=== PATIENT | female | born 1955 | race Caucasian/White ===

== ENCOUNTER → 2018-03-17 12:54 | Outpatient (CLI) | payer MEDICARE, SELFPAY | PROVIDERS: Family Provider Student in an Organized Health Care Education/Training Program; PCP Student in an Organized Health Care Education/Training Program; Referring Provider Internal Medicine Cardiovascular Disease; Visit Provider Internal Medicine Cardiovascular Disease | DX: I25.10 Atherosclerotic heart disease of native coronary artery without angina pectoris (principal); I10 Essential (primary) hypertension | CPT/HCPCS: 36415 ==

== ENCOUNTER → 2018-04-06 12:23 | Outpatient (CLI) | payer MEDICARE, SELFPAY ==
--- OUTSIDE RECORDS SUMMARY | 2018-06-08 16:05 | XMS RPT_ITS ---
:1955 Author Organization OHIP Care Team Providers Name Role Phone ZANDER OSBORN Attending Unavailable OSBORN, ZANDER Julianne Referring Unavailable OSBORN, ZANDER L Referring Unavailable OSBORN, ZANDER L Attending Unavailable OSBORN, ZANDER L Referring Unavailable OSBORN, ZANDER L Referring Unavailable OSBORN, ZANDER L Referring Unavailable OSBORN, ZANDER L Referring Unavailable OSBORN, ZANDER L Referring Unavailable OSBORN, ZADNER L Referring Unavailable OSBORN, ZANDER L Attending Unavailable OSBORN, ZANDER L Referring Unavailable OSBORN, ZANDER L Attending Unavailable OSBORN, ZANDER L Referring Unavailable OSBORN, ZANDER L Referring Unavailable OSBORN, ZANDER L Referring Unavailable YRN SEGOVIA Attending Unavailable YRN SEGOVIA Referring Unavailable YINA CALVILLO ([facility]) Attending Unavailable ZANDER OSBORN Referring Unavailable FRANCOISE PAULSON MD Admitting Unavailable FRANCOISE PAULSON MD Attending Unavailable OSBORN, ZANDER DO Referring Unavailable FRANCOISE PAULSON MD Primary Care Unavailable OSBORN, ZANDER DO Consulting Unavailable PROVIDER, UNKNOWN Consulting Unavailable DR GABRIEL LACY Admitting Unavailable BAMBI, DR GABRIEL Marin Attending Unavailable DR GABRIEL LACY Primary Care Unavailable OSBORN, ZANDER DO Consulting Unavailable PROVIDER, UNKNOWN Consulting Unavailable Yrn Segovia Attending Unavailable Yrn Segovia Referring Unavailable Osborn, Zander Primary Care Unavailable Yrn Segovia Attending Unavailable EstebanYrn Referring Unavailable Osborn, Zander Primary Care Unavailable Osborn, Zander Primary Care Unavailable Ashelfah, Ghasem Admitting Unavailable Ashelfah, Ghasem Referring Unavailable Sahil Ford Attending Unavailable Ashelfah, Ghasem Admitting Unavailable MARIA ESTHER Stringer Attending Unavailable Ashelfah, Ghasem Referring Unavailable Osborn, Zander Primary Care Unavailable Ashelfah, Ghasem Consulting Unavailable Ashelfah, Ghasem Admitting Unavailable Sahil Ford Attending Unavailable Ashelfah, Ghasem Referring Unavailable Osborn, Zander Primary Care Unavailable Sahil Ford Consulting Unavailable PROBLEMS PROBLEMS DATE TYPE CONDITION / CODE ATTENDING STATUS SOURCE 04/08/2018 Unknown I25.10 - Yrn Segovia Active [place] Atherosclerotic heart [facility] disease [facility] coronary artery Repository without angina pectoris / I25.10(ICD-10) 04/08/2018 Unknown I10 - Essential Yrn Segovia Active [place] (primary) Community hypertension / Hospital I10(ICD-10) Repository 03/17/2018 Active Atherosclerotic heart NA Active [place] disease of [facility] Main coronary artery [place] without angina Repository pectoris / I25.10(ICD-10) 01/19/2018 Active Palpitations / NA Active [place] R00.2(ICD-10) Clinic Main [place] Repository 01/19/2018 Active Nonrheumatic aortic NA Active [place] (valve) stenosis / Clinic Main I35.0(ICD-10) [place] Repository 01/13/2018 Active Type 2 diabetes NA Active [place] mellitus with Clinic Main hyperglycemia / [place] E11.65(ICD-10) Repository 06/08/2013 Active Tobacco use / NA Active [place] Z72.0(ICD-10) Clinic Main [place] Repository 09/15/2017 Active Other specified soft NA Active [place] tissue disorders / Clinic Main M79.89(ICD-10) [place] Repository 09/15/2017 Active Other skin changes / NA Active [place] R23.8(ICD-10) Clinic Main [place] Repository 06/08/2013 Active Pure NA Active [place] hypercholesterolemia, Clinic Main unspecified / [place] E78.00(ICD-10) Repository 07/13/2017 Active Cough / R05(ICD-10) NA Active [facility] Main [place] Repository 07/29/2016 Active Vitamin D deficiency, NA Active [place] unspecified / Clinic Main E55.9(ICD-10) [place] Repository 09/05/2015 Active Essential (primary) NA Active [place] hypertension / Clinic Main I10(ICD-10) [place] Repository 04/14/2017 Active 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 Clinic Main therapy / [place] Z79.899(ICD-10) Repository 04/14/2017 Active Type 2 diabetes NA Active [place] mellitus with Clinic Main hyperosmolarity [place] without nonketotic Repository hyperglycemic-hyperos molar coma ([facility]) / E11.00(ICD-10) PROCEDURES PROCEDURES No Procedure Records FoundRESULTS RESULTS CNOV Observed: 04/09/2018 Status: COMPLETED Source: [place] 11:00 AM [facility] REPOSITORY Office Visit (FAMPWS) JOSETTE NELSON ([id number]) 1955 F TXT Date Time Provider Department 04/09/18 11:00 AM YINA CALVILLO ([facility]) FAMPWS During your visit today, we recorded the following information about you: Pulse Respiration Blood pressure Weight 72/minute 16/minute 138/82 81.6 kg Yina Calvillo APRN.CNP 04/09/2018 10:33 AM Signed HPI/CC: Josette Julianne Rayr is a 62 year old female who presents to the office today for [facility] hospital follow-up for atypical CP 04/06-1/23. Presented to ER for CP x 4 days. Pain radiated to left shoulder. + Hx of CAD with stent 2017, HLP, HTN, GERD and COPD. CXr was negative, enzymes negative, ECG SR, CBC and CMP normal. Stress test normal. Follows with Dr. House. BP was elevated on DC. Provider thought d/t coreg being on hold for stress test. Currently continues to have pain to left trap, + non-productive cough, increased GERD symptoms Denies SOB, fevers, chills, new edema, palpitations. Blood glucose levels higher in hospital, today 131. Not checking BP at home. REVIEW OF SYSTEMS as above HISTORIES: PAST MEDICAL HISTORY Diagnosis Date - ASCUS of cervix with negative high risk HPV 12/2015 REPEAT PAP DEC 2016 - Cholelithiasis 05/2013 - COPD (chronic obstructive pulmonary disease) (HCC) 05/2013 - Diabetes mellitus type 2, uncontrolled (HCC) 05/2013 - Elevated LFTs 04/2013 - Fatty liver 05/2013 - Hypercholesteremia 04/2013 - Migraine headache - Mild aortic regurgitation 08/2015 - Tobacco abuse PAST SURGICAL HISTORY Procedure Laterality Date - APPENDECTOMY remote - COLONOSCOP W/ OR W/O BRSH SPEC 09/13/15 Colonoscopy mac - EGD W/O OR W/BRUSH/WASH 09/13/15 EGD mac - EGD W/O OR W/BRUSH/WASH 01/30/16 EGD mac - LAP VAG HYST <=250 G RMV T/O 09/09/13 LAVH/BSO for AIS and ZEN III of cervix - TUBAL LIGATION, age 22 FAMILY HISTORY Problem Relation Age of Onset - other (pancreatic cancer [Other]) Mother - Heart Father 62 smoker - Stroke Father 45 smoker - other (chf [Other]) Mother - Diabetes Mother Social History Marital status: Spouse name: Years of education: Number of children: 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 buPROPion (WELLBUTRIN) 100 mg tablet TAKE 1 TABLET BY MOUTH IN THE MORNING AND 2 TABLETS IN THE EVENING OR BEDTIME carvedilol (COREG) 3.125 mg tablet Take 1 tablet by mouth twice daily with meals. metFORMIN (GLUCOPHAGE) 500 mg tablet TAKE TWO TABLETS BY MOUTH TWICE DAILY WITH MEALS atorvastatin (LIPITOR) 40 mg tablet Take 1 tablet by mouth once daily. lisinopril (ZESTRIL, PRINIVIL) 10 mg tablet Take 1 tablet by mouth once daily. clopidogrel (PLAVIX) 75 mg tablet Take 1 tablet by mouth once daily. TRULICITY 0.75 mg/0.5 mL pnij INJECT 0.75 MG SUBCUTANEOUSLY ONCE EACH WEEK. DISCARD PEN AFTER budesonide-formoterol (SYMBICORT) 80-4.5 mcg/actuation inhaler Inhale 2 Puffs as instructed twice daily. blood sugar diagnostic (PRODIGY NO CODING) test strip Test blood sugars 3 x daily. DX: E11.9 Insulin: No, Unstable blood glucose docusate sodium (DOC-Q-LACE) 100 mg capsule TAKE ONE CAPSULE BY MOUTH TWICE DAILY NEEDED FOR CONSTIPATION. ergocalciferol, vitamin D2, (VITAMIN D) 50,000 unit capsule Take 1 capsule by mouth once each week. methylPREDNISolone (MEDROL DOSE-PACK) 4 mg Dose-Pack As Instructed per package (Patient not taking: Reported on 03/02/2018 ) albuterol HFA (VENTOLIN HFA) 90 mcg/actuation inhaler Inhale 2 Puffs as instructed every 4 hours as needed for Wheezing/Shortness of Breath. nitroglycerin sublingual (NITROQUICK) 0.4 mg SL tablet Dissolve 1 tablet under the tongue every 5 minutes as needed for Chest Pain. nicotine (NICODERM CQ) 7 mg/24 hr Apply 1 Patch as directed every 24 hours. ibuprofen (MOTRIN) 800 mg tablet Take 1 tablet by mouth every 8 hours as needed for Pain. Take with food. Lancets lancets Test blood sugar(s) 3 times daily. Dx: DM2 uncontrolled. Insulin: No aspirin, enteric coated (ADULT LOW DOSE ASPIRIN) 81 mg EC tablet Take 1 tablet by mouth once daily. Heating Pads pads 1 Device as needed. No current facility-administered medications on file prior to visit. ALLERGIES Allergen Reactions - Chocolate Vomiting Dark chocolate - Lodine [Etodolac] Swelling PHYSICAL EXAMINATION: BP 138/82 Pulse 72 Resp 16 Wt 81.6 kg (180 lb) BMI 32.92 kg/m? General appearance: Well appearing, alert, in no acute distress, well-hydrated, well nourished. Skin: Skin color, texture, turgor normal, no suspicious rashes or lesions Head: Normocephalic, no masses, lesions, tenderness or abnormalities Back: positive findings: paraspinal muscle spasm Lungs: Lungs clear to auscultation. No wheezing, rhonchi, rales Heart: RRR without murmur, gallop, or rubs. No ectopy ASSESSMENT/PLAN: 1. Upper back pain - ICD9: 724.5, ICD10: M54.9 (primary diagnosis) 2. Muscle spasm - ICD9: 728.85, ICD10: M62.838 - CYCLOBENZAPRINE 10 MG TABLET - f/u PRN Yina Calvillo APRN.TRADING FLOOR OPERATOR Referring Provider: ZANDER OSBORN [[id number]] Allergies As of Date: 04/09/2018 Noted Allergy Reaction CHOCOLATE 05/23/2013 11 - Vomiting Comments: Dark chocolate LODINE (ETODOLAC) 05/23/2013 7 - Swelling Date Reviewed: 04/09/2018 Reviewed by: Keith Jacques LPN - Fully Assessed Reason for Visit: Hospital F/U [57] Cmt: LAST petty'vanesa 04/06-04/07 dx: chest pain Primary Visit Diagnosis:Upper back pain [M54.9] Other Visit Diagnosis:Muscle spasm [M62.838] Order(s):cyclobenzaprine (FLEXERIL) 10 mg tabletTake 1 tablet by mouth twice daily as needed for Muscle Spasm.Disp: 60 tabletRfl: 0 Prescriptions as of 04/09/2018 Sig: NEXIUM 40 MG CAPSULE,DELAYED * Take 1 capsule by mouth twice* BUPROPION HCL 100 MG TABLET TAKE 1 TABLET BY MOUTH IN THE* CARVEDILOL 3.125 MG TABLET Take 1 tablet by mouth twice * METFORMIN 500 MG TABLET TAKE TWO TABLETS BY MOUTH TWI* ATORVASTATIN 40 MG TABLET Take 1 tablet by mouth once d* LISINOPRIL 10 MG TABLET Take 1 tablet by mouth once d* CLOPIDOGREL 75 MG TABLET Take 1 tablet by mouth once d* TRULICITY 0.75 MG/0.5 ML SUBC* INJECT 0.75 MG SUBCUTANEOUSLY* BUDESONIDE-FORMOTEROL HFA 80 * Inhale 2 Puffs as instructed * BLOOD SUGAR DIAGNOSTIC STRIPS Test blood sugars 3 x daily. * DOCUSATE SODIUM 100 MG CAPSULE TAKE ONE CAPSULE BY MOUTH TWI* ERGOCALCIFEROL (VITAMIN D2) 5* Take 1 capsule by mouth once * ALBUTEROL SULFATE HFA 90 MCG/* Inhale 2 Puffs as instructed * NITROGLYCERIN 0.4 MG SUBLINGU* Dissolve 1 tablet under the t* NICOTINE 7 MG/24 HR DAILY TRA* Apply 1 Patch as directed viry* IBUPROFEN 800 MG TABLET Take 1 tablet by mouth every * LANCETS Test blood sugar(s) 3 times d* ASPIRIN 81 MG TABLET,DELAYED * Take 1 tablet by mouth once d* HEATING PADS 1 Device as needed. CYCLOBENZAPRINE 10 MG TABLET Take 1 tablet by mouth twice * Problem List As Of Date 04/09/2018 Noted Resolved Elevated liver enzymes [R74.8] INVALID FOR* Hypercholesteremia [E78.00] INVALID FOR* Elevated fasting glucose [R73.01] INVALID FOR* Neck pain, chronic [M54.2, G89.29] INVALID FOR* Tobacco abuse [Z72.0] INVALID FOR* Obesity [E66.9] INVALID FOR* Claudication of lower extremity [I73.9] INVALID FOR* Diabetes mellitus type 2, uncontrolled [E11.65] INVALID FOR* Cholelithiases [K80.20] INVALID FOR* Adenocarcinoma in situ (AIS) of uterine cervix *INVALID FOR* Major depressive disorder, recurrent episode (H*INVALID FOR* Essential hypertension [I10] INVALID FOR* Pulmonary emphysema (HCC) [J43.9] INVALID FOR* Gastroesophageal reflux disease [K21.9] INVALID FOR*09/13/2015 Positive occult stool blood test [R19.5] INVALID FOR*09/13/2015 Family history of ischemic heart disease [Z82.4*INVALID FOR* Aortic valve sclerosis [I35.8] INVALID FOR* Irritable esophagus [K22.9] INVALID FOR*01/30/2016 COPD with chronic bronchitis (HCC) [J44.9] INVALID FOR* Episode of recurrent major depressive disorder *INVALID FOR* Tobacco use disorder [F17.200] INVALID FOR* Memory deficit [R41.3] INVALID FOR* Mixed stress and urge urinary incontinence [N39*INVALID FOR* Vitamin D deficiency [E55.9] INVALID FOR* Short-term memory loss [R41.3] INVALID FOR* Fatigue [R53.83] INVALID FOR* PND (paroxysmal nocturnal dyspnea) [R06.00] INVALID FOR* Snoring [R06.83] INVALID FOR* H/O right coronary artery stent placement [Z95.*INVALID FOR* Coronary artery disease involving shoalwater [place]*INVALID FOR* Dysuria [R30.0] INVALID FOR* Obesity, Class I, BMI 30-34.9 [E66.9] INVALID FOR* Major depression, recurrent, chronic (HCC) [F33*INVALID FOR* Bilateral leg edema [R60.0] INVALID FOR* OAB (overactive bladder) [N32.81] INVALID FOR* Urinary frequency [R35.0] INVALID FOR* Controlled type 2 diabetes mellitus without com*INVALID FOR* Aortic stenosis, mild [I35.0] INVALID FOR* Palpitations [R00.2] INVALID FOR* Mucopurulent chronic bronchitis (HCC) [J41.1] INVALID FOR* Prescriptions ordered this encounter Disp Refills Start End CYCLOBENZAPRINE 10 MG TABLET 60 t* 0 04/09/2018 Route: ORAL Sig: Take 1 tablet by mouth twice daily as needed for Muscle Spasm. Medications Discontinued During This Encounter methylPREDNISolone (MEDROL DOSE-PACK* 1 Pa* 0 07/13/2017 04/09/2018 Sig: As Instructed per package Patient not taking: Reported on 03/02/2018 Disc: Reason for discontinue is not on file. Encounter Status:Closed by YINA CALVILLO CNP on 04/09/18 PROGRESS Observed: 04/09/2018 Status: COMPLETED Source: [place] 10:11 AM [facility] REPOSITORY HNO ID: [id number] Author: Yina Whitaker (Liliam) Karli Service: (none) Author Type: Nurse Practitioner Type: Progress Notes Filed: 04/09/2018 10:33 AM Note Text: HPI/CC: Josette Nelson is a 62 year old female who presents to the office today for [facility] hospital follow-up for atypical CP 04/06-04/07. Presented to ER for CP x 4 days. Pain radiated to left shoulder. + Hx of CAD with stent 2017, HLP, HTN, GERD and COPD. CXr was negative, enzymes negative, ECG SR, CBC and CMP normal. Stress test normal. Follows with Dr. House. BP was elevated on DC. Provider thought d/t coreg being on hold for stress test. Currently continues to have pain to left trap, + non-productive cough, increased GERD symptoms Denies SOB, fevers, chills, new edema, palpitations. Blood glucose levels higher in hospital, today 131. Not checking BP at home. REVIEW OF SYSTEMS as above HISTORIES: PAST MEDICAL HISTORY Diagnosis Date - ASCUS of cervix with negative high risk HPV 12/2015 REPEAT PAP DEC 2016 - Cholelithiasis 05/2013 - COPD (chronic obstructive pulmonary disease) (HCC) 05/2013 - Diabetes mellitus type 2, uncontrolled (HCC) 05/2013 - Elevated LFTs 04/2013 - Fatty liver 05/2013 - Hypercholesteremia 04/2013 - Migraine headache - Mild aortic regurgitation 08/2015 - Tobacco abuse PAST SURGICAL HISTORY Procedure Laterality Date - APPENDECTOMY remote - COLONOSCOP W/ OR W/O BRSH SPEC 09/13/15 Colonoscopy mac - EGD W/O OR W/BRUSH/WASH 09/13/15 EGD mac - EGD W/O OR W/BRUSH/WASH 01/30/16 EGD mac - LAP VAG HYST <=250 G RMV T/O 09/09/13 LAVH/BSO for AIS and ZEN III of cervix - TUBAL LIGATION, age 22 FAMILY HISTORY Problem Relation Age of Onset - other (pancreatic cancer [Other]) Mother - Heart Father 62 smoker - Stroke Father 45 smoker - other (chf [Other]) Mother - Diabetes Mother Social History Marital status: Spouse name: Years of education: Number of children: 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 buPROPion (WELLBUTRIN) 100 mg tablet TAKE 1 TABLET BY MOUTH IN THE MORNING AND 2 TABLETS IN THE EVENING OR BEDTIME carvedilol (COREG) 3.125 mg tablet Take 1 tablet by mouth twice daily with meals. metFORMIN (GLUCOPHAGE) 500 mg tablet TAKE TWO TABLETS BY MOUTH TWICE DAILY WITH MEALS atorvastatin (LIPITOR) 40 mg tablet Take 1 tablet by mouth once daily. lisinopril (ZESTRIL, PRINIVIL) 10 mg tablet Take 1 tablet by mouth once daily. clopidogrel (PLAVIX) 75 mg tablet Take 1 tablet by mouth once daily. TRULICITY 0.75 mg/0.5 mL pnij INJECT 0.75 MG SUBCUTANEOUSLY ONCE EACH WEEK. DISCARD PEN AFTER budesonide-formoterol (SYMBICORT) 80-4.5 mcg/actuation inhaler Inhale 2 Puffs as instructed twice daily. blood sugar diagnostic (Co-Work NO CODING) test strip Test blood sugars 3 x daily. DX: E11.9 Insulin: No, Unstable blood glucose docusate sodium (DOC-Q-LACE) 100 mg capsule TAKE ONE CAPSULE BY MOUTH TWICE DAILY NEEDED FOR CONSTIPATION. ergocalciferol, vitamin D2, (VITAMIN D) 50,000 unit capsule Take 1 capsule by mouth once each week. methylPREDNISolone (MEDROL DOSE-PACK) 4 mg Dose-Pack As Instructed per package (Patient not taking: Reported on 03/02/2018 ) albuterol HFA (VENTOLIN HFA) 90 mcg/actuation inhaler Inhale 2 Puffs as instructed every 4 hours as needed for Wheezing/Shortness of Breath. nitroglycerin sublingual (NITROQUICK) 0.4 mg SL tablet Dissolve 1 tablet under the tongue every 5 minutes as needed for Chest Pain. nicotine (NICODERM CQ) 7 mg/24 hr Apply 1 Patch as directed every 24 hours. ibuprofen (MOTRIN) 800 mg tablet Take 1 tablet by mouth every 8 hours as needed for Pain. Take with food. Lancets lancets Test blood sugar(s) 3 times daily. Dx: DM2 uncontrolled. Insulin: No aspirin, enteric coated (ADULT LOW DOSE ASPIRIN) 81 mg EC tablet Take 1 tablet by mouth once daily. Heating Pads pads 1 Device as needed. No current facility-administered medications on file prior to visit. ALLERGIES Allergen Reactions - Chocolate Vomiting Dark chocolate - Lodine [Etodolac] Swelling PHYSICAL EXAMINATION: BP 138/82 Pulse 72 Resp 16 Wt 81.6 kg (180 lb) BMI 32.92 kg/m? General appearance: Well appearing, alert, in no acute distress, well-hydrated, well nourished. Skin: Skin color, texture, turgor normal, no suspicious rashes or lesions Head: Normocephalic, no masses, lesions, tenderness or abnormalities Back: positive findings: paraspinal muscle spasm Lungs: Lungs clear to auscultation. No wheezing, rhonchi, rales Heart: RRR without murmur, gallop, or rubs. No ectopy ASSESSMENT/PLAN: 1. Upper back pain - ICD9: 724.5, ICD10: M54.9 (primary diagnosis) 2. Muscle spasm - ICD9: 728.85, ICD10: M62.838 - CYCLOBENZAPRINE 10 MG TABLET - f/u PRN Yina Calvillo APRN.TRADING FLOOR OPERATOR OBSOLETFaviola Observed: 04/08/2018 Status: COMPLETED Source: [place] 12:00 AM [facility] REPOSITORY [facility] JOSETTE NELSON ([id number]) 1955 F TXT Date Time Provider Department 04/08/18 ZANDER OSBORN [facility] During your visit today, we recorded the following information about you: Tamela Roque Psr 04/08/2018 10:54 AM Signed Patient has been identified by name and date of : Yes Pending Prescriptions Disp Refills ESOMEPRAZOLE MAGNESIUM 40 MG CAPSULE,DELAYED RELEASE 0 Sig: Take 1 capsule by mouth twice daily before meals. HOLDEN: No BUPROPION HCL 100 MG TABLET 270 tablet 1 Sig: TAKE 1 TABLET BY MOUTH IN THE MORNING AND 2 TABLETS IN THE EVENING OR BEDTIME HOLDEN: No CARVEDILOL 3.125 MG TABLET 180 tablet 0 Sig: Take 1 tablet by mouth twice daily with meals. HOLDEN: No METFORMIN 500 MG TABLET 360 tablet 1 Sig: TAKE TWO TABLETS BY MOUTH TWICE DAILY WITH MEALS HOLDEN: No ATORVASTATIN 40 MG TABLET tablet Sig: Take 1 tablet by mouth once daily. HOLDEN: No Patient stated that she can only get the brand name of the Nexium. Patient is completely out of the Nexium RX INSTRUCTIONS: Patient is requesting to get her refills for 90 days at a time. The scripts for the Bupropion, Carvedilol and Metformin were sent to the wrong pharmacy. Patient uses the [facility] in [place] and this has been updated in her chart. Patient aware RX will be sent to pharmacy. No need to notify patient. Thank you, Tamela Nevarez Psr Allergies As of Date: 04/08/2018 Noted Allergy Reaction CHOCOLATE 05/23/2013 11 - Vomiting Comments: Dark chocolate LODINE (ETODOLAC) 05/23/2013 7 - Swelling Date Reviewed: 03/02/2018 Reviewed by: Lulu King MA - Fully Assessed Reason for Visit: Refill Request [94] Visit Diagnosis:Coronary artery disease involving shoalwater coronary artery of shoalwater heart without angina pectoris [I25.10] Order(s):NEXIUM 40 mg capsuleTake 1 capsule by mouth twice daily before meals.Disp: 180 capsuleRfl: 1 buPROPion (WELLBUTRIN) 100 mg tabletTAKE 1 TABLET BY MOUTH IN THE MORNING AND 2 TABLETS IN THE EVENING OR BEDTIMEDisp: 270 tabletRfl: 1 carvedilol (COREG) 3.125 mg tabletTake 1 tablet by mouth twice daily with meals.Disp: 180 tabletRfl: 1 metFORMIN (GLUCOPHAGE) 500 mg tabletTAKE TWO TABLETS BY MOUTH TWICE DAILY WITH MEALSDisp: 360 tabletRfl: 1 atorvastatin (LIPITOR) 40 mg tabletTake 1 tablet by mouth once daily.Disp: 90 tabletRfl: 1 Prescriptions as of 04/08/2018 Sig: NEXIUM 40 MG CAPSULE,DELAYED * Take 1 capsule by mouth twice* BUPROPION HCL 100 MG TABLET TAKE 1 TABLET BY MOUTH IN THE* CARVEDILOL 3.125 MG TABLET Take 1 tablet by mouth twice * METFORMIN 500 MG TABLET TAKE TWO TABLETS BY MOUTH TWI* ATORVASTATIN 40 MG TABLET Take 1 tablet by mouth once d* LISINOPRIL 10 MG TABLET Take 1 tablet by mouth once d* CLOPIDOGREL 75 MG TABLET Take 1 tablet by mouth once d* TRULICITY 0.75 MG/0.5 ML SUBC* INJECT 0.75 MG SUBCUTANEOUSLY* BUDESONIDE-FORMOTEROL HFA 80 * Inhale 2 Puffs as instructed * BLOOD SUGAR DIAGNOSTIC STRIPS Test blood sugars 3 x daily. * DOCUSATE SODIUM 100 MG CAPSULE TAKE ONE CAPSULE BY MOUTH TWI* ERGOCALCIFEROL (VITAMIN D2) 5* Take 1 capsule by mouth once * METHYLPREDNISOLONE 4 MG TABLE* As Instructed per package Patient not taking: Reported on 03/02/2018 ALBUTEROL SULFATE HFA 90 MCG/* Inhale 2 Puffs as instructed * NITROGLYCERIN 0.4 MG SUBLINGU* Dissolve 1 tablet under the t* NICOTINE 7 MG/24 HR DAILY TRA* Apply 1 Patch as directed viry* IBUPROFEN 800 MG TABLET Take 1 tablet by mouth every * LANCETS Test blood sugar(s) 3 times d* ASPIRIN 81 MG TABLET,DELAYED * Take 1 tablet by mouth once d* HEATING PADS 1 Device as needed. Problem List As Of Date 04/08/2018 Noted Resolved Elevated liver enzymes [R74.8] INVALID FOR* Hypercholesteremia [E78.00] INVALID FOR* Elevated fasting glucose [R73.01] INVALID FOR* Neck pain, chronic [M54.2, G89.29] INVALID FOR* Tobacco abuse [Z72.0] INVALID FOR* Obesity [E66.9] INVALID FOR* Claudication of lower extremity [I73.9] INVALID FOR* Diabetes mellitus type 2, uncontrolled [E11.65] INVALID FOR* Cholelithiases [K80.20] INVALID FOR* Adenocarcinoma in situ (AIS) of uterine cervix *INVALID FOR* Major depressive disorder, recurrent episode (H*INVALID FOR* Essential hypertension [I10] INVALID FOR* Pulmonary emphysema (HCC) [J43.9] INVALID FOR* Gastroesophageal reflux disease [K21.9] INVALID FOR*09/13/2015 Positive occult stool blood test [R19.5] INVALID FOR*09/13/2015 Family history of ischemic heart disease [Z82.4*INVALID FOR* Aortic valve sclerosis [I35.8] INVALID FOR* Irritable esophagus [K22.9] INVALID FOR*01/30/2016 COPD with chronic bronchitis (HCC) [J44.9] INVALID FOR* Episode of recurrent major depressive disorder *INVALID FOR* Tobacco use disorder [F17.200] INVALID FOR* Memory deficit [R41.3] INVALID FOR* Mixed stress and urge urinary incontinence [N39*INVALID FOR* Vitamin D deficiency [E55.9] INVALID FOR* Short-term memory loss [R41.3] INVALID FOR* Fatigue [R53.83] INVALID FOR* PND (paroxysmal nocturnal dyspnea) [R06.00] INVALID FOR* Snoring [R06.83] INVALID FOR* H/O right coronary artery stent placement [Z95.*INVALID FOR* Coronary artery disease involving shoalwater machado*INVALID FOR* Dysuria [R30.0] INVALID FOR* Obesity, Class I, BMI 30-34.9 [E66.9] INVALID FOR* Major depression, recurrent, chronic (HCC) [F33*INVALID FOR* Bilateral leg edema [R60.0] INVALID FOR* OAB (overactive bladder) [N32.81] INVALID FOR* Urinary frequency [R35.0] INVALID FOR* Controlled type 2 diabetes mellitus without com*INVALID FOR* Aortic stenosis, mild [I35.0] INVALID FOR* Palpitations [R00.2] INVALID FOR* Mucopurulent chronic bronchitis (HCC) [J41.1] INVALID FOR* Prescriptions ordered this encounter Disp Refills Start End NEXIUM 40 MG CAPSULE,DELAYED RELEASE 180 * 1 04/08/2018 Route: ORAL Sig: Take 1 capsule by mouth twice daily before meals. BUPROPION HCL 100 MG TABLET 270 * 1 04/08/2018 Sig: TAKE 1 TABLET BY MOUTH IN THE MORNING AND 2 TABLETS IN THE EVENING OR BEDTIME CARVEDILOL 3.125 MG TABLET 180 * 1 04/08/2018 Route: ORAL Sig: Take 1 tablet by mouth twice daily with meals. METFORMIN 500 MG TABLET 360 * 1 04/08/2018 Sig: TAKE TWO TABLETS BY MOUTH TWICE DAILY WITH MEALS ATORVASTATIN 40 MG TABLET 90 t* 04/08/2018 Route: ORAL Sig: Take 1 tablet by mouth once daily. Medications Discontinued During This Encounter esomeprazole (NEXIUM) 40 mg capsule 60 c* 5 09/11/2017 04/08/2018 Route: ORAL Sig: Take 1 capsule by mouth twice daily before meals. Disc: Reason for discontinue is not on file. buPROPion (WELLBUTRIN) 100 mg tablet 270 * 1 03/17/2018 04/08/2018 Sig: TAKE 1 TABLET BY MOUTH IN THE MORNING AND 2 TABLETS IN THE EVENING OR BEDTIME Disc: Reason for discontinue is not on file. carvedilol (COREG) 3.125 mg tablet 180 * 0 03/17/2018 04/08/2018 Route: ORAL Sig: Take 1 tablet by mouth twice daily with meals. Disc: Reason for discontinue is not on file. metFORMIN (GLUCOPHAGE) 500 mg tablet 360 * 1 03/17/2018 04/08/2018 Sig: TAKE TWO TABLETS BY MOUTH TWICE DAILY WITH MEALS Disc: Reason for discontinue is not on file. atorvastatin (LIPITOR) 40 mg tablet 30 t* 3 12/22/2017 04/08/2018 Route: ORAL Sig: Take 1 tablet by mouth once daily. Disc: Reason for discontinue is not on file. Encounter Status:Closed by YINA CALVILLO CNP on 04/08/18 DISCHARGE SUMMARY Observed: 04/07/2018 Status: F Source: [place] 12:34 PM [facility] REPOSITORY [facility] Medical Records Department [address] [place] [address] [place] [address] Discharge Summary 04/07/18 1228 MR#: [id number] Acct: [id number] Name: OMARJOSETTE ALEXANDER Julianne Rep #: [id number] : 1955 62 From: Sahil Ford MD PCP: Zander Rosenbaum DO Status: ADM HIRAM Y Location: [place] [address] Discharge Date and Diagnosis Date of Admission: 04/06/18 Date of Discharge: 04/07/18 - Secondary Discharge Diagnosis Chronic Problems CAD (coronary artery disease) (Chronic) HLD (hyperlipidemia) (Chronic) HTN (hypertension) (Chronic) Type 2 diabetes mellitus (Chronic) GERD (gastroesophageal reflux disease) (Chronic) COPD (chronic obstructive pulmonary disease) (Chronic) Hospital Course and Treatment Imaging Results: 04/07/18 05:55 Nuclear Stress Test - Chemical [NM] AM (NON MEDS) Consults: None Operations: None Procedures: Stress test - Perfusion SPECT analysis: Review of the stress images demonstrate normal uptake of tracer noted in all areas of myocardium. The resting images similarly demonstrate normal uptake of tracer noted in all areas of the myocardium. No areas of reversibility are noted suggest ischemia. Gated SPECT analysis: The gated ejection fraction is noted to be 78%. Conclusion: Normal pharmacologic myocardial perfusion stress test. Preserved ejection fraction. Summary of Care Provided: Per HPI: The patient is a 62 year old F who presents emergency room due to chest pain. Patient states 4 days ago she developed pain on the back of her left shoulder which was initially sharp in nature and then developed into a soreness. She states today the pain wrapped around the left side of her ribs to her left chest area. She reports an intermittent shocklike pain in the left chest area which occurs approximately every 5 minutes and last only a few seconds at a time. Not associated with exertion. She denies associated shortness of breath, dizziness, lightheadedness, diaphoresis. She reports she had bronchitis a week ago which has since resolved. Patient has a history of CAD status post stent X1 November 2016 at [facility], hypertension, hyperlipidemia, type 2 diabetes mellitus, tobacco dependence, GERD, COPD. She currently follows with Dr. Segovia, [facility] cardiology. Hospital Course: 1. Chest pain rule out/CAD status post PCI to RCA in November 2016/HTN/TWX-66-dd[age]-old female who presented for chest pain that had started about 4 days ago. She states that it was in her left chest and initially started in her shoulder blade and moved around to the front. She states that for the last couple weeks she has been having a bronchitis and coughing, and her coughing picked up over the last couple of days. Troponins were negative x3 on admission, her EKG was nonischemic, and on exam palpation of her left anterior chest wall reproduced her chest pain. Nuclear stress test today was performed and was negative for any signs of ischemia. She will be discharged home on her home medications of Plavix, Lipitor, lisinopril and Coreg. Of note her blood pressure was a little elevated today into the 170s though I believe that is due to the fact that her Coreg was held prior to the stress test being performed. She will need to follow-up with her primary care doctor in 3-5 days after discharge would need to make adjustments accordingly. 2. Her other medical diagnoses were evaluated and her home medications were continued where appropriate - Physical Exam Vital Signs Temp Pulse Resp BP Pulse Ox 98.6 F 87 16 173/80 H 94 04/07/18 11:37 04/07/18 11:50 04/07/18 11:37 04/07/18 11:50 04/07/18 11:37 Oxygen Delivery Method Room Air Weight: 177 lb 14.609 oz Body Mass Index (BMI) 32.5 Finger Stick Blood Glucose 158 Intake and Output for Last 24 Hours Intake Total 720 / 720 240 / 240 Balance 720 / 720 240 / 240 Laboratory Tests Past 24 Hrs WBC 8.7 RBC 4.61 Hgb 13.0 Hct 40.8 MCV 88.5 MCH 28.2 MCHC 31.9 L RDW 14.1 RDW Differential 45.4 H WBC RBC Hgb Hct MCV MCH MCHC RDW RDW Differential Plt Count MPV Immature Gran % (Auto) Neut % (Auto) Lymph % (Auto) [place] % (Auto) Eos % (Auto) POC Glucose POC Glucose 117 H 141 H 74 Discharge Activity: Return to Normal Activity Call your doctor if you observe: Shortness of breath, Dizziness, Fainting spells, Chest pain, Increased palpitations (irregular heartbeat) Home Medications: Medications to take at Discharge Albuterol Inhaler [Ventolin Hfa] 1 - 2 puff INHALATION Q4H PRN PRN 08/26/13 Lisinopril [Zestril] 10 mg PO QHS 08/26/13 Metformin HCl [Glucophage] 1,000 mg PO BID 08/26/13 Budesonide/Formoterol 160/4.5 [Symbicort 160/4.5 Mcg Inhaler (SP)] 2 puff INHALATION BID 12/08/15 Docusate Sodium [Colace] 100 mg PO BID PRN PRN 12/08/15 Esomeprazole Mag Trihydrate [Nexium] 40 mg PO BID 12/08/15 Atorvastatin Calcium [Lipitor] 40 mg PO QHS 04/06/18 Carvedilol 1 tab PO BID 04/06/18 Clopidogrel Bisulfate [Clopidogrel] 75 mg PO DAILY 04/06/18 Dulaglutide [Trulicity] 0.75 ng PO TU 04/06/18 Ergocalciferol [Vitamin D] 50,000 unit PO TH 04/06/18 buPROPion tablets [Wellbutrin tablets] 100 mg PO BREAKFAST 04/06/18 buPROPion tablets [Wellbutrin tablets] 200 mg PO QHS 04/06/18 Primary Care Physician: Zander Osborn DO [Primary Care Provider] - Please follow up with your Primary Care Physician in: 3-5 DAYS Disposition: Home Minutes spent on discharge:: 35 Patient Condition:: Good Medical Necessity - Tobacco Use Smoking Status: Current every day smoker Tobacco Use: Cigarettes Meaningful Use Info Meaningful Use Diagnoses (Choose all that apply): None applicable Code Visit OBSDamaris MOORE M: [id number] Observation care discharge 04/07/18 1234 <Electronically signed by Sahil Ford MD> Date Sahil Ford MD Cosigner Signature (if applicable): Date CC: Zander Rosenbaum DO; Sahil Ford MD Signed DISCHARGE INSTRUCTION Observed: 04/07/2018 Status: F Source: [place] 12:27 PM [facility] REPOSITORY [facility] Medical Records Department [address] [place] [address] Instructions for Home/Discharge Instructions 04/07/18 1223 MR#: [id number] Acct: [id number] Name: JOSETTE NELSON Rep #: [id number] : 1955 62 From: Sahil Ford MD PCP: Zander Rosenbaum DO Status: ADM HIRAM - Discharge Diagnoses Current Active Problems: Current Active and Chronic Problems CAD (coronary artery disease) (Chronic) HLD (hyperlipidemia) (Chronic) HTN (hypertension) (Chronic) Type 2 diabetes mellitus (Chronic) GERD (gastroesophageal reflux disease) (Chronic) COPD (chronic obstructive pulmonary disease) (Chronic) You will use the following diet at home:: Calorie/Carbohydrate Controlled (specify 1200, 1400, etc), Cardiac Your food should be the consistency of: Regular Your liquids should be the consistency of: Regular/Thin Discharge Activity: Return to Normal Activity Call your doctor if you observe: Shortness of breath, Dizziness, Fainting spells, Chest pain, Increased palpitations (irregular heartbeat) Allergies/Adverse Reactions: Allergies etodolac [From Lodine] Allergy (Verified 04/06/18 15:58) Swelling Medications to take at Discharge Albuterol Inhaler [Ventolin Hfa] 1 - 2 puff INHALATION Q4H PRN PRN 08/26/13 Lisinopril [Zestril] 10 mg PO QHS 08/26/13 Metformin HCl [Glucophage] 1,000 mg PO BID 08/26/13 Budesonide/Formoterol 160/4.5 [Symbicort 160/4.5 Mcg Inhaler (SP)] 2 puff INHALATION BID 12/08/15 Docusate Sodium [Colace] 100 mg PO BID PRN PRN 12/08/15 Esomeprazole Mag Trihydrate [Nexium] 40 mg PO BID 12/08/15 Atorvastatin Calcium [Lipitor] 40 mg PO QHS 04/06/18 Carvedilol 1 tab PO BID 04/06/18 Clopidogrel Bisulfate [Clopidogrel] 75 mg PO DAILY 04/06/18 Dulaglutide [Trulicity] 0.75 ng PO TU 04/06/18 Ergocalciferol [Vitamin D] 50,000 unit PO TH 04/06/18 buPROPion tablets [Wellbutrin tablets] 100 mg PO BREAKFAST 04/06/18 buPROPion tablets [Wellbutrin tablets] 200 mg PO QHS 04/06/18 Primary Care Physician: Zander Osborn DO [Primary Care Provider] - Please follow up with your Primary Care Physician in: 3-5 DAYS Test Results: Test results from this visit will be discussed in further detail at your follow-up appointment, if applicable. 04/07/18 1227 <Electronically signed by Sahil Ford MD> Date Sahil Ford MD CC: Zander Rosenbaum DO Signed STRESS REPORT Observed: 04/07/2018 Status: F Source: [place] 12:16 PM [facility] REPOSITORY [facility] [place] [address] MR#: [id number] Acct: [id number] Name: JOSETTE NELSON Rep #: [id number] : 1955 62 From: James Martin MD Primary Care: Zander Rosenbaum DO Status: ADM HIRAM Ordering Dr: Sex: F C Stress Test Report Pharmacologic myocardial perfusion stress test. 62-year-old lady with a history of chest pain. Medications: Lipitor Wellbutrin Plavix Lovenox Zestril. Stress protocol: Resting EKG demonstrates normal sinus rhythm with a rate of 78 bpm normal intervals are noted resting blood pressure was 220/120 mmHg. 0.4 mg of regadenoson was infused per usual protocol followed by rapid intravenous saline flush injection continuous EKG monitoring was performed the maximum heart rate attained was 106 bpm which was 66% of maximum predicted heart rate the maximum workload was 1 metabolic equivalent. At rest there were no ST or T wave changes noted suggest abnormal flow reserve at peak infusion no ST or T wave changes were noted suggest abnormal flow reserve. The final blood pressure 150/78 mmHg. Myocardial perfusion protocol. 11.8 mCi of technetium 99m sestamibi was injected at rest. 0.4 mg of regadenoson was infused per usual protocol peak infusion 33.9 mCi of technetium 99m sestamibi was injected stress images were obtained stress and rest images were reconstructed and compared in the short axis vertical long horizontal long axis. Gated images were also obtained per Perfusion SPECT analysis: Review of the stress images demonstrate normal uptake of tracer noted in all areas of myocardium. The resting images similarly demonstrate normal uptake of tracer noted in all areas of the myocardium. No areas of reversibility are noted suggest ischemia. Gated SPECT analysis: The gated ejection fraction is noted to be 78%. Conclusion: Normal pharmacologic myocardial perfusion stress test. Preserved ejection fraction. 04/07/186 <Electronically signed by James Martin MD> Date James Martin MD CC: Ubaldo Mcgill; Zander Rosenbaum DO; Sahil Ford MD Date Dictated: 04/07/181211 Date Transcribed: 04/07/181211 [employer]: [place] Signed BEDSIDE GLUCOSE Collected: 04/07/2018 Status: F Source: [place] 11:29 AM [facility] REPOSITORY TYPE CODE TESTS RESULT OUT OF REFERENCE UNITS RANGE LAB L501.080 70-110 mg/dL High BEDSIDE GLU 159 Result Comment: MANAGEMENT OF PATIENT CARE PER NURSING PROTOCOL Performed By: #### L501.080 #### [facility] Point of Care [address] [place] [address] PFA Collected: 04/07/2018 Status: F Source: [facility] 11:28 AM [facility] REPOSITORY TYPE CODE TESTS RESULT OUT OF REFERENCE UNITS RANGE LAB COEP(LOINC) 78-174 seconds High 298 Collagen/Epi nephrine Result Comment: *Lainey/Epi closure time within or less than the reference range is consistent with normal platelet function. *Prolonged Lainey/Epi and a normal Lainey/ADP closure time suggest a drug effect; review patient medication history. *Prolongation of both Lainey/Epi and Lainey/ADP closure time suggest a primary platelet disorder, von Willebrand disease, or thrombocytopenia. Patient history and clinical correlation is essential; effects of medication must be excluded. LAB COAD(LOINC) 59-115 seconds Collagen/ADP High 127 Performed By: #### PFA #### [place] [address] MISCELLANEOUS LAB Collected: 04/07/2018 Status: F Source: [facility] 11:28 AM [facility] REPOSITORY Order Comment: Test(s) Ordered: PLATELET FUNCTION TEST SEND TO [place] TYPE CODE TESTS RESULT OUT OF RANGE REFERENCE UNITS LAB L801.1541 Normal [facility] LAB TEST Result Comment: TEST RESULT LIMITS Collagen/Epinephrine 298 High seconds 78 - 174 Collagen/ADP 127 High seconds 59 - 115 Interpretive Data I1: Collagen/Epinephrine *Lainey/Epi closure within or less than the reference range is consistent with a normal platelet function. *Prolonged Lainey/Epi and a normal Lainey/ADP closure time suggest a drug effect; review patient medication history *Prolongation of both Lainey/Epi and Lainey/ADP closure time suggest a primary platelet disorder, von Willebrand disease, or thrombocytopenia. Patient history and clinical correclation is essential; effects of medication must be excluded. TESTING PERFORMED AT [facility]. ORIGINAL REPORT ON FILE IN LAB CONTAINS ADDITIONAL TEST SITE INFORMATION. Performed By: #### L801.1541 #### [facility] [address] [place], [address] BEDSIDE GLUCOSE Collected: 04/07/2018 Status: F Source: [place] 11:27 AM [facility] REPOSITORY TYPE CODE TESTS RESULT OUT OF REFERENCE UNITS RANGE LAB L501.080 70-110 mg/dL High BEDSIDE GLU 168 Result Comment: MANAGEMENT OF PATIENT CARE PER NURSING PROTOCOL Performed By: #### L501.080 #### [facility] Point of Care [address] [place] [address] BEDSIDE GLUCOSE Collected: 04/07/2018 Status: F Source: [place] 6:31 AM [facility] REPOSITORY TYPE CODE TESTS RESULT OUT OF REFERENCE UNITS RANGE LAB L501.080 70-110 mg/dL High BEDSIDE GLU 117 Result Comment: MANAGEMENT OF PATIENT CARE PER NURSING PROTOCOL Performed By: #### L501.080 #### [facility] Point of Care [address] [place] [address] PROTHROMBIN TIME W/INR Collected: 04/07/2018 Status: F Source: [place] 5:00 AM [facility] REPOSITORY TYPE CODE TESTS RESULT OUT OF RANGE REFERENCE UNITS LAB L300.4150 11.7-14.9 SECONDS Normal PROTIME 12.6 LAB L300.4200 Normal INR 0.9 Performed By: #### L300.3900, L300.4310 #### [facility] [address] [place], [address] PARTIAL THROMBOPLAST Collected: 04/07/2018 Status: F Source: [place] TIME 5:00 AM [facility] REPOSITORY TYPE CODE TESTS RESULT OUT OF RANGE REFERENCE UNITS LAB L300.4310 24.1-36.2 Seconds Normal PTT 30.5 Performed By: #### L300.3900, L300.4310 #### [facility] [address] [place], [address] CBC W/DIFF, AUTOMATED Collected: 04/07/2018 Status: F Source: [place] 5:00 AM [facility] REPOSITORY TYPE CODE TESTS RESULT OUT OF RANGE REFERENCE UNITS LAB L100.1000 4.4-11.0 K/mm3 Normal WBC 8.7 LAB L100.1200 4.2-5.4 M/mm3 Normal RBC 4.61 LAB L100.1300 12.0-15.0 g/dl Normal HGB 13.0 LAB L100.1400 37-47 % Normal HCT 40.8 LAB L100.1500 81-99 fL Normal MCV 88.5 LAB L100.1600 27.0-32.0 pg Normal MCH 28.2 LAB L100.1700 32-36 g/gl Low MCHC 31.9 LAB L100.1810 11.6-14.6 % Normal RDW CV 14.1 LAB L100.1820 35.1-43.9 fl High RDW SD 45.4 LAB L100.1900 150-450 K/mm3 Normal PLT 262 LAB L100.2000 6.2-12.0 fl Normal MPV 9.8 LAB L100.2100 47-70 % Normal NEUT% 56.1 LAB L100.2200 19-41 % Normal LY% 32.3 LAB L100.2300 0-10 % Normal MONO% 8.0 LAB L100.2400 0-5 % Normal EO% 3.1 LAB L100.2500 0-1 % Normal BASO% 0.3 LAB L100.2550 0.0-0.9 % Normal IM GRAN % 0.200 Result Comment: IG% - Immature Granulocytes (promyelocytes, myelocytes and metamyelocytes) > 1% indicates that a LEFT SHIFT is Present. LAB L100.2620 2.0-7.7 X10 3/uL Normal Absolute Neut 4.9 LAB L100.2720 0.83-4.51 X10 3/ul Normal Absolute Lymph 2.79 Performed By: #### L100.0100 #### [facility] [place], [address] BASIC METABOLIC Collected: 04/07/2018 Status: F Source: [place] PROFILE (BMP) 5:00 AM [facility] REPOSITORY TYPE CODE TESTS RESULT OUT OF RANGE REFERENCE UNITS LAB L501.0100 74-106 mg/dL High GLU 111 Result Comment: Fasting Glucose result from 100 to 125 mg/dL suggests IMPAIRED HOMEOSTASIS per A.D.A. criteria. Please note revised GLUCOSE reference range effective 2017. LAB L501.1000 7-18 mg/dL Normal BUN 15 LAB L501.1100 0.55-1.02 mg/dL Normal CREAT,SERUM 0.97 Result Comment: The validity of the calculated GFR AND GFRAA in patients over 70 years has not been determined. Clinical correlation is essential. LAB L501.1110 >60 mL/min Normal EST GFR 62 Result Comment: Non- GFR Calc LAB L501.1115 >60 mL/min Normal EST GFR - AA 75 Result Comment: GFR Calc LAB L501.1255 ml/min Normal Estimated CRCL 48.17 LAB L501.1300 10-20 RATIO Normal BUN/CRE 15.4 LAB L501.2200 8.5-10 mg/dL Normal .1 CA 9.1 LAB L501.5300 136-14 mmol/L Normal 5 NA 143 LAB L501.5600 3.5-5. mmol/L Normal 1 K 4.0 LAB L501.5900 98-107 mmol/L High CL 108 LAB L501.6100 21.0-3 mmol/L Normal 2.0 CO2 28.0 LAB L501.6200 5-15 Normal GAP 7 Performed By: #### L500.2500 #### [facility] [address] [facility]. [place], [place], [address] BEDSIDE GLUCOSE Collected: 04/06/2018 Status: F Source: [place] 9:20 PM [facility] REPOSITORY TYPE CODE TESTS RESULT OUT OF REFERENCE UNITS RANGE LAB L501.080 70-110 mg/dL High BEDSIDE GLU 141 Result Comment: MANAGEMENT OF PATIENT CARE PER NURSING PROTOCOL Performed By: #### L501.080 #### [facility] Point of Care [address] [facility] [place] [address] TROPONIN-I Collected: 04/06/2018 Status: F Source: [place] 7:20 PM [facility] REPOSITORY Order Comment: 'TROP' Serial specimen #1, #2 or #3: 3 TYPE CODE TESTS RESULT OUT OF RANGE REFERENCE UNITS LAB L501.4010 <0.045 ng/mL Normal < 0.015 TROPONIN-I Result Comment: TROPONIN-I EXPECTED VALUES <0.045 Negative 0.045 - 0.590 Consistent with Cardiac Damage > OR = 0.600 Critical Value Not every elevated troponin is indicative of VT. These values should be used with clinical judgement in examining the patient's clinical picture for diagnosis. To establish a diagnosis of VT versus myocardial injury, there must be a demonstrated rise and/or fall in the troponin values, in addition to ischemic symptoms, EKG changes, new regional wall motion abnormality, and/or angiographical evidence. PLEASE NOTE: REFERENCE RANGES EDITED 17 Performed By: #### L501.4010 #### [facility] [address] [place], [address] HISTORY AND PHYSICAL Observed: 04/06/2018 Status: F Source: [place] EXAM 5:08 PM [facility] REPOSITORY [facility] Medical Records Department [address] [facility] [place] [address] History and Physical 04/06/18 1522 MR#: [id number] Acct: [id number] Name: JOSETTE NELSON Rep #: [id number] : 1955 62 From: Gilda MAYO PCP: Zander Rosenbaum DO Status: ADM HIRAM Y Location: [place] [address]1 <Gilda Peterson - Last Filed: 04/06/18 15:42> Problem List (1) CAD (coronary artery disease) Status: Chronic (2) HLD (hyperlipidemia) Status: Chronic (3) HTN (hypertension) Status: Chronic (4) Type 2 diabetes mellitus Status: Chronic (5) GERD (gastroesophageal reflux disease) Status: Chronic (6) COPD (chronic obstructive pulmonary disease) Status: Chronic History of Present Illness Date of Admission: 04/06/18 Chief Complaint: Chest pain. The patient is a 62 year old F who presents emergency room due to chest pain. Patient states 4 days ago she developed pain on the back of her left shoulder which was initially sharp in nature and then developed into a soreness. She states today the pain wrapped around the left side of her ribs to her left chest area. She reports an intermittent shocklike pain in the left chest area which occurs approximately every 5 minutes and last only a few seconds at a time. Not associated with exertion. She denies associated shortness of breath, dizziness, lightheadedness, diaphoresis. She reports she had bronchitis a week ago which has since resolved. Patient has a history of CAD status post stent X1 November 2016 at [facility], hypertension, hyperlipidemia, type 2 diabetes mellitus, tobacco dependence, GERD, COPD. She currently follows with Dr. Segovia, [facility] cardiology. Past Medical History Past Medical History (Chronic Problems): Chronic Problems CAD (coronary artery disease) (Chronic) HLD (hyperlipidemia) (Chronic) HTN (hypertension) (Chronic) Type 2 diabetes mellitus (Chronic) GERD (gastroesophageal reflux disease) (Chronic) COPD (chronic obstructive pulmonary disease) (Chronic) Allergies etodolac [From Lodine] Allergy (Verified 12/08/15 16:17) Swelling Home Medications: Ambulatory Orders Medication Instructions Recorded Albuterol Inhaler [Ventolin Hfa] 1 - 2 puff INHALATION Q4H PRN PRN 08/26/13 Surgical History: appendectomy, hysterectomy, - - Cardiac stent X1. Psychiatric History: No pertinent psych hx Lives: Alone Smoking Status: Current every day smoker Alcohol: None Drugs: None - *Family History Maternal History Items: Heart Disease, - - Pancreatic cancer. Paternal History Items: Heart Disease, - - from cardiac causes. Review of Systems Constitutional: Denies: Chills, Fever, Weight Change HEENT: Denies: Head Aches, Sinus Congestion, Sinus Drainage Cardiovascular: Reports: Chest Pain. Denies: Edema, Light Headedness, Palpitations, Syncope Respiratory: Denies: Cough, Shortness of breath at rest, Sputum production Gastrointestinal: Denies: Abdominal Pain, Nausea, Vomiting Genitourinary: Reports: Dysuria Musculoskeletal: Denies: Joint Pain, Joint Tenderness Skin: Reports: - - Mild left shoulder ecchymosis. Denies: Rash, Wounds Neurological: Denies: Numbness, Tingling, Focal weakness Psychiatric: Reports: Anxiety, Depression Hematologic/ Lymphatic: Reports: Easy Bruising VTE Information - Inpt Only VTE Present on Admission: No VTE Mechan Device Prophylaxis: None VTE Pharm Prophylaxis ordered?: Yes - Physical Exam General: Alert, Oriented x3, Cooperative, No apparent distress, - - Appears older than stated age HEENT: Atraumatic, PERRLA, EOMI, Normocephalic Oral: Moist Mucosa Neck: Supple, No JVD, Negative Carotid Bruits Lungs: Clear to auscultation, Diminished Cardiovascular: Regular rate, Regular Rhythm, Normal S1, Normal S2, No murmurs Abdomen: Bowel Sounds Present, Soft, Non Tender, Non-Distended Extremities: No clubbing, No cyanosis, No edema, Capillary Refill Less than 3 Seconds Skin: No rashes, No breakdown, - - Mild ecchymosis left anterior shoulder. Musculoskeletal: No Tenderness to Palpation of Joints or Extremities Neurological: Cranial nerves II-XII grossly intact, Neuro grossly intact Psych/Mental Status: Normal Affect, Appropriate Vital Signs Temp Pulse Resp BP Pulse Ox 98.5 F 69 27 H 168/85 H 95 04/06/18 13:05 04/06/18 14:24 04/06/18 14:24 04/06/18 14:24 04/06/18 14:24 Oxygen Delivery Method Room Air Weight: 183 lb Body Mass Index (BMI) 33.5 Finger Stick Blood Glucose 158 Laboratory Tests Past 24 Hrs WBC 9.9 RBC 4.58 Hgb 12.8 Hct 41.0 MCV 89.5 MCH 27.9 MCHC 31.2 L RDW 14.1 RDW Differential 45.8 H Assessment/Plan 1. Atypical chest pain, rule out ACS-initial troponin negative. EKG without ST-T changes. Trend enzymes. Stress test in a.m. 2. CAD status post PCI to RCA November 2016-per Dr. Segovia's office visit 03/02/2018, patient had recent echocardiogram with EF 55%, no significant wall motion abnormalities. No recent stress test was documented. Recently changed from Brilinta to Plavix due to patient reporting easy bruising on Brilinta. Continue Plavix, statin, carvedilol. 3. Hypertension-continue carvedilol, lisinopril. 4. Hyperlipidemia-continue statin. 5. Type 2 diabetes mellitus-hold metformin, Trulicity regimen. Accu-Cheks AC at bedtime with sliding scale insulin. 6. Tobacco dependence-patient states she has been wearing a nicotine replacement patch for the past week, trying to quit. He was fully a pack per day smoker. Encouraged smoking cessation. Nicotine replacement patch. 7. GERD-continue PPI. 8. COPD-no acute exacerbation. PRN albuterol. DVT prophylaxis-Lovenox sc This patient was seen by MARIA ESTHER Stringer under the supervision of Dr. Mcgill. <Ubaldo Mcgill E - Last Filed: 04/06/18 17:08> History of Present Illness The patient is a 62 year old F [] Past Medical History Allergies etodolac [From Lodine] Allergy (Verified 04/06/18 15:58) Swelling - Physical Exam Vital Signs Temp Pulse Resp BP Pulse Ox 97.7 F L 72 17 197/92 H 97 04/06/18 15:50 04/06/18 16:37 04/06/18 15:50 04/06/18 16:37 04/06/18 16:02 Oxygen Delivery Method Room Air Weight: 177 lb 14.609 oz Body Mass Index (BMI) 32.5 Finger Stick Blood Glucose 158 Laboratory Tests Past 24 Hrs WBC 9.9 RBC 4.58 Hgb 12.8 Hct 41.0 MCV 89.5 MCH 27.9 MCHC 31.2 L RDW 14.1 RDW Differential 45.8 H POC Glucose POC Glucose 74 Assessment/Plan Hospitalist note: I am seeing this patient in conjunction with Gilda Peterson. I independently seen and examined the patient. History and physical, laboratory data and imaging studies reviewed and I agree with above treatment and workup plan. Patient presented to the ED because of chest pain, left-sided chest pain, intermittent, described as shocklike intermittent pain, occurs approximately every 5 minutes and lasts for a few seconds, without associated symptoms and without aggravating or relieving factors. Her blood pressure was elevated, other vital signs were stable. Her routine blood work was unremarkable. EKG revealed normal sinus rhythm without evidence of acute ischemic changes or cardiac arrhythmias. Troponin is negative. Chest x-ray showed no acute findings. - Physical Exam General: Alert, Oriented x3, Cooperative, No apparent distress. HEENT: Atraumatic, PERRLA, EOMI. Neck: Supple, No JVD, Negative Carotid Bruits, Trachea Midline, Thyroid Normal. Lungs: Clear to auscultation, Normal air movement, No rhonchi, No wheeze, No rales. Cardiovascular: Regular rate, Regular Rhythm, Normal S1, Normal S2, PMI Normal. Abdomen: Bowel Sounds Present, Soft, Non Tender, Non-Distended, No Hepato-splenomegaly. Extremities: No clubbing, No cyanosis, No edema Skin: No rashes, No breakdown Neurological: Neuro grossly intact Assessment and plan: #1 atypical chest pain: EKG and troponin are unremarkable. Chest x-ray showed no acute findings. Risk factors are age, history of CAD with stents, hypertension hyperlipidemia and diabetes. Plan: Admit to PCU for observation, cardiac monitoring, serial cardiac enzymes, repeat EKG tomorrow morning, stress test tomorrow morning. #2 hypertensive urgency: Blood pressure is elevated, maximum was 204/94. Plan to start IV calcium as needed, continue medications. #3 other chronic medical problems: Stable, continue current medications as above. This note was generated with [employer] software. It may contain incorrect words, spelling, and punctuation that were not noted in checking the note before signing. Code Visit OBSV E AND M: [id number] Initial observation care L3 04/06/18 1542 <Electronically signed by Gilda Peterson NP-C> Date Gilda Peterson ELECTRONICS SPECIALIST-C 04/06/18 1708<Electronically signed by Ubaldo Mcgill MD> Cosigner Signature: Date (if applicable) Ubaldo Mcgill MD CC: ELECTRONICS SPECIALIST-C Gilda Peterson; Ubaldo Mcgill; Zander Rosenbaum DO Signed BEDSIDE GLUCOSE Collected: 04/06/2018 Status: F Source: [place] 4:30 PM [facility] REPOSITORY TYPE CODE TESTS RESULT OUT OF RANGE REFERENCE UNITS LAB L501.080 70-110 mg/dL Normal BEDSIDE GLU 74 Result Comment: MANAGEMENT OF PATIENT CARE PER NURSING PROTOCOL Performed By: #### L501.080 #### [facility] Point of Care [place] [address] EMERGENCY DEPARTMENT Observed: 04/06/2018 Status: F Source: [place] SUMMARY 4:14 [facility] REPOSITORY [facility] Medical Records Department [address] [place] [address] Emergency Department Summary 04/06/18 1503 MR#: [id number] Acct: [id number] Name: JOSETTE NELSON Rep #: [id number] : 1955 62 From: Colby Phillips MD PCP: Zander Rosenbaum, Status: ADM HIRAM - ER Visit Summary Date of Service: 04/06/18 Chief Complaint: Chest pain History of Present Illness: The patient is a 62 F with chest pain. The pain started in her left shoulder 3 days ago and then radiated to her left chest. No other associated symptoms except for mild shortness of breath. She has a history of coronary disease, diabetes, hyperlipidemia, and COPD. No history of aortic dissection. No history of venous thromboembolism. Physical Examination: Afebrile and vital signs unremarkable. Blood pressure 168/85. Patient is alert and oriented. No acute distress. Heart regular. Lungs clear. Abdomen soft. Skin, calves, pulses unremarkable. Test Results: EKG shows sinus rhythm at a rate of 75. Chest x-ray showed no acute findings. CBC, metabolic panel, troponin normal. Emergency Department Course and Treatment: Patient's workup was unremarkable. She has a history of coronary disease.. Her cardiac catheterization and stent placement was just over a year ago at an outside facility. Patient is high risk. Warrants observation in the hospital. She is discussed with the hospitalist. Treatment Plan: As above Disposition: Admission Impression: 1. Chest pain This note was generated with [employer] dictation software. It may contain incorrect words, spelling, and punctuation that were not noted in review of the chart prior to signing ED Disposition - Plan for ED Patient: Chief Complaint: Chest Pain Referrals: Zander Osborn DO [Primary Care Provider] - What to do if you have Problems For any increased pain, shortness of breath, bleeding, nausea or vomiting, chest pain, or any unexpected problems, contact your Primary Care Provider. Call [facility] ([phone]) or report to the closest Emergency Room. Call 911 if necessary. 04/06/18 1614 <Electronically signed by Colby Phillips MD> Date Colby Phillips MD Cosigner Signature (If Indicated): Date CC: Zander Rosenbaum, DO CBC W/DIFF, AUTOMATED Collected: 04/06/2018 Status: F Source: [place] 1:35 PM [facility] REPOSITORY TYPE CODE TESTS RESULT OUT OF RANGE REFERENCE UNITS LAB L100.1000 4.4-11.0 K/mm3 Normal WBC 9.9 LAB L100.1200 4.2-5.4 M/mm3 Normal RBC 4.58 LAB L100.1300 12.0-15.0 g/dl Normal HGB 12.8 LAB L100.1400 37-47 % Normal HCT 41.0 LAB L100.1500 81-99 fL Normal MCV 89.5 LAB L100.1600 27.0-32.0 pg Normal MCH 27.9 LAB L100.1700 32-36 g/gl Low MCHC 31.2 LAB L100.1810 11.6-14.6 % Normal RDW CV 14.1 LAB L100.1820 35.1-43.9 fl High RDW SD 45.8 LAB L100.1900 150-450 K/mm3 Normal PLT 234 LAB L100.2000 6.2-12.0 fl Normal MPV 9.4 LAB L100.2100 47-70 % Normal NEUT% 50.9 LAB L100.2200 19-41 % Normal LY% 38.3 LAB L100.2300 0-10 % Normal MONO% 7.4 LAB L100.2400 0-5 % Normal EO% 2.9 LAB L100.2500 0-1 % Normal BASO% 0.3 LAB L100.2550 0.0-0.9 % Normal IM GRAN % 0.200 Result Comment: IG% - Immature Granulocytes (promyelocytes, myelocytes and metamyelocytes) > 1% indicates that a LEFT SHIFT is Present. LAB L100.2620 2.0-7.7 X10 3/uL Normal Absolute Neut 5.1 LAB L100.2720 0.83-4.51 X10 3/ul Normal Absolute Lymph 3.81 Performed By: #### L100.0100 #### [facility] [address] [place], [address] BASIC METABOLIC Collected: 04/06/2018 Status: F Source: [place] PROFILE (BMP) 1:35 PM [facility] REPOSITORY TYPE CODE TESTS RESULT OUT OF RANGE REFERENCE UNITS LAB L501.0100 74-106 mg/dL Low GLU 59 Result Comment: Please note revised GLUCOSE reference range effective 2017. LAB L501.1000 7-18 mg/dL Normal BUN 14 LAB L501.1100 0.55-1.02 mg/dL Normal CREAT,SERUM 0.88 Result Comment: The validity of the calculated GFR AND GFRAA in patients over 70 years has not been determined. Clinical correlation is essential. LAB L501.1110 >60 mL/min Normal EST GFR 69 Result Comment: Non- GFR Calc LAB L501.1115 >60 mL/min Normal EST GFR - AA 83 Result Comment: GFR Calc LAB L501.1255 ml/min Normal Estimated CRCL 53.10 LAB L501.1300 10-20 RATIO Normal BUN/CRE 15.8 LAB L501.2200 8.5-10 mg/dL Normal .1 CA 9.0 LAB L501.5300 136-14 mmol/L Normal 5 NA 144 LAB L501.5600 3.5-5. mmol/L Normal 1 K 4.3 LAB L501.5900 98-107 mmol/L High CL 110 LAB L501.6100 21.0-3 mmol/L Normal 2.0 CO2 30.0 LAB L501.6200 5-15 Low GAP 4 Performed By: #### L500.2500, L501.4010 #### [facility] [address] [place], [address] TROPONIN-I Collected: 04/06/2018 Status: F Source: [place] 1:35 PM [facility] REPOSITORY TYPE CODE TESTS RESULT OUT OF RANGE REFERENCE UNITS LAB L501.4010 <0.045 ng/mL Normal < 0.015 TROPONIN-I Result Comment: TROPONIN-I EXPECTED VALUES <0.045 Negative 0.045 - 0.590 Consistent with Cardiac Damage > OR = 0.600 Critical Value Not every elevated troponin is indicative of VT. These values should be used with clinical judgement in examining the patient's clinical picture for diagnosis. To establish a diagnosis of VT versus myocardial injury, there must be a demonstrated rise and/or fall in the troponin values, in addition to ischemic symptoms, EKG changes, new regional wall motion abnormality, and/or angiographical evidence. PLEASE NOTE: REFERENCE RANGES EDITED 17 Performed By: #### L500.2500, L501.4010 #### [facility] [address] [place], [address] CHEST 1 VIEW Observed: 04/06/2018 Status: F Source: [place] (PORTABLE) 1:27 PM [facility] REPOSITORY [facility] Imaging Services [address] [place] [address] Chest 1 View (Portable) MR#: [id number] Acct: [id number] Name: JOSETTE NELSON Rep #: [id number] : 1955 F 62 From: J Luis Barbour MD PCP: Zander Rosenbaum DO Status: PRE ER Study: Chest 1 View (Portable) Date of Exam: 04/06/18 Exam# [id number] Ordering Dr: Colby Phillips MD STUDY: X-RAY CHEST REASON FOR EXAM: Female, 62 years old. Chest pain. TECHNIQUE: Single AP portable view of the chest. COMPARISON: Comparison is made with prior study dated December 08, 2015. FINDINGS: EKG electrodes are seen. The lungs are clear and expanded. There is no demonstrated pleural abnormality. Normal size heart. Normal mediastinum and odc. Normal visualized pulmonary arteries. Normal visualized aortic arch and descending thoracic aorta. There are diffuse degenerative changes of the visualized thoracic spine. Normal visualized ribs, clavicles, and shoulders. There is no demonstrated abnormality of the visualized soft tissue structures of the upper abdomen. RAD/Chest 1 View (Portable) IMPRESSION: No acute abnormality is seen. Electronically Signed: J Luis Barbour MD at 13:52 EST Tel [phone], Service support , CC: Colby Phillips MD; Zander Rosenbaum DO [employer]: Signed CNPN Observed: 03/29/2018 Status: COMPLETED Source: [place] 12:00 AM [facility] REPOSITORY Telephone (CAWSTR) JOSETTE NELSON ([id number]) 1955 F TXT Date Time Provider Department 03/29/18 YRN SEGOVIA During your visit today, we recorded the following information about you: Lulu King MA 03/29/2018 2:09 PM Signed Outside labs placed in box for review. Lulu Segovia MD 03/29/2018 3:37 PM Signed This is not the test that was ordered. I ordered a functional platelet test, not a genetic test . Please cancel charges. Please run the test that I ordered. ASP/KIEL RESISTANCE If for some reason that test cannot be done, she will need to be switched to Protonix MD Mare Jaime RN 03/30/2018 11:57 AM Signed Called lab at [facility] spoke with Kristal. Kristal verified our order in system and it matches what was requested. automotive technician ran the wrong test. They will contact pt if lab needs to be redrawn. Per Kristal pt will not have any charges for the incorrect lab that was drawn Mare Segovia MD 03/30/2018 12:11 PM Signed Noted and agree. MD Lulu Jaime MA 03/31/2018 4:16 PM Signed Kristal from [facility] lab called and stated the number they had for the patient was not working and needed to verify the number we had. She will attempt to call patient again. Lulu King MA Allergies As of Date: 03/29/2018 Noted Allergy Reaction CHOCOLATE 05/23/2013 11 - Vomiting Comments: Dark chocolate LODINE (ETODOLAC) 05/23/2013 7 - Swelling Date Reviewed: 03/02/2018 Reviewed by: Lulu King MA - Fully Assessed Reason for Visit: Results [95] Prescriptions as of 03/29/2018 Sig: METFORMIN 500 MG TABLET TAKE TWO TABLETS BY MOUTH TWI* BUPROPION HCL 100 MG TABLET TAKE 1 TABLET BY MOUTH IN THE* CARVEDILOL 3.125 MG TABLET Take 1 tablet by mouth twice * LISINOPRIL 10 MG TABLET Take 1 tablet by mouth once d* CLOPIDOGREL 75 MG TABLET Take 1 tablet by mouth once d* TRULICITY 0.75 MG/0.5 ML SUBC* INJECT 0.75 MG SUBCUTANEOUSLY* BUDESONIDE-FORMOTEROL HFA 80 * Inhale 2 Puffs as instructed * BLOOD SUGAR DIAGNOSTIC STRIPS Test blood sugars 3 x daily. * ATORVASTATIN 40 MG TABLET Take 1 tablet by mouth once d* DOCUSATE SODIUM 100 MG CAPSULE TAKE ONE CAPSULE BY MOUTH TWI* ESOMEPRAZOLE MAGNESIUM 40 MG * Take 1 capsule by mouth twice* ERGOCALCIFEROL (VITAMIN D2) 5* Take 1 capsule by mouth once * METHYLPREDNISOLONE 4 MG TABLE* As Instructed per package Patient not taking: Reported on 03/02/2018 ALBUTEROL SULFATE HFA 90 MCG/* Inhale 2 Puffs as instructed * NITROGLYCERIN 0.4 MG SUBLINGU* Dissolve 1 tablet under the t* NICOTINE 7 MG/24 HR DAILY TRA* Apply 1 Patch as directed viry* IBUPROFEN 800 MG TABLET Take 1 tablet by mouth every * LANCETS Test blood sugar(s) 3 times d* ASPIRIN 81 MG TABLET,DELAYED * Take 1 tablet by mouth once d* HEATING PADS 1 Device as needed. Problem List As Of Date 03/29/2018 Noted Resolved Elevated liver enzymes [R74.8] INVALID FOR* Hypercholesteremia [E78.00] INVALID FOR* Elevated fasting glucose [R73.01] INVALID FOR* Neck pain, chronic [M54.2, G89.29] INVALID FOR* Tobacco abuse [Z72.0] INVALID FOR* Obesity [E66.9] INVALID FOR* Claudication of lower extremity [I73.9] INVALID FOR* Diabetes mellitus type 2, uncontrolled [E11.65] INVALID FOR* Cholelithiases [K80.20] INVALID FOR* Adenocarcinoma in situ (AIS) of uterine cervix *INVALID FOR* Major depressive disorder, recurrent episode (H*INVALID FOR* Essential hypertension [I10] INVALID FOR* Pulmonary emphysema (HCC) [J43.9] INVALID FOR* Gastroesophageal reflux disease [K21.9] INVALID FOR*09/13/2015 Positive occult stool blood test [R19.5] INVALID FOR*09/13/2015 Family history of ischemic heart disease [Z82.4*INVALID FOR* Aortic valve sclerosis [I35.8] INVALID FOR* Irritable esophagus [K22.9] INVALID FOR*01/30/2016 COPD with chronic bronchitis (HCC) [J44.9] INVALID FOR* Episode of recurrent major depressive disorder *INVALID FOR* Tobacco use disorder [F17.200] INVALID FOR* Memory deficit [R41.3] INVALID FOR* Mixed stress and urge urinary incontinence [N39*INVALID FOR* Vitamin D deficiency [E55.9] INVALID FOR* Short-term memory loss [R41.3] INVALID FOR* Fatigue [R53.83] INVALID FOR* PND (paroxysmal nocturnal dyspnea) [R06.00] INVALID FOR* Snoring [R06.83] INVALID FOR* H/O right coronary artery stent placement [Z95.*INVALID FOR* Coronary artery disease involving [place]*INVALID FOR* Dysuria [R30.0] INVALID FOR* Obesity, Class I, BMI 30-34.9 [E66.9] INVALID FOR* Major depression, recurrent, chronic (HCC) [F33*INVALID FOR* Bilateral leg edema [R60.0] INVALID FOR* OAB (overactive bladder) [N32.81] INVALID FOR* Urinary frequency [R35.0] INVALID FOR* Controlled type 2 diabetes mellitus without com*INVALID FOR* Aortic stenosis, mild [I35.0] INVALID FOR* Palpitations [R00.2] INVALID FOR* Mucopurulent chronic bronchitis (HCC) [J41.1] INVALID FOR* Encounter Status:Closed by MARE KRAUS RN on 03/30/18 CHEST 2 VIEWS Observed: 03/21/2018 Status: F Source: [facility] 6:31 PM [facility] REPOSITORY [place] [address] [place] [address] Patient: JOSETTE NELSON Phone#: : [phone] Age: 62 Gender: F Pt. Type: ER Account: [id number] Location: 2 Ordering: GABRIEL LACY Exam Date: 03/21/2018/18:18 Family Phys: DR. ZANDER OSBORN D.O.Charge Code: 115316 Physician: Carson Order #: [id number] DLP Dose#: PROCEDURE: X-RAY CHEST 2 VIEWS COMPARISON: [facility], XR, CHEST 2 VIEWS, 11/17/2017, 3:42. INDICATIONS: Cough. FINDINGS: LUNGS: Normal. No significant pulmonary parenchymal abnormalities. VASCULATURE: Normal. Unremarkable pulmonary vasculature. CARDIAC: Normal. No cardiac silhouette abnormality or cardiomegaly. MEDIASTINUM: Normal. No visible mass or adenopathy. PLEURA: Normal. No effusion or pleural thickening. BONES: Normal. No fracture or visible bony lesion. OTHER: Negative. CONCLUSION: No acute disease. No significant change has occurred. Dictated by: Demetria Elias MD on 03/22/2018 at 8:48 Approved by: Demetria Elias MD on 03/22/2018 at 8:48 LACTATE Collected: 03/21/2018 Status: F Source: [facility] 6:06 PM [facility] REPOSITORY TYPE CODE TESTS RESULT OUT OF REFERENCE UNITS RANGE LAB LACTATE(KYLE 4.5 - 18.0 mg/dL [place]) LACTATE 8.3 Performed By: #### [id number] #### [facility],[address] [address] CBC Collected: 03/21/2018 Status: F Source: [facility] 5:51 PM [facility] REPOSITORY TYPE CODE TESTS RESULT OUT OF RANGE REFERENCE UNITS LAB CBC(LOINC) CBC Result Comment: CBC-COMPLETE BLOOD COUNT LAB WBC(LOINC) 4.5 - 10.8 x 10EE3/UL WBC High 13.4 LAB RBC(LOINC) 4.10 - x 10EE6/UL 5.30 RBC 4.82 LAB HEMOGLOBIN(LOINC 12.0 - g/dl ) 16.0 HEMOGLOBIN 13.6 LAB HEMATOCRIT(LOINC 34.0 - % ) 46.0 HEMATOCRIT 41.0 LAB MCV(LOINC) 80 - 99 fl MCV 85 LAB MCH(LOINC) 27 - 33 pg MCH 28 LAB MCHC(LOINC) 32 - 36 X10 3 MCHC 33 LAB RDW/CV(LOINC) 12.0 - % 15.6 RDW/CV 14.7 LAB PLATELET(LOINC) 150 - 450 x10EE3/UL PLATELET 247 LAB MPV(LOINC) 6.6 - 10.5 fl MPV 8.2 Result Comment: AUTOMATED DIFFERENTIAL LAB NEUT %(LOINC) 46.0 - 76.0 % NEUT % 61.9 LAB LYMPH %(LOINC) 20.0 - 45.0 % LYMPH % 26.5 LAB MONOS %(LOINC) 0.0 - 10.0 % MONOS % 8.6 LAB EO %(LOINC) 0.0 - 7.0 % EO % 2.2 LAB BASO %(LOINC) 0.0 - 2.0 % BASO % 0.8 LAB Lymph #(LOINC) 0.80 - 2.80 x10EE3/U L Lymph # High 3.50 LAB Neut #(LOINC) 1.50 - 7.10 x10EE3/U L Neut # High 8.30 LAB [place] #(LOINC) 0.20 - 1.00 x10EE3/U L [place] # High 1.20 LAB EO #(LOINC) 0.00 - 0.50 x10EE3/U L EO # 0.30 LAB Baso #(LOINC) 0.00 - 0.10 x10EE3/U L Baso # 0.10 LAB MANUAL DIFF(LOINC) MANUAL DIFF N/A LAB MORPHOLOGY(LOINC ) MORPHOLOGY N/A Result Comment: {CD] Performed By: #### [id number] #### [facility],[address] [place], [place] [id number] Observed: 03/21/2018 Status: F Source: [place] RAPID STREP 5:51 PM [facility] REPOSITORY Rapid Strep NEG:GRP A STREP INTERNAL QC PASS EXTERNAL QC DONE? YES Performed By: #### [id number] #### [facility],[address] [place] [id number] CMP WITH EGFR Collected: 03/21/2018 Status: F Source: [place] 5:51 PM [facility] REPOSITORY TYPE CODE TESTS RESULT OUT OF RANGE REFERENCE UNITS LAB CMP with eGFR(LOINC) CMP with eGFR Result Comment: COMPREHENSIVE METABOLIC PANEL LAB SODIUM(LOINC) 136 - 145 mmol/l SODIUM 143 LAB POTASSIUM(LOINC) 3.5 - 5.1 mmol/L POTASSIUM 3.8 LAB CHLORIDE(LOINC) 98 - 107 mmol/L CHLORIDE 106 LAB CO2(LOINC) 21.0 - mmol/L 31.0 CO2 28.8 LAB GLUCOSE(LOINC) 74 - 106 mg/dl GLUCOSE High 120 LAB BUN(LOINC) 6 - 20 mg/dl BUN 10 LAB CREATININE(LOINC) 0.6 - 1.2 mg/dl CREATININE 1.0 LAB AST/SGOT(LOINC) 13 - 39 U/L AST/SGOT Low 12 LAB ALK PHOS(LOINC) 38 - 126 U/L ALK PHOS 71 LAB CALCIUM(LOINC) 8.6 - mg/dl 10.2 CALCIUM 8.9 LAB TOTAL 6.4 - 8.3 g/dl PROTEIN(LOINC) TOTAL PROTEIN 7.3 LAB ALBUMIN(LOINC) 3.4 - 4.8 g/dL ALBUMIN 4.2 LAB GLOBULIN(LOINC) 1.5 - 3.8 G/DL GLOBULIN 3.1 LAB A/G RATIO(LOINC) 0.9 - 1.6 A/G RATIO 1.4 LAB TOTAL BILI(LOINC) 0.0 - 1.5 mg/dl TOTAL BILI 0.7 LAB B/C RATIO(LOINC) 0 - 30 ratio B/C RATIO 10 LAB ALT/SGPT(LOINC) 8 - 35 U/L ALT/SGPT 16 LAB ANION GAP(LOINC) 10 - 20 mmol/L ANION GAP 12 LAB AGE(LOINC) years AGE 62 LAB eGFR(LOINC) 60 - 999 ML/MINUTE eGFR Low 56 LAB eGFR(AA)(LOINC) 60 - 999 ML/MINUTE eGFR(AA) >60 Result Comment: ACCORDING TO THE NATIONAL KIDNEY DISEASE EDUCATION PROGRAM(NKDE), A NORMAL eGFR IS A VALUE GREATER THAN OR EQUAL TO 60 ML/MIN/1.73 SQ METERS. CHRONIC KIDNEY DISEASE: <60mL/MIN/1.73 SQ METERS KIDNEY FAILURE: <15mL/MIN/1.73 SQ METERS THIS TEST SHOULD ONLY BE USED FOR PATIENTS 18 YEARS OF AGE AND OLDER. Performed By: #### [id number] #### [facility],[address] [place], [place] [id number] Observed: 03/21/2018 Status: F [facility] PM [facility] ONLY REPOSITORY CULT STREP REFLEX ONLY _REFLEX STREP SCREEN CULTURE ONLY_ M I C R O B I O L O G Y R E P O R T FINAL Antimicrobial Susceptibility and Organism Identification Report Specimen Number : [id number] Requested : 03/21/18 Specimen Source : THROAT Collected : 03/21/18 17:51 [place] [facility] Isolation : Emergency Room Received : 03/21/18 17:51 Requesting Physician : ESTEPHANIA MARTI Patient/Specimen Tests and Comments Specimen Comments FINAL REPORT: Negative for Group A Beta Strep Tech : Source : THROAT ID # : [id number] FINAL Report Date : / / : Collected : 03/21/18 17:51 03/23/18.1121.[id number]. 03/23/[email or web address] Performed By: #### [id number] #### [facility],[address] [place], [place] [id number] Observed: 03/21/2018 Status: F Source: [facility] CULTURE BLOOD 5:51 PM [facility] REPOSITORY CULTURE BLOOD CULTURE BLOOD SET: 1 of 1 24HOUR REPORT NEGATIVE 48HOUR REPORT NEGATIVE 72HOUR REPORT NEGATIVE M I C R O B I O L O G Y R E P O R T FINAL Antimicrobial Susceptibility and Organism Identification Report Specimen Number : [id number] Requested : 03/21/18 Specimen Source : BLOOD Collected : 03/21/18 17:51 [place] [facility] : Emergency Room Received : 03/21/18 17:51 Requesting Physician : ESTEPHANIA MARTI Patient/Specimen Tests and Comments Specimen Comments FINAL REPORT: No Growth at 5 Days Tech : Source : BLOOD ID # : [id number] FINAL Report Date : / / : Collected : 03/21/18 17:51 03/27/18.1013.KLS. 03/27/18.1013.KLS.COMPLETE Performed By: #### [id number] #### [facility],[address] [place] [address] EMERGENCY REPORT Observed: 03/21/2018 Status: F Source: [facility] 5:12 PM [facility] EMERGENCY ROOM REPORT NAME ACCOUNT SEX AGE ADMIT DISCHARGE PT MED. RECORD# NUMBER DATE DATE TYPE OMAR [id number] Laura 62 03/21/18 3 JOSETTE Julianne [id number] ROOM: ER DATE OF : 1955 DICTATING PHYSICIAN: Gabriel Lacy CHIEF COMPLAINT: Cough and sore throat. HISTORY OF PRESENT ILLNESS: The patient for the last 3 days has had a sore throat, cough, and congestion. She thinks she has had some fever at home. Cough has gotten gradually worse. It is not productive. She has been eating and drinking, though not as good as usual. No vomiting. PAST MEDICAL HISTORY: Significant for hypertension, COPD, asthma, and diabetes. PAST SURGICAL HISTORY: She has had a previous appendectomy. MEDICATIONS: Per med rec list. ALLERGIES: She is allergic to iodine and chocolate. No other medical allergies. SOCIAL HISTORY: She lives at home. She does smoke a pack a day. She does not drink alcohol. REVIEW OF SYSTEMS: No recent injury or trauma. No rashes or bleeding disorders. PHYSICAL EXAMINATION: This is a 62-year-old female alert, appropriate, does not appear toxic. Her skin is pink, warm, and dry. HEENT: Reveals some minimal redness to the posterior pharynx, but no exudate. Neck is supple without adenopathy. Lungs are generally clear bilaterally without any crackles or wheezes. Cardiac exam is regular rhythm without any ectopy, murmurs, gallops, or rubs. Abdomen is mildly obese, but soft and nontender. She moves all extremities appropriately. Good peripheral pulses. Good capillary refill. No redness, tenderness, or asymmetry. Vital signs: Temperature 98.1, pulse 92, respirations 16, blood pressure 183/73. DIAGNOSTIC DATA: The patient had an EKG, which showed no acute abnormalities. Chest x-ray, per my reading, showed no evidence of any infiltrate. Rapid strep was negative. CBC: White count was 13,000 with unremarkable differential. EMERGENCY DEPARTMENT COURSE AND TREATMENT: Her O2 saturation is 94%. She was given a DuoNeb aerosol, which helped slightly with her symptoms. Page 1 of 2 JOSETTE NELSON Emergency Room Report DIAGNOSIS: Bronchitis. PLAN/DISPOSITION: She will be treated with Zithromax and some Tessalon for cough. She does have aerosol at home. She is to follow up with her family doctor in 2 to 3 days if no better. Dictated By: Gabriel Lacy MD 03/21/18 18:44 JOB #: [id number] Transcribed By: am 03/21/18 19:10 Electronically signed by: IVAN Lacy M.D. 03/25/18 19:55 Page 2 of 2 JOSETTE NELSON Emergency Room Report MISCELLANEOUS LAB Collected: 03/17/2018 Status: F Source: PHYLLIS PROCEDURE 1:12 PM [facility] REPOSITORY Order Comment: Comments: CLOPIDOGREL GENOTYPING [id number] WBLOOD/ACDA/RT Test(s) Ordered: CLOPIDOGREL GENOTYPING [id number] WBLOOD/ACDA/RT TYPE CODE TESTS RESULT OUT OF RANGE REFERENCE UNITS LAB L801.1541 Normal [facility] LAB TEST Result Comment: TEST RESULT LIMITS Clopidogrel P450 2C19 2C19 Genotype: *1/*2 2C19 Metabolic Activity: Intermediate Interpretation: The phenotype assigned is based on an FDA-cleared algorithm introduced in 2005 using the highest functioning allele to predict the enzyme activity for that individual. Emerging data suggests that, at least for some drugs such as clopidogrel, gene dosage drug response differences can be clinically significant. Clopidogrel is a pro-drug which is metabolized to its active component by several cytochrome P450 proteins of which [id number] plays a sagastume role. Among clopidogrel treated patients, intermediate (IM) or poor (PM) metabolizers are associated with reduced platelet inhibition and an increased risk of cardiovascular complications such as myocardial infarction, stroke, stent thrombosis, and/or , as compared with extensive metabolizers (EM). Intermediate to extensive metabolizers (IM-EM) are anticipated to have a range of reduced to normal enzyme activity. Extensive metabolizers (EM) are anticipated to have normal enzyme activity. Individuals who are carriers of the *17 allele are ultrarapid metabolizers (UM) and may have an enhanced response to clopidogrel. Ultrarapid metabolizers may be at increased risk of bleeding. Other common drugs metabolized by the 2C19 pathway include proton pump inhibitors (Omeprazole), anticonvulsants (Phenytoin and Diazepam), and Tricyclic antidepressants (Amitriptyline and Nortriptyline). Limitations: This assay detects poor metabolizer [id number] alleles *2 and *3 (nqod-ha-uoykupga alleles) as well as the ultrarapid metabolizer allele, *17. Other, rare alleles are not detected by this assay. Metabolism of drugs including clopidogrel may also be influenced by race, ethnicity, diet, and/or other medications. Results must be interpreted in the context of other test results and clinical findings. This test result does not rule out the possibility of variant alleles in other drug metabolism pathways that may impact drug efficacy and/or toxicity. [id number] Information: 01 Methodology: DNA analysis of the Cytochrome P450 2C19 gene (OMIM 026011, 10q24.1-10q24.3) is performed using primer extension chemistry. Multiplex PCR amplifies DNA fragments containing the variants below. Primer extension then generates a biotin-labeled product to permit flow-sorted detection of both normal and variant sequences. Molecular-based testing is highly accurate, but as in any laboratory test, rare diagnostic errors may occur. Alleles Detected: *1,*2,*3,*17 *1 represents detection of the normal sequence for the variant sites tested. This assay does not detect other variants in the PDX5T32 gene that may affect metabolic activity. Buccal cells for DQC8I94: This test was developed and its performance characteristics determined by [employer]. It has not been cleared or approved by the Food and Drug Administration. References: 1. Juan Jose COHEN et al. Clinical Pharmacogenetics Implementation Consortium guidelines for LRP6Z65 genotype and clopidogrel therapy: 2013 Update. Clin Pharmacol Ther. 2013:94(3):317-323. PubMed [id number] 2. Alex Diggs, et al. Cytochrome 2C19*17 allelic variant, platelet aggregation, bleeding events, and stent thrombosis in clopidogrel-treated patients with coronary stent placement. Circulation. 2010;121:512-518. PubMed [id number] 3. Cheng T, et al. Genetic determinants of response to clopidogrel and cardiovascular events. N Engl J Med. 2009;360:363-75. PubMed [id number] Director Review: Ria Madrid M.S., Ph.D., [facility] Channing Lopez, Ph.D. Thierry Sylvester M.D., [facility] Juancho Hunter, Ph.D., [facility] TESTING PERFORMED AT [facility]. ORIGINAL REPORT ON FILE IN LAB CONTAINS ADDITIONAL TEST SITE INFORMATION. Performed By: #### L801.1541 #### [facility] [address] [place], [address] OBSOLETE Observed: 03/15/2018 Status: COMPLETED Source: [place] 12:00 AM [facility] REPOSITORY Refill (FAMPWS) JOSETTE NELSON ([id number]) 1955 F TXT Date Time Provider Department 03/15/18 ZANDER OSBORN FAMPWS During your visit today, we recorded the following information about you: Mireya Mena Psnorman 03/15/2018 9:38 AM Signed Patient has been identified by name and date of : Yes Pending Prescriptions Disp Refills METFORMIN 500 MG TABLET 360 tablet 1 Sig: TAKE TWO TABLETS BY MOUTH TWICE DAILY WITH MEALS HOLDEN: No BUPROPION HCL 100 MG TABLET 270 tablet 1 HOLDEN: No CARVEDILOL 3.125 MG TABLET 180 tablet 0 Sig: Take 1 tablet by mouth twice daily with meals. HOLDEN: No RX INSTRUCTIONS: Patient aware RX will be sent to pharmacy. No need to notify patient. Mireya Mena Psr Channing Young Ma 03/15/2018 2:45 PM Signed NATASHA: 01/19/2018 metformin Last refill: 10/16/2017 QTY: 360 Refills: 1 Bupropion Last refill: 11/30/2017 QTY: 270 Refills: 1 carvedilol Last refill: 01/13/2018 QTY: 180 Refills: 0 Allergies As of Date: 03/15/2018 Noted Allergy Reaction CHOCOLATE 05/23/2013 11 - Vomiting Comments: Dark chocolate LODINE (ETODOLAC) 05/23/2013 7 - Swelling Date Reviewed: 03/02/2018 Reviewed by: Lulu King MA - Fully Assessed Reason for Visit: Refill Request [94] Visit Diagnosis:Coronary artery disease involving shoalwater coronary artery of shoalwater heart without angina pectoris [I25.10] Order(s):metFORMIN (GLUCOPHAGE) 500 mg tabletTAKE TWO TABLETS BY MOUTH TWICE DAILY WITH MEALSDisp: 360 tabletRfl: 1 buPROPion (WELLBUTRIN) 100 mg tabletTAKE 1 TABLET BY MOUTH IN THE MORNING AND 2 TABLETS IN THE EVENING OR BEDTIMEDisp: 270 tabletRfl: 1 carvedilol (COREG) 3.125 mg tabletTake 1 tablet by mouth twice daily with meals.Disp: 180 tabletRfl: 0 Prescriptions as of 03/15/2018 Sig: METFORMIN 500 MG TABLET TAKE TWO TABLETS BY MOUTH TWI* BUPROPION HCL 100 MG TABLET TAKE 1 TABLET BY MOUTH IN THE* CARVEDILOL 3.125 MG TABLET Take 1 tablet by mouth twice * LISINOPRIL 10 MG TABLET Take 1 tablet by mouth once d* CLOPIDOGREL 75 MG TABLET Take 1 tablet by mouth once d* TRULICITY 0.75 MG/0.5 ML SUBC* INJECT 0.75 MG SUBCUTANEOUSLY* BUDESONIDE-FORMOTEROL HFA 80 * Inhale 2 Puffs as instructed * BLOOD SUGAR DIAGNOSTIC STRIPS Test blood sugars 3 x daily. * ATORVASTATIN 40 MG TABLET Take 1 tablet by mouth once d* DOCUSATE SODIUM 100 MG CAPSULE TAKE ONE CAPSULE BY MOUTH TWI* ESOMEPRAZOLE MAGNESIUM 40 MG * Take 1 capsule by mouth twice* ERGOCALCIFEROL (VITAMIN D2) 5* Take 1 capsule by mouth once * METHYLPREDNISOLONE 4 MG TABLE* As Instructed per package Patient not taking: Reported on 03/02/2018 ALBUTEROL SULFATE HFA 90 MCG/* Inhale 2 Puffs as instructed * NITROGLYCERIN 0.4 MG SUBLINGU* Dissolve 1 tablet under the t* NICOTINE 7 MG/24 HR DAILY TRA* Apply 1 Patch as directed viry* IBUPROFEN 800 MG TABLET Take 1 tablet by mouth every * LANCETS Test blood sugar(s) 3 times d* ASPIRIN 81 MG TABLET,DELAYED * Take 1 tablet by mouth once d* HEATING PADS 1 Device as needed. Problem List As Of Date 03/15/2018 Noted Resolved Elevated liver enzymes [R74.8] INVALID FOR* Hypercholesteremia [E78.00] INVALID FOR* Elevated fasting glucose [R73.01] INVALID FOR* Neck pain, chronic [M54.2, G89.29] INVALID FOR* Tobacco abuse [Z72.0] INVALID FOR* Obesity [E66.9] INVALID FOR* Claudication of lower extremity [I73.9] INVALID FOR* Diabetes mellitus type 2, uncontrolled [E11.65] INVALID FOR* Cholelithiases [K80.20] INVALID FOR* Adenocarcinoma in situ (AIS) of uterine cervix *INVALID FOR* Major depressive disorder, recurrent episode (H*INVALID FOR* Essential hypertension [I10] INVALID FOR* Pulmonary emphysema (HCC) [J43.9] INVALID FOR* Gastroesophageal reflux disease [K21.9] INVALID FOR*09/13/2015 Positive occult stool blood test [R19.5] INVALID FOR*09/13/2015 Family history of ischemic heart disease [Z82.4*INVALID FOR* Aortic valve sclerosis [I35.8] INVALID FOR* Irritable esophagus [K22.9] INVALID FOR*01/30/2016 COPD with chronic bronchitis (HCC) [J44.9] INVALID FOR* Episode of recurrent major depressive disorder *INVALID FOR* Tobacco use disorder [F17.200] INVALID FOR* Memory deficit [R41.3] INVALID FOR* Mixed stress and urge urinary incontinence [N39*INVALID FOR* Vitamin D deficiency [E55.9] INVALID FOR* Short-term memory loss [R41.3] INVALID FOR* Fatigue [R53.83] INVALID FOR* PND (paroxysmal nocturnal dyspnea) [R06.00] INVALID FOR* Snoring [R06.83] INVALID FOR* H/O right coronary artery stent placement [Z95.*INVALID FOR* Coronary artery disease involving shoalwater machado*INVALID FOR* Dysuria [R30.0] INVALID FOR* Obesity, Class I, BMI 30-34.9 [E66.9] INVALID FOR* Major depression, recurrent, chronic (HCC) [F33*INVALID FOR* Bilateral leg edema [R60.0] INVALID FOR* OAB (overactive bladder) [N32.81] INVALID FOR* Urinary frequency [R35.0] INVALID FOR* Controlled type 2 diabetes mellitus without com*INVALID FOR* Aortic stenosis, mild [I35.0] INVALID FOR* Palpitations [R00.2] INVALID FOR* Mucopurulent chronic bronchitis (HCC) [J41.1] INVALID FOR* Prescriptions ordered this encounter Disp Refills Start End METFORMIN 500 MG TABLET 360 * 1 03/17/2018 Sig: TAKE TWO TABLETS BY MOUTH TWICE DAILY WITH MEALS BUPROPION HCL 100 MG TABLET 270 * 1 03/17/2018 Sig: TAKE 1 TABLET BY MOUTH IN THE MORNING AND 2 TABLETS IN THE EVENING OR BEDTIME CARVEDILOL 3.125 MG TABLET 180 * 0 03/17/2018 Route: ORAL Sig: Take 1 tablet by mouth twice daily with meals. Medications Discontinued During This Encounter metFORMIN (GLUCOPHAGE) 500 mg tablet 360 * 1 10/16/2017 03/17/2018 Sig: TAKE TWO TABLETS BY MOUTH TWICE DAILY WITH MEALS Disc: Reason for discontinue is not on file. buPROPion (WELLBUTRIN) 100 mg tablet 270 * 1 11/30/2017 03/17/2018 Sig: TAKE 1 TABLET BY MOUTH IN THE MORNING AND 2 TABLETS IN THE EVENING OR BEDTIME Disc: Reason for discontinue is not on file. carvedilol (COREG) 3.125 mg tablet 180 * 0 01/13/2018 03/17/2018 Route: ORAL Sig: Take 1 tablet by mouth twice daily with meals. Disc: Reason for discontinue is not on file. Encounter Status:Closed by ZANDER OSBORN DO on 03/17/18 PROGRESS Observed: 03/02/2018 Status: COMPLETED Source: [place] 2:21 PM [facility] REPOSITORY O ID: [id number] Author: Yrn Segovia Service: (none) Author Type: Physician Type: Progress Notes Filed: 03/02/2018 5:38 PM Note Text: PERTINENT CARDIAC HISTORY ASHD - PCI RCA 11/30 HTN HL DM Tobacco use AI - moderate Cardiomyopathy - ischemic 45% ADHERENCE TO GUIDELINES MOSES-I or ARB for HF with prior LVEF<40 (NQF 0081) - N/A ASA or Plavix for ASHD (NQF 0067) - met Beta bill for ASHD with prior VT or prior LVEF<40 (NQF 0070) - met Beta bill for HF with prior LVEF<40 (NQF 0083) - N/A MOSES-I or ARB for ASHD with DM or prior LVEF<40 (NQF 0066) - met Statin therapy for ASHD or FHL or DM - met BMI documented and plan if >25 (NQF 0421) - lifestyle recommendation form Tobacco use screening and referral (NQF 0028) - lifestyle recommendation form Recommendation for whole food, plant based diet - lifestyle recommendation form CLINICAL IMPRESSION/PLAN: Josette Nelson has multiple risk factors for ischemic heart disease, but appears to have stable disease. Her infrequent chest discomfort is very atypical for ischemia. Exercise tolerance is stable. We discussed lifestyle changes which may be helpful, including weight management, exercise, smoking cessation, changes in nutrition. She had been having some easy bruising with Brilinta. This has improved since Brilinta ran out. I recommend starting Plavix, understanding that she requires PpI for control of GERD. She will continue taking her Nexium for the time being. If she tolerates Plavix, I recommend checking platelet reactivity in 2 weeks. If platelets are incompletely inhibited, she should be switched to Protonix. I recommend follow-up in 6 months or as needed. She was advised to call if increased chest pain or shortness of breath. Written and verbal health teaching given to patient, patient verbalizes understanding and agrees with treatment plan. DIAGNOSIS FOR VISIT: ASHD Hyperlipidemia HISTORY OF PRESENT ILLNESS Josette Nelson is a 62-year-old woman who was seen in consultation at the request of Dr. Osborn, for cardiac follow-up. She was admitted to [facility] in November 2016 with an acute coronary syndrome. She underwent PCI on an occluded right coronary. Drug-eluting stent was placed. She has been compliant with dual anti- platelet therapy up until a week ago, when she ran out of Brilinta. She has had a couple of brief shock discomforts in the chest which are nonradiating and last less than a second. She's taken no medication for this. Not related to activity. Her exercise tolerance has been stable. She's had mild pitting pedal edema. She denies classic TIAs, amaurosis. She's had no claudication, palpitations, syncope. ALLERGIES: ALLERGIES Allergen Reactions - Chocolate Vomiting Dark chocolate - Lodine [Etodolac] Swelling CURRENT OUTPATIENT MEDICATIONS: albuterol HFA (VENTOLIN HFA) 90 mcg/actuation inhaler Inhale 2 Puffs as instructed every 4 hours as needed for Wheezing/Shortness of Breath. aspirin, enteric coated (ADULT LOW DOSE ASPIRIN) 81 mg EC tablet Take 1 tablet by mouth once daily. atorvastatin (LIPITOR) 40 mg tablet Take 1 tablet by mouth once daily. blood sugar diagnostic (PRODIGY NO CODING) test strip Test blood sugars 3 x daily. DX: E11.9 Insulin: No, Unstable blood glucose budesonide-formoterol (SYMBICORT) 80-4.5 mcg/actuation inhaler Inhale 2 Puffs as instructed twice daily. buPROPion (WELLBUTRIN) 100 mg tablet TAKE 1 TABLET BY MOUTH IN THE MORNING AND 2 TABLETS IN THE EVENING OR BEDTIME carvedilol (COREG) 3.125 mg tablet Take 1 tablet by mouth twice daily with meals. docusate sodium (DOC-Q-LACE) 100 mg capsule TAKE ONE CAPSULE BY MOUTH TWICE DAILY NEEDED FOR CONSTIPATION. ergocalciferol, vitamin D2, (VITAMIN D) 50,000 unit capsule Take 1 capsule by mouth once each week. esomeprazole (NEXIUM) 40 mg capsule Take 1 capsule by mouth twice daily before meals. Heating Pads pads 1 Device as needed. ibuprofen (MOTRIN) 800 mg tablet Take 1 tablet by mouth every 8 hours as needed for Pain. Take with food. Lancets lancets Test blood sugar(s) 3 times daily. Dx: DM2 uncontrolled. Insulin: No lisinopril (ZESTRIL, PRINIVIL) 10 mg tablet Take 1 tablet by mouth once daily. metFORMIN (GLUCOPHAGE) 500 mg tablet TAKE TWO TABLETS BY MOUTH TWICE DAILY WITH MEALS nitroglycerin sublingual (NITROQUICK) 0.4 mg SL tablet Dissolve 1 tablet under the tongue every 5 minutes as needed for Chest Pain. ticagrelor (BRILINTA) 90 mg tablet Take 1 tablet by mouth twice daily. TRULICITY 0.75 mg/0.5 mL pnij INJECT 0.75 MG SUBCUTANEOUSLY ONCE EACH WEEK. DISCARD PEN AFTER methylPREDNISolone (MEDROL DOSE-PACK) 4 mg Dose-Pack As Instructed per package nicotine (NICODERM CQ) 7 mg/24 hr Apply 1 Patch as directed every 24 hours. perflutren lipid microspheres (DEFINITY) 1.1 mg/mL injection (to be provided with echo procedure) Inject 1.3 mL intravenously as directed. PAST MEDICAL HISTORY Diagnosis Date - ASCUS of cervix with negative high risk HPV 12/2015 REPEAT PAP DEC 2016 - Cholelithiasis 05/2013 - COPD (chronic obstructive pulmonary disease) (HCC) 05/2013 - Diabetes mellitus type 2, uncontrolled (HCC) 05/2013 - Elevated LFTs 04/2013 - Fatty liver 05/2013 - Hypercholesteremia 04/2013 - Migraine headache - Mild aortic regurgitation 08/2015 - Tobacco abuse PAST SURGICAL HISTORY Procedure Laterality Date - APPENDECTOMY remote - COLONOSCOP W/ OR W/O BRSH SPEC 09/13/15 Colonoscopy mac - EGD W/O OR W/BRUSH/WASH 09/13/15 EGD mac - EGD W/O OR W/BRUSH/WASH 01/30/16 EGD mac - LAP VAG HYST <=250 G RMV T/O 09/09/13 LAVH/BSO for AIS and ZEN III of cervix - TUBAL LIGATION, age 22 FAMILY HISTORY Problem Relation Age of Onset - other (pancreatic cancer [Other]) Mother - Heart Father 62 smoker - Stroke Father 45 smoker - other (chf [Other]) Mother - Diabetes Mother Social History Marital status: Spouse name: Years of education: Number of children: 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 SHEENT: No change in vision or auditory acuity. Respiratory: No productive cough. Cardiac: As noted above. GI: No melena.Chronic GERD : No dysuria. Musculoskeletal: No myalgias. Neurologic: No strokes. Psychiatric: No depression. Endocrine: Positive for diabetes. Hematologic: No anemia. PHYSICAL EXAMINATION: S/he is alert and in no distress VITAL SIGNS: BP 134/83 Pulse 82 Ht 5' 2 (1.58m) Wt 181 lb 3.2 oz (82.2kg) BMI 33.13 kg/(m2). SHEENT: Skin is warm and dry. Pupils are round and reactive. Retinal vessels are grossly unremarkable. No xanthelasmas appreciated. Pharynx is benign. There is no oral cyanosis. Neck: supple. No adenopathy or thyroid enlargement. Chest: Clear to auscultation. Trachea is midline. Air entry is equal. There is no chest wall tenderness. Cardiac: Regular rhythm. S1 and S2 are normal. PMI is nondisplaced. There are no murmurs, rubs or gallops. No click is heard. Carotids are brisk without bruits. JVP is less than 10 cm. Abdomen: Soft and nontender. She is obese. There are no pulsatile masses or bruits. No liver enlargement. Bowel sounds are active. : Deferred. Extremities: No edema. Pulses are diminished but symmetrical. No clubbing or cyanosis. No femoral bruits. Neurologic: Grossly normal motor and sensory. S/he is alert and oriented x4. Musculoskeletal: No joint deformities. Prior records were reviewed. EKG shows some diffuse repolarization changes, which have been chronic. She underwent intervention on an occluded right coronary. This had good results. She had mild diffuse disease otherwise. Her left ventricular function was mildly decreased. Recent echocardiogram showed an ejection fraction of 55% with no significant wall motion abnormalities. Recent labs reviewed. Renal function is normal. LDL was 36. Electronically Signed: Yrn Segovia MD March 02, 2018 2:21 PM CC: DO PEGGY Freeman Observed: 03/02/2018 Status: COMPLETED Source: [place] 1:45 PM [facility] REPOSITORY Office Visit (CAWSTR) JOSETTE NELSON ([id number]) 1955 F TXT Date Time Provider Department 03/02/18 1:45 PM YRN SEGOVIAWSTR During your visit today, we recorded the following information about you: Pulse Blood pressure Weight Height 82/minute 134/83 82.2 kg 1.575 m Yrn Segovia MD 03/02/2018 5:38 PM Signed PERTINENT CARDIAC HISTORY ASHD - PCI RCA 11/30 HTN HL DM Tobacco use AI - moderate Cardiomyopathy - ischemic 45% ADHERENCE TO GUIDELINES MOSES-I or ARB for HF with prior LVEF<40 (NQF 0081) - N/A ASA or Plavix for ASHD (NQF 0067) - met Beta bill for ASHD with prior VT or prior LVEF<40 (NQF 0070) - met Beta bill for HF with prior LVEF<40 (NQF 0083) - N/A MOSES-I or ARB for ASHD with DM or prior LVEF<40 (NQF 0066) - met Statin therapy for ASHD or FHL or DM - met BMI documented and plan if >25 (NQF 0421) - lifestyle recommendation form Tobacco use screening and referral (NQF 0028) - lifestyle recommendation form Recommendation for whole food, plant based diet - lifestyle recommendation form CLINICAL IMPRESSION/PLAN: Josette Nelson has multiple risk factors for ischemic heart disease, but appears to have stable disease. Her infrequent chest discomfort is very atypical for ischemia. Exercise tolerance is stable. We discussed lifestyle changes which may be helpful, including weight management, exercise, smoking cessation, changes in nutrition. She had been having some easy bruising with Brilinta. This has improved since Brilinta ran out. I recommend starting Plavix, understanding that she requires PpI for control of GERD. She will continue taking her Nexium for the time being. If she tolerates Plavix, I recommend checking platelet reactivity in 2 weeks. If platelets are incompletely inhibited, she should be switched to Protonix. I recommend follow-up in 6 months or as needed. She was advised to call if increased chest pain or shortness of breath. Written and verbal health teaching given to patient, patient verbalizes understanding and agrees with treatment plan. DIAGNOSIS FOR VISIT: ASHD Hyperlipidemia HISTORY OF PRESENT ILLNESS Josette Nelson is a 62-year-old woman who was seen in consultation at the request of Dr. Osborn, for cardiac follow-up. She was admitted to [facility] in November 2016 with an acute coronary syndrome. She underwent PCI on an occluded right coronary. Drug-eluting stent was placed. She has been compliant with dual anti- platelet therapy up until a week ago, when she ran out of Brilinta. She has had a couple of brief shock discomforts in the chest which are nonradiating and last less than a second. She's taken no medication for this. Not related to activity. Her exercise tolerance has been stable. She's had mild pitting pedal edema. She denies classic TIAs, amaurosis. She's had no claudication, palpitations, syncope. ALLERGIES: ALLERGIES Allergen Reactions - Chocolate Vomiting Dark chocolate - Lodine [Etodolac] Swelling CURRENT OUTPATIENT MEDICATIONS: albuterol HFA (VENTOLIN HFA) 90 mcg/actuation inhaler Inhale 2 Puffs as instructed every 4 hours as needed for Wheezing/Shortness of Breath. aspirin, enteric coated (ADULT LOW DOSE ASPIRIN) 81 mg EC tablet Take 1 tablet by mouth once daily. atorvastatin (LIPITOR) 40 mg tablet Take 1 tablet by mouth once daily. blood sugar diagnostic (PRODIGY NO CODING) test strip Test blood sugars 3 x daily. DX: E11.9 Insulin: No, Unstable blood glucose budesonide-formoterol (SYMBICORT) 80-4.5 mcg/actuation inhaler Inhale 2 Puffs as instructed twice daily. buPROPion (WELLBUTRIN) 100 mg tablet TAKE 1 TABLET BY MOUTH IN THE MORNING AND 2 TABLETS IN THE EVENING OR BEDTIME carvedilol (COREG) 3.125 mg tablet Take 1 tablet by mouth twice daily with meals. docusate sodium (DOC-Q-LACE) 100 mg capsule TAKE ONE CAPSULE BY MOUTH TWICE DAILY NEEDED FOR CONSTIPATION. ergocalciferol, vitamin D2, (VITAMIN D) 50,000 unit capsule Take 1 capsule by mouth once each week. esomeprazole (NEXIUM) 40 mg capsule Take 1 capsule by mouth twice daily before meals. Heating Pads pads 1 Device as needed. ibuprofen (MOTRIN) 800 mg tablet Take 1 tablet by mouth every 8 hours as needed for Pain. Take with food. Lancets lancets Test blood sugar(s) 3 times daily. Dx: DM2 uncontrolled. Insulin: No lisinopril (ZESTRIL, PRINIVIL) 10 mg tablet Take 1 tablet by mouth once daily. metFORMIN (GLUCOPHAGE) 500 mg tablet TAKE TWO TABLETS BY MOUTH TWICE DAILY WITH MEALS nitroglycerin sublingual (NITROQUICK) 0.4 mg SL tablet Dissolve 1 tablet under the tongue every 5 minutes as needed for Chest Pain. ticagrelor (BRILINTA) 90 mg tablet Take 1 tablet by mouth twice daily. TRULICITY 0.75 mg/0.5 mL pnij INJECT 0.75 MG SUBCUTANEOUSLY ONCE EACH WEEK. DISCARD PEN AFTER methylPREDNISolone (MEDROL DOSE-PACK) 4 mg Dose-Pack As Instructed per package nicotine (NICODERM CQ) 7 mg/24 hr Apply 1 Patch as directed every 24 hours. perflutren lipid microspheres (DEFINITY) 1.1 mg/mL injection (to be provided with echo procedure) Inject 1.3 mL intravenously as directed. PAST MEDICAL HISTORY Diagnosis Date - ASCUS of cervix with negative high risk HPV 12/2015 REPEAT PAP DEC 2016 - Cholelithiasis 05/2013 - COPD (chronic obstructive pulmonary disease) (HCC) 05/2013 - Diabetes mellitus type 2, uncontrolled (HCC) 05/2013 - Elevated LFTs 04/2013 - Fatty liver 05/2013 - Hypercholesteremia 04/2013 - Migraine headache - Mild aortic regurgitation 08/2015 - Tobacco abuse PAST SURGICAL HISTORY Procedure Laterality Date - APPENDECTOMY remote - COLONOSCOP W/ OR W/O BRSH SPEC 09/13/15 Colonoscopy mac - EGD W/O OR W/BRUSH/WASH 09/13/15 EGD mac - EGD W/O OR W/BRUSH/WASH 01/30/16 EGD mac - LAP VAG HYST <=250 G RMV T/O 09/09/13 LAVH/BSO for AIS and ZEN III of cervix - TUBAL LIGATION, age 22 FAMILY HISTORY Problem Relation Age of Onset - other (pancreatic cancer [Other]) Mother - Heart Father 62 smoker - Stroke Father 45 smoker - other (chf [Other]) Mother - Diabetes Mother Social History Marital status: Spouse name: Years of education: Number of children: 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 SHEENT: No change in vision or auditory acuity. Respiratory: No productive cough. Cardiac: As noted above. GI: No melena.Chronic GERD : No dysuria. Musculoskeletal: No myalgias. Neurologic: No strokes. Psychiatric: No depression. Endocrine: Positive for diabetes. Hematologic: No anemia. PHYSICAL EXAMINATION: S/he is alert and in no distress VITAL SIGNS: BP 134/83 Pulse 82 Ht 5' 2 (1.58m) Wt 181 lb 3.2 oz (82.2kg) BMI 33.13 kg/(m2). SHEENT: Skin is warm and dry. Pupils are round and reactive. Retinal vessels are grossly unremarkable. No xanthelasmas appreciated. Pharynx is benign. There is no oral cyanosis. Neck: supple. No adenopathy or thyroid enlargement. Chest: Clear to auscultation. Trachea is midline. Air entry is equal. There is no chest wall tenderness. Cardiac: Regular rhythm. S1 and S2 are normal. PMI is nondisplaced. There are no murmurs, rubs or gallops. No click is heard. Carotids are brisk without bruits. JVP is less than 10 cm. Abdomen: Soft and nontender. She is obese. There are no pulsatile masses or bruits. No liver enlargement. Bowel sounds are active. : Deferred. Extremities: No edema. Pulses are diminished but symmetrical. No clubbing or cyanosis. No femoral bruits. Neurologic: Grossly normal motor and sensory. S/he is alert and oriented x4. Musculoskeletal: No joint deformities. Prior records were reviewed. EKG shows some diffuse repolarization changes, which have been chronic. She underwent intervention on an occluded right coronary. This had good results. She had mild diffuse disease otherwise. Her left ventricular function was mildly decreased. Recent echocardiogram showed an ejection fraction of 55% with no significant wall motion abnormalities. Recent labs reviewed. Renal function is normal. LDL was 36. Electronically Signed: Yrn Segovia MD March 02, 2018 2:21 PM CC: DO Yrn Freeman MD 03/02/2018 2:25 PM Signed LIFESTYLE CHANGE A healthy lifestyle is the most important component of your overall treatment plan. 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 EAT A WHOLE FOOD, PLANT BASED DIET The nutrition your body gets is more important than the medicine you take. What matters most is the overall way you eat. We encourage you to minimize the use of animal products (which include dairy and all meats except fatty fish) and use whole, unprocessed plant foods to provide your protein, vitamins and other nutrients. We have a lot of information to share with you on this topic. This is not a diet. It is a way of life that you will keep with you. EXERCISE REGULARLY It is not important to spend hours in the gym, lifting weights and perspiring heavily. A total of 2-3 hours per week of aerobic (causing you to be moderately short of breath) exercise is sufficient to improve your health. Talk to us before you begin a new exercise program, if you have heart disease or experience shortness of breath or chest pain. REDUCE STRESS Chronic emotional and physical stress leads to disease. Ways of reducing stress include meditation, visualization, prayer, yoga and other forms of relaxation therapy. Consistency is the sagastume. Find a technique that works for you and do it every day. CULTIVATE RELATIONSHIPS Loneliness and isolation have a major negative impact on health. Seek out others who can love, care for and nurture you. Avoid hurtful relationships. MAINTAIN IDEAL BODY WEIGHT The best way to do this is to do all the things above. Our bodies naturally find the right weight if we keep moving and feed ourselves the right food. If your BMI is greater than 25, we strongly recommend a referral to a weight management program. Please speak to us or your family physician about available programs. AVOID NICOTINE IN ALL FORMS This includes all tobacco products, whether chewed, smoked, vaped, or rubbed on the skin. Smoking cessation programs, which can make use of tobacco substitutes, medications to suppress cravings and behavior management, are available. Please contact your family physician about programs in your area. Referring Provider: SELF [[id number]] Allergies As of Date: 03/02/2018 Noted Allergy Reaction CHOCOLATE 05/23/2013 11 - Vomiting Comments: Dark chocolate LODINE (ETODOLAC) 05/23/2013 7 - Swelling Date Reviewed: 03/02/2018 Reviewed by: Lulu King MA - Fully Assessed Reason for Visit: Establish Care [42] Primary Visit Diagnosis:ASHD (arteriosclerotic heart disease) [I25.10] Other Visit Diagnosis:Essential hypertension [I10] Order(s):lisinopril (ZESTRIL, PRINIVIL) 10 mg tabletTake 1 tablet by mouth once daily.Disp: 90 tabletRfl: 3 clopidogrel (PLAVIX) 75 mg tabletTake 1 tablet by mouth once daily.Disp: 90 tabletRfl: 3 ASPIRIN/CLOPIDOGREL RESISTANCE [SQASPCLP] Order #: [id number] FUTURE Prescriptions as of 03/02/2018 Sig: ALBUTEROL SULFATE HFA 90 MCG/* Inhale 2 Puffs as instructed * ASPIRIN 81 MG TABLET,DELAYED * Take 1 tablet by mouth once d* ATORVASTATIN 40 MG TABLET Take 1 tablet by mouth once d* BLOOD SUGAR DIAGNOSTIC STRIPS Test blood sugars 3 x daily. * BUDESONIDE-FORMOTEROL HFA 80 * Inhale 2 Puffs as instructed * BUPROPION HCL 100 MG TABLET TAKE 1 TABLET BY MOUTH IN THE* CARVEDILOL 3.125 MG TABLET Take 1 tablet by mouth twice * DOCUSATE SODIUM 100 MG CAPSULE TAKE ONE CAPSULE BY MOUTH TWI* ERGOCALCIFEROL (VITAMIN D2) 5* Take 1 capsule by mouth once * ESOMEPRAZOLE MAGNESIUM 40 MG * Take 1 capsule by mouth twice* HEATING PADS 1 Device as needed. IBUPROFEN 800 MG TABLET Take 1 tablet by mouth every * LANCETS Test blood sugar(s) 3 times d* LISINOPRIL 10 MG TABLET Take 1 tablet by mouth once d* METFORMIN 500 MG TABLET TAKE TWO TABLETS BY MOUTH TWI* NITROGLYCERIN 0.4 MG SUBLINGU* Dissolve 1 tablet under the t* TRULICITY 0.75 MG/0.5 ML SUBC* INJECT 0.75 MG SUBCUTANEOUSLY* CLOPIDOGREL 75 MG TABLET Take 1 tablet by mouth once d* METHYLPREDNISOLONE 4 MG TABLE* As Instructed per package Patient not taking: Reported on 03/02/2018 NICOTINE 7 MG/24 HR DAILY TRA* Apply 1 Patch as directed viry* Problem List As Of Date 03/02/2018 Noted Resolved Elevated liver enzymes [R74.8] INVALID FOR* Hypercholesteremia [E78.00] INVALID FOR* Elevated fasting glucose [R73.01] INVALID FOR* Neck pain, chronic [M54.2, G89.29] INVALID FOR* Tobacco abuse [Z72.0] INVALID FOR* Obesity [E66.9] INVALID FOR* Claudication of lower extremity [I73.9] INVALID FOR* Diabetes mellitus type 2, uncontrolled [E11.65] INVALID FOR* Cholelithiases [K80.20] INVALID FOR* Adenocarcinoma in situ (AIS) of uterine cervix *INVALID FOR* Major depressive disorder, recurrent episode (H*INVALID FOR* Essential hypertension [I10] INVALID FOR* Pulmonary emphysema (HCC) [J43.9] INVALID FOR* Gastroesophageal reflux disease [K21.9] INVALID FOR*09/13/2015 Positive occult stool blood test [R19.5] INVALID FOR*09/13/2015 Family history of ischemic heart disease [Z82.4*INVALID FOR* Aortic valve sclerosis [I35.8] INVALID FOR* Irritable esophagus [K22.9] INVALID FOR*01/30/2016 COPD with chronic bronchitis (HCC) [J44.9] INVALID FOR* Episode of recurrent major depressive disorder *INVALID FOR* Tobacco use disorder [F17.200] INVALID FOR* Memory deficit [R41.3] INVALID FOR* Mixed stress and urge urinary incontinence [N39*INVALID FOR* Vitamin D deficiency [E55.9] INVALID FOR* Short-term memory loss [R41.3] INVALID FOR* Fatigue [R53.83] INVALID FOR* PND (paroxysmal nocturnal dyspnea) [R06.00] INVALID FOR* Snoring [R06.83] INVALID FOR* H/O right coronary artery stent placement [Z95.*INVALID FOR* Coronary artery disease involving shoalwater machado*INVALID FOR* Dysuria [R30.0] INVALID FOR* Obesity, Class I, BMI 30-34.9 [E66.9] INVALID FOR* Major depression, recurrent, chronic (HCC) [F33*INVALID FOR* Bilateral leg edema [R60.0] INVALID FOR* OAB (overactive bladder) [N32.81] INVALID FOR* Urinary frequency [R35.0] INVALID FOR* Controlled type 2 diabetes mellitus without com*INVALID FOR* Aortic stenosis, mild [I35.0] INVALID FOR* Palpitations [R00.2] INVALID FOR* Mucopurulent chronic bronchitis (HCC) [J41.1] INVALID FOR* Other instructions from your clinician: LIFESTYLE CHANGE A healthy lifestyle is the most important component of your overall treatment plan. 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 EAT A WHOLE FOOD, PLANT BASED DIET The nutrition your body gets is more important than the medicine you take. What matters most is the overall way you eat. We encourage you to minimize the use of animal products (which include dairy and all meats except fatty fish) and use whole, unprocessed plant foods to provide your protein, vitamins and other nutrients. We have a lot of information to share with you on this topic. This is not a diet. It is a way of life that you will keep with you. EXERCISE REGULARLY It is not important to spend hours in the gym, lifting weights and perspiring heavily. A total of 2-3 hours per week of aerobic (causing you to be moderately short of breath) exercise is sufficient to improve your health. Talk to us before you begin a new exercise program, if you have heart disease or experience shortness of breath or chest pain. REDUCE STRESS Chronic emotional and physical stress leads to disease. Ways of reducing stress include meditation, visualization, prayer, yoga and other forms of relaxation therapy. Consistency is the sagastume. Find a technique that works for you and do it every day. CULTIVATE RELATIONSHIPS Loneliness and isolation have a major negative impact on health. Seek out others who can love, care for and nurture you. Avoid hurtful relationships. MAINTAIN IDEAL BODY WEIGHT The best way to do this is to do all the things above. Our bodies naturally find the right weight if we keep moving and feed ourselves the right food. If your BMI is greater than 25, we strongly recommend a referral to a weight management program. Please speak to us or your family physician about available programs. AVOID NICOTINE IN ALL FORMS This includes all tobacco products, whether chewed, smoked, vaped, or rubbed on the skin. Smoking cessation programs, which can make use of tobacco substitutes, medications to suppress cravings and behavior management, are available. Please contact your family physician about programs in your area. Prescriptions ordered this encounter Disp Refills Start End LISINOPRIL 10 MG TABLET 90 t* 3 03/02/2018 Route: ORAL Sig: Take 1 tablet by mouth once daily. CLOPIDOGREL 75 MG TABLET 90 t* 3 03/02/2018 Route: ORAL Sig: Take 1 tablet by mouth once daily. Medications Discontinued During This Encounter lisinopril (ZESTRIL, PRINIVIL) 10 mg* 01/19/2018 03/02/2018 Class: Med Update Route: ORAL Sig: Take 1 tablet by mouth once daily. Disc: Reason for discontinue is not on file. ticagrelor (BRILINTA) 90 mg tablet 60 t* 0 01/13/2018 03/02/2018 Route: ORAL Sig: Take 1 tablet by mouth twice daily. Disc: Reason for discontinue is not on file. perflutren lipid microspheres (DEFIN* 1.3 * 0 01/19/2018 03/02/2018 Class: In Office Route: INTRAVENOUS Sig: Inject 1.3 mL intravenously as directed. Patient not taking: Reported on 03/02/2018 Disc: Reason for discontinue is not on file. Follow-up and Disposition History Recorded Encounter Status:Closed by YRN SEGOVIA MD on 03/02/18 PEGGY Observed: 01/21/2018 Status: COMPLETED Source: [place] 12:30 PM [facility] REPOSITORY Office Visit (CARDWS) JOSETTE NELSON ([id number]) 1955 F TXT Date Time Provider Department 01/21/18 12:30 PM ECHOCARDIOGRAM [facility] CARDWS During your visit today, we recorded the following information about you: Mare Kraus RN 01/21/2018 1:15 PM Signed #[id number] hep lock started rt ac x1 attempt, no redness swelling or bleeding noted at insertion site. Flushed with 5ml normal saline without difficulty. opsite dressing applied. Pt tolerated procedure without distress. Total of 4ml definity given and flushed with 5 ml normal saline upon completion, lot # [id number]. Pt tolerated medication without distress. Hep lock removed, catheter intact, no redness, swelling or pain at site. 2x2 gauze dressing applied with paper tape. Pt tolerated procedure without distress. Mare Kraus RN Referring Provider: ZANDER OSBORN [[id number]] Allergies As of Date: 01/21/2018 Noted Allergy Reaction CHOCOLATE 05/23/2013 11 - Vomiting Comments: Dark chocolate LODINE (ETODOLAC) 05/23/2013 7 - Swelling Date Reviewed: 01/19/2018 Reviewed by: Callie Joseph LPN - Fully Assessed Visit Diagnoses:Aortic stenosis, mild [I35.0] Palpitations [R00.2] Order(s):ECHO [855011] Order #: [id number]. #:[id number]: 1 INSERT IV ([place]) [[id number]] Order #: [id number]: 1 IV DISCONTINUE [[id number]] Order #: [id number]: 1 [] perflutren lipid microspheres (DEFINITY) 1.1 mg/mL injection (to be provided with echo procedure)Inject 1.3 mL intravenously one time only for 1 dose.Disp: 1.3 mLRfl: 0 Prescriptions as of 01/21/2018 Sig: PERFLUTREN LIPID MICROSPHERES* Inject 1.3 mL intravenously o* BUDESONIDE-FORMOTEROL HFA 80 * Inhale 2 Puffs as instructed * PERFLUTREN LIPID MICROSPHERES* Inject 1.3 mL intravenously a* LISINOPRIL 10 MG TABLET Take 1 tablet by mouth once d* TICAGRELOR 90 MG TABLET Take 1 tablet by mouth twice * CARVEDILOL 3.125 MG TABLET Take 1 tablet by mouth twice * BLOOD SUGAR DIAGNOSTIC STRIPS Test blood sugars 3 x daily. * ATORVASTATIN 40 MG TABLET Take 1 tablet by mouth once d* BUPROPION HCL 100 MG TABLET TAKE 1 TABLET BY MOUTH IN THE* DULAGLUTIDE 0.75 MG/0.5 ML ELLIGNTON* Inject 0.75 mg subcutaneously* METFORMIN 500 MG TABLET TAKE TWO TABLETS BY MOUTH TWI* DOCUSATE SODIUM 100 MG CAPSULE TAKE ONE CAPSULE BY MOUTH TWI* ESOMEPRAZOLE MAGNESIUM 40 MG * Take 1 capsule by mouth twice* ERGOCALCIFEROL (VITAMIN D2) 5* Take 1 capsule by mouth once * METHYLPREDNISOLONE 4 MG TABLE* As Instructed per package ALBUTEROL SULFATE HFA 90 MCG/* Inhale 2 Puffs as instructed * NITROGLYCERIN 0.4 MG SUBLINGU* Dissolve 1 tablet under the t* NICOTINE 7 MG/24 HR DAILY TRA* Apply 1 Patch as directed viry* IBUPROFEN 800 MG TABLET Take 1 tablet by mouth every * LANCETS Test blood sugar(s) 3 times d* ASPIRIN 81 MG TABLET,DELAYED * Take 1 tablet by mouth once d* HEATING PADS 1 Device as needed. Problem List As Of Date 01/21/2018 Noted Resolved Elevated liver enzymes [R74.8] INVALID FOR* Hypercholesteremia [E78.00] INVALID FOR* Elevated fasting glucose [R73.01] INVALID FOR* Neck pain, chronic [M54.2, G89.29] INVALID FOR* Tobacco abuse [Z72.0] INVALID FOR* Obesity [E66.9] INVALID FOR* Claudication of lower extremity [I73.9] INVALID FOR* Diabetes mellitus type 2, uncontrolled [E11.65] INVALID FOR* Cholelithiases [K80.20] INVALID FOR* Adenocarcinoma in situ (AIS) of uterine cervix *INVALID FOR* Major depressive disorder, recurrent episode (H*INVALID FOR* Essential hypertension [I10] INVALID FOR* Pulmonary emphysema (HCC) [J43.9] INVALID FOR* Gastroesophageal reflux disease [K21.9] INVALID FOR*09/13/2015 Positive occult stool blood test [R19.5] INVALID FOR*09/13/2015 Family history of ischemic heart disease [Z82.4*INVALID FOR* Aortic valve sclerosis [I35.8] INVALID FOR* Irritable esophagus [K22.9] INVALID FOR*01/30/2016 COPD with chronic bronchitis (HCC) [J44.9] INVALID FOR* Episode of recurrent major depressive disorder *INVALID FOR* Tobacco use disorder [F17.200] INVALID FOR* Memory deficit [R41.3] INVALID FOR* Mixed stress and urge urinary incontinence [N39*INVALID FOR* Vitamin D deficiency [E55.9] INVALID FOR* Short-term memory loss [R41.3] INVALID FOR* Fatigue [R53.83] INVALID FOR* PND (paroxysmal nocturnal dyspnea) [R06.00] INVALID FOR* Snoring [R06.83] INVALID FOR* H/O right coronary artery stent placement [Z95.*INVALID FOR* Coronary artery disease involving shoalwater machado*INVALID FOR* Dysuria [R30.0] INVALID FOR* Obesity, Class I, BMI 30-34.9 [E66.9] INVALID FOR* Major depression, recurrent, chronic (HCC) [F33*INVALID FOR* Bilateral leg edema [R60.0] INVALID FOR* OAB (overactive bladder) [N32.81] INVALID FOR* Urinary frequency [R35.0] INVALID FOR* Controlled type 2 diabetes mellitus without com*INVALID FOR* Aortic stenosis, mild [I35.0] INVALID FOR* Palpitations [R00.2] INVALID FOR* Mucopurulent chronic bronchitis (HCC) [J41.1] INVALID FOR* Visit Notes: >> Mare Kraus RN Ruth Jan 21, 2018 1:15 PM Status: Signed #[id number] hep lock started rt ac x1 attempt, no redness swelling or bleeding noted at insertion site. Flushed with 5ml normal saline without difficulty. opsite dressing applied. Pt tolerated procedure without distress. Total of 4ml definity given and flushed with 5 ml normal saline upon completion, lot # [id number]. Pt tolerated medication without distress. Hep lock removed, catheter intact, no redness, swelling or pain at site. 2x2 gauze dressing applied with paper tape. Pt tolerated procedure without distress. Mare Krasu RN Prescriptions ordered this encounter Disp Refills Start End PERFLUTREN LIPID MICROSPHERES 1.1 MG* 1.3 * 0 01/21/2018 01/21/2018 Class: In Office Route: INTRAVENOUS Sig: Inject 1.3 mL intravenously one time only for 1 dose. Follow-up and Disposition History Recorded Encounter Status:Closed by YRN SEGOVIA MD on 01/22/18 ECG COMPLETE W Observed: 01/19/2018 Status: F Source: [facility] 11:24 AM [facility] [place] REPOSITORY NAME : JOSETTE NELSON PID : [id number] : 1955 Gender : Female Race : ORD : [id number] Procedure Date : Jan 19 2018 11:24:19 Edit Date : Jan 22 2018 15:36:07 Diagnosis:NORMAL SINUS RHYTHM INFERIOR MYOCARDIAL INFARCTION , AGE UNDETERMINED LATERAL T WAVE ABNORMALITY ABNORMAL ECG Confirmed by WALT SIMONS D.O. ([id number]) on 01/22/2018 3:35:55 PM Ventricular Rate : 80 BPM Atrial Rate : 80 BPM P-R Interval : 170 ms QRS Duration : 78 ms Q-T Interval : 382 ms QTC Calculation(Bezet) : 440 ms P Jackson : 68 degrees R Jackson : -17 degrees T Jackson : 101 degrees Test Reason : Location : 185 : [facility] Overread By : WALT SIMONS D.O. Edited By : WALT SIMONS D.O. Referred By : ZANDER OSBORN Acquired by : ESSENCE, PROGRESS Observed: 01/19/2018 Status: COMPLETED Source: [place] 11:02 AM [facility] REPOSITORY HNO ID: [id number] Author: Zander Osborn Service: (none) Author Type: Physician Type: Progress Notes Filed: 01/19/2018 12:21 PM Note Text: Patient presents with: Follow Up: 3 months Imm/Inj: Flu Vaccine HPI: Josette Nelson is a 62 year old female who presents to the office today for review of health conditions. Concerns today: Vitamin d deficiency, taking supplement 50,000 IU once a week vitamin D, level at 47 currently Mood, depression, stable, no new concerns, taking wellbutrin and medications as prescribed. Palpitations, only occasionally, not associated with exertion, off and on for several weeks, no associated chest pains or dyspnea symptoms. Ms. Nelson has past history of diabetes. Since our last visit she denies excessive thirst or increased frequency of urination, chest pain or dyspnea , new or unusual visual symptoms and low sugar/hypoglycemic reactions. Follows a diabetic diet some of the time. She is compliant with medication(s) and is tolerating med(s) without any side effects. She reports checking her glucose on a once a day schedule with sugars in the <150 range. Patient's last HgA1C was Hemoglobin A1C (%) Date Value 01/13/2018 6.5 10/08/2017 7.5 ) Last Ophthalmology exam was >12 months ago Ms. Nelson reports history of hyperlipidemia. Current therapy includes atorvastatin (Lipitor) 40 mg. Denies side effects of muscle weakness or achiness. Her most recent lipid panels are reviewed. Cholesterol, Total (mg/dL) Date Value 10/08/2017 127 HDL Cholesterol (mg/dL) Date Value 10/08/2017 34 LDL Cholesterol (mg/dL) Date Value 10/08/2017 36 Triglyceride (mg/dL) Date Value 10/08/2017 283 Ms. Nelson indicates a history of hypertension and states that she is feeling well and denies any symptoms referable to elevated blood pressure. Specifically denies headache, chest pain, palpitations, dyspnea and peripheral edema. Patient denies any side effects of her medication(s) and is compliant with their regimen. Last 3 Encounter BP Readings: Date: BP: 01/19/2018 130/84 10/28/2017 124/80 07/13/2017 138/82 She watches her diet for sodium, low fat and low cholesterol some of the time. She does not check BP's generally. Josette gets minimal exercise. PAST MEDICAL HISTORY Diagnosis Date - ASCUS of cervix with negative high risk HPV 12/2015 REPEAT PAP DEC 2016 - Cholelithiasis 05/2013 - COPD (chronic obstructive pulmonary disease) (HCC) 05/2013 - Diabetes mellitus type 2, uncontrolled (HCC) 05/2013 - Elevated LFTs 04/2013 - Fatty liver 05/2013 - Hypercholesteremia 04/2013 - Migraine headache - Mild aortic regurgitation 08/2015 - Tobacco abuse PAST SURGICAL HISTORY Procedure Laterality Date - APPENDECTOMY remote - COLONOSCOP W/ OR W/O BRSH SPEC 09/13/15 Colonoscopy mac - EGD W/O OR W/BRUSH/WASH 09/13/15 EGD mac - EGD W/O OR W/BRUSH/WASH 01/30/16 EGD mac - LAP VAG HYST <=250 G RMV T/O 09/09/13 LAVH/BSO for AIS and ZEN III of cervix - TUBAL LIGATION, age 22 Social History Marital status: Spouse name: Years of education: Number of children: 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 Social History Main Topics Smoking status: Current Every Day Smoker Packs/day: 0.00 Years: 45.00 Types: Cigarettes Smokeless tobacco: Never Used Comment: 03/17 ppd Alcohol use: No Drug use: No Sexual activity: No Social History Narrative Lives with dtr Yina Levin, Goes by Gabriella, FAMILY HISTORY Problem Relation Age of Onset - other (pancreatic cancer [Other]) Mother - Heart Father 62 smoker - Stroke Father 45 smoker - other (chf [Other]) Mother - Diabetes Mother Allergies: ALLERGIES Allergen Reactions - Chocolate Vomiting Dark chocolate - Lodine [Etodolac] Swelling Current Meds: ticagrelor (BRILINTA) 90 mg tablet Take 1 tablet by mouth twice daily. carvedilol (COREG) 3.125 mg tablet Take 1 tablet by mouth twice daily with meals. blood sugar diagnostic (PRODIGY NO CODING) test strip Test blood sugars 3 x daily. DX: E11.9 Insulin: No, Unstable blood glucose atorvastatin (LIPITOR) 40 mg tablet Take 1 tablet by mouth once daily. buPROPion (WELLBUTRIN) 100 mg tablet TAKE 1 TABLET BY MOUTH IN THE MORNING AND 2 TABLETS IN THE EVENING OR BEDTIME lisinopril (ZESTRIL, PRINIVIL) 10 mg tablet Take 1 tablet by mouth once daily. dulaglutide (TRULICITY) 0.75 mg / 0.5 ml subcutaneous pen injector Inject 0.75 mg subcutaneously once each week. Inject dose once per week. Discard Pen After metFORMIN (GLUCOPHAGE) 500 mg tablet TAKE TWO TABLETS BY MOUTH TWICE DAILY WITH MEALS docusate sodium (DOC-Q-LACE) 100 mg capsule TAKE ONE CAPSULE BY MOUTH TWICE DAILY NEEDED FOR CONSTIPATION. esomeprazole (NEXIUM) 40 mg capsule Take 1 capsule by mouth twice daily before meals. ergocalciferol, vitamin D2, (VITAMIN D) 50,000 unit capsule Take 1 capsule by mouth once each week. methylPREDNISolone (MEDROL DOSE-PACK) 4 mg Dose-Pack As Instructed per package albuterol HFA (VENTOLIN HFA) 90 mcg/actuation inhaler Inhale 2 Puffs as instructed every 4 hours as needed for Wheezing/Shortness of Breath. Phenazopyridine (AZO URINARY PAIN RELIEF) 97.5 mg tab Take 2 tablets by mouth twice daily. nitroglycerin sublingual (NITROQUICK) 0.4 mg SL tablet Dissolve 1 tablet under the tongue every 5 minutes as needed for Chest Pain. nicotine (NICODERM CQ) 7 mg/24 hr Apply 1 Patch as directed every 24 hours. hydrocortisone 2.5 % cream Apply 1 application to affected area twice daily. Location: arms and legs ibuprofen (MOTRIN) 800 mg tablet Take 1 tablet by mouth every 8 hours as needed for Pain. Take with food. budesonide-formoterol (SYMBICORT) 80-4.5 mcg/actuation inhaler Inhale 2 Puffs as instructed twice daily. Lancets lancets Test blood sugar(s) 3 times daily. Dx: DM2 uncontrolled. Insulin: No aspirin, enteric coated (ADULT LOW DOSE ASPIRIN) 81 mg EC tablet Take 1 tablet by mouth once daily. Heating Pads pads 1 Device as needed. oxybutynin (DITROPAN) 5 mg tablet Take 1 tablet by mouth twice daily. Review of Systems: The remainder of the review of systems is negative. PE: 01/19/18 1048 BP: 130/84 Pulse: 80 Resp: 20 Temp: 36.7 ?C (98 ?F) TempSrc: Left Tympanic Weight: 83 kg (183 lb) Gen: AANDO, NAD, non-toxic appearing, cooperative HEENT: NT/AC, PERRLA, EOMs intact b/l, nares clear and patent b/l, pharynx without erythema, exudate or lesions.MMM, Uvula midline. Neck: supple, No cervical LAD, no thyromegaly, no carotid bruits CV: RRR, normal S1 and S2, 2/6 HSM RUSB murmurs, no gallops, no rubs, Pulses 2+ and symmetric in UE and LE b/l Lungs: normal respiratory effort, CTA b/l, no wheezing or rhonchi or rales ,mild prolongation of exhalation phase Abd: soft, obese, NT, ND, +BS, no hepatosplenomegaly Neuro: CN II-XII intact b/l Skin: warm, dry, intact, No rashes or lesions on exposed skin. ASSESSMENT/PLAN: 1. Controlled type 2 diabetes mellitus without complication, without long-term current use of insulin (HCC) - ICD9: 250.00, ICD10: E11.9 (primary diagnosis) Controlled. - Continue current medications - Blood glucose monitoring on a once a day schedule 2. Mucopurulent chronic bronchitis (HCC) - ICD9: 491.1, ICD10: J41.1 - rx refilled, needs to quit smoking - BUDESONIDE-FORMOTEROL HFA 80 MCG-4.5 MCG/ACTUATION AEROSOL INHALER 3. Need for vaccination - ICD9: V05.9, ICD10: Z23 - INFLUENZA VACCINE QUADRIVALENT AGE 3 YRS PLUS + IM 4. Aortic stenosis, mild - ICD9: 424.1, ICD10: I35.0 - ECG today in office, needs repeat ECHO and follow up with [employer] Handler as d/w her again today - ECG COMPLETE W INTERPRETATION - ECHO - PERFLUTREN LIPID MICROSPHERES 1.1 MG/ML INTRAVENOUS SUSPENSION 5. Palpitations - ICD9: 785.1, ICD10: R00.2 - see above - ECG COMPLETE W INTERPRETATION - ECHO - PERFLUTREN LIPID MICROSPHERES 1.1 MG/ML INTRAVENOUS SUSPENSION 6. Coronary artery disease involving shoalwater coronary artery of shoalwater heart without angina pectoris - ICD9: 414.01, ICD10: I25.10 - see above, continue same medicaitons, f/u with [employer] Handler in Feb 19. Vitamin D deficiency - ICD9: 268.9, ICD10: E55.9 - continue supplement 8. Hypercholesteremia - ICD9: 272.0, ICD10: E78.00 - suboptimal control - Continue current medication. - Encouraged following a low fat, low cholesterol diet. - Discussed the benefits of regular aerobic exercise and weight loss. - Encouraged following a low carbohydrate, healthy oil intake diet. 9. Tobacco abuse - ICD9: 305.1, ICD10: Z72.0 - Cessation encouraged. - Physiologic and physical aspects of tobacco addiction as well as strategies for quitting were discussed. - Counseling was given focusing on the harmful effects of this addiction especially given the patient's medical condition(s) which will be worsened because of the chemicals in tobacco. 10. Essential hypertension - ICD9: 401.9, ICD10: I10 - suboptimal control - Continue current medication(s) - Recommended regular aerobic exercise. - Recommend home blood pressure monitoring, to bring results in on next visit - Goal of BP <130/80 Zander Osborn DO To ER if develops chest pain, shortness of breath, or severe worsening of symptoms. Discussed risks, benefits, alternatives, and potential side effects of medications. Patient expressed understanding and agreed with the plan. Zander Osborn DO [address] [place] [address] PROGRESS Observed: 01/19/2018 Status: COMPLETED Source: [place] 10:53 AM [facility] [place] REPOSITORY O ID: [id number] Author: Callie Joseph LPN Service: (none) Author Type: (none) Type: Progress Notes Filed: 01/19/2018 12:21 PM Note Text: 62 year old female here for INACTIVATED INFLUENZA VACCINE. [id number] Season Patient is identified by name and date of : Yes [] CONTRAINDICATIONS color enhanced section Age less than 6 months? No Allergy to eggs, chicken, chicken feathers, or chicken dander? No Allergy to thimerosal (a preservative) or formaldehyde, gelatin? No History of severe reaction to any vaccine component or a previous dose of influenza vaccination? No History of Guillain-Lansing Syndrome within 6 weeks after a previous influenza vaccine? No Patient is not moderately or severely ill? No Current temperature greater or equal to 100.4F? No History of Bone Marrow Transplant prior 6 months or solid organ transplant in the past 3 months ? No History of fainting after a prior injection or medical procedure? No- ? If patient has fainted in the past, the CDC recommends sitting or lying down for 15 minutes after the vaccination. [] VERIFICATION color enhanced section Was the answer Yes for any of the above contraindications? STOP and verify with patient's primary care physician that it is acceptable to proceed with vaccine. Patient/guardian agrees the above answers are true to the best of their knowledge? Yes Flu vaccine information sheet given? Yes See immunization activity in [facility] for details of immunizations adminstered today. Patient age: [age] year old For The 1915-1214 Flu Season 6-35 months old: Fluzone 0.25 ml - IM (Preservative Free) 3 years of age: Fluzone 0.5 ml - IM (Preservative Free) 3 years and older: Fluzone 0.5 ml- IM-(with Preservatives) 65+ years old: 2-49 years old Fluzone High-Dose 0.5 ml - IM (Preservative Free) FLUMIST- intranasal REMEMBER: If patient is less than 9 years of age and this is the first vaccine of Influenza to be received in any flu season, they should receive a second dose in one months time. CNOV Observed: 01/19/2018 Status: COMPLETED Source: [place] 10:40 AM [facility] REPOSITORY [facility] JOSETTE NELSON ([id number]) 1955 F TXT Date Time Provider Department 01/19/18 10:40 AM ZANDER OSBORNWS During your visit today, we recorded the following information about you: Temperature Pulse Respiration Blood pressure 98 degrees 80/minute 20/minute 130/84 Weight 83 kg Callie DuboseCamron CARR 01/19/2018 12:21 PM Signed 62 year old female here for INACTIVATED INFLUENZA VACCINE. Season Patient is identified by name and date of : Yes [] CONTRAINDICATIONS color enhanced section Age less than 6 months? No Allergy to eggs, chicken, chicken feathers, or chicken dander? No Allergy to thimerosal (a preservative) or formaldehyde, gelatin? No History of severe reaction to any vaccine component or a previous dose of influenza vaccination? No History of Guillain-Lansing Syndrome within 6 weeks after a previous influenza vaccine? No Patient is not moderately or severely ill? No Current temperature greater or equal to 100.4F? No History of Bone Marrow Transplant prior 6 months or solid organ transplant in the past 3 months ? No History of fainting after a prior injection or medical procedure? No- ? If patient has fainted in the past, the CDC recommends sitting or lying down for 15 minutes after the vaccination. [] VERIFICATION color enhanced section Was the answer Yes for any of the above contraindications? STOP and verify with patient's primary care physician that it is acceptable to proceed with vaccine. Patient/guardian agrees the above answers are true to the best of their knowledge? Yes Flu vaccine information sheet given? Yes See immunization activity in [facility] for details of immunizations adminstered today. Patient age: [age] year old For The 0627-8456 Flu Season 6-35 months old: Fluzone 0.25 ml - IM (Preservative Free) 3 years of age: Fluzone 0.5 ml - IM (Preservative Free) 3 years and older: Fluzone 0.5 ml- IM-(with Preservatives) 65+ years old: 2-49 years old Fluzone High-Dose 0.5 ml - IM (Preservative Free) FLUMIST- intranasal REMEMBER: If patient is less than 9 years of age and this is the first vaccine of Influenza to be received in any flu season, they should receive a second dose in one months time. Zander Osborn DO 01/19/2018 12:21 PM Signed Patient presents with: Follow Up: 3 months Imm/Inj: Flu Vaccine HPI: Josette Nelson is a 62 year old female who presents to the office today for review of health conditions. Concerns today: Vitamin d deficiency, taking supplement 50,000 IU once a week vitamin D, level at 47 currently Mood, depression, stable, no new concerns, taking wellbutrin and medications as prescribed. Palpitations, only occasionally, not associated with exertion, off and on for several weeks, no associated chest pains or dyspnea symptoms. Ms. Nelson has past history of diabetes. Since our last visit she denies excessive thirst or increased frequency of urination, chest pain or dyspnea , new or unusual visual symptoms and low sugar/hypoglycemic reactions. Follows a diabetic diet some of the time. She is compliant with medication(s) and is tolerating med(s) without any side effects. She reports checking her glucose on a once a day schedule with sugars in the <150 range. Patient's last HgA1C was Hemoglobin A1C (%) Date Value 01/13/2018 6.5 10/08/2017 7.5 ) Last Ophthalmology exam was >12 months ago Ms. Nelson reports history of hyperlipidemia. Current therapy includes atorvastatin (Lipitor) 40 mg. Denies side effects of muscle weakness or achiness. Her most recent lipid panels are reviewed. Cholesterol, Total (mg/dL) Date Value 10/08/2017 127 HDL Cholesterol (mg/dL) Date Value 10/08/2017 34 LDL Cholesterol (mg/dL) Date Value 10/08/2017 36 Triglyceride (mg/dL) Date Value 10/08/2017 283 Ms. Nelson indicates a history of hypertension and states that she is feeling well and denies any symptoms referable to elevated blood pressure. Specifically denies headache, chest pain, palpitations, dyspnea and peripheral edema. Patient denies any side effects of her medication(s) and is compliant with their regimen. Last 3 Encounter BP Readings: Date: BP: 01/19/2018 130/84 10/28/2017 124/80 07/13/2017 138/82 She watches her diet for sodium, low fat and low cholesterol some of the time. She does not check BP's generally. Josette gets minimal exercise. PAST MEDICAL HISTORY Diagnosis Date - ASCUS of cervix with negative high risk HPV 12/2015 REPEAT PAP DEC 2016 - Cholelithiasis 05/2013 - COPD (chronic obstructive pulmonary disease) (HCC) 05/2013 - Diabetes mellitus type 2, uncontrolled (HCC) 05/2013 - Elevated LFTs 04/2013 - Fatty liver 05/2013 - Hypercholesteremia 04/2013 - Migraine headache - Mild aortic regurgitation 08/2015 - Tobacco abuse PAST SURGICAL HISTORY Procedure Laterality Date - APPENDECTOMY remote - COLONOSCOP W/ OR W/O BRSH SPEC 09/13/15 Colonoscopy mac - EGD W/O OR W/BRUSH/WASH 09/13/15 EGD mac - EGD W/O OR W/BRUSH/WASH 01/30/16 EGD mac - LAP VAG HYST <=250 G RMV T/O 09/09/13 LAVH/BSO for AIS and ZEN III of cervix - TUBAL LIGATION, age 22 Social History Marital status: Spouse name: Years of education: Number of children: 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 Social History Main Topics Smoking status: Current Every Day Smoker Packs/day: 0.00 Years: 45.00 Types: Cigarettes Smokeless tobacco: Never Used Comment: 03/17 ppd Alcohol use: No Drug use: No Sexual activity: No Social History Narrative Lives with dtr Yina Levin, Goes by Gabriella, FAMILY HISTORY Problem Relation Age of Onset - other (pancreatic cancer [Other]) Mother - Heart Father 62 smoker - Stroke Father 45 smoker - other (chf [Other]) Mother - Diabetes Mother Allergies: ALLERGIES Allergen Reactions - Chocolate Vomiting Dark chocolate - Lodine [Etodolac] Swelling Current Meds: ticagrelor (BRILINTA) 90 mg tablet Take 1 tablet by mouth twice daily. carvedilol (COREG) 3.125 mg tablet Take 1 tablet by mouth twice daily with meals. blood sugar diagnostic (PRODIGY NO CODING) test strip Test blood sugars 3 x daily. DX: E11.9 Insulin: No, Unstable blood glucose atorvastatin (LIPITOR) 40 mg tablet Take 1 tablet by mouth once daily. buPROPion (WELLBUTRIN) 100 mg tablet TAKE 1 TABLET BY MOUTH IN THE MORNING AND 2 TABLETS IN THE EVENING OR BEDTIME lisinopril (ZESTRIL, PRINIVIL) 10 mg tablet Take 1 tablet by mouth once daily. dulaglutide (TRULICITY) 0.75 mg / 0.5 ml subcutaneous pen injector Inject 0.75 mg subcutaneously once each week. Inject dose once per week. Discard Pen After metFORMIN (GLUCOPHAGE) 500 mg tablet TAKE TWO TABLETS BY MOUTH TWICE DAILY WITH MEALS docusate sodium (DOC-Q-LACE) 100 mg capsule TAKE ONE CAPSULE BY MOUTH TWICE DAILY NEEDED FOR CONSTIPATION. esomeprazole (NEXIUM) 40 mg capsule Take 1 capsule by mouth twice daily before meals. ergocalciferol, vitamin D2, (VITAMIN D) 50,000 unit capsule Take 1 capsule by mouth once each week. methylPREDNISolone (MEDROL DOSE-PACK) 4 mg Dose-Pack As Instructed per package albuterol HFA (VENTOLIN HFA) 90 mcg/actuation inhaler Inhale 2 Puffs as instructed every 4 hours as needed for Wheezing/Shortness of Breath. Phenazopyridine (AZO URINARY PAIN RELIEF) 97.5 mg tab Take 2 tablets by mouth twice daily. nitroglycerin sublingual (NITROQUICK) 0.4 mg SL tablet Dissolve 1 tablet under the tongue every 5 minutes as needed for Chest Pain. nicotine (NICODERM CQ) 7 mg/24 hr Apply 1 Patch as directed every 24 hours. hydrocortisone 2.5 % cream Apply 1 application to affected area twice daily. Location: arms and legs ibuprofen (MOTRIN) 800 mg tablet Take 1 tablet by mouth every 8 hours as needed for Pain. Take with food. budesonide-formoterol (SYMBICORT) 80-4.5 mcg/actuation inhaler Inhale 2 Puffs as instructed twice daily. Lancets lancets Test blood sugar(s) 3 times daily. Dx: DM2 uncontrolled. Insulin: No aspirin, enteric coated (ADULT LOW DOSE ASPIRIN) 81 mg EC tablet Take 1 tablet by mouth once daily. Heating Pads pads 1 Device as needed. oxybutynin (DITROPAN) 5 mg tablet Take 1 tablet by mouth twice daily. Review of Systems: The remainder of the review of systems is negative. PE: 01/19/18 1048 BP: 130/84 Pulse: 80 Resp: 20 Temp: 36.7 ?C (98 ?F) TempSrc: Left Tympanic Weight: 83 kg (183 lb) Gen: AANDO, NAD, non-toxic appearing, cooperative HEENT: NT/AC, PERRLA, EOMs intact b/l, nares clear and patent b/l, pharynx without erythema, exudate or lesions.MMM, Uvula midline. Neck: supple, No cervical LAD, no thyromegaly, no carotid bruits CV: RRR, normal S1 and S2, 2/6 HSM RUSB murmurs, no gallops, no rubs, Pulses 2+ and symmetric in UE and LE b/l Lungs: normal respiratory effort, CTA b/l, no wheezing or rhonchi or rales ,mild prolongation of exhalation phase Abd: soft, obese, NT, ND, +BS, no hepatosplenomegaly Neuro: CN II-XII intact b/l Skin: warm, dry, intact, No rashes or lesions on exposed skin. ASSESSMENT/PLAN: 1. Controlled type 2 diabetes mellitus without complication, without long-term current use of insulin (HCC) - ICD9: 250.00, ICD10: E11.9 (primary diagnosis) Controlled. - Continue current medications - Blood glucose monitoring on a once a day schedule 2. Mucopurulent chronic bronchitis (HCC) - ICD9: 491.1, ICD10: J41.1 - rx refilled, needs to quit smoking - BUDESONIDE-FORMOTEROL HFA 80 MCG-4.5 MCG/ACTUATION AEROSOL INHALER 3. Need for vaccination - ICD9: V05.9, ICD10: Z23 - INFLUENZA VACCINE QUADRIVALENT AGE 3 YRS PLUS + IM 4. Aortic stenosis, mild - ICD9: 424.1, ICD10: I35.0 - ECG today in office, needs repeat ECHO and follow up with Materials Handler as d/w her again today - ECG COMPLETE W INTERPRETATION - ECHO - PERFLUTREN LIPID MICROSPHERES 1.1 MG/ML INTRAVENOUS SUSPENSION 5. Palpitations - ICD9: 785.1, ICD10: R00.2 - see above - ECG COMPLETE W INTERPRETATION - ECHO - PERFLUTREN LIPID MICROSPHERES 1.1 MG/ML INTRAVENOUS SUSPENSION 6. Coronary artery disease involving shoal[place] coronary artery of sho[place] heart without angina pectoris - ICD9: 414.01, ICD10: I25.10 - see above, continue same medicaitons, f/u with Materials Handler in Feb 7. Vitamin D deficiency - ICD9: 268.9, ICD10: E55.9 - continue supplement 8. Hypercholesteremia - ICD9: 272.0, ICD10: E78.00 - suboptimal control - Continue current medication. - Encouraged following a low fat, low cholesterol diet. - Discussed the benefits of regular aerobic exercise and weight loss. - Encouraged following a low carbohydrate, healthy oil intake diet. 9. Tobacco abuse - ICD9: 305.1, ICD10: Z72.0 - Cessation encouraged. - Physiologic and physical aspects of tobacco addiction as well as strategies for quitting were discussed. - Counseling was given focusing on the harmful effects of this addiction especially given the patient's medical condition(s) which will be worsened because of the chemicals in tobacco. 10. Essential hypertension - ICD9: 401.9, ICD10: I10 - suboptimal control - Continue current medication(s) - Recommended regular aerobic exercise. - Recommend home blood pressure monitoring, to bring results in on next visit - Goal of BP <130/80 Zander Osborn DO To ER if develops chest pain, shortness of breath, or severe worsening of symptoms. Discussed risks, benefits, alternatives, and potential side effects of medications. Patient expressed understanding and agreed with the plan. Zander Osborn DO [address] [place] [address] Referring Provider: ZANDER OSBORN [[id number]] Allergies As of Date: 01/19/2018 Noted Allergy Reaction CHOCOLATE 05/23/2013 11 - Vomiting Comments: Dark chocolate LODINE (ETODOLAC) 05/23/2013 7 - Swelling Date Reviewed: 01/19/2018 Reviewed by: Callie Joseph LPN - Fully Assessed Reason for Visit: Follow Up [171] Cmt: 3 months Imm/Inj [58] Cmt: Flu Vaccine Reason For Visit History Recorded Primary Visit Diagnosis:Controlled type 2 diabetes mellitus without complication, without long-term current use of insulin (HCC) [E11.9] Other Visit Diagnoses:Mucopurulent chronic bronchitis (HCC) [J41.1] Need for vaccination [Z23] Aortic stenosis, mild [I35.0] Palpitations [R00.2] Coronary artery disease involving shoal[place] coronary artery of shoalwater heart without angina pectoris [I25.10] Vitamin D deficiency [E55.9] Hypercholesteremia [E78.00] Tobacco abuse [Z72.0] Essential hypertension [I10] Order(s):INFLUENZA VACCINE QUADRIVALENT AGE 3 YRS PLUS + IM [[id number]] Order #: [id number] budesonide-formoterol (SYMBICORT) 80-4.5 mcg/actuation inhalerInhale 2 Puffs as instructed twice daily.Disp: 1 InhalerRfl: 5 ECG COMPLETE W INTERPRETATION [ECG01] Order #: [id number] FUTURE ECHO [[id number]] Order #: [id number]: 1 FUTURE perflutren lipid microspheres (DEFINITY) 1.1 mg/mL injection (to be provided with echo procedure)Inject 1.3 mL intravenously as directed.Disp: 1.3 mLRfl: 0 lisinopril (ZESTRIL, PRINIVIL) 10 mg tabletTake 1 tablet by mouth once daily.Disp: Rfl: Prescriptions as of 01/19/2018 Sig: BUDESONIDE-FORMOTEROL HFA 80 * Inhale 2 Puffs as instructed * TICAGRELOR 90 MG TABLET Take 1 tablet by mouth twice * CARVEDILOL 3.125 MG TABLET Take 1 tablet by mouth twice * BLOOD SUGAR DIAGNOSTIC STRIPS Test blood sugars 3 x daily. * ATORVASTATIN 40 MG TABLET Take 1 tablet by mouth once d* BUPROPION HCL 100 MG TABLET TAKE 1 TABLET BY MOUTH IN THE* DULAGLUTIDE 0.75 MG/0.5 ML [place]* Inject 0.75 mg subcutaneously* METFORMIN 500 MG TABLET TAKE TWO TABLETS BY MOUTH TWI* DOCUSATE SODIUM 100 MG CAPSULE TAKE ONE CAPSULE BY MOUTH TWI* ESOMEPRAZOLE MAGNESIUM 40 MG * Take 1 capsule by mouth twice* ERGOCALCIFEROL (VITAMIN D2) 5* Take 1 capsule by mouth once * METHYLPREDNISOLONE 4 MG TABLE* As Instructed per package ALBUTEROL SULFATE HFA 90 MCG/* Inhale 2 Puffs as instructed * NITROGLYCERIN 0.4 MG SUBLINGU* Dissolve 1 tablet under the t* NICOTINE 7 MG/24 HR DAILY TRA* Apply 1 Patch as directed viry* IBUPROFEN 800 MG TABLET Take 1 tablet by mouth every * LANCETS Test blood sugar(s) 3 times d* ASPIRIN 81 MG TABLET,DELAYED * Take 1 tablet by mouth once d* HEATING PADS 1 Device as needed. PERFLUTREN LIPID MICROSPHERES* Inject 1.3 mL intravenously a* LISINOPRIL 10 MG TABLET Take 1 tablet by mouth once d* Medication notes this encounter OXYBUTYNIN CHLORIDE 5 MG TABLET >> Callie Joseph LPN 01/19/2018 10:51 AM >> CALLIE JOSEPH LPN Jan 19, 2018 10:51 AM Finished Problem List As Of Date 01/19/2018 Noted Resolved Elevated liver enzymes [R74.8] INVALID FOR* Hypercholesteremia [E78.00] INVALID FOR* Elevated fasting glucose [R73.01] INVALID FOR* Neck pain, chronic [M54.2, G89.29] INVALID FOR* Tobacco abuse [Z72.0] INVALID FOR* Obesity [E66.9] INVALID FOR* Claudication of lower extremity [I73.9] INVALID FOR* Diabetes mellitus type 2, uncontrolled [E11.65] INVALID FOR* Cholelithiases [K80.20] INVALID FOR* Adenocarcinoma in situ (AIS) of uterine cervix *INVALID FOR* Major depressive disorder, recurrent episode (H*INVALID FOR* Essential hypertension [I10] INVALID FOR* Pulmonary emphysema (HCC) [J43.9] INVALID FOR* Gastroesophageal reflux disease [K21.9] INVALID FOR*09/13/2015 Positive occult stool blood test [R19.5] INVALID FOR*09/13/2015 Family history of ischemic heart disease [Z82.4*INVALID FOR* Aortic valve sclerosis [I35.8] INVALID FOR* Irritable esophagus [K22.9] INVALID FOR*01/30/2016 COPD with chronic bronchitis (HCC) [J44.9] INVALID FOR* Episode of recurrent major depressive disorder *INVALID FOR* Tobacco use disorder [F17.200] INVALID FOR* Memory deficit [R41.3] INVALID FOR* Mixed stress and urge urinary incontinence [N39*INVALID FOR* Vitamin D deficiency [E55.9] INVALID FOR* Short-term memory loss [R41.3] INVALID FOR* Fatigue [R53.83] INVALID FOR* PND (paroxysmal nocturnal dyspnea) [R06.00] INVALID FOR* Snoring [R06.83] INVALID FOR* H/O right coronary artery stent placement [Z95.*INVALID FOR* Coronary artery disease involving sho[place]*INVALID FOR* Dysuria [R30.0] INVALID FOR* Obesity, Class I, BMI 30-34.9 [E66.9] INVALID FOR* Major depression, recurrent, chronic (HCC) [F33*INVALID FOR* Bilateral leg edema [R60.0] INVALID FOR* OAB (overactive bladder) [N32.81] INVALID FOR* Urinary frequency [R35.0] INVALID FOR* Controlled type 2 diabetes mellitus without com*INVALID FOR* Aortic stenosis, mild [I35.0] INVALID FOR* Palpitations [R00.2] INVALID FOR* Mucopurulent chronic bronchitis (HCC) [J41.1] INVALID FOR* Prescriptions ordered this encounter Disp Refills Start End BUDESONIDE-FORMOTEROL HFA 80 MCG-4.5* 1 In* 5 01/19/2018 Route: INHALATION Sig: Inhale 2 Puffs as instructed twice daily. PERFLUTREN LIPID MICROSPHERES 1.1 MG* 1.3 * 0 01/19/2018 01/19/2019 Class: In Office Route: INTRAVENOUS Sig: Inject 1.3 mL intravenously as directed. LISINOPRIL 10 MG TABLET 01/19/2018 Class: Med Update Route: ORAL Sig: Take 1 tablet by mouth once daily. Medications Discontinued During This Encounter budesonide-formoterol (SYMBICORT) 80* 1 In* 5 11/16/2015 01/19/2018 Route: INHALATION Sig: Inhale 2 Puffs as instructed twice daily. Disc: Reason for discontinue is not on file. oxybutynin (DITROPAN) 5 mg tablet 60 t* 5 04/14/2017 01/19/2018 Route: ORAL Sig: Take 1 tablet by mouth twice daily. Disc: Reason for discontinue is not on file. Phenazopyridine (AZO URINARY PAIN RE* 10 t* 0 04/02/2017 01/19/2018 Class: Print RX Route: ORAL Sig: Take 2 tablets by mouth twice daily. Disc: Reason for discontinue is not on file. hydrocortisone 2.5 % cream 60 g 1 09/05/2016 01/19/2018 Route: TOPICAL Sig: Apply 1 application to affected area twice daily. Location: arms and legs Disc: Reason for discontinue is not on file. lisinopril (ZESTRIL, PRINIVIL) 10 mg* 30 t* 11 10/28/2017 01/19/2018 Route: ORAL Sig: Take 1 tablet by mouth once daily. Disc: Reason for discontinue is not on file. Encounter Status:Closed by ZANDER OSBORN DO on 01/19/18 COMP METABOLIC PANEL Collected: 01/13/2018 Status: F Source: [place] 12:20 PM [facility] [place] REPOSITORY TYPE CODE TESTS RESULT OUT OF REFERENCE UNITS RANGE LAB TP 6.3-8.0 g/dL Test reordered by Protein, [facility]. Total Result Comment: [id number] Account Credited LAB ALB 3.9-4.9 g/dL Test Albumin reordered by [facility]. Result Comment: [id number] Account Credited LAB CA 8.5-10.2 mg/dL Test Calcium, Total reordered by [facility]. Result Comment: [id number] Account Credited LAB TBIL 0.2-1.3 mg/dL Bilirubin, Test Total reordered by [facility]. Result Comment: [id number] Account Credited LAB ALKP 34-123 U/L Alkaline Test Phosphatase reordered by [facility]. Result Comment: [id number] Account Credited LAB AST 13-35 U/L Test AST reordered by [facility]. Result Comment: [id number] Account Credited LAB GLU 74-99 mg/dL Test Glucose reordered by [facility]. Result Comment: [id number] Account Credited LAB BUN 7-21 mg/dL Test BUN reordered by [facility]. Result Comment: [id number] Account Credited LAB CRET 0.58-0.96 mg/dL Creatinine Test reordered by [facility]. Result Comment: [id number] Account Credited LAB NA 136-144 mmol/L Test Sodium reordered by [facility]. Result Comment: [id number] Account Credited LAB K 3.7-5.1 mmol/L Test Potassium reordered by [facility]. Result Comment: [id number] Account Credited LAB CL 97-105 mmol/L Test Chloride reordered by [facility]. Result Comment: [id number] Account Credited LAB CO2 22-30 mmol/L Test CO2 reordered by [facility]. Result Comment: [id number] Account Credited LAB AGAP 9-18 mmol/L Test Anion Gap reordered by [facility]. Result Comment: [id number] Account Credited LAB ALT 7-38 U/L Test reordered ALT by [facility]. Result Comment: [id number] Account Credited LAB GFRAA eGFR- Amer. Test reordered by [facility]. Result Comment: [id number] Account Credited LAB GFRNAA . eGFR-All Test Other Races reordered by [facility]. Result Comment: [id number] Account Credited LAB GFRPED eGFR-Ped. Test Factor reordered by [facility]. Result Comment: [id number] Account Credited Performed By: #### CMP, CBC, HBA1C, VITD #### [facility] [address] [place], [place] [address] CBC Collected: 01/13/2018 Status: F Source: [place] 12:20 PM [facility] REPOSITORY TYPE CODE TESTS RESULT OUT OF REFERENCE UNITS RANGE LAB WBC 3.70-11.00 k/uL WBC 10.58 LAB RBC 3.90-5.20 m/uL RBC 4.60 LAB HGB 11.5-15.5 g/dL Hemoglobin 13.1 LAB HCT 36.0-46.0 % Hematocrit 42.7 LAB MCV 80.0-100.0 fL MCV 92.8 LAB MCH 26.0-34.0 pG MCH 28.5 LAB MCHC 30.5-36.0 g/dL MCHC 30.7 LAB RDWCV 11.5-15.0 % RDW-CV 14.3 LAB PLTCT 150-400 k/uL Platelet Count 274 LAB MPV 9.0-12.7 fL MPV 10.2 LAB ABSNUC <0.01 k/uL Absolute nRBC <0.01 Performed By: #### CMP, CBC, HBA1C, VITD #### [facility] [address] [place] [address] HEMOGLOBIN A1C Collected: 01/13/2018 Status: F Source: [place] 12:20 PM [facility] REPOSITORY TYPE CODE TESTS RESULT OUT OF REFERENCE UNITS RANGE LAB HGBA1C 4.3-5.6 % High Hemoglobin A1c 6.5 LAB HBA0 mg/dL Est. Average Glucose 140 Result Comment: eAG: (Estimated average glucose) is a calculated value from HgbA1c and is residential sales representative of the average blood glucose level in the last 2-3 month period. Performed By: #### CMP, CBC, HBA1C, VITD #### [facility] [address] [place] [address] VITAMIN D 25 HYDROXY Collected: 01/13/2018 Status: F Source: [place] 12:20 PM [facility] REPOSITORY TYPE CODE TESTS RESULT OUT OF REFERENCE UNITS RANGE LAB VITD 31.0-80.0 ng/mL Vitamin D 25 47.5 Hydroxy Result Comment: Classification of 25 [place] Vitamin D status: Insufficiency/Moderate Deficiency: < or = 30 ng/mL Sufficiency/Optimal Levels: 31 to 80 ng/mL Toxicity: > 100 ng/mL Test performed by chemiluminescent immunoassay. Performed By: #### CMP, CBC, HBA1C, VITD #### [facility] [address] [place] [address] COMP METABOLIC PANEL Collected: 01/13/2018 Status: F Source: [place] 12:18 PM [facility] REPOSITORY TYPE CODE TESTS RESULT OUT OF REFERENCE UNITS RANGE LAB TP 6.3-8.0 g/dL Protein, Total 7.2 LAB ALB 3.9-4.9 g/dL Albumin 4.2 LAB CA 8.5-10.2 mg/dL Calcium, Total 9.2 LAB TBIL 0.2-1.3 mg/dL Bilirubin, Total 0.6 LAB ALKP 34-123 U/L Alkaline Phosphatase 76 LAB AST 13-35 U/L AST 20 LAB GLU 74-99 mg/dL Glucose 83 Result Comment: The [place] Diabetes [employer] (ADA) provides guidance for cutoff values for fasting glucose and random glucose. The ADA defines fasting as no caloric intake for at least 8 hours. Fas ting plasma glucose results between 100 to 125 mg/dL indicate increased risk for diabetes (prediabetes). Fasting plasma glucose results greater than or equal to 126 mg/dL meet the criteria for diagnosis of diabetes. In the absence of unequivocal hyperglycemia, results should be confirmed by repeat testing. In a patient with classic symptoms of hyperglycemia or hyperglycemic crisis, random plasma glucose results greater than or equal to 200 mg/dL meet the criteria for diagnosis of diabetes. Reference: Standards of Medical Care in Diabetes 2016, [place] [employer] Association. Diabetes Care. 2016.39(Suppl 1). LAB BUN 7-21 mg/dL BUN 8 LAB CRET 0.58-0.96 mg/dL Creatinine High 0.98 LAB NA 136-144 mmol/L Sodium High 145 LAB K 3.7-5.1 mmol/L Potassium 4.4 LAB CL 97-105 mmol/L Chloride 104 LAB CO2 22-30 mmol/L CO2 24 LAB AGAP 9-18 mmol/L Anion Gap 17 LAB ALT 7-38 U/L ALT 19 LAB GFRAA eGFR- Amer. >60 LAB GFRNAA . eGFR-All Other Races 58 Result Comment: eGFR (Estimated GFR) Units of measure: mL/min/1.73 meters squared eGFR is derived from the reexpressed MDRD Study equation using the following parameters: serum creatinine, age, gender and race. The creatinine assay has been calibrated to be traceable to IDMS. An eGFR <60 mL/min/1.73m2 for >3 months is consistent with chronic kidney disease. Refer to KDOQI guidelines for clinical interpretation. In patients with unstable renal function, e.g. those with acute kidney injury, the eGFR may not accurately reflect actual GFR. Performed By: #### CMP #### [facility] [address] [place], [place] [address] EMERGENCY REPORT Observed: 11/18/2017 Status: F Source: [facility] 4:33 AM [facility] EMERGENCY ROOM REPORT NAME ACCOUNT SEX AGE ADMIT DISCHARGE PT MED. RECORD# NUMBER DATE DATE TYPE OMAR [id number] F 62 11/17/17 11/17/17 3 JOSETTE Whitaker [id number] ROOM: ER DATE OF : 1955 DICTATING PHYSICIAN: Francoise Paulson CHIEF COMPLAINT: This is a 62-year-old woman with past medical history significant for hypertension, diabetes, GERD, COPD and asthma who presents with a 1 day history of burning in her throat. HISTORY OF PRESENT ILLNESS: Patient notes symptoms onset in the middle of the night. Patient with no significant chest pain, just the burning sensation in her throat. Patient worried that Trulicity may be causing symptoms. Patient with no shortness of breath, exertional dyspnea, nausea, vomiting or diaphoresis. PAST MEDICAL HISTORY: Hypertension, diabetes, asthma, COPD, and GERD. PAST SURGICAL HISTORY: Cardiac catheterization with stent placement. ALLERGIES: Lodine. SOCIAL HISTORY: Half-pack per day smoking, no ethanol or illicit drug use. REVIEW OF SYSTEMS: Ten systems were reviewed and are negative with the exception of burning in the patient's throat as noted above in HPI. PHYSICAL EXAMINATION: General: Patient in no apparent distress. Patient with no cervical lymphadenopathy. Patient's lungs with mild end expiratory wheezing, worse in the right lower lobe. Patient's heart had a regular rate and rhythm. No murmurs, rubs or gallops. Patient's abdomen was soft, nontender, nondistended. Patient with no lower extremity edema. Patient with no abdominal tenderness noted. Patient with no erythema or rashes noted to skin. Patient with no apparent distress. MEDICAL DECISION MAKING: This is a 62-year-old female who presents with a 1 day history of sore throat and burning to the throat. Patient notes that her symptoms do not feel similar to previous ACS. Patient with likely GERD related symptoms. DIAGNOSTIC DATA: Most likely GERD is the etiology of symptoms; however, EKG obtained revealed a normal sinus rhythm with no acute ischemic changes. Patient's chest x-ray with signs of peribronchial thickening concerning for viral infection and potential bronchitis in the setting of wheezing. Page 1 of 2 JOSETTE NELSON Emergency Room Report EMERGENCY DEPARTMENT COURSE AND TREATMENT: Patient given GI cocktail including viscous lidocaine and Maalox which significantly improved symptoms from 20 out of 10 to 2 out of 10. Patient was offered albuterol nebulizer inhaler; however, stated that she did not want these for her just to take an inhaler. Patient given 40 mg of prednisone as well as 20 mg of Pepcid to treat symptoms. Patient was instructed to use albuterol inhaler every 4 hours while awake for the next 48 hours as well as prednisone 40 mg daily for the next 4 days. Additionally, patient was given Pepcid as well Maalox prescriptions and instructed to use these for recurrent symptoms. Patient was instructed to follow up with her primary care provider in the next 4-5 days for reevaluation of symptoms. DIAGNOSIS: GERD, COPD exacerbation PLAN/DISPOSITION: Patient was discharged home in stable condition. Dictated By: Francoise Paulson MD 11/17/17 06:24 JOB #: [id number] Transcribed By: rebecca 11/17/17 19:54 Electronically signed by: E-SIGN: Francoise Paulson M.D. 11/18/17 04:33 Page 2 of 2 JOSETTE NELSON Emergency Room Report TROPONIN Collected: 11/17/2017 Status: F Source: [facility] 4:30 AM [facility] TYPE CODE TESTS RESULT OUT OF REFERENCE UNITS RANGE LAB TROPONIN 0.00 - 0.05 ng/ml I(LOINC) TROPONIN I <0.01 Result Comment: Elevated troponin (above the 99th percentile) usually indicates myocardial ischemia. Results must be interpreted within the clinical setting. 1.Non-ischemic pathology can also cause elevated troponin levels (e.g., acute pulmonary embolism, myocarditis, pericarditis, heart failure, intracranial injury, rhabdomyolisis, sepsis, shock and renal insufficiency). 2.Approximately 1% of healthy adults have elevated troponin levels. 3.Analytical false positive results rarely occur(due to multiple interferences such as heterophile antibodies). Performed By: #### [id number] #### [facility],[address] [place] [address] CHEST 2 VIEWS Observed: 11/17/2017 Status: F [facility] [place] [address] Patient: JOSETTE NELSON. Phone#: : [phone] Age: 62 Gender: F Pt. Type: ER Account: [id number] Location: [id number] Ordering: FRANCOISE PAULSON Exam Date: 11/17/2017/3:42 Family Phys: DR. ZANDER OSBORN D.O.Charge Code: [id number] Physician: Carson Order #: [id number] DLP Dose#: PROCEDURE: X-RAY CHEST 2 VIEWS COMPARISON: [facility], XR, CHEST PA/LAT, 11/29/2016, 16:59. INDICATIONS: Chest Pain FINDINGS: LUNGS: Mild chronic interstitial changes are present. No significant pulmonary parenchymal abnormalities. VASCULATURE: Normal. Unremarkable pulmonary vasculature. CARDIAC: Normal. No cardiac silhouette abnormality or cardiomegaly. MEDIASTINUM: Normal. No visible mass or adenopathy. PLEURA: Normal. No effusion or pleural thickening. BONES: Mild degenerative changes of the spine are present. OTHER: Negative. CONCLUSION: No acute disease. No significant change has occurred. Dictated by: Demetria Elias MD on 11/17/2017 at 9:08 Approved by: Demetria Elias MD on 11/17/2017 at 9:08 PROGRESS Observed: 10/28/2017 Status: COMPLETED Source: [place] 8:57 PM [facility] REPOSITORY HNO ID: [id number] Author: Zander Osborn Service: (none) Author Type: Physician Type: Progress Notes Filed: 10/28/2017 9:19 PM Note Text: Patient presents with: Follow Up HPI: Josette Nelson is a 62 year old female who presents to the office today for review of health conditions. Concerns today: Some fatigue, overall mood is okay. Still many stressors with living with her dtr/son in law and difficulty with financially affording healthy foods. Admits to eating a lot of carbohydrates. Ms. Nelson has past history of diabetes. Since our last visit she denies excessive thirst or increased frequency of urination, chest pain or dyspnea , numbness, tingling or pain in extremities, new or unusual visual symptoms and low sugar/hypoglycemic reactions. Follows a diabetic diet generally not very much. She is compliant with medication(s) and is tolerating med(s) without any side effects. She reports checking her glucose on a infrequent to not at all basis schedule- needing test strips. Patient's last HgA1C was Hemoglobin A1C (%) Date Value 10/08/2017 7.5 07/13/2017 6.7 ) Last Ophthalmology exam was within the past 6 months Ms. Nelson reports history of hyperlipidemia. Current therapy includes atorvastatin (Lipitor) 40 mg. Denies side effects of muscle weakness or achiness. Her most recent lipid panels are reviewed. Cholesterol, Total (mg/dL) Date Value 10/08/2017 127 HDL Cholesterol (mg/dL) Date Value 10/08/2017 34 LDL Cholesterol (mg/dL) Date Value 10/08/2017 36 Triglyceride (mg/dL) Date Value 10/08/2017 283 Ms. Nelson indicates a history of hypertension and states that she is feeling well and denies any symptoms referable to elevated blood pressure. Specifically denies headache, chest pain, palpitations, dyspnea and peripheral edema. Patient denies any side effects of her medication(s) and is compliant with their regimen. Last 3 Encounter BP Readings: Date: BP: 10/28/2017 124/80 07/13/2017 138/82 04/14/2017 130/84 She watches her diet for sodium, low fat and low cholesterol generally not very much. She does not check BP's generally. Josette gets minimal exercise. PAST MEDICAL HISTORY Diagnosis Date - ASCUS of cervix with negative high risk HPV 12/2015 REPEAT PAP DEC 2016 - Cholelithiasis 05/2013 - COPD (chronic obstructive pulmonary disease) (HCC) 05/2013 - Diabetes mellitus type 2, uncontrolled (HCC) 05/2013 - Elevated LFTs 04/2013 - Fatty liver 05/2013 - Hypercholesteremia 04/2013 - Migraine headache - Mild aortic regurgitation 08/2015 - Tobacco abuse PAST SURGICAL HISTORY Procedure Laterality Date - APPENDECTOMY remote - COLONOSCOP W/ OR W/O BRSH SPEC 09/13/15 Colonoscopy mac - EGD W/O OR W/BRUSH/WASH 09/13/15 EGD mac - EGD W/O OR W/BRUSH/WASH 01/30/16 EGD mac - LAP VAG HYST <=250 G RMV T/O 09/09/13 LAVH/BSO for AIS and ZEN III of cervix - TUBAL LIGATION, age 22 Social History Marital status: Spouse name: Years of education: Number of children: 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 Social History Main Topics Smoking status: Current Every Day Smoker Packs/day: 0.00 Years: 45.00 Types: Cigarettes Smokeless tobacco: Never Used Comment: 03/17 ppd Alcohol use: No Drug use: No Sexual activity: No Social History Narrative Lives with dtr Yina Levin, Goes by Gabriella, FAMILY HISTORY Problem Relation Age of Onset - other (pancreatic cancer [Other]) Mother - Heart Father 62 smoker - Stroke Father 45 smoker - other (chf [Other]) Mother - Diabetes Mother Allergies: ALLERGIES Allergen Reactions - Chocolate Vomiting Dark chocolate - Lodine [Etodolac] Swelling Current Meds: metFORMIN (GLUCOPHAGE) 500 mg tablet TAKE TWO TABLETS BY MOUTH TWICE DAILY WITH MEALS docusate sodium (DOC-Q-LACE) 100 mg capsule TAKE ONE CAPSULE BY MOUTH TWICE DAILY NEEDED FOR CONSTIPATION. esomeprazole (NEXIUM) 40 mg capsule Take 1 capsule by mouth twice daily before meals. ergocalciferol, vitamin D2, (VITAMIN D) 50,000 unit capsule Take 1 capsule by mouth once each week. blood sugar diagnostic (Co-Work NO CODING) test strip Test blood sugars 2 x daily. DX: E11.9 Insulin: No, Unstable blood glucose methylPREDNISolone (MEDROL DOSE-PACK) 4 mg Dose-Pack As Instructed per package buPROPion (WELLBUTRIN) 100 mg tablet Take 1 tablet PO daily in AM and 2 tablets PO daily in PM (or bedtime) albuterol HFA (VENTOLIN HFA) 90 mcg/actuation inhaler Inhale 2 Puffs as instructed every 4 hours as needed for Wheezing/Shortness of Breath. carvedilol (COREG) 3.125 mg tablet Take 1 tablet by mouth twice daily with meals. nitroglycerin sublingual (NITROQUICK) 0.4 mg SL tablet Dissolve 1 tablet under the tongue every 5 minutes as needed for Chest Pain. atorvastatin (LIPITOR) 40 mg tablet Take 40 mg by mouth once daily. ticagrelor (BRILINTA) 90 mg tablet Take by mouth twice daily. nicotine (NICODERM CQ) 7 mg/24 hr Apply 1 Patch as directed every 24 hours. ibuprofen (MOTRIN) 800 mg tablet Take 1 tablet by mouth every 8 hours as needed for Pain. Take with food. Lancets lancets Test blood sugar(s) 3 times daily. Dx: DM2 uncontrolled. Insulin: No aspirin, enteric coated (ADULT LOW DOSE ASPIRIN) 81 mg EC tablet Take 1 tablet by mouth once daily. lisinopril (ZESTRIL, PRINIVIL) 10 mg tablet Take 1 tablet by mouth once daily. dulaglutide (TRULICITY) 0.75 mg / 0.5 ml subcutaneous pen injector Inject 0.75 mg subcutaneously once each week. Inject dose once per week. Discard Pen After oxybutynin (DITROPAN) 5 mg tablet Take 1 tablet by mouth twice daily. Phenazopyridine (AZO URINARY PAIN RELIEF) 97.5 mg tab Take 2 tablets by mouth twice daily. hydrocortisone 2.5 % cream Apply 1 application to affected area twice daily. Location: arms and legs budesonide-formoterol (SYMBICORT) 80-4.5 mcg/actuation inhaler Inhale 2 Puffs as instructed twice daily. Heating Pads pads 1 Device as needed. Review of Systems: The remainder of the review of systems is negative. PE: 10/28/171911 BP: 124/80 Pulse: 80 Resp: 20 Temp: 36.9 ?C (98.4 ?F) TempSrc: Left Tympanic Weight: 82.6 kg (182 lb) Gen: AANDO, NAD, non-toxic appearing, Pleasant, cooperative HEENT: NT/AC, PERRLA, EOMs intact b/l, nares clear and patent b/l, pharynx without erythema, exudate or lesions. Uvula midline. EACs without erythema or debris. TMs pearly abbasi with intact landmarks b/l. Neck: supple, No cervical LAD, no thyromegaly, no carotid bruits CV: RRR, normal S1 and S2, no murmurs, no gallops, no rubs, Pulses 2+ and symmetric in UE and LE b/l Lungs: normal respiratory effort, CTA b/l, no wheezing or rhonchi or rales Abd: soft, NT, ND, +BS, no hepatosplenomegaly MS: FROM all 4 extremities Neuro: CN II-XII intact b/l, strength 5/5 b/l UE and LE, DTRs 2/4 UE and LE, sensation intact. Skin: warm, dry, intact, No rashes or lesions on exposed skin. Antalgic gait ASSESSMENT/PLAN: 1. Uncontrolled type 2 diabetes mellitus with hyperosmolarity without coma, without long-term current use of insulin (HCC) - ICD9: 250.22, ICD10: E11.00 (primary diagnosis) uncontrolled Poor adherence to plan of care. - Continue current medications - Add Trulicity or Victoza if not covered - DULAGLUTIDE 0.75 MG/0.5 ML SUBCUTANEOUS PEN INJECTOR 2. Visit for screening mammogram - ICD9: V76.12, ICD10: Z12.31 - NARESH SCREENING 3. Arthritis, multiple joint involvement - ICD9: 716.99, ICD10: M12.9 - PARKING FOR HANDICAPPED 4. Vitamin D deficiency - ICD9: 268.9, ICD10: E55.9 - continue supplement, f/u in office prn 5. Hypercholesteremia - ICD9: 272.0, ICD10: E78.00 - suboptimal control - Continue current medication. - Encouraged following a low fat, low cholesterol diet. - Discussed the benefits of regular aerobic exercise and weight loss. - Check fasting lipid panel and ALT in 6 months. 6. Tobacco abuse - ICD9: 305.1, ICD10: Z72.0 - Cessation encouraged. - Physiologic and physical aspects of tobacco addiction as well as strategies for quitting were discussed. - Counseling was given focusing on the harmful effects of this addiction especially given the patient's medical condition(s) which will be worsened because of the chemicals in tobacco. 7. Essential hypertension - ICD9: 401.9, ICD10: I10 - good control - Continue current medication(s) - Recommended regular aerobic exercise. - Recommend home blood pressure monitoring, to bring results in on next visit - Goal of BP <130/80 Zander Osborn DO To ER if develops chest pain, shortness of breath, or severe worsening of symptoms. Discussed risks, benefits, alternatives, and potential side effects of medications. Patient expressed understanding and agreed with the plan. Zander Osborn DO [address] [place] [address] CNOV Observed: 10/28/2017 Status: COMPLETED Source: [place] 7:00 PM [facility] REPOSITORY [facility] JOSETTE NELSON ([id number]) 1955 F TXT Date Time Provider Department 10/28/17 7:00 PM OSBORNZANDER [facility] JACINTO During your visit today, we recorded the following information about you: Temperature Pulse Respiration Blood pressure 98.4 degrees 80/minute 20/minute 124/80 Weight 82.6 kg Zander Osborn DO 10/28/2017 9:19 PM Signed Patient presents with: Follow Up HPI: Josette Nelson is a 62 year old female who presents to the office today for review of health conditions. Concerns today: Some fatigue, overall mood is okay. Still many stressors with living with her dtr/son in law and difficulty with financially affording healthy foods. Admits to eating a lot of carbohydrates. Ms. Nelson has past history of diabetes. Since our last visit she denies excessive thirst or increased frequency of urination, chest pain or dyspnea , numbness, tingling or pain in extremities, new or unusual visual symptoms and low sugar/hypoglycemic reactions. Follows a diabetic diet generally not very much. She is compliant with medication(s) and is tolerating med(s) without any side effects. She reports checking her glucose on a infrequent to not at all basis schedule- needing test strips. Patient's last HgA1C was Hemoglobin A1C (%) Date Value 10/08/2017 7.5 07/13/2017 6.7 ) Last Ophthalmology exam was within the past 6 months Ms. Nelson reports history of hyperlipidemia. Current therapy includes atorvastatin (Lipitor) 40 mg. Denies side effects of muscle weakness or achiness. Her most recent lipid panels are reviewed. Cholesterol, Total (mg/dL) Date Value 10/08/2017 127 HDL Cholesterol (mg/dL) Date Value 10/08/2017 34 LDL Cholesterol (mg/dL) Date Value 10/08/2017 36 Triglyceride (mg/dL) Date Value 10/08/2017 283 Ms. Nelson indicates a history of hypertension and states that she is feeling well and denies any symptoms referable to elevated blood pressure. Specifically denies headache, chest pain, palpitations, dyspnea and peripheral edema. Patient denies any side effects of her medication(s) and is compliant with their regimen. Last 3 Encounter BP Readings: Date: BP: 10/28/2017 124/80 07/13/2017 138/82 04/14/2017 130/84 She watches her diet for sodium, low fat and low cholesterol generally not very much. She does not check BP's generally. Josette gets minimal exercise. PAST MEDICAL HISTORY Diagnosis Date - ASCUS of cervix with negative high risk HPV 12/2015 REPEAT PAP DEC 2016 - Cholelithiasis 05/2013 - COPD (chronic obstructive pulmonary disease) (HCC) 05/2013 - Diabetes mellitus type 2, uncontrolled (HCC) 05/2013 - Elevated LFTs 04/2013 - Fatty liver 05/2013 - Hypercholesteremia 04/2013 - Migraine headache - Mild aortic regurgitation 08/2015 - Tobacco abuse PAST SURGICAL HISTORY Procedure Laterality Date - APPENDECTOMY remote - COLONOSCOP W/ OR W/O BRSH SPEC 09/13/15 Colonoscopy mac - EGD W/O OR W/BRUSH/WASH 09/13/15 EGD mac - EGD W/O OR W/BRUSH/WASH 01/30/16 EGD mac - LAP VAG HYST <=250 G RMV T/O 09/09/13 LAVH/BSO for AIS and ZEN III of cervix - TUBAL LIGATION, age 22 Social History Marital status: Spouse name: Years of education: Number of children: 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 Social History Main Topics Smoking status: Current Every Day Smoker Packs/day: 0.00 Years: 45.00 Types: Cigarettes Smokeless tobacco: Never Used Comment: 03/17 ppd Alcohol use: No Drug use: No Sexual activity: No Social History Narrative Lives with dtr Yina Levin, Goes by Gabriella, FAMILY HISTORY Problem Relation Age of Onset - other (pancreatic cancer [Other]) Mother - Heart Father 62 smoker - Stroke Father 45 smoker - other (chf [Other]) Mother - Diabetes Mother Allergies: ALLERGIES Allergen Reactions - Chocolate Vomiting Dark chocolate - Lodine [Etodolac] Swelling Current Meds: metFORMIN (GLUCOPHAGE) 500 mg tablet TAKE TWO TABLETS BY MOUTH TWICE DAILY WITH MEALS docusate sodium (DOC-Q-LACE) 100 mg capsule TAKE ONE CAPSULE BY MOUTH TWICE DAILY NEEDED FOR CONSTIPATION. esomeprazole (NEXIUM) 40 mg capsule Take 1 capsule by mouth twice daily before meals. ergocalciferol, vitamin D2, (VITAMIN D) 50,000 unit capsule Take 1 capsule by mouth once each week. blood sugar diagnostic (PRODIGY NO CODING) test strip Test blood sugars 2 x daily. DX: E11.9 Insulin: No, Unstable blood glucose methylPREDNISolone (MEDROL DOSE-PACK) 4 mg Dose-Pack As Instructed per package buPROPion (WELLBUTRIN) 100 mg tablet Take 1 tablet PO daily in AM and 2 tablets PO daily in PM (or bedtime) albuterol HFA (VENTOLIN HFA) 90 mcg/actuation inhaler Inhale 2 Puffs as instructed every 4 hours as needed for Wheezing/Shortness of Breath. carvedilol (COREG) 3.125 mg tablet Take 1 tablet by mouth twice daily with meals. nitroglycerin sublingual (NITROQUICK) 0.4 mg SL tablet Dissolve 1 tablet under the tongue every 5 minutes as needed for Chest Pain. atorvastatin (LIPITOR) 40 mg tablet Take 40 mg by mouth once daily. ticagrelor (BRILINTA) 90 mg tablet Take by mouth twice daily. nicotine (NICODERM CQ) 7 mg/24 hr Apply 1 Patch as directed every 24 hours. ibuprofen (MOTRIN) 800 mg tablet Take 1 tablet by mouth every 8 hours as needed for Pain. Take with food. Lancets lancets Test blood sugar(s) 3 times daily. Dx: DM2 uncontrolled. Insulin: No aspirin, enteric coated (ADULT LOW DOSE ASPIRIN) 81 mg EC tablet Take 1 tablet by mouth once daily. lisinopril (ZESTRIL, PRINIVIL) 10 mg tablet Take 1 tablet by mouth once daily. dulaglutide (TRULICITY) 0.75 mg / 0.5 ml subcutaneous pen injector Inject 0.75 mg subcutaneously once each week. Inject dose once per week. Discard Pen After oxybutynin (DITROPAN) 5 mg tablet Take 1 tablet by mouth twice daily. Phenazopyridine (AZO URINARY PAIN RELIEF) 97.5 mg tab Take 2 tablets by mouth twice daily. hydrocortisone 2.5 % cream Apply 1 application to affected area twice daily. Location: arms and legs budesonide-formoterol (SYMBICORT) 80-4.5 mcg/actuation inhaler Inhale 2 Puffs as instructed twice daily. Heating Pads pads 1 Device as needed. Review of Systems: The remainder of the review of systems is negative. PE: 10/28/171911 BP: 124/80 Pulse: 80 Resp: 20 Temp: 36.9 ?C (98.4 ?F) TempSrc: Left Tympanic Weight: 82.6 kg (182 lb) Gen: AANDO, NAD, non-toxic appearing, Pleasant, cooperative HEENT: NT/AC, PERRLA, EOMs intact b/l, nares clear and patent b/l, pharynx without erythema, exudate or lesions. Uvula midline. EACs without erythema or debris. TMs pearly abbasi with intact landmarks b/l. Neck: supple, No cervical LAD, no thyromegaly, no carotid bruits CV: RRR, normal S1 and S2, no murmurs, no gallops, no rubs, Pulses 2+ and symmetric in UE and LE b/l Lungs: normal respiratory effort, CTA b/l, no wheezing or rhonchi or rales Abd: soft, NT, ND, +BS, no hepatosplenomegaly MS: FROM all 4 extremities Neuro: CN II-XII intact b/l, strength 5/5 b/l UE and LE, DTRs 2/4 UE and LE, sensation intact. Skin: warm, dry, intact, No rashes or lesions on exposed skin. Antalgic gait ASSESSMENT/PLAN: 1. Uncontrolled type 2 diabetes mellitus with hyperosmolarity without coma, without long-term current use of insulin (HCC) - ICD9: 250.22, ICD10: E11.00 (primary diagnosis) uncontrolled Poor adherence to plan of care. - Continue current medications - Add Trulicity or Victoza if not covered - DULAGLUTIDE 0.75 MG/0.5 ML SUBCUTANEOUS PEN INJECTOR 2. Visit for screening mammogram - ICD9: V76.12, ICD10: Z12.31 - NARESH SCREENING 3. Arthritis, multiple joint involvement - ICD9: 716.99, ICD10: M12.9 - PARKING FOR HANDICAPPED 4. Vitamin D deficiency - ICD9: 268.9, ICD10: E55.9 - continue supplement, f/u in office prn 5. Hypercholesteremia - ICD9: 272.0, ICD10: E78.00 - suboptimal control - Continue current medication. - Encouraged following a low fat, low cholesterol diet. - Discussed the benefits of regular aerobic exercise and weight loss. - Check fasting lipid panel and ALT in 6 months. 6. Tobacco abuse - ICD9: 305.1, ICD10: Z72.0 - Cessation encouraged. - Physiologic and physical aspects of tobacco addiction as well as strategies for quitting were discussed. - Counseling was given focusing on the harmful effects of this addiction especially given the patient's medical condition(s) which will be worsened because of the chemicals in tobacco. 7. Essential hypertension - ICD9: 401.9, ICD10: I10 - good control - Continue current medication(s) - Recommended regular aerobic exercise. - Recommend home blood pressure monitoring, to bring results in on next visit - Goal of BP <130/80 Zander Osborn DO To ER if develops chest pain, shortness of breath, or severe worsening of symptoms. Discussed risks, benefits, alternatives, and potential side effects of medications. Patient expressed understanding and agreed with the plan. Zander Osborn DO [address] [place] [address] Referring Provider: SELF [[id number]] Allergies As of Date: 10/28/2017 Noted Allergy Reaction CHOCOLATE 05/23/2013 11 - Vomiting Comments: Dark chocolate LODINE (ETODOLAC) 05/23/2013 7 - Swelling Date Reviewed: 10/28/2017 Reviewed by: Callie Joseph LPN - Fully Assessed Reason for Visit: Follow Up [171] Primary Visit Diagnosis:Uncontrolled type 2 diabetes mellitus with hyperosmolarity without coma, without long-term current use of insulin (HCC) [E11.00] Other Visit Diagnoses:Visit for screening mammogram [Z12.31] Arthritis, multiple joint involvement [M12.9] Vitamin D deficiency [E55.9] Hypercholesteremia [E78.00] Tobacco abuse [Z72.0] Essential hypertension [I10] Order(s):[facility] SCREENING [[id number]] Order #: [id number] FUTURE lisinopril (ZESTRIL, PRINIVIL) 10 mg tabletTake 1 tablet by mouth once daily.Disp: 30 tabletRfl: 11 dulaglutide (TRULICITY) 0.75 mg / 0.5 ml subcutaneous pen injectorInject 0.75 mg subcutaneously once each week. Inject dose once per week. Discard Pen AfterDisp: 4 PenRfl: 3 PARKING FOR HANDICAPPED [[id number]] Order #: [id number]: 2 Prescriptions as of 10/28/2017 Sig: METFORMIN 500 MG TABLET TAKE TWO TABLETS BY MOUTH TWI* DOCUSATE SODIUM 100 MG CAPSULE TAKE ONE CAPSULE BY MOUTH TWI* ESOMEPRAZOLE MAGNESIUM 40 MG * Take 1 capsule by mouth twice* ERGOCALCIFEROL (VITAMIN D2) 5* Take 1 capsule by mouth once * BLOOD SUGAR DIAGNOSTIC STRIPS Test blood sugars 2 x daily. * METHYLPREDNISOLONE 4 MG TABLE* As Instructed per package BUPROPION HCL 100 MG TABLET Take 1 tablet PO daily in AM * ALBUTEROL SULFATE HFA 90 MCG/* Inhale 2 Puffs as instructed * CARVEDILOL 3.125 MG TABLET Take 1 tablet by mouth twice * NITROGLYCERIN 0.4 MG SUBLINGU* Dissolve 1 tablet under the t* ATORVASTATIN 40 MG TABLET Take 40 mg by mouth once dina* TICAGRELOR 90 MG TABLET Take by mouth twice daily. NICOTINE 7 MG/24 HR DAILY TRA* Apply 1 Patch as directed viry* IBUPROFEN 800 MG TABLET Take 1 tablet by mouth every * LANCETS Test blood sugar(s) 3 times d* ASPIRIN 81 MG TABLET,DELAYED * Take 1 tablet by mouth once d* LISINOPRIL 10 MG TABLET Take 1 tablet by mouth once d* DULAGLUTIDE 0.75 MG/0.5 ML [place]* Inject 0.75 mg subcutaneously* OXYBUTYNIN CHLORIDE 5 MG TABL* Take 1 tablet by mouth twice * PHENAZOPYRIDINE 97.5 MG TABLET Take 2 tablets by mouth twice* HYDROCORTISONE 2.5 % TOPICAL * Apply 1 application to affect* BUDESONIDE-FORMOTEROL HFA 80 * Inhale 2 Puffs as instructed * HEATING PADS 1 Device as needed. Medication notes this encounter HYDROCORTISONE 2.5 % TOPICAL CREAM >> Callie Joseph LPN 10/28/2017 7:15 PM >> CALLIE JOSEPH LPN ThuOct 28, 2017 7:15 PM finished Problem List As Of Date 10/28/2017 Noted Resolved Elevated liver enzymes [R74.8] INVALID FOR* Hypercholesteremia [E78.00] INVALID FOR* Elevated fasting glucose [R73.01] INVALID FOR* Neck pain, chronic [M54.2, G89.29] INVALID FOR* Tobacco abuse [Z72.0] INVALID FOR* Obesity [E66.9] INVALID FOR* Claudication of lower extremity [I73.9] INVALID FOR* Diabetes mellitus type 2, uncontrolled [E11.65] INVALID FOR* Cholelithiases [K80.20] INVALID FOR* Adenocarcinoma in situ (AIS) of uterine cervix *INVALID FOR* Major depressive disorder, recurrent episode (H*INVALID FOR* Essential hypertension [I10] INVALID FOR* Pulmonary emphysema (HCC) [J43.9] INVALID FOR* Gastroesophageal reflux disease [K21.9] INVALID FOR*09/13/2015 Positive occult stool blood test [R19.5] INVALID FOR*09/13/2015 Family history of ischemic heart disease [Z82.4*INVALID FOR* Aortic valve sclerosis [I35.8] INVALID FOR* Irritable esophagus [K22.9] INVALID FOR*01/30/2016 COPD with chronic bronchitis (HCC) [J44.9] INVALID FOR* Episode of recurrent major depressive disorder *INVALID FOR* Tobacco use disorder [F17.200] INVALID FOR* Memory deficit [R41.3] INVALID FOR* Mixed stress and urge urinary incontinence [N39*INVALID FOR* Vitamin D deficiency [E55.9] INVALID FOR* Short-term memory loss [R41.3] INVALID FOR* Fatigue [R53.83] INVALID FOR* PND (paroxysmal nocturnal dyspnea) [R06.00] INVALID FOR* Snoring [R06.83] INVALID FOR* H/O right coronary artery stent placement [Z95.*INVALID FOR* Coronary artery disease involving shoalwater machado*INVALID FOR* Dysuria [R30.0] INVALID FOR* Obesity, Class I, BMI 30-34.9 [E66.9] INVALID FOR* Major depression, recurrent, chronic (HCC) [F33*INVALID FOR* Bilateral leg edema [R60.0] INVALID FOR* OAB (overactive bladder) [N32.81] INVALID FOR* Urinary frequency [R35.0] INVALID FOR* Prescriptions ordered this encounter Disp Refills Start End LISINOPRIL 10 MG TABLET 30 t* 11 10/28/2017 Route: ORAL Sig: Take 1 tablet by mouth once daily. DULAGLUTIDE 0.75 MG/0.5 ML SUBCUTANE* 4 Pen 3 10/28/2017 Route: SUBCUTANEOUS Sig: Inject 0.75 mg subcutaneously once each week. Inject dose once per week. Discard Pen After Medications Discontinued During This Encounter metFORMIN (GLUCOPHAGE) 500 mg tablet 360 * 1 10/16/2017 10/28/2017 Sig: TAKE TWO TABLETS BY MOUTH TWICE DAILY WITH MEALS. Disc: Reason for discontinue is not on file. lisinopril (ZESTRIL, PRINIVIL) 10 mg* 30 t* 11 10/19/2017 10/28/2017 Route: ORAL Sig: Take 1 tablet by mouth once daily. Disc: Reason for discontinue is not on file. Encounter Status:Closed by ZANDER OSBORN DO on 10/28/17 ALBUMIN/CREAT RATIO Collected: 10/08/2017 Status: F Source: [place] 10:48 AM [facility] REPOSITORY TYPE CODE TESTS RESULT OUT OF REFERENCE UNITS RANGE LAB UCRR 20-300 mg/dL Creatinine,Ur 73.4 ine,Ran LAB UALBR 0.0-23.0 mg/L Albumin Urine 18.4 Random LAB UALBCR 0-30 mg/g Albumin/Creat 25 Ratio Result Comment: 30 to 300 mg/g indicates an increased risk for diabetic nephropathy. Greater than 300 mg/g is consistent with clinical nephropathy. (Am J Kidney Disease 1994, 25:107) Performed By: #### UACR #### [facility] [address] [place], [place] [address] COMP METABOLIC PANEL Collected: 10/08/2017 Status: F Source: [place] 10:45 AM [facility] [place] REPOSITORY TYPE CODE TESTS RESULT OUT OF REFERENCE UNITS RANGE LAB TP 6.3-8.0 g/dL Protein, Total 7.0 LAB ALB 3.9-4.9 g/dL Albumin 3.9 LAB CA 8.5-10.2 mg/dL Calcium, Total 9.1 LAB TBIL 0.2-1.3 mg/dL Bilirubin, Total 0.4 LAB ALKP 32-117 U/L Alkaline Phosphatase 89 LAB AST 13-35 U/L AST 18 LAB GLU 74-99 mg/dL Glucose High 123 Result Comment: The [place] Diabetes Association (ADA) provides guidance for cutoff values for fasting glucose and random glucose. The ADA defines fasting as no caloric intake for at least 8 hours. Fas ting plasma glucose results between 100 to 125 mg/dL indicate increased risk for diabetes (prediabetes). Fasting plasma glucose results greater than or equal to 126 mg/dL meet the criteria for diagnosis of diabetes. In the absence of unequivocal hyperglycemia, results should be confirmed by repeat testing. In a patient with classic symptoms of hyperglycemia or hyperglycemic crisis, random plasma glucose results greater than or equal to 200 mg/dL meet the criteria for diagnosis of diabetes. Reference: Standards of Medical Care in Diabetes 2016, [place] Diabetes Association. Diabetes Care. 2016.39(Suppl 1). LAB BUN 7-21 mg/dL BUN 11 LAB CRET 0.58-0.96 mg/dL Creatinine 0.91 LAB NA 136-144 mmol/L Sodium 143 LAB K 3.7-5.1 mmol/L Potassium 4.0 LAB CL 97-105 mmol/L Chloride 104 LAB CO2 22-30 mmol/L CO2 22 LAB AGAP 9-18 mmol/L Anion Gap 17 LAB ALT 7-38 U/L ALT 19 LAB GFRAA eGFR- Amer. >60 LAB GFRNAA . eGFR-All Other Races >60 Result Comment: eGFR (Estimated GFR) Units of measure: mL/min/1.73 meters squared eGFR is derived from the reexpressed MDRD Study equation using the following parameters: serum creatinine, age, gender and race. The creatinine assay has been calibrated to be traceable to IDMS. An eGFR <60 mL/min/1.73m2 for >3 months is consistent with chronic kidney disease. Refer to KDOQI guidelines for clinical interpretation. In patients with unstable renal function, e.g. those with acute kidney injury, the eGFR may not accurately reflect actual GFR. Performed By: #### CMP, LIPB, HBA1C #### [facility] [address] [place], [place] [address] LIPID PANEL, BASIC Collected: 10/08/2017 Status: F Source: [place] 10:45 AM [facility] REPOSITORY TYPE CODE TESTS RESULT OUT OF REFERENCE UNITS RANGE LAB CHOL <200 mg/dL Cholesterol 127 Result Comment: <200 mg/dL, Desirable 200-239 mg/dL, Borderline high >239 mg/dL, High LAB TRIGLY <150 mg/dL Triglyceride High 283 Result Comment: <150 mg/dL, Normal 150-199 mg/dL, Borderline high 200-499 mg/dL, High >499 mg/dL, Very high LAB HDL >39 mg/dL HDL-Cholesterol Low 34 Result Comment: 40-59 mg/dL, Acceptable >59 mg/dL, High: Negative risk factor for coronary heart disease <40 mg/dL, Low: Positive risk factor for coronary heart disease LAB LDL <100 mg/dL LDL-Cholesterol 36 Result Comment: <100 mg/dL, Optimal 100-129 mg/dL, Near optimal/above optimal 130-159 mg/dL, Borderline high 160-189 mg/dL, High >189 mg/dL, Very high Secondary prevention optimal LDL Cholesterol levels are recommended to be < 70 mg/dL LAB NONHDL <130 mg/dL Non HDL Cholesterol 93 Result Comment: <130 mg/dL, Optimal 130-159 mg/dL, Near optimal/above optimal 160-189 mg/dL, Borderline high 190-219 mg/dL, High >219 mg/dL, Very high Secondary prevention optimal non HDL Cholesterol levels are recommended to be < 100 mg/dL LAB FT hrs Fasting Time 0 LAB VLDL <30 mg/dL High VLDL Cholesterol 57 LAB TCHDL <5.10 TC:HDL Ratio 3.74 LAB LDLHDL <2.54 LDL:HDL Ratio 1.06 Result Comment: Reference: 1. National Cholesterol Education Program ATP III Guideline At-A-Glance Quick Desk Reference: National Heart, Lung, and Blood [place]. National Institutes of Health. 2001: NIH Publication No. 01-3305. 2. An International Atherosclerosis Society position paper: global recommendations for the management of dyslipidemia: executive summary, Atherosclerosis. 2014: 232(2):410-413. Performed By: #### CMP, LIPB, HBA1C #### [facility] [address] [place], [place] [address] HEMOGLOBIN A1C Collected: 10/08/2017 Status: F Source: [place] 10:45 AM [facility] REPOSITORY TYPE CODE TESTS RESULT OUT OF REFERENCE UNITS RANGE LAB HGBA1C 4.3-5.6 % High Hemoglobin A1c 7.5 LAB HBA0 mg/dL Est. Average Glucose 169 Result Comment: eAG: (Estimated average glucose) is a calculated value from HgbA1c and is residential sales representative of the average blood glucose level in the last 2-3 month period. Performed By: #### CMP, LIPB, HBA1C #### [facility] [address] [place] [id number] PROGRESS Observed: 10/02/2017 Status: COMPLETED Source: [place] 9:12 AM [facility] REPOSITORY HNO ID: [id number] Author: Jesica Guzman Cma Service: (none) Author Type: (none) Type: Progress Notes Filed: 10/02/2017 9:12 AM Note Text: Letter mailed to patient. PROGRESS Observed: 10/02/2017 Status: COMPLETED Source: [place] 9:09 AM [facility] REPOSITORY HNO ID: [id number] Author: Jesica Guzman Cma Service: (none) Author Type: (none) Type: Progress Notes Filed: 10/02/2017 9:12 AM Note Text: Upcoming appointment on 10/13. Labs not due yet. I will send DM retinal reminder with attached release form. Discuss HM/ due Mammogram at upcoming appointment. CNPTOUTREACH Observed: 10/02/2017 Status: COMPLETED Source: [place] 12:00 AM [facility] REPOSITORY Patient Outreach ([facility]) JOSETTE NELSON ([id number]) 1955 F TXT Date Time Provider Department 10/02/17 JESICA GUZMAN (BETHANY) [facility] During your visit today, we recorded the following information about you: Jesica Guzman Cma 10/02/2017 9:12 AM Signed Upcoming appointment on 10/13. Labs not due yet. I will send DM retinal reminder with attached release form. Discuss HM/ due Mammogram at upcoming appointment. Jesica Guzman Cma 10/02/2017 9:12 AM Signed Letter mailed to patient. Allergies As of Date: 10/02/2017 Noted Allergy Reaction CHOCOLATE 05/23/2013 11 - Vomiting Comments: Dark chocolate LODINE (ETODOLAC) 05/23/2013 7 - Swelling Date Reviewed: 07/13/2017 Reviewed by: Callie Joseph LPN - Fully Assessed Reason for Visit: PHMA/Care Gap Outreach [[id number]] Prescriptions as of 10/02/2017 Sig: DOCUSATE SODIUM 100 MG CAPSULE TAKE ONE CAPSULE BY MOUTH TWI* ESOMEPRAZOLE MAGNESIUM 40 MG * Take 1 capsule by mouth twice* ERGOCALCIFEROL (VITAMIN D2) 5* Take 1 capsule by mouth once * BLOOD SUGAR DIAGNOSTIC STRIPS Test blood sugars 2 x daily. * METHYLPREDNISOLONE 4 MG TABLE* As Instructed per package BUPROPION HCL 100 MG TABLET Take 1 tablet PO daily in AM * ALBUTEROL SULFATE HFA 90 MCG/* Inhale 2 Puffs as instructed * OXYBUTYNIN CHLORIDE 5 MG TABL* Take 1 tablet by mouth twice * METFORMIN 500 MG TABLET TAKE TWO TABLETS BY MOUTH TWI* PHENAZOPYRIDINE 97.5 MG TABLET Take 2 tablets by mouth twice* CARVEDILOL 3.125 MG TABLET Take 1 tablet by mouth twice * NITROGLYCERIN 0.4 MG SUBLINGU* Dissolve 1 tablet under the t* ATORVASTATIN 40 MG TABLET Take 40 mg by mouth once dina* TICAGRELOR 90 MG TABLET Take by mouth twice daily. NICOTINE 7 MG/24 HR DAILY TRA* Apply 1 Patch as directed viry* HYDROCORTISONE 2.5 % TOPICAL * Apply 1 application to affect* IBUPROFEN 800 MG TABLET Take 1 tablet by mouth every * BUDESONIDE-FORMOTEROL HFA 80 * Inhale 2 Puffs as instructed * LANCETS Test blood sugar(s) 3 times d* ASPIRIN 81 MG TABLET,DELAYED * Take 1 tablet by mouth once d* HEATING PADS 1 Device as needed. Problem List As Of Date 10/02/2017 Noted Resolved Elevated liver enzymes [R74.8] INVALID FOR* Hypercholesteremia [E78.00] INVALID FOR* Elevated fasting glucose [R73.01] INVALID FOR* Neck pain, chronic [M54.2, G89.29] INVALID FOR* Tobacco abuse [Z72.0] INVALID FOR* Obesity [E66.9] INVALID FOR* Claudication of lower extremity [I73.9] INVALID FOR* Diabetes mellitus type 2, uncontrolled [E11.65] INVALID FOR* Cholelithiases [K80.20] INVALID FOR* Adenocarcinoma in situ (AIS) of uterine cervix *INVALID FOR* Major depressive disorder, recurrent episode (H*INVALID FOR* Essential hypertension [I10] INVALID FOR* Pulmonary emphysema (HCC) [J43.9] INVALID FOR* Gastroesophageal reflux disease [K21.9] INVALID FOR*09/13/2015 Positive occult stool blood test [R19.5] INVALID FOR*09/13/2015 Family history of ischemic heart disease [Z82.4*INVALID FOR* Aortic valve sclerosis [I35.8] INVALID FOR* Irritable esophagus [K22.9] INVALID FOR*01/30/2016 COPD with chronic bronchitis (HCC) [J44.9] INVALID FOR* Episode of recurrent major depressive disorder *INVALID FOR* Tobacco use disorder [F17.200] INVALID FOR* Memory deficit [R41.3] INVALID FOR* Mixed stress and urge urinary incontinence [N39*INVALID FOR* Vitamin D deficiency [E55.9] INVALID FOR* Short-term memory loss [R41.3] INVALID FOR* Fatigue [R53.83] INVALID FOR* PND (paroxysmal nocturnal dyspnea) [R06.00] INVALID FOR* Snoring [R06.83] INVALID FOR* H/O right coronary artery stent placement [Z95.*INVALID FOR* Coronary artery disease involving shoalwater machado*INVALID FOR* Dysuria [R30.0] INVALID FOR* Obesity, Class I, BMI 30-34.9 [E66.9] INVALID FOR* Major depression, recurrent, chronic (HCC) [F33*INVALID FOR* Bilateral leg edema [R60.0] INVALID FOR* OAB (overactive bladder) [N32.81] INVALID FOR* Urinary frequency [R35.0] INVALID FOR* Letter Text [facility] Zander Osborn DO [address] [place], [place] [address] Dear Josette Nelson Your health care is very important to us. Our records indicate that you may be due for a diabetic eye exam. If you have had a diabetic eye exam within the last year, please have your records sent to us so that we may update your medical records. There is a medical records of release of information included in this letter. Please take the release to your eye doctor for future appointments to have your records forwarded to us. Important facts about diabetic eye exams Diabetic retinal exams should be done yearly for all patients with a diagnosis of diabetes. Risks such as diabetic retinopathy can be reduced with blood glucose control and early detection of potential problems. Diabetic retinopathy is damage to the small blood vessels in the retina that can lead to blindness Thank you, Zander Osborn DO Letter [place] [id number] Office: [phone] Zander Osborn DO REQUEST FOR EYE EXAM FINDINGS April 04, 2016 Dear eye personal care home administrator, Thank you for coordinating eye care for our mutual patient, Josette Nelson (1955). Please fax this letter back to me with the most appropriate response selected below. Please allow the patient's signature to serve as permission to share your findings. Sincerely, Zander Osborn DO Patient Signature Date Date of eye exam: Findings Both Eyes Right Left No Retinopathy Detected Non Proliferative Retinopathy Mild Moderate Severe Proliferative Retinopathy Macular Edema Further testing and/or treatment indicated Comments: Patient is to return: Encounter Status:Closed by JESICA GUZMAN CMA on 10/02/17 LILIAMTOKATHIE Observed: 09/29/2017 Status: COMPLETED Source: [place] 12:00 AM [facility] REPOSITORY Patient Outreach ([facility]) JOSETTE NELSON ([id number]) 1955 F TXT Date Time Provider Department 09/29/17 ZANDER OSBORN [facility] During your visit today, we recorded the following information about you: Allergies As of Date: 09/29/2017 Noted Allergy Reaction CHOCOLATE 05/23/2013 11 - Vomiting Comments: Dark chocolate LODINE (ETODOLAC) 05/23/2013 7 - Swelling Date Reviewed: 07/13/2017 Reviewed by: Callie Joseph LPN - Fully Assessed Visit Diagnosis:Medication management [Z79.899] Order(s):ALBUMIN/CREAT RATIO RND UR [SQUACR] Order #: [id number] FUTURE Prescriptions as of 09/29/2017 Sig: DOCUSATE SODIUM 100 MG CAPSULE TAKE ONE CAPSULE BY MOUTH TWI* ESOMEPRAZOLE MAGNESIUM 40 MG * Take 1 capsule by mouth twice* ERGOCALCIFEROL (VITAMIN D2) 5* Take 1 capsule by mouth once * BLOOD SUGAR DIAGNOSTIC STRIPS Test blood sugars 2 x daily. * METHYLPREDNISOLONE 4 MG TABLE* As Instructed per package X BUPROPION HCL 100 MG TABLET Take 1 tablet PO daily in AM * ALBUTEROL SULFATE HFA 90 MCG/* Inhale 2 Puffs as instructed * OXYBUTYNIN CHLORIDE 5 MG TABL* Take 1 tablet by mouth twice * X METFORMIN 500 MG TABLET TAKE TWO TABLETS BY MOUTH TWI* PHENAZOPYRIDINE 97.5 MG TABLET Take 2 tablets by mouth twice* CARVEDILOL 3.125 MG TABLET Take 1 tablet by mouth twice * NITROGLYCERIN 0.4 MG SUBLINGU* Dissolve 1 tablet under the t* TICAGRELOR 90 MG TABLET Take by mouth twice daily. NICOTINE 7 MG/24 HR DAILY TRA* Apply 1 Patch as directed viry* X ATORVASTATIN 40 MG TABLET Take 40 mg by mouth once dina* HYDROCORTISONE 2.5 % TOPICAL * Apply 1 application to affect* IBUPROFEN 800 MG TABLET Take 1 tablet by mouth every * BUDESONIDE-FORMOTEROL HFA 80 * Inhale 2 Puffs as instructed * LANCETS Test blood sugar(s) 3 times d* ASPIRIN 81 MG TABLET,DELAYED * Take 1 tablet by mouth once d* HEATING PADS 1 Device as needed. Problem List As Of Date 09/29/2017 Noted Resolved Elevated liver enzymes [R74.8] INVALID FOR* Hypercholesteremia [E78.00] INVALID FOR* Elevated fasting glucose [R73.01] INVALID FOR* Neck pain, chronic [M54.2, G89.29] INVALID FOR* Tobacco abuse [Z72.0] INVALID FOR* Obesity [E66.9] INVALID FOR* Claudication of lower extremity [I73.9] INVALID FOR* Diabetes mellitus type 2, uncontrolled [E11.65] INVALID FOR* Cholelithiases [K80.20] INVALID FOR* Adenocarcinoma in situ (AIS) of uterine cervix *INVALID FOR* Major depressive disorder, recurrent episode (H*INVALID FOR* Essential hypertension [I10] INVALID FOR* Pulmonary emphysema (HCC) [J43.9] INVALID FOR* Gastroesophageal reflux disease [K21.9] INVALID FOR*09/13/2015 Positive occult stool blood test [R19.5] INVALID FOR*09/13/2015 Family history of ischemic heart disease [Z82.4*INVALID FOR* Aortic valve sclerosis [I35.8] INVALID FOR* Irritable esophagus [K22.9] INVALID FOR*01/30/2016 COPD with chronic bronchitis (HCC) [J44.9] INVALID FOR* Episode of recurrent major depressive disorder *INVALID FOR* Tobacco use disorder [F17.200] INVALID FOR* Memory deficit [R41.3] INVALID FOR* Mixed stress and urge urinary incontinence [N39*INVALID FOR* Vitamin D deficiency [E55.9] INVALID FOR* Short-term memory loss [R41.3] INVALID FOR* Fatigue [R53.83] INVALID FOR* PND (paroxysmal nocturnal dyspnea) [R06.00] INVALID FOR* Snoring [R06.83] INVALID FOR* H/O right coronary artery stent placement [Z95.*INVALID FOR* Coronary artery disease involving shoal[place] mach[place]*INVALID FOR* Dysuria [R30.0] INVALID FOR* Obesity, Class I, BMI 30-34.9 [E66.9] INVALID FOR* Major depression, recurrent, chronic (HCC) [F33*INVALID FOR* Bilateral leg edema [R60.0] INVALID FOR* OAB (overactive bladder) [N32.81] INVALID FOR* Urinary frequency [R35.0] INVALID FOR* Encounter Status:Closed by Froont, PRODUSER on 12/25/17 PROTIME Collected: 09/15/2017 Status: F Source: [place] 2:13 PM [facility] REPOSITORY TYPE CODE TESTS RESULT OUT OF RANGE REFERENCE UNITS LAB PSEC 9.7-13.0 sec PT Sec 10.2 LAB INR 0.9-1.3 PT INR 1.0 Result Comment: Vitamin K Antagonist (VKA) Therapeutic Range: INR 2 to 3 (Target INR of 2.5) Note: For patients treated with VKA drugs, such as warfarin, the [place] [employer] 2012 Guideline recommends a therapeutic INR range of 2 to 3 (target INR of 2.5). This recommendation includes high-risk patients with antiphospholipid syndrome with previous arterial or venous thromboembolism, current-generation mechanical or bioprosthetic aortic heart valve replacement. Note: Patients with mechanical aortic valve replacement and additional risk factors for thromboembolic events (atrial fibrillation, previous thromboembolism, LV dysfunction, hypercoagulable conditions) or an older generation mechanical AVR (i.e., ball in-Cage) or any mechanical MVR should have a INR therapeutic range of 2.5 to 3.5 (target INR of 3). Sarai GH, et al. Chest 2012, 141:7S-47S Talia RA, et al. [facility] 2017, 70: 252-289 Performed By: #### PT #### [facility] [address] [place] [id number] VITAMIN D 25 HYDROXY Collected: 09/04/2017 Status: F Source: [place] 12:10 PM [facility] REPOSITORY TYPE CODE TESTS RESULT OUT OF REFERENCE UNITS RANGE LAB VITD 31.0-80.0 ng/mL Vitamin D 25 38.3 Hydroxy Result Comment: Classification of 25 [place] Vitamin D status: Insufficiency/Moderate Deficiency: < or = 30 ng/mL Sufficiency/Optimal Levels: 31 to 80 ng/mL Toxicity: > 100 ng/mL Test performed by chemiluminescent immunoassay. Performed By: #### VITD #### [facility] [address] [place] [id number] PROGRESS Observed: 07/13/2017 Status: COMPLETED Source: [place] 1:42 PM [facility] REPOSITORY HNO ID: [id number] Author: Zander Osborn Service: (none) Author Type: Physician Type: Progress Notes Filed: 07/15/2017 12:35 PM Note Text: Patient presents with: Follow Up: 3 months diabetes HPI: Josette Nelson is a 61 year old female who presents to the office today for review of health conditions. Concerns today: Cough, congestion, sputum productive yellow, no fevers or chills, increased symptoms the last 1-2 weeks, + sick contacts with dtr with recent pneumonia. Ms. Nelson has past history of diabetes. Since our last visit she denies excessive thirst or increased frequency of urination, chest pain or dyspnea , numbness, tingling or pain in extremities and low sugar/hypoglycemic reactions. Follows a diabetic diet some of the time. She is compliant with medication(s) and is tolerating med(s) without any side effects. She reports checking her glucose on a once a day schedule with sugars in the <200 range. Patient's last HgA1C was Hemoglobin A1C (%) Date Value 04/14/2017 6.7 12/10/2016 7.4 ) Last Ophthalmology exam was within the past 12 months Ms. Nelson reports history of hyperlipidemia. Current therapy includes atorvastatin (Lipitor) 40 mg. Denies side effects of muscle weakness or achiness. Her most recent lipid panels are reviewed. Cholesterol, Total (mg/dL) Date Value 04/14/2017 131 HDL Cholesterol (mg/dL) Date Value 04/14/2017 36 LDL Cholesterol (mg/dL) Date Value 04/14/2017 46 Triglyceride (mg/dL) Date Value 04/14/2017 245 Ms. Nelson indicates a history of hypertension and states that she is feeling well and denies any symptoms referable to elevated blood pressure. Specifically denies headache, chest pain, palpitations, dyspnea and peripheral edema. Patient denies any side effects of her medication(s) and is compliant with their regimen. Last 3 Encounter BP Readings: Date: BP: 07/13/2017 138/82 04/14/2017 130/84 04/02/2017 144/78 She watches her diet for sodium, low fat and low cholesterol generally not very much. She does not check BP's generally. Josette gets minimal exercise. PAST MEDICAL HISTORY Diagnosis Date - ASCUS of cervix with negative high risk HPV 12/2015 REPEAT PAP DEC 2016 - Cholelithiasis 05/2013 - COPD (chronic obstructive pulmonary disease) (HCC) 05/2013 - Diabetes mellitus type 2, uncontrolled (HCC) 05/2013 - Elevated LFTs 04/2013 - Fatty liver 05/2013 - Hypercholesteremia 04/2013 - Migraine headache - Mild aortic regurgitation 08/2015 - Tobacco abuse PAST SURGICAL HISTORY Procedure Laterality Date - APPENDECTOMY remote - COLONOSCOP W/ OR W/O BRSH SPEC 09/13/15 Colonoscopy mac - EGD W/O OR W/BRUSH/WASH 09/13/15 EGD mac - EGD W/O OR W/BRUSH/WASH 01/30/16 EGD mac - LAP VAG HYST <=250 G RMV T/O 09/09/13 LAVH/BSO for AIS and ZEN III of cervix - TUBAL LIGATION, age 22 Social History Marital status: Spouse name: Years of education: Number of children: 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 Social History Main Topics Smoking status: Current Every Day Smoker Packs/day: 0.00 Years: 45.00 Types: Cigarettes Smokeless tobacco: Never Used Comment: 03/17 ppd Alcohol use: No Drug use: No Sexual activity: No Social History Narrative Lives with dtr Yina Levin, Goes by Gabriella, FAMILY HISTORY Problem Relation Age of Onset - pancreatic cancer [Other] [OTHER] Mother - Heart Father 62 smoker - Stroke Father 45 smoker - chf [Other] [OTHER] Mother - Diabetes Mother Allergies: ALLERGIES Allergen Reactions - Chocolate Vomiting Dark chocolate - Lodine [Etodolac] Swelling Current Meds: blood sugar diagnostic (PRODIGY NO CODING) test strip Test blood sugars 2 x daily. DX: E11.00 Insulin: No, Unstable blood glucose buPROPion (WELLBUTRIN) 100 mg tablet Take 1 tablet PO daily in AM and 2 tablets PO daily in PM (or bedtime) albuterol HFA (VENTOLIN HFA) 90 mcg/actuation inhaler Inhale 2 Puffs as instructed every 4 hours as needed for Wheezing/Shortness of Breath. oxybutynin (DITROPAN) 5 mg tablet Take 1 tablet by mouth twice daily. metFORMIN (GLUCOPHAGE) 500 mg tablet TAKE TWO TABLETS BY MOUTH TWICE DAILY WITH MEALS Phenazopyridine (AZO URINARY PAIN RELIEF) 97.5 mg tab Take 2 tablets by mouth twice daily. DOC-Q-LACE 100 mg capsule TAKE ONE CAPSULE BY MOUTH TWICE DAILY NEEDED FOR CONSTIPATION. carvedilol (COREG) 3.125 mg tablet Take 1 tablet by mouth twice daily with meals. nitroglycerin sublingual (NITROQUICK) 0.4 mg SL tablet Dissolve 1 tablet under the tongue every 5 minutes as needed for Chest Pain. esomeprazole (NEXIUM) 40 mg capsule Take 1 capsule by mouth twice daily before meals. atorvastatin (LIPITOR) 40 mg tablet Take 40 mg by mouth once daily. ticagrelor (BRILINTA) 90 mg tablet Take by mouth twice daily. nicotine (NICODERM CQ) 7 mg/24 hr Apply 1 Patch as directed every 24 hours. ergocalciferol, vitamin D2, (VITAMIN D) 50,000 unit capsule Take 1 capsule by mouth once each week. hydrocortisone 2.5 % cream Apply 1 application to affected area twice daily. Location: arms and legs ibuprofen (MOTRIN) 800 mg tablet Take 1 tablet by mouth every 8 hours as needed for Pain. Take with food. budesonide-formoterol (SYMBICORT) 80-4.5 mcg/actuation inhaler Inhale 2 Puffs as instructed twice daily. Lancets lancets Test blood sugar(s) 3 times daily. Dx: DM2 uncontrolled. Insulin: No aspirin, enteric coated (ADULT LOW DOSE ASPIRIN) 81 mg EC tablet Take 1 tablet by mouth once daily. Heating Pads pads 1 Device as needed. methylPREDNISolone (MEDROL DOSE-PACK) 4 mg Dose-Pack As Instructed per package levoFLOXacin (LEVAQUIN) 750 mg tablet Take 1 tablet by mouth once daily for 10 days. codeine-guaiFENesin (ROBITUSSIN AC) 10-100 mg/5 mL syrup Take 5-10 mL by mouth four times daily as needed for Cough for up to 7 days. May cause drowsiness. Review of Systems: The remainder of the review of systems is negative. PE: 07/13/17 1206 BP: 138/82 Pulse: 80 Resp: 20 Temp: 36.9 ?C (98.4 ?F) TempSrc: Right Tympanic Weight: 82.1 kg (181 lb) Gen: AANDO, NAD, non-toxic appearing, coughing, cooperative, obese HEENT: NT/AC, PERRLA, EOMs intact b/l, nares congested, pharynx without erythema, exudate or lesions. + PND, sinus TTP b/l frontal, Uvula midline. MMM, EACs without erythema or debris. TMs pearly abbasi with intact landmarks b/l. Neck: supple, No cervical LAD, no thyromegaly, no carotid bruits CV: RRR, normal S1 and S2, no murmurs, no gallops, no rubs, Pulses 2+ and symmetric in UE and LE b/l Lungs: coughing, diminished in bases, scattered wheezes end expiratory Abd: soft, obese, NT, ND, +BS, no hepatosplenomegaly MS: FROM all 4 extremities Neuro: CN II-XII intact b/l Skin: warm, dry, intact, No rashes or lesions on exposed skin. ASSESSMENT/PLAN: 1. Acute non-recurrent frontal sinusitis - ICD9: 461.1, ICD10: J01.10 (primary diagnosis) - Will begin treatment with as per antibiotic as written, see orders - LEVOFLOXACIN 750 MG TABLET 2. Cough - ICD9: 786.2, ICD10: R05 - rx as below, f/u in office if not improve - XR CHEST 2V FRONTAL/LAT - METHYLPREDNISOLONE 4 MG TABLETS IN A DOSE PACK - LEVOFLOXACIN 750 MG TABLET - CODEINE 10 MG-GUAIFENESIN 100 MG/5 ML ORAL LIQUID 3. Controlled type 2 diabetes mellitus without complication, without long-term current use of insulin (HCC) - ICD9: 250.00, ICD10: E11.9 Controlled. - Continue current medications - Check HgA1C and fasting lipid panel in 6 months - Blood glucose monitoring on a once a day schedule - BLOOD SUGAR DIAGNOSTIC STRIPS Zander Osborn DO To ER if develops chest pain, shortness of breath, or severe worsening of symptoms. Discussed risks, benefits, alternatives, and potential side effects of medications. Patient expressed understanding and agreed with the plan. Zander Osborn DO [address] [place] [address] HEMOGLOBIN A1C Collected: 07/13/2017 Status: F Source: [place] 1:17 PM [facility] REPOSITORY TYPE CODE TESTS RESULT OUT OF REFERENCE UNITS RANGE LAB HGBA1C 4.3-5.6 % High Hemoglobin A1c 6.7 LAB HBA0 mg/dL Est. Average Glucose 146 Result Comment: eAG: (Estimated average glucose) is a calculated value from HgbA1c and is residential sales representative of the average blood glucose level in the last 2-3 month period. Performed By: #### HBA1C, CMP, LIPB #### [facility] [address] [place], [place] [address] COMP METABOLIC PANEL Collected: 07/13/2017 Status: F Source: [place] 1:17 PM [facility] [place] REPOSITORY TYPE CODE TESTS RESULT OUT OF REFERENCE UNITS RANGE LAB TP 6.3-8.0 g/dL Protein, Total 7.4 LAB ALB 3.9-4.9 g/dL Albumin 4.0 LAB CA 8.5-10.2 mg/dL Calcium, Total 9.3 LAB TBIL 0.2-1.3 mg/dL Bilirubin, Total 0.3 LAB ALKP 32-117 U/L Alkaline Phosphatase 87 LAB AST 13-35 U/L AST 22 LAB GLU 74-99 mg/dL Glucose 96 Result Comment: The [place] Diabetes Association (ADA) provides guidance for cutoff values for fasting glucose and random glucose. The ADA defines fasting as no caloric intake for at least 8 hours. Fas ting plasma glucose results between 100 to 125 mg/dL indicate increased risk for diabetes (prediabetes). Fasting plasma glucose results greater than or equal to 126 mg/dL meet the criteria for diagnosis of diabetes. In the absence of unequivocal hyperglycemia, results should be confirmed by repeat testing. In a patient with classic symptoms of hyperglycemia or hyperglycemic crisis, random plasma glucose results greater than or equal to 200 mg/dL meet the criteria for diagnosis of diabetes. Reference: Standards of Medical Care in Diabetes 2016, [place] Diabetes Association. Diabetes Care. 2016.39(Suppl 1). LAB BUN 7-21 mg/dL BUN 10 LAB CRET 0.58-0.96 mg/dL Creatinine 0.92 LAB NA 136-144 mmol/L Sodium 143 LAB K 3.7-5.1 mmol/L Potassium 4.3 LAB CL 97-105 mmol/L Chloride 103 LAB CO2 22-30 mmol/L CO2 24 LAB AGAP 9-18 mmol/L Anion Gap 16 LAB ALT 7-38 U/L ALT 20 LAB GFRAA eGFR- Amer. >60 LAB GFRNAA . eGFR-All Other Races >60 Result Comment: eGFR (Estimated GFR) Units of measure: mL/min/1.73 meters squared eGFR is derived from the reexpressed MDRD Study equation using the following parameters: serum creatinine, age, gender and race. The creatinine assay has been calibrated to be traceable to IDMS. An eGFR <60 mL/min/1.73m2 for >3 months is consistent with chronic kidney disease. Refer to KDOQI guidelines for clinical interpretation. In patients with unstable renal function, e.g. those with acute kidney injury, the eGFR may not accurately reflect actual GFR. Performed By: #### HBA1C, CMP, LIPB #### [facility] [address] [place], [place] [address] LIPID PANEL, BASIC Collected: 07/13/2017 Status: F Source: [place] 1:17 PM [facility] REPOSITORY TYPE CODE TESTS RESULT OUT OF REFERENCE UNITS RANGE LAB CHOL <200 mg/dL Cholesterol 112 Result Comment: <200 mg/dL, Desirable 200-239 mg/dL, Borderline high >239 mg/dL, High LAB TRIGLY <150 mg/dL Triglyceride High 200 Result Comment: <150 mg/dL, Normal 150-199 mg/dL, Borderline high 200-499 mg/dL, High >499 mg/dL, Very high LAB HDL >39 mg/dL HDL-Cholesterol Low 39 Result Comment: 40-59 mg/dL, Acceptable >59 mg/dL, High: Negative risk factor for coronary heart disease <40 mg/dL, Low: Positive risk factor for coronary heart disease LAB LDL <100 mg/dL LDL-Cholesterol 33 Result Comment: <100 mg/dL, Optimal 100-129 mg/dL, Near optimal/above optimal 130-159 mg/dL, Borderline high 160-189 mg/dL, High >189 mg/dL, Very high Secondary prevention optimal LDL Cholesterol levels are recommended to be < 70 mg/dL LAB NONHDL <130 mg/dL Non HDL Cholesterol 73 Result Comment: <130 mg/dL, Optimal 130-159 mg/dL, Near optimal/above optimal 160-189 mg/dL, Borderline high 190-219 mg/dL, High >219 mg/dL, Very high Secondary prevention optimal non HDL Cholesterol levels are recommended to be < 100 mg/dL LAB FT hrs Fasting Time 17 LAB VLDL <30 mg/dL High VLDL Cholesterol 40 LAB TCHDL <5.10 TC:HDL Ratio 2.87 LAB LDLHDL <2.54 LDL:HDL Ratio 0.85 Result Comment: Reference: 1. National Cholesterol Education Program ATP III Guideline At-A-Glance Quick Desk Reference: National Heart, Lung, and Blood [place]. National Institutes of Health. 2001: NIH Publication No. 01-3305. 2. An International Atherosclerosis Society position paper: global recommendations for the management of dyslipidemia: executive summary, Atherosclerosis. 2014: 232(2):410-413. Performed By: #### HBA1C, CMP, LIPB #### [facility] [address] [place] [id number] XR CHEST 2V FRONTAL/LAT Observed: 07/13/2017 Status: F Source: [place] 1:05 PM [facility] REPOSITORY * * *Final Report* * * DATE OF EXAM: Jul 13 2017 1:05PM WOX [id number] - XR CHEST 2V FRONTAL/LAT / PROCEDURE REASON: Cough * * * * Physician Interpretation * * * * EXAMINATION: CHEST RADIOGRAPH (2 VIEW FRONTAL and LATERAL) Clinical History: Cough MQ: XC2_5 Comparison: Comparison is made to prior chest dated 21 March 2016 RESULT: Lines, tubes, and devices: None. Lungs and pleura: There is no focal consolidation or acute pleural process. There is no overt pulmonary edema. Cardiomediastinal silhouette: Normal cardiomediastinal silhouette. Other: The bony structures are intact. IMPRESSION: Stable chest. No acute cardiopulmonary process. Local Company Truck Driver: XAVIER Transcribe Date/Time: Jul 13 2017 1:39P Dictated by : JUDITH CHARLES MD This examination was interpreted and the report reviewed and electronically signed by: JUDITH CHARLES MD on Jul 13 2017 1:43PM EST [id number] Observed: 07/13/2017 Status: COMPLETED Source: [place] 12:57 PM [facility] REPOSITORY HNO ID: [id number] Author: John Sadler () Abiel Welch Service: (none) Author Type: Lapping Machine Tender Type: Progress Notes Filed: 07/13/2017 1:04 PM Note Text: Radiology Service Progress Note PATIENT NAME: Josette Nelson DATE OF SERVICE: July 13, 2017 TIME: 12:57 PM PATIENT IDENTITY VERIFICATION COMPLETED USING TWO (2) METHODS: Patient confirmed name verbally and Date of . PATIENT GENDER DATA: Female. status: : No status: NO. PATIENT RELEVANT IMPLANT DATA REVIEWED: Not Applicable RADIOLOGY DEPARTMENT: General X-ray: Exam(s) Completed: Chest X-Ray PERIPHERAL IV DATA: Not applicable SIGNED BY: RT Victor M July 13, 2017 12:57 PM PEGGY Observed: 07/13/2017 Status: COMPLETED Source: [place] 12:00 PM [facility] REPOSITORY [facility] JOSETTE NELSON ([id number]) 1955 F TXT Date Time Provider Department 07/13/17 12:00 PM [facility] During your visit today, we recorded the following information about you: Temperature Pulse Respiration Blood pressure 98.4 degrees 80/minute 20/minute 138/82 Weight 82.1 kg Zander Osborn DO 07/15/2017 12:35 PM Signed Patient presents with: Follow Up: 3 months diabetes HPI: Josette Nelson is a 61 year old female who presents to the office today for review of health conditions. Concerns today: Cough, congestion, sputum productive yellow, no fevers or chills, increased symptoms the last 1-2 weeks, + sick contacts with dtr with recent pneumonia. Ms. Nelson has past history of diabetes. Since our last visit she denies excessive thirst or increased frequency of urination, chest pain or dyspnea , numbness, tingling or pain in extremities and low sugar/hypoglycemic reactions. Follows a diabetic diet some of the time. She is compliant with medication(s) and is tolerating med(s) without any side effects. She reports checking her glucose on a once a day schedule with sugars in the <200 range. Patient's last HgA1C was Hemoglobin A1C (%) Date Value 04/14/2017 6.7 12/10/2016 7.4 ) Last Ophthalmology exam was within the past 12 months Ms. Nelson reports history of hyperlipidemia. Current therapy includes atorvastatin (Lipitor) 40 mg. Denies side effects of muscle weakness or achiness. Her most recent lipid panels are reviewed. Cholesterol, Total (mg/dL) Date Value 04/14/2017 131 HDL Cholesterol (mg/dL) Date Value 04/14/2017 36 LDL Cholesterol (mg/dL) Date Value 04/14/2017 46 Triglyceride (mg/dL) Date Value 04/14/2017 245 Ms. Nelson indicates a history of hypertension and states that she is feeling well and denies any symptoms referable to elevated blood pressure. Specifically denies headache, chest pain, palpitations, dyspnea and peripheral edema. Patient denies any side effects of her medication(s) and is compliant with their regimen. Last 3 Encounter BP Readings: Date: BP: 07/13/2017 138/82 04/14/2017 130/84 04/02/2017 144/78 She watches her diet for sodium, low fat and low cholesterol generally not very much. She does not check BP's generally. Josette gets minimal exercise. PAST MEDICAL HISTORY Diagnosis Date - ASCUS of cervix with negative high risk HPV 12/2015 REPEAT PAP DEC 2016 - Cholelithiasis 05/2013 - COPD (chronic obstructive pulmonary disease) (HCC) 05/2013 - Diabetes mellitus type 2, uncontrolled (HCC) 05/2013 - Elevated LFTs 04/2013 - Fatty liver 05/2013 - Hypercholesteremia 04/2013 - Migraine headache - Mild aortic regurgitation 08/2015 - Tobacco abuse PAST SURGICAL HISTORY Procedure Laterality Date - APPENDECTOMY remote - COLONOSCOP W/ OR W/O BRSH SPEC 09/13/15 Colonoscopy mac - EGD W/O OR W/BRUSH/WASH 09/13/15 EGD mac - EGD W/O OR W/BRUSH/WASH 01/30/16 EGD mac - LAP VAG HYST <=250 G RMV T/O 09/09/13 LAVH/BSO for AIS and ZEN III of cervix - TUBAL LIGATION, age 22 Social History Marital status: Spouse name: Years of education: Number of children: 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 Social History Main Topics Smoking status: Current Every Day Smoker Packs/day: 0.00 Years: 45.00 Types: Cigarettes Smokeless tobacco: Never Used Comment: 2 ppd Alcohol use: No Drug use: No Sexual activity: No Social History Narrative Lives with dtr Yina Levin, Goes by Gabriella, FAMILY HISTORY Problem Relation Age of Onset - pancreatic cancer [Other] [OTHER] Mother - Heart Father 62 smoker - Stroke Father 45 smoker - chf [Other] [OTHER] Mother - Diabetes Mother Allergies: ALLERGIES Allergen Reactions - Chocolate Vomiting Dark chocolate - Lodine [Etodolac] Swelling Current Meds: blood sugar diagnostic (Co-Work NO CODING) test strip Test blood sugars 2 x daily. DX: E11.00 Insulin: No, Unstable blood glucose buPROPion (WELLBUTRIN) 100 mg tablet Take 1 tablet PO daily in AM and 2 tablets PO daily in PM (or bedtime) albuterol HFA (VENTOLIN HFA) 90 mcg/actuation inhaler Inhale 2 Puffs as instructed every 4 hours as needed for Wheezing/Shortness of Breath. oxybutynin (DITROPAN) 5 mg tablet Take 1 tablet by mouth twice daily. metFORMIN (GLUCOPHAGE) 500 mg tablet TAKE TWO TABLETS BY MOUTH TWICE DAILY WITH MEALS Phenazopyridine (AZO URINARY PAIN RELIEF) 97.5 mg tab Take 2 tablets by mouth twice daily. DOC-Q-LACE 100 mg capsule TAKE ONE CAPSULE BY MOUTH TWICE DAILY NEEDED FOR CONSTIPATION. carvedilol (COREG) 3.125 mg tablet Take 1 tablet by mouth twice daily with meals. nitroglycerin sublingual (NITROQUICK) 0.4 mg SL tablet Dissolve 1 tablet under the tongue every 5 minutes as needed for Chest Pain. esomeprazole (NEXIUM) 40 mg capsule Take 1 capsule by mouth twice daily before meals. atorvastatin (LIPITOR) 40 mg tablet Take 40 mg by mouth once daily. ticagrelor (BRILINTA) 90 mg tablet Take by mouth twice daily. nicotine (NICODERM CQ) 7 mg/24 hr Apply 1 Patch as directed every 24 hours. ergocalciferol, vitamin D2, (VITAMIN D) 50,000 unit capsule Take 1 capsule by mouth once each week. hydrocortisone 2.5 % cream Apply 1 application to affected area twice daily. Location: arms and legs ibuprofen (MOTRIN) 800 mg tablet Take 1 tablet by mouth every 8 hours as needed for Pain. Take with food. budesonide-formoterol (SYMBICORT) 80-4.5 mcg/actuation inhaler Inhale 2 Puffs as instructed twice daily. Lancets lancets Test blood sugar(s) 3 times daily. Dx: DM2 uncontrolled. Insulin: No aspirin, enteric coated (ADULT LOW DOSE ASPIRIN) 81 mg EC tablet Take 1 tablet by mouth once daily. Heating Pads pads 1 Device as needed. methylPREDNISolone (MEDROL DOSE-PACK) 4 mg Dose-Pack As Instructed per package levoFLOXacin (LEVAQUIN) 750 mg tablet Take 1 tablet by mouth once daily for 10 days. codeine-guaiFENesin (ROBITUSSIN AC) 10-100 mg/5 mL syrup Take 5-10 mL by mouth four times daily as needed for Cough for up to 7 days. May cause drowsiness. Review of Systems: The remainder of the review of systems is negative. PE: 07/13/17 1206 BP: 138/82 Pulse: 80 Resp: 20 Temp: 36.9 ?C (98.4 ?F) TempSrc: Right Tympanic Weight: 82.1 kg (181 lb) Gen: AANDO, NAD, non-toxic appearing, coughing, cooperative, obese HEENT: NT/AC, PERRLA, EOMs intact b/l, nares congested, pharynx without erythema, exudate or lesions. + PND, sinus TTP b/l frontal, Uvula midline. MMM, EACs without erythema or debris. TMs pearly abbasi with intact landmarks b/l. Neck: supple, No cervical LAD, no thyromegaly, no carotid bruits CV: RRR, normal S1 and S2, no murmurs, no gallops, no rubs, Pulses 2+ and symmetric in UE and LE b/l Lungs: coughing, diminished in bases, scattered wheezes end expiratory Abd: soft, obese, NT, ND, +BS, no hepatosplenomegaly MS: FROM all 4 extremities Neuro: CN II-XII intact b/l Skin: warm, dry, intact, No rashes or lesions on exposed skin. ASSESSMENT/PLAN: 1. Acute non-recurrent frontal sinusitis - ICD9: 461.1, ICD10: J01.10 (primary diagnosis) - Will begin treatment with as per antibiotic as written, see orders - LEVOFLOXACIN 750 MG TABLET 2. Cough - ICD9: 786.2, ICD10: R05 - rx as below, f/u in office if not improve - XR CHEST 2V FRONTAL/LAT - METHYLPREDNISOLONE 4 MG TABLETS IN A DOSE PACK - LEVOFLOXACIN 750 MG TABLET - CODEINE 10 MG-GUAIFENESIN 100 MG/5 ML ORAL LIQUID 3. Controlled type 2 diabetes mellitus without complication, without long-term current use of insulin ([facility]) - ICD9: 250.00, ICD10: E11.9 Controlled. - Continue current medications - Check HgA1C and fasting lipid panel in 6 months - Blood glucose monitoring on a once a day schedule - BLOOD SUGAR DIAGNOSTIC STRIPS Zander Osborn DO To ER if develops chest pain, shortness of breath, or severe worsening of symptoms. Discussed risks, benefits, alternatives, and potential side effects of medications. Patient expressed understanding and agreed with the plan. Zander Osborn DO [address] [place] [address] Referring Provider: ZANDER OSBORN [[id number]] Allergies As of Date: 07/13/2017 Noted Allergy Reaction CHOCOLATE 05/23/2013 11 - Vomiting Comments: Dark chocolate LODINE (ETODOLAC) 05/23/2013 7 - Swelling Date Reviewed: 07/13/2017 Reviewed by: Callie Joseph LPN - Fully Assessed Reason for Visit: Follow Up [171] Cmt: 3 months diabetes Primary Visit Diagnosis:Acute non-recurrent frontal sinusitis [J01.10] Other Visit Diagnoses:Cough [R05] Controlled type 2 diabetes mellitus without complication, without long-term current use of insulin ([facility]) [E11.9] Order(s):XR CHEST 2V FRONTAL/LAT [[id number]] Order #: [id number] FUTURE methylPREDNISolone (MEDROL DOSE-PACK) 4 mg Dose-PackAs Instructed per packageDisp: 1 PackageRfl: 0 levoFLOXacin (LEVAQUIN) 750 mg tabletTake 1 tablet by mouth once daily for 10 days.Disp: 10 tabletRfl: 0 codeine-guaiFENesin (ROBITUSSIN AC) 10-100 mg/5 mL syrupTake 5-10 mL by mouth four times daily as needed for Cough for up to 7 days. May cause drowsiness.Disp: 120 mLRfl: 0 Prescriptions as of 07/13/2017 Sig: X BLOOD SUGAR DIAGNOSTIC STRIPS Test blood sugars 2 x daily. * BUPROPION HCL 100 MG TABLET Take 1 tablet PO daily in AM * ALBUTEROL SULFATE HFA 90 MCG/* Inhale 2 Puffs as instructed * OXYBUTYNIN CHLORIDE 5 MG TABL* Take 1 tablet by mouth twice * METFORMIN 500 MG TABLET TAKE TWO TABLETS BY MOUTH TWI* PHENAZOPYRIDINE 97.5 MG TABLET Take 2 tablets by mouth twice* DOC-Q-LACE 100 MG CAPSULE TAKE ONE CAPSULE BY MOUTH TWI* CARVEDILOL 3.125 MG TABLET Take 1 tablet by mouth twice * NITROGLYCERIN 0.4 MG SUBLINGU* Dissolve 1 tablet under the t* ESOMEPRAZOLE MAGNESIUM 40 MG * Take 1 capsule by mouth twice* ATORVASTATIN 40 MG TABLET Take 40 mg by mouth once dina* TICAGRELOR 90 MG TABLET Take by mouth twice daily. NICOTINE 7 MG/24 HR DAILY TRA* Apply 1 Patch as directed viry* ERGOCALCIFEROL (VITAMIN D2) 5* Take 1 capsule by mouth once * HYDROCORTISONE 2.5 % TOPICAL * Apply 1 application to affect* IBUPROFEN 800 MG TABLET Take 1 tablet by mouth every * BUDESONIDE-FORMOTEROL HFA 80 * Inhale 2 Puffs as instructed * LANCETS Test blood sugar(s) 3 times d* ASPIRIN 81 MG TABLET,DELAYED * Take 1 tablet by mouth once d* HEATING PADS 1 Device as needed. METHYLPREDNISOLONE 4 MG TABLE* As Instructed per package LEVOFLOXACIN 750 MG TABLET Take 1 tablet by mouth once d* CODEINE 10 MG-GUAIFENESIN 100* Take 5-10 mL by mouth four ti* Problem List As Of Date 07/13/2017 Noted Resolved Elevated liver enzymes [R74.8] INVALID FOR* Hypercholesteremia [E78.00] INVALID FOR* Elevated fasting glucose [R73.01] INVALID FOR* Neck pain, chronic [M54.2, G89.29] INVALID FOR* Tobacco abuse [Z72.0] INVALID FOR* Obesity [E66.9] INVALID FOR* Claudication of lower extremity [I73.9] INVALID FOR* Diabetes mellitus type 2, uncontrolled [E11.65] INVALID FOR* Cholelithiases [K80.20] INVALID FOR* Adenocarcinoma in situ (AIS) of uterine cervix *INVALID FOR* Major depressive disorder, recurrent episode (H*INVALID FOR* Essential hypertension [I10] INVALID FOR* Pulmonary emphysema (HCC) [J43.9] INVALID FOR* Gastroesophageal reflux disease [K21.9] INVALID FOR*09/13/2015 Positive occult stool blood test [R19.5] INVALID FOR*09/13/2015 Family history of ischemic heart disease [Z82.4*INVALID FOR* Aortic valve sclerosis [I35.8] INVALID FOR* Irritable esophagus [K22.9] INVALID FOR*01/30/2016 COPD with chronic bronchitis (HCC) [J44.9] INVALID FOR* Episode of recurrent major depressive disorder *INVALID FOR* Tobacco use disorder [F17.200] INVALID FOR* Memory deficit [R41.3] INVALID FOR* Mixed stress and urge urinary incontinence [N39*INVALID FOR* Vitamin D deficiency [E55.9] INVALID FOR* Short-term memory loss [R41.3] INVALID FOR* Fatigue [R53.83] INVALID FOR* PND (paroxysmal nocturnal dyspnea) [R06.00] INVALID FOR* Snoring [R06.83] INVALID FOR* H/O right coronary artery stent placement [Z95.*INVALID FOR* Coronary artery disease involving shoalwater machado*INVALID FOR* Dysuria [R30.0] INVALID FOR* Obesity, Class I, BMI 30-34.9 [E66.9] INVALID FOR* Major depression, recurrent, chronic (HCC) [F33*INVALID FOR* Bilateral leg edema [R60.0] INVALID FOR* OAB (overactive bladder) [N32.81] INVALID FOR* Urinary frequency [R35.0] INVALID FOR* Prescriptions ordered this encounter Disp Refills Start End METHYLPREDNISOLONE 4 MG TABLETS IN A* 1 Pa* 0 07/13/2017 Sig: As Instructed per package LEVOFLOXACIN 750 MG TABLET 10 t* 0 07/13/2017 07/23/2017 Route: ORAL Sig: Take 1 tablet by mouth once daily for 10 days. CODEINE 10 MG-GUAIFENESIN 100 MG/5 M* 120 * 0 07/13/2017 07/20/2017 Class: Print RX Route: ORAL Sig: Take 5-10 mL by mouth four times daily as needed for Cough for up to 7 days. May cause drowsiness. BLOOD SUGAR DIAGNOSTIC STRIPS 60 S* 11 07/13/2017 07/14/2017 Class: Print RX Sig: Test blood sugars 2 x daily. DX: E11.00 Insulin: No, Unstable blood glucose Medications Discontinued During This Encounter blood sugar diagnostic (EDWIN NO C* 50 S* 11 04/28/2017 07/13/2017 Sig: Test blood sugars 1 x daily. DX: E11.00 Insulin: No Disc: Reason for discontinue is not on file. Encounter Status:Closed by ZANDER OSBORN DO on 07/15/17 LIPID PANEL, BASIC Collected: 04/14/2017 Status: F Source: [facility] 1:35 PM [facility] REPOSITORY TYPE CODE TESTS RESULT OUT OF REFERENCE UNITS RANGE LAB CHOL <200 mg/dL Cholesterol 131 Result Comment: <200 mg/dL, Desirable 200-239 mg/dL, Borderline high >239 mg/dL, High LAB TRIGLY <150 mg/dL Triglyceride High 245 Result Comment: <150 mg/dL, Normal 150-199 mg/dL, Borderline high 200-499 mg/dL, High >499 mg/dL, Very high LAB HDL >39 mg/dL HDL-Cholesterol Low 36 Result Comment: 40-59 mg/dL, Acceptable >59 mg/dL, High: Negative risk factor for coronary heart disease <40 mg/dL, Low: Positive risk factor for coronary heart disease LAB LDL <100 mg/dL LDL-Cholesterol 46 Result Comment: <100 mg/dL, Optimal 100-129 mg/dL, Near optimal/above optimal 130-159 mg/dL, Borderline high 160-189 mg/dL, High >189 mg/dL, Very high Secondary prevention optimal LDL Cholesterol levels are recommended to be < 70 mg/dL LAB NONHDL <130 mg/dL Non HDL Cholesterol 95 Result Comment: <130 mg/dL, Optimal 130-159 mg/dL, Near optimal/above optimal 160-189 mg/dL, Borderline high 190-219 mg/dL, High >219 mg/dL, Very high Secondary prevention optimal non HDL Cholesterol levels are recommended to be < 100 mg/dL LAB FT hrs Fasting Time 20 LAB VLDL <30 mg/dL High VLDL Cholesterol 49 LAB TCHDL <5.10 TC:HDL Ratio 3.64 LAB LDLHDL <2.54 LDL:HDL Ratio 1.28 Result Comment: Reference: 1. National Cholesterol Education Program ATP III Guideline At-A-Glance Quick Desk Reference: National Heart, Lung, and Blood [place]. National Institutes of Health. 2001: NIH Publication No. 01-3305. 2. An International Atherosclerosis Society position paper: global recommendations for the management of dyslipidemia: executive summary, Atherosclerosis. 2014: 232(2):410-413. Performed By: #### LIPB #### [facility] [address] [place], [place] [address] CBC Collected: 04/14/2017 Status: F Source: [facility] 1:34 [facility] REPOSITORY TYPE CODE TESTS RESULT OUT OF REFERENCE UNITS RANGE LAB WBC 3.70-11.00 k/uL WBC High 13.48 LAB RBC 3.90-5.20 m/uL RBC 4.59 LAB HGB 11.5-15.5 g/dL Hemoglobin 12.9 LAB HCT 36.0-46.0 % Hematocrit 41.8 LAB MCV 80.0-100.0 fL MCV 91.1 LAB MCH 26.0-34.0 pG MCH 28.1 LAB MCHC 30.5-36.0 g/dL MCHC 30.9 LAB RDWCV 11.5-15.0 % RDW-CV 13.5 LAB PLTCT 150-400 k/uL Platelet Count 310 LAB MPV 9.0-12.7 fL MPV 10.3 LAB ABSNUC <0.01 k/uL Absolute nRBC <0.01 Performed By: #### CBC, HBA1C, CMP, B12, VITD #### [facility] [address] [place], [place] [address] HEMOGLOBIN A1C Collected: 04/14/2017 Status: F Source: [facility] 1:34 [facility] REPOSITORY TYPE CODE TESTS RESULT OUT OF REFERENCE UNITS RANGE LAB HGBA1C 4.3-5.6 % High Hemoglobin A1c 6.7 LAB HBA0 mg/dL Est. Average Glucose 146 Result Comment: eAG: (Estimated average glucose) is a calculated value from HgbA1c and is residential sales representative of the average blood glucose level in the last 2-3 month period. Performed By: #### CBC, HBA1C, CMP, B12, VITD #### [facility] [address] [place], [place] [address] COMP METABOLIC PANEL Collected: 04/14/2017 Status: F Source: [facility] 1:34 [facility] REPOSITORY TYPE CODE TESTS RESULT OUT OF REFERENCE UNITS RANGE LAB TP 6.3-8.0 g/dL Protein, Total 7.5 LAB ALB 3.9-4.9 g/dL Albumin 4.2 LAB CA 8.5-10.2 mg/dL Calcium, Total 9.0 LAB TBIL 0.2-1.3 mg/dL Bilirubin, Total 0.5 LAB ALKP 32-117 U/L Alkaline Phosphatase 105 LAB AST 13-35 U/L AST 16 LAB GLU 74-99 mg/dL Glucose 84 Result Comment: The [place] Diabetes Association (ADA) provides guidance for cutoff values for fasting glucose and random glucose. The ADA defines fasting as no caloric intake for at least 8 hours. Fas ting plasma glucose results between 100 to 125 mg/dL indicate increased risk for diabetes (prediabetes). Fasting plasma glucose results greater than or equal to 126 mg/dL meet the criteria for diagnosis of diabetes. In the absence of unequivocal hyperglycemia, results should be confirmed by repeat testing. In a patient with classic symptoms of hyperglycemia or hyperglycemic crisis, random plasma glucose results greater than or equal to 200 mg/dL meet the criteria for diagnosis of diabetes. Reference: Standards of Medical Care in Diabetes 2016, [place] Diabetes Association. Diabetes Care. 2016.39(Suppl 1). LAB BUN 7-21 mg/dL BUN 10 LAB CRET 0.58-0.96 mg/dL Creatinine High 0.99 LAB NA 136-144 mmol/L Sodium 142 LAB K 3.7-5.1 mmol/L Potassium 4.0 LAB CL 97-105 mmol/L Chloride 102 LAB CO2 22-30 mmol/L CO2 23 LAB AGAP 9-18 mmol/L Anion Gap 17 LAB ALT 7-38 U/L ALT 19 LAB GFRAA eGFR- Amer. >60 LAB GFRNAA . eGFR-All Other Races 57 Result Comment: eGFR (Estimated GFR) Units of measure: mL/min/1.73 meters squared eGFR is derived from the reexpressed MDRD Study equation using the following parameters: serum creatinine, age, gender and race. The creatinine assay has been calibrated to be traceable to IDMS. An eGFR <60 mL/min/1.73m2 for >3 months is consistent with chronic kidney disease. Refer to KDOQI guidelines for clinical interpretation. In patients with unstable renal function, e.g. those with acute kidney injury, the eGFR may not accurately reflect actual GFR. Performed By: #### CBC, HBA1C, CMP, B12, VITD #### [facility] [address] [place], [place] [address] VITAMIN B12 Collected: 04/14/2017 Status: F Source: [facility] 1:34 PM [facility] REPOSITORY TYPE CODE TESTS RESULT OUT OF REFERENCE UNITS RANGE LAB B12 232-1245 pg/mL Vitamin B12 386 Performed By: #### CBC, HBA1C, CMP, B12, VITD #### [facility] [address] [place], [place] [address] VITAMIN D 25 HYDROXY Collected: 04/14/2017 Status: F Source: [facility] 1:34 PM [facility] REPOSITORY TYPE CODE TESTS RESULT OUT OF REFERENCE UNITS RANGE LAB VITD 31.0-80.0 ng/mL Low Vitamin D 25 23.9 Hydroxy Result Comment: Classification of 25 [place] Vitamin D status: Insufficiency/Moderate Deficiency: < or = 30 ng/mL Sufficiency/Optimal Levels: 31 to 80 ng/mL Toxicity: > 100 ng/mL Test performed by chemiluminescent immunoassay. Performed By: #### CBC, HBA1C, CMP, B12, VITD #### [facility] [address] [place] [id number] PROGRESS Observed: 04/14/2017 Status: COMPLETED Source: [facility] 12:57 PM [facility] REPOSITORY HNO ID: [id number] Author: Zander Osborn Service: (none) Author Type: Physician Type: Progress Notes Filed: 04/15/2017 7:50 AM Note Text: Patient presents with: Follow Up: 3 months HPI: Josette Nelson is a 61 year old female who presents to the office today for review of health conditions. Concerns today: Long standing hx of Urinary frequency and urgency, urinating 3-4 times at night as well, interested in medicaiton options, hasn't seen UROGYN, symptoms x years, no flank pain or hematuria. Admits to poor diet choices at times due to financial constraints, living with dtr in [place]. Fasting glucose readings most in 110-140 range, a few in 170-180, hasn't had recent a1c rechecked since Nov. Depression, stable, taking medications as prescribed, no SI or HI GERD, stable, taking PPI Ms. Nelson has past history of diabetes. Since our last visit she denies excessive thirst or increased frequency of urination, chest pain or dyspnea , new or unusual visual symptoms and low sugar/hypoglycemic reactions. Follows a diabetic diet some of the time. She is compliant with medication(s) and is tolerating med(s) without any side effects. She reports checking her glucose on a once a day schedule. Patient's last HgA1C was Hemoglobin A1C (%) Date Value 12/10/2016 7.4 04/22/2016 6.4 ) Last Ophthalmology exam was within the past 12 months Ms. Nelson reports history of hyperlipidemia. Current therapy includes atorvastatin (Lipitor). noside effects of meds:[id number]::Denies side effects of muscle weakness or achiness.} Her most recent lipid panels are reviewed. Cholesterol, Total (no units) Date Value 12/03/2016 124 HDL Cholesterol (mg/dL) Date Value 10/09/2015 35 LDL Cholesterol (mg/dL) Date Value 10/09/2015 41 Triglyceride (mg/dL) Date Value 10/09/2015 178 Ms. Nelson indicates a history of hypertension and states that she is feeling well and denies any symptoms referable to elevated blood pressure. Specifically denies headache, chest pain, palpitations, dyspnea and peripheral edema. Patient denies any side effects of her medication(s) and is compliant with their regimen. Last 3 Encounter BP Readings: Date: BP: 04/14/2017 130/84 04/02/2017 144/78 03/13/2017 132/80 She watches her diet for sodium, low fat and low cholesterol some of the time. She does not check BP's generally. Josette gets minimal exercise. PAST MEDICAL HISTORY Diagnosis Date - ASCUS of cervix with negative high risk HPV 12/2015 REPEAT PAP DEC 2016 - Cholelithiasis 05/2013 - COPD (chronic obstructive pulmonary disease) ([facility]) 05/2013 - Diabetes mellitus type 2, uncontrolled ([facility]) 05/2013 - Elevated LFTs 04/2013 - Fatty liver 05/2013 - Hypercholesteremia 04/2013 - Migraine headache - Mild aortic regurgitation 08/2015 - Tobacco abuse PAST SURGICAL HISTORY Procedure Laterality Date - APPENDECTOMY remote - COLONOSCOP W/ OR W/O BRSH SPEC 09/13/15 Colonoscopy mac - EGD W/O OR W/BRUSH/WASH 09/13/15 EGD mac - EGD W/O OR W/BRUSH/WASH 01/30/16 EGD mac - LAP VAG HYST <=250 G RMV T/O 09/09/13 LAVH/BSO for AIS and ZEN III of cervix - TUBAL LIGATION, age 22 Social History Marital status: Spouse name: Years of education: Number of children: 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 Social History Main Topics Smoking status: Current Every Day Smoker Packs/day: 0.00 Years: 45.00 Types: Cigarettes Smokeless status: Never Used Comment: 03/17 ppd Alcohol use: No Drug use: No Sexual activity: No Social History Narrative Lives with dtr Yina Levin, Goes by Gabriella, FAMILY HISTORY Problem Relation Age of Onset - pancreatic cancer [Other] [OTHER] Mother - Heart Father 62 smoker - Stroke Father 45 smoker - chf [Other] [OTHER] Mother - Diabetes Mother Allergies: ALLERGIES Allergen Reactions - Chocolate Vomiting Dark chocolate - Lodine [Etodolac] Swelling Current Meds: metFORMIN (GLUCOPHAGE) 500 mg tablet TAKE TWO TABLETS BY MOUTH TWICE DAILY WITH MEALS carvedilol (COREG) 3.125 mg tablet Take 1 tablet by mouth twice daily with meals. nitroglycerin sublingual (NITROQUICK) 0.4 mg SL tablet Dissolve 1 tablet under the tongue every 5 minutes as needed for Chest Pain. esomeprazole (NEXIUM) 40 mg capsule Take 1 capsule by mouth twice daily before meals. atorvastatin (LIPITOR) 40 mg tablet Take 40 mg by mouth once daily. ticagrelor (BRILINTA) 90 mg tablet Take by mouth twice daily. nicotine (NICODERM CQ) 7 mg/24 hr Apply 1 Patch as directed every 24 hours. ergocalciferol, vitamin D2, (VITAMIN D) 50,000 unit capsule Take 1 capsule by mouth once each week. buPROPion XL (WELLBUTRIN XL) 300 mg 24 hr tablet Take 1 tablet by mouth once daily. hydrocortisone 2.5 % cream Apply 1 application to affected area twice daily. Location: arms and legs albuterol HFA (VENTOLIN HFA) 90 mcg/actuation inhaler Inhale 2 Puffs as instructed every 4 hours as needed for Wheezing/Shortness of Breath. ibuprofen (MOTRIN) 800 mg tablet Take 1 tablet by mouth every 8 hours as needed for Pain. Take with food. Lancets lancets Test blood sugar(s) 3 times daily. Dx: DM2 uncontrolled. Insulin: No aspirin, enteric coated (ADULT LOW DOSE ASPIRIN) 81 mg EC tablet Take 1 tablet by mouth once daily. Heating Pads pads 1 Device as needed. Phenazopyridine (AZO URINARY PAIN RELIEF) 97.5 mg tab Take 2 tablets by mouth twice daily. DOC-Q-LACE 100 mg capsule TAKE ONE CAPSULE BY MOUTH TWICE DAILY NEEDED FOR CONSTIPATION. budesonide-formoterol (SYMBICORT) 80-4.5 mcg/actuation inhaler Inhale 2 Puffs as instructed twice daily. Review of Systems: The remainder of the review of systems is negative. PE: 04/14/17 1240 BP: 130/84 Pulse: 64 Resp: 20 Temp: 36.8 ?C (98.2 ?F) TempSrc: Left Tympanic Weight: 80.7 kg (178 lb) Gen: AANDO, NAD, non-toxic appearing, obese, dressed appropriately, cooperative HEENT: NT/AC, PERRLA, EOMs intact b/l, nares clear and patent b/l, pharynx without erythema, exudate or lesions. Uvula midline. MMM, EACs without erythema or debris. TMs pearly abbasi with intact landmarks b/l. Neck: supple, No cervical LAD, no thyromegaly, no carotid bruits CV: RRR, normal S1S2, 2/6 HSM murmurs, no gallops, no rubs, Pulses 2+ and symmetric in UE and LE b/l Lungs: normal respiratory effort, CTA b/l, no wheezing or rhonchi or rales Abd: soft, obese, NT, ND, +BS, no hepatosplenomegaly MS: FROM all 4 extremities Neuro: CN II-XII intact b/l grossly Skin: warm, dry, intact, No rashes or lesions on exposed skin. Trace b/l leg non pitting peripheral edema without skin changes ASSESSMENT/PLAN: 1. Uncontrolled type 2 diabetes mellitus with hyperosmolarity without coma, without long-term current use of insulin (HCC) - ICD9: 250.22, ICD10: E11.00 (primary diagnosis) uncontrolled Poor adherence to plan of care. - Continue current medications - Check HgA1C and fasting glucose - Blood glucose monitoring on a once a day schedule - HGB A1C 2. Vitamin D deficiency - ICD9: 268.9, ICD10: E55.9 - recheck labs, continue supplement - VITAMIN D 25 HYDROXY - VITAMIN B12 BLOOD 3. Essential hypertension - ICD9: 401.9, ICD10: I10 - good control - Continue current medication(s) - Encouraged dietary sodium restriction/DASH diet - Recommended regular aerobic exercise. - Recommend home blood pressure monitoring, to bring results in on next visit - Discussed need and benefit for weight loss. - Goal of BP <130/80 - CBC - COMP METABOLIC PANEL 4. OAB (overactive bladder) - ICD9: 596.51, ICD10: N32.81 - start on oxybutynin, referral to UROGYN - OXYBUTYNIN CHLORIDE 5 MG TABLET - CONSULT TO FEMALE UROLOGY/URO GYNECOLOGY 5. Urinary frequency - ICD9: 788.41, ICD10: R35.0 chronic - start on oxybutynin, referral to UROGYN - CONSULT TO FEMALE UROLOGY/URO GYNECOLOGY 6. Bilateral leg edema - ICD9: 782.3, ICD10: R60.0 - legs elevated, compression stocking use 7. Coronary artery disease involving shoalwater coronary artery of shoalwater heart without angina pectoris - ICD9: 414.01, ICD10: I25.10 - f/u with Materials Handler, continue Brillinta 8. Major depression, recurrent, chronic (HCC) - ICD9: 296.30, ICD10: F33.9 - stable, continue medicatoins 9. Tobacco use disorder - ICD9: 305.1, ICD10: F17.200 - Cessation encouraged. - Physiologic and physical aspects of tobacco addiction as well as strategies for quitting were discussed. - Counseling was given focusing on the harmful effects of this addiction especially given the patient's medical condition(s) which will be worsened because of the chemicals in tobacco. - Counseling was given 3-4 minutes. 10. H/O right coronary artery stent placement - ICD9: V45.82, ICD10: Z95.5 - stable, continue Brillinta, f/u with Materials Handler 11. Hypercholesteremia - ICD9: 272.0, ICD10: E78.00 - to be determined upon return of lab results - Continue current medication. - Encouraged following a low fat, low cholesterol diet. - Discussed the benefits of regular aerobic exercise and weight loss. 12. Obesity, Class I, BMI 30-34.9 - ICD9: 278.00, ICD10: E66.9 Zander Osborn DO To ER if develops chest pain, shortness of breath, or severe worsening of symptoms. Discussed risks, benefits, alternatives, and potential side effects of medications. Patient expressed understanding and agreed with the plan. Zander Osborn DO [address] [place] [address] CNOV Observed: 04/14/2017 Status: COMPLETED Source: [place] 12:40 PM [facility] REPOSITORY Office Visit (FAMPWS) JOSETTE NELSON ([id number]) 1955 F TXT Date Time Provider Department 04/14/17 12:40 PM ZANDER OSBORN FAMJannieWS During your visit today, we recorded the following information about you: Temperature Pulse Respiration Blood pressure 98.2 degrees 64/minute 20/minute 130/84 Weight 80.7 kg Zander Osborn DO 04/15/2017 7:50 AM Signed Patient presents with: Follow Up: 3 months HPI: Josette Julianne Nelson is a 61 year old female who presents to the office today for review of health conditions. Concerns today: Long standing hx of Urinary frequency and urgency, urinating 3-4 times at night as well, interested in medicaiton options, hasn't seen UROGYN, symptoms x years, no flank pain or hematuria. Admits to poor diet choices at times due to financial constraints, living with dtr in [place]. Fasting glucose readings most in 110- 140 range, a few in 170-180, hasn't had recent a1c rechecked since Nov. Depression, stable, taking medications as prescribed, no SI or HI GERD, stable, taking PPI Ms. Nelson has past history of diabetes. Since our last visit she denies excessive thirst or increased frequency of urination, chest pain or dyspnea , new or unusual visual symptoms and low sugar/hypoglycemic reactions. Follows a diabetic diet some of the time. She is compliant with medication(s) and is tolerating med(s) without any side effects. She reports checking her glucose on a once a day schedule. Patient's last HgA1C was Hemoglobin A1C (%) Date Value 12/10/2016 7.4 04/22/2016 6.4 ) Last Ophthalmology exam was within the past 12 months Ms. Nelson reports history of hyperlipidemia. Current therapy includes atorvastatin (Lipitor). noside effects of meds:36040::ANDquot;Denies side effects of muscle weakness or achiness.ANDquot;} Her most recent lipid panels are reviewed. Cholesterol, Total (no units) Date Value 12/03/2016 124 HDL Cholesterol (mg/dL) Date Value 10/09/2015 35 LDL Cholesterol (mg/dL) Date Value 10/09/2015 41 Triglyceride (mg/dL) Date Value 10/09/2015 178 Ms. Nelson indicates a history of hypertension and states that she is feeling well and denies any symptoms referable to elevated blood pressure. Specifically denies headache, chest pain, palpitations, dyspnea and peripheral edema. Patient denies any side effects of her medication(s) and is compliant with their regimen. Last 3 Encounter BP Readings: Date: BP: 04/14/2017 130/84 04/02/2017 144/78 03/13/2017 132/80 She watches her diet for sodium, low fat and low cholesterol some of the time. She does not check BP's generally. Josette gets minimal exercise. PAST MEDICAL HISTORY Diagnosis Date - ASCUS of cervix with negative high risk HPV 12/2015 REPEAT PAP DEC 2016 - Cholelithiasis 05/2013 - COPD (chronic obstructive pulmonary disease) (HCC) 05/2013 - Diabetes mellitus type 2, uncontrolled (HCC) 05/2013 - Elevated LFTs 04/2013 - Fatty liver 05/2013 - Hypercholesteremia 04/2013 - Migraine headache - Mild aortic regurgitation 08/2015 - Tobacco abuse PAST SURGICAL HISTORY Procedure Laterality Date - APPENDECTOMY remote - COLONOSCOP W/ OR W/O BRSH SPEC 09/13/15 Colonoscopy mac - EGD W/O OR W/BRUSH/WASH 09/13/15 EGD mac - EGD W/O OR W/BRUSH/WASH 01/30/16 EGD mac - LAP VAG HYST ANDlt;=250 G RMV T/O 09/09/13 LAVH/BSO for AIS and ZEN III of cervix - TUBAL LIGATION, age 22 Social History Marital status: Spouse name: Years of education: Number of children: 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 Social History Main Topics Smoking status: Current Every Day Smoker Packs/day: 0.00 Years: 45.00 Types: Cigarettes Smokeless status: Never Used Comment: 03/17 ppd Alcohol use: No Drug use: No Sexual activity: No Social History Narrative Lives with dtr Yina Levin, Goes by ANDquot;DebANDquot;, FAMILY HISTORY Problem Relation Age of Onset - pancreatic cancer [Other] [OTHER] Mother - Heart Father 62 smoker - Stroke Father 45 smoker - chf [Other] [OTHER] Mother - Diabetes Mother Allergies: ALLERGIES Allergen Reactions - Chocolate Vomiting Dark chocolate - Lodine [Etodolac] Swelling Current Meds: metFORMIN (GLUCOPHAGE) 500 mg tablet TAKE TWO TABLETS BY MOUTH TWICE DAILY WITH MEALS carvedilol (COREG) 3.125 mg tablet Take 1 tablet by mouth twice daily with meals. nitroglycerin sublingual (NITROQUICK) 0.4 mg SL tablet Dissolve 1 tablet under the tongue every 5 minutes as needed for Chest Pain. esomeprazole (NEXIUM) 40 mg capsule Take 1 capsule by mouth twice daily before meals. atorvastatin (LIPITOR) 40 mg tablet Take 40 mg by mouth once daily. ticagrelor (BRILINTA) 90 mg tablet Take by mouth twice daily. nicotine (NICODERM CQ) 7 mg/24 hr Apply 1 Patch as directed every 24 hours. ergocalciferol, vitamin D2, (VITAMIN D) 50,000 unit capsule Take 1 capsule by mouth once each week. buPROPion XL (WELLBUTRIN XL) 300 mg 24 hr tablet Take 1 tablet by mouth once daily. hydrocortisone 2.5 % cream Apply 1 application to affected area twice daily. Location: arms and legs albuterol HFA (VENTOLIN HFA) 90 mcg/actuation inhaler Inhale 2 Puffs as instructed every 4 hours as needed for Wheezing/Shortness of Breath. ibuprofen (MOTRIN) 800 mg tablet Take 1 tablet by mouth every 8 hours as needed for Pain. Take with food. Lancets lancets Test blood sugar(s) 3 times daily. Dx: DM2 uncontrolled. Insulin: No aspirin, enteric coated (ADULT LOW DOSE ASPIRIN) 81 mg EC tablet Take 1 tablet by mouth once daily. Heating Pads pads 1 Device as needed. Phenazopyridine (AZO URINARY PAIN RELIEF) 97.5 mg tab Take 2 tablets by mouth twice daily. DOC-Q-LACE 100 mg capsule TAKE ONE CAPSULE BY MOUTH TWICE DAILY NEEDED FOR CONSTIPATION. budesonide-formoterol (SYMBICORT) 80-4.5 mcg/actuation inhaler Inhale 2 Puffs as instructed twice daily. Review of Systems: The remainder of the review of systems is negative. PE: 04/14/17 1240 BP: 130/84 Pulse: 64 Resp: 20 Temp: 36.8 ?C (98.2 ?F) TempSrc: Left Tympanic Weight: 80.7 kg (178 lb) Gen: AANDamp;O, NAD, non-toxic appearing, obese, dressed appropriately, cooperative HEENT: NT/AC, PERRLA, EOMs intact b/l, nares clear and patent b/l, pharynx without erythema, exudate or lesions. Uvula midline. MMM, EACs without erythema or debris. TMs pearly abbasi with intact landmarks b/l. Neck: supple, No cervical LAD, no thyromegaly, no carotid bruits CV: RRR, normal S1S2, 2/6 HSM murmurs, no gallops, no rubs, Pulses 2+ and symmetric in UE and LE b/l Lungs: normal respiratory effort, CTA b/l, no wheezing or rhonchi or rales Abd: soft, obese, NT, ND, +BS, no hepatosplenomegaly MS: FROM all 4 extremities Neuro: CN II-XII intact b/l grossly Skin: warm, dry, intact, No rashes or lesions on exposed skin. Trace b/l leg non pitting peripheral edema without skin changes ASSESSMENT/PLAN: 1. Uncontrolled type 2 diabetes mellitus with hyperosmolarity without coma, without long-term current use of insulin (HCC) - ICD9: 250.22, ICD10: E11.00 (primary diagnosis) uncontrolled Poor adherence to plan of care. - Continue current medications - Check HgA1C and fasting glucose - Blood glucose monitoring on a once a day schedule - HGB A1C 2. Vitamin D deficiency - ICD9: 268.9, ICD10: E55.9 - recheck labs, continue supplement - VITAMIN D 25 HYDROXY - VITAMIN B12 BLOOD 3. Essential hypertension - ICD9: 401.9, ICD10: I10 - good control - Continue current medication(s) - Encouraged dietary sodium restriction/DASH diet - Recommended regular aerobic exercise. - Recommend home blood pressure monitoring, to bring results in on next visit - Discussed need and benefit for weight loss. - Goal of BP ANDlt;130/80 - CBC - COMP METABOLIC PANEL 4. OAB (overactive bladder) - ICD9: 596.51, ICD10: N32.81 - start on oxybutynin, referral to UROGYN - OXYBUTYNIN CHLORIDE 5 MG TABLET - CONSULT TO FEMALE UROLOGY/URO GYNECOLOGY 5. Urinary frequency - ICD9: 788.41, ICD10: R35.0 chronic - start on oxybutynin, referral to UROGYN - CONSULT TO FEMALE UROLOGY/URO GYNECOLOGY 6. Bilateral leg edema - ICD9: 782.3, ICD10: R60.0 - legs elevated, compression stocking use 7. Coronary artery disease involving shoalwater coronary artery of shoalwater heart without angina pectoris - ICD9: 414.01, ICD10: I25.10 - f/u with Materials Handler, continue Brillinta 8. Major depression, recurrent, chronic (HCC) - ICD9: 296.30, ICD10: F33.9 - stable, continue medicatoins 9. Tobacco use disorder - ICD9: 305.1, ICD10: F17.200 - Cessation encouraged. - Physiologic and physical aspects of tobacco addiction as well as strategies for quitting were discussed. - Counseling was given focusing on the harmful effects of this addiction especially given the patient's medical condition(s) which will be worsened because of the chemicals in tobacco. - Counseling was given 3-4 minutes. 10. H/O right coronary artery stent placement - ICD9: V45.82, ICD10: Z95.5 - stable, continue Brillinta, f/u with Materials Handler 11. Hypercholesteremia - ICD9: 272.0, ICD10: E78.00 - to be determined upon return of lab results - Continue current medication. - Encouraged following a low fat, low cholesterol diet. - Discussed the benefits of regular aerobic exercise and weight loss. 12. Obesity, Class I, BMI 30-34.9 - ICD9: 278.00, ICD10: E66.9 Zander Osborn DO To ER if develops chest pain, shortness of breath, or severe worsening of symptoms. Discussed risks, benefits, alternatives, and potential side effects of medications. Patient expressed understanding and agreed with the plan. Zander Osborn DO [address] [place] [address] Referring Provider: ZANDER OSBORN [[id number]] Allergies As of Date: 04/14/2017 Noted Allergy Reaction CHOCOLATE 05/23/2013 11 - Vomiting Comments: Dark chocolate LODINE (ETODOLAC) 05/23/2013 7 - Swelling Date Reviewed: 04/14/2017 Reviewed by: Callie Joesph LPN - Fully Assessed Reason for Visit: Follow Up [171] Cmt: 3 months Primary Visit Diagnosis:Uncontrolled type 2 diabetes mellitus with hyperosmolarity without coma, without long-term current use of insulin (HCC) [E11.00] Other Visit Diagnoses:Vitamin D deficiency [E55.9] Essential hypertension [I10] OAB (overactive bladder) [N32.81] Urinary frequency [R35.0] Bilateral leg edema [R60.0] Coronary artery disease involving shoalwater coronary artery of shoalwater heart without angina pectoris [I25.10] Major depression, recurrent, chronic (HCC) [F33.9] Tobacco use disorder [F17.200] H/O right coronary artery stent placement [Z95.5] Hypercholesteremia [E78.00] Obesity, Class I, BMI 30-34.9 [E66.9] Order(s):albuterol HFA (VENTOLIN HFA) 90 mcg/actuation inhalerInhale 2 Puffs as instructed every 4 hours as needed for Wheezing/Shortness of Breath.Disp: 1 InhalerRfl: 3 HGB A1C [PSYOC4Z] Order #: [id number] FUTURE VITAMIN D 25 HYDROXY [SQVITD] Order #: [id number] FUTURE VITAMIN B12 BLOOD [SQB12] Order #: [id number] FUTURE CBC [SQCBC] Order #: [id number] FUTURE COMP METABOLIC PANEL [SQCMP] Order #: [id number] FUTURE oxybutynin (DITROPAN) 5 mg tabletTake 1 tablet by mouth twice daily.Disp: 60 tabletRfl: 5 CONSULT TO FEMALE UROLOGY/URO GYNECOLOGY [5456628] Order #: [id number]: 1 Prescriptions as of 04/14/2017 Sig: ALBUTEROL SULFATE HFA 90 MCG/* Inhale 2 Puffs as instructed * METFORMIN 500 MG TABLET TAKE TWO TABLETS BY MOUTH TWI* CARVEDILOL 3.125 MG TABLET Take 1 tablet by mouth twice * NITROGLYCERIN 0.4 MG SUBLINGU* Dissolve 1 tablet under the t* ESOMEPRAZOLE MAGNESIUM 40 MG * Take 1 capsule by mouth twice* ATORVASTATIN 40 MG TABLET Take 40 mg by mouth once dina* TICAGRELOR 90 MG TABLET Take by mouth twice daily. NICOTINE 7 MG/24 HR DAILY TRA* Apply 1 Patch as directed viry* ERGOCALCIFEROL (VITAMIN D2) 5* Take 1 capsule by mouth once * BUPROPION XL 300 MG 24 HR TAB Take 1 tablet by mouth once d* HYDROCORTISONE 2.5 % TOPICAL * Apply 1 application to affect* IBUPROFEN 800 MG TABLET Take 1 tablet by mouth every * LANCETS Test blood sugar(s) 3 times d* ASPIRIN 81 MG TABLET,DELAYED * Take 1 tablet by mouth once d* HEATING PADS 1 Device as needed. OXYBUTYNIN CHLORIDE 5 MG TABL* Take 1 tablet by mouth twice * PHENAZOPYRIDINE 97.5 MG TABLET Take 2 tablets by mouth twice* DOC-Q-LACE 100 MG CAPSULE TAKE ONE CAPSULE BY MOUTH TWI* BUDESONIDE-FORMOTEROL HFA 80 * Inhale 2 Puffs as instructed * Problem List As Of Date 04/14/2017 Noted Resolved Elevated liver enzymes [R74.8] INVALID FOR* Hypercholesteremia [E78.00] INVALID FOR* Elevated fasting glucose [R73.01] INVALID FOR* Neck pain, chronic [M54.2, G89.29] INVALID FOR* Tobacco abuse [Z72.0] INVALID FOR* Obesity [E66.9] INVALID FOR* Claudication of lower extremity [I73.9] INVALID FOR* Diabetes mellitus type 2, uncontrolled [E11.65] INVALID FOR* Cholelithiases [K80.20] INVALID FOR* Adenocarcinoma in situ (AIS) of uterine cervix *INVALID FOR* Major depressive disorder, recurrent episode (H*INVALID FOR* Essential hypertension [I10] INVALID FOR* Pulmonary emphysema (HCC) [J43.9] INVALID FOR* Gastroesophageal reflux disease [K21.9] INVALID FOR*09/13/2015 Positive occult stool blood test [R19.5] INVALID FOR*09/13/2015 Family history of ischemic heart disease [Z82.4*INVALID FOR* Aortic valve sclerosis [I35.8] INVALID FOR* Irritable esophagus [K22.9] INVALID FOR*01/30/2016 COPD with chronic bronchitis (HCC) [J44.9] INVALID FOR* Episode of recurrent major depressive disorder *INVALID FOR* Tobacco use disorder [F17.200] INVALID FOR* Memory deficit [R41.3] INVALID FOR* Mixed stress and urge urinary incontinence [N39*INVALID FOR* Vitamin D deficiency [E55.9] INVALID FOR* Short-term memory loss [R41.3] INVALID FOR* Fatigue [R53.83] INVALID FOR* PND (paroxysmal nocturnal dyspnea) [R06.00] INVALID FOR* Snoring [R06.83] INVALID FOR* H/O right coronary artery stent placement [Z95.*INVALID FOR* Coronary artery disease involving shoalwater machado*INVALID FOR* Dysuria [R30.0] INVALID FOR* Prescriptions ordered this encounter Disp Refills Start End ALBUTEROL SULFATE HFA 90 MCG/ACTUATI* 1 In* 3 04/14/2017 Route: INHALATION Sig: Inhale 2 Puffs as instructed every 4 hours as needed for Wheezing/Shortness of Breath. OXYBUTYNIN CHLORIDE 5 MG TABLET 60 t* 5 04/14/2017 Route: ORAL Sig: Take 1 tablet by mouth twice daily. Medications Discontinued During This Encounter albuterol (PROVENTIL) 2.5 mg /3 mL (* 3 mL 0 03/21/2016 04/14/2017 Class: In Office Route: NEBULIZATION -UNSPEC Sig: Use 3 mL via nebulizer one time only for 1 dose. Use over 5-15minutes. Disc: Reason for discontinue is not on file. albuterol (PROVENTIL) 5 mg/mL nebu 1 mL 0 12/08/2015 04/14/2017 Class: Back Office Route: INHALATION Sig: Inhale 0.5 mL as instructed one time only for 1 dose. 1 DOSE NOW - BACK OFFICE. PLACE 0.5 ML PER DROPPER AND 2.5 ML OF NORMAL SALINE INTO RESERVOIR. Disc: Reason for discontinue is not on file. albuterol HFA (VENTOLIN HFA) 90 mcg/* 1 In* 3 05/23/2016 04/14/2017 Route: INHALATION Sig: Inhale 2 Puffs as instructed every 4 hours as needed for Wheezing/Shortness of Breath. Disc: Reason for discontinue is not on file. Encounter Status:Closed by ZANDER OSBORN DO on 04/15/17 ALLERGIES ALLERGIES DATE TYPE / CODE NAME / CODE REACTION SEVERITY SOURCE 04/06/2018 [facility][id number] [facility] 338875(SNOM Repository ED CT) 05/23/2013 Food/481543 CHOCOLATE Vomiting [facility] 000(SNOMED [address]) Repository 05/23/2013 DRUG ETODOLAC SWELLING [facility] INGREDI/419 [address] 000085(SNOM Repository ED CT) Food CHOCOLATE RASH Moderate Robin Pomerene Allergy/414 ([facility] 242698(SNOM Modifier) Repository ED CT) (Qualifier Value) Drug LODINE/01523063( Moderate Robin Pomerene Allergy/416 RXNORM) ([facility] 985112(SNOM Modifier) Repository ED CT) (Qualifier Value) ENCOUNTERS ENCOUNTERS ADMIT/DISCHARGE ACCOUNT ADMITTING ENCOUNTER LOCATION SOURCE NUMBER CLASS 04/09/2018/04/09/19 [id number] Ambulatory [address] Repository 04/06/2018/04/07/19 [id number] Ashkuldeep, Ambulatory [facility] ing:PCURoom: Repository [id number]: 1 04/06/2018 [id number] Ashmarianne, Ambulatory BMSBuilding:Krystal Conner MS.[facility] Repository 04/06/2018 [id number] Ashmarianne, Ambulatory BMSBuilding:Krystal Conner MS.[facility] Repository 04/06/2018 [id number] [facility] ing:LAB.FUTUR Repository E 03/21/2018/03/21/[id number] GABRIEL LACY Emergency BuildinR Robin Marin oom: ERBed: [facility] Repository 03/17/2018 [id number] [facility] ing:LAB Repository 03/17/2018/03/17/19 [id number] Ambulatory [address] Repository 03/02/2018/03/03/20 [id number] Ambulatory [address] Repository 01/21/2018/01/22/20 [id number] Ambulatory [address] Repository 01/19/2018/01/20/20 [id number] Ambulatory [address] Repository 01/19/2018/01/21/20 [id number] Ambulatory [address] Repository 01/13/2018/01/14/20 [id number] Ambulatory [address] Repository 11/17/2017/11/18/19 [id number] ABIGAIL Emergency BuildinR Robin OWUSU MD oom: ERBed: [facility] Repository 10/28/2017/10/30/19 [id number] Ambulatory [address] Repository 10/08/2017/10/09/19 [id number] Ambulatory [address] Repository 09/15/2017/09/16/19 [id number] Ambulatory [address] Repository 09/04/2017/09/05/19 [id number] Ambulatory [address] Repository 07/13/2017/07/14/19 [id number] Ambulatory [address] Repository 07/13/2017/07/14/19 [id number] Ambulatory [address] Repository 07/13/2017/07/17/19 [id number] Ambulatory [address] Repository 04/14/2017/04/14/19 [id number] Ambulatory [address] Repository 04/14/2017/04/14/19 [id number] Ambulatory [address] Repository PAYERS PAYERS ENCOUNTER GUARANTOR PAYER SUBSCRIBER SOURCE 04/06/2018 JOSETTE L Primary JOSETTE Ferguson [id number] Insurance:MEDICARE WAGGONERDOB: Community [place] PART A BPolicy Number: [id number], [id number] Repository [place] [address]Kcz: Date:2018-04-06 () 04/06/2018 Secondary JOSETTE L [place] Insurance:MEDICAIDPoli WAGGONERDOB: Community [place] Number: [id number] [id number] Repository Date:2018-04-06 04/06/2018 Tertiary NOT GIVENUNK [place] Insurance:SELF PAY [facility]: Effective Repository Date:2018-04-06 04/06/2018 JOSETTE L Primary JOSETTE Ferguson [id number] Insurance:MEDICARE WAGGONERDOB: Community [place] PART A BPolicy Number: [id number], [id number] [place]ository [place] [address]Pqa: Date:2018-04-06 () 04/06/2018 Secondary NOT GIVENUNK [place] Insurance:SELF PAY [facility] Number: Effective Repository Date:2018-04-06 04/06/2018 JOSETTE L Primary JOSETTE L Phyllis [id number] Insurance:MEDICARE WAGGONERDOB: Community [place] PART A BPolicy Number: [id number] [id number] Repository [place] [address]Nyv: Date:2018-04-06 () 04/06/2018 Secondary NOT GIVENUNK Phyllis Insurance:SELF PAY Community [facility] Number: Effective Repository Date:2018-04-06 04/06/2018 JOSTETE L Primary JOSETTE L Phyllis [id number] Insurance:MEDICARE WAGGONERDOB: Community [place] PART A BPolicy Number: [id number] [facility], [id number] Repository [place] [address]Ndo: Date:2018-04-01 () 04/06/2018 Secondary NOT GIVENUNK [place] Insurance:SELF PAY [facility] Number: Effective Repository Date:2018-04-01 03/21/2018 JOSETTE L Primary JOSETTE L Robin Solorio WAGGONERDOB: Insurance:MEDICARE WAGGONERDOB: [facility] [id number] Hospital [place] Number: KAM[place]AN Repository [facility], [id number], [place] Date:Plan Name:[facility] [id number]: () 03/17/2018 JOSETTE L Primary JOSETTE L Phyllis [id number] Insurance:MEDICARE WAGGONERDOB: Community [place] PART A BPolicy Number: [id number] [facility], [id number] Repository [place] [address]Mea: Date:2018-03-17 () 03/17/2018 Secondary NOT GIVENUNK Phyllis Insurance:SELF PAY [facility] Number: Effective Repository Date:2018-03-17 11/17/2017 JOSETTE L Primary JOSETTE HARRISGGONERDOB: Insurance:MEDICARE WAGGONERDOB: [facility] [id number] [facility] FOR[place] Number: FORLOW Repository [facility], [id number], [place] Date:Plan Name:[facility] [id number]: ()
== END ==
PROVIDERS: Family Provider Student in an Organized Health Care Education/Training Program; PCP Student in an Organized Health Care Education/Training Program; Referring Provider Internal Medicine Cardiovascular Disease; Visit Provider Internal Medicine Cardiovascular Disease
DX: I25.10 Atherosclerotic heart disease of native coronary artery without angina pectoris (principal); I10 Essential (primary) hypertension

== ENCOUNTER 2018-04-06 13:04 | Observation (INO) | payer MEDICARE, MEDICAID, SELFPAY ==
[2018-04-06] VITALS (13 sets, daily range): BP systolic 160–204; BP diastolic 68–94; PULSE 69–103; RESP 16–27; TEMP 36.4–36.9; O2SAT 94–97; BMI 33.5; BMI 32.5
--- NOTE | 2018-04-06 13:26 | EKG12_ITS ---
Test Reason : CP Blood Pressure : / mmHG Vent. Rate : 075 BPM Atrial Rate : 075 BPM P-R Int : 170 ms QRS Dur : 082 ms QT Int : 378 ms P-R-T Axes : 068 -17 078 degrees QTc Int : 422 ms Normal sinus rhythm Cannot rule out Anterior infarct , age undetermined Inferior OR, age undeterined, cannot be excluded Abnormal ECG Confirmed by ARUN CEBALLOS, KENYATTA ([id number]), editor house organ GOGO WRIGHT ([id number]) on 04/09/2018 2:21:48 PM Referred By: Ubaldo Mcgill Confirmed By:KENYATTA DIAS MD
--- NOTE | 2018-04-06 13:26 | RAD_ITS ---
STUDY: X-RAY CHEST REASON FOR EXAM: Female, 62 years old. Chest pain. TECHNIQUE: Single AP portable view of the chest. COMPARISON: Comparison is made with prior study dated December 08, 2015. FINDINGS: EKG electrodes are seen. The lungs are clear and expanded. There is no demonstrated pleural abnormality. Normal size heart. Normal mediastinum and doc. Normal visualized pulmonary arteries. Normal visualized aortic arch and descending thoracic aorta. There are diffuse degenerative changes of the visualized thoracic spine. Normal visualized ribs, clavicles, and shoulders. There is no demonstrated abnormality of the visualized soft tissue structures of the upper abdomen. RAD/Chest 1 View (Portable) IMPRESSION: No acute abnormality is seen. Electronically Signed: J Luis Barbour MD at 13:52 EST Tel [phone], Service support ,
[2018-04-06 13:46] LABS: Absolute Lymphocyte Count 3.81 X10^3/ul (0.83-4.51); Absolute Neutrophil Count 5.1 X10^3/uL (2.0-7.7); Basophil# 0.03 X10^3/uL; Basophil% 0.3 % (0-1); Eosinophil# 0.29 X10^3/uL; Eosinophils% 2.9 % (0-5); Hemoglobin 12.8 g/dl (12.0-15.0); Lymphocyte # 3.81 X10^3/ul (4.0); Lymphocyte % 38.3 % (19-41); Mean Corp Hgb Conc 31.2 g/gl (32-36); Mean Corpuscular Hgb 27.9 pg (27.0-32.0); Mean Corpuscular Volume 89.5 fL (81-99); Mean Platelet Vol. 9.4 fl (6.2-12.0); Monocyte# 0.74 X10^3/uL; Monocyte% 7.4 % (0-10); Neutrophil # 5.05 X10^3/uL (2.7-7.7); Neutrophil % 50.9 % (47-70); Platelet Count 234 K/mm3 (150-450); RBC Distribution Width CV 14.1 % (11.6-14.6); RBC Distribution Width SD 45.8 fl (35.1-43.9); Red Blood Count 4.58 M/mm3 (4.2-5.4); White Blood Count 9.9 K/mm3 (4.4-11.0)
[2018-04-06 13:47] LABS: POSITIVE COUNT NO; POSITIVE DIFFERENTIAL NO; POSITIVE MORPHOLOGY NO
[2018-04-06 14:03] LABS: Anion Gap 4 (5-15); BUN 14 mg/dL (7-18); BUN/Creat Ratio 15.8 RATIO (10-20); Chloride 110 mmol/L (98-107); Creatinine, Serum 0.88 mg/dL (0.55-1.02); EST Glomerular Filtration Rate 69 mL/min (>60); Est Glom Filt Rate - Afr Amer 83 mL/min (>60); Glucose 59 mg/dL (74-106); Potassium 4.3 mmol/L (3.5-5.1); Sodium Level 144 mmol/L (136-145)
--- NOTE | 2018-04-06 15:07 | ED.DCSUM_ITS ---
- ER Visit Summary Date of Service: 04/06/18 Chief Complaint: Chest pain History of Present Illness: The patient is a 62 F with chest pain. The pain started in her left shoulder 3 days ago and then radiated to her left chest. No other associated symptoms except for mild shortness of breath. She has a his tory of coronary disease, diabetes, hyperlipidemia, and COPD. No history of aortic dissection. No history of venous thromboembolism. Physical Examination: Afebrile and vital signs unremarkable. Blood pressure 168/85. Patient is alert and oriented. No acute distress. Heart regular. Lungs clear. Abdomen soft. Skin, calves, pulses unremarkable. Test Results: EKG shows sinus rhythm at a rate of 75. Chest x-ray showed no acute findings. CBC, metabolic panel, troponin normal. Emergency Department Course and Treatment: Patient's workup was unremarkable. She has a history of coronary disease.. Her cardiac catheterization and stent placement was just over a year ago at an outside facility. Patient is high risk. Warrants observation in the hospital. She is discussed with the hospitalist. Treatment Plan: As above Disposition: Admission Impression: 1. Chest pain This note was generated with [employer] dictation software. It may contain incorrect words, spelling, and punctuation that were not noted in review of the chart prior to signing ED Disposition - Plan for ED Patient: Chief Complaint: Chest Pain Referrals: Zander Schuster DO [Primary Care Provider] -
--- NOTE | 2018-04-06 15:28 | HP.PCM_ITS ---
<Gilda Peterson - Last Filed: 04/06/18 15:42> Problem List (1) CAD (coronary artery disease) Status: Chronic (2) HLD (hyperlipidemia) Status: Chronic (3) HTN (hypertension) Status: Chronic (4) Type 2 diabetes mellitus Status: Chronic (5) GERD (gastroesophageal reflux disease) Status: Chronic (6) COPD (chronic obstructive pulmonary disease) Status: Chronic History of Present Illness Date of Admission: 04/06/18 Chief Complaint: Chest pain. The patient is a 62 year old F who presents emergency room due to chest pain. Patient states 4 days ago she developed pain on the back of her left shoulder which was initially sharp in nature and then developed into a soreness. She states today the pain wrapped around the left side of her ribs to her left chest area. She reports an intermittent shocklike pain in the left chest area which occurs approximately every 5 minutes and last only a few seconds at a time. Not associated with exertion. She denies associated shortness of breath, dizziness, lightheadedness, diaphoresis. She reports she had bronchitis a week ago which has since resolved. Patient has a history of CAD status post stent X1 November 2016 at [facility], hypertension, hyperlipidemia, type 2 diabetes mellitus, tobacco dependence, GERD, COPD. She currently follows with Dr. Orellana, [facility] cardiology. Past Medical History Past Medical History (Chronic Problems): Chronic Problems CAD (coronary artery disease) (Chronic) HLD (hyperlipidemia) (Chronic) HTN (hypertension) (Chronic) Type 2 diabetes mellitus (Chronic) GERD (gastroesophageal reflux disease) (Chronic) COPD (chronic obstructive pulmonary disease) (Chronic) Allergies etodolac [From Lodine] Allergy (Verified 12/08/15 16:17) Swelling Home Medications: Ambulatory Orders Medication Instructions Recorded Albuterol Inhaler [Ventolin Hfa] 1 - 2 puff INHALATION Q4H PRN PRN 08/26/13 Lisinopril [Zestril] 10 mg PO QHS 08/26/13 Metformin HCl [Glucophage] 1,000 mg PO BID 08/26/13 Budesonide/Formoterol 160/4.5 2 puff INHALATION BID 12/08/15 [Symbicort 160/4.5 Mcg Inhaler (SP)] Docusate Sodium [Colace] 100 mg PO BID PRN PRN 12/08/15 Esomeprazole Mag Trihydrate 40 mg PO BID 12/08/15 [Nexium] Atorvastatin Calcium [Lipitor] 40 mg PO QHS 04/06/18 Carvedilol 1 tab PO BID 04/06/18 Clopidogrel Bisulfate [Clopidogrel] 75 mg PO DAILY 04/06/18 Dulaglutide [Trulicity] 0.75 ng PO TU 04/06/18 Ergocalciferol [Vitamin D] 50,000 unit PO TH 04/06/18 buPROPion tablets [Wellbutrin 100 mg PO BREAKFAST 04/06/18 tablets] buPROPion tablets [Wellbutrin 200 mg PO QHS 04/06/18 tablets] Surgical History: appendectomy, hysterectomy, - - Cardiac stent X1. Psychiatric History: No pertinent psych hx Lives: Alone Smoking Status: Current every day smoker Alcohol: None Drugs: None - *Family History Maternal History Items: Heart Disease, - - Pancreatic cancer. Paternal History Items: Heart Disease, - - from cardiac causes. Review of Systems Constitutional: Denies: Chills, Fever, Weight Change HEENT: Denies: Head Aches, Sinus Congestion, Sinus Drainage Cardiovascular: Reports: Chest Pain. Denies: Edema, Light Headedness, Palpitations, Syncope Respiratory: Denies: Cough, Shortness of breath at rest, Sputum production Gastrointestinal: Denies: Abdominal Pain, Nausea, Vomiting Genitourinary: Reports: Dysuria Musculoskeletal: Denies: Joint Pain, Joint Tenderness Skin: Reports: - - Mild left shoulder ecchymosis. Denies: Rash, Wounds Neurological: Denies: Numbness, Tingling, Focal weakness Psychiatric: Reports: Anxiety, Depression Hematologic/ Lymphatic: Reports: Easy Bruising VTE Information - Inpt Only VTE Present on Admission: No VTE Mechan Device Prophylaxis: None VTE Pharm Prophylaxis ordered?: Yes - Physical Exam General: Alert, Oriented x3, Cooperative, No apparent distress, - - Appears older than stated age HEENT: Atraumatic, PERRLA, EOMI, Normocephalic Oral: Moist Mucosa Neck: Supple, No JVD, Negative Carotid Bruits Lungs: Clear to auscultation, Diminished Cardiovascular: Regular rate, Regular Rhythm, Normal S1, Normal S2, No murmurs Abdomen: Bowel Sounds Present, Soft, Non Tender, Non-Distended Extremities: No clubbing, No cyanosis, No edema, Capillary Refill Less than 3 Seconds Skin: No rashes, No breakdown, - - Mild ecchymosis left anterior shoulder. Musculoskeletal: No Tenderness to Palpation of Joints or Extremities Neurological: Cranial nerves II-XII grossly intact, Neuro grossly intact Psych/Mental Status: Normal Affect, Appropriate Vital Signs Temp Pulse Resp BP Pulse Ox 98.5 F 69 27 H 168/85 H 95 04/06/18 13:05 04/06/18 14:24 04/06/18 14:24 04/06/18 14:24 04/06/18 14:24 Oxygen Delivery Method Room Air Weight: 183 lb Body Mass Index (BMI) 33.5 Finger Stick Blood Glucose 158 Laboratory Tests Past 24 Hrs 04/06/18 04/06/18 13:35 13:35 WBC 9.9 RBC 4.58 Hgb 12.8 Hct 41.0 MCV 89.5 MCH 27.9 MCHC 31.2 L RDW 14.1 RDW Differential 45.8 H Plt Count 234 MPV 9.4 Immature Gran % (Auto) 0.200 Neut % (Auto) 50.9 Lymph % (Auto) 38.3 [place] % (Auto) 7.4 Eos % (Auto) 2.9 Baso % (Auto) 0.3 Absolute Neuts (auto) 5.1 Absolute Lymphs (auto) 3.81 Total Counted Not Reportable Sodium 144 Potassium 4.3 Chloride 110 H Carbon Dioxide 30.0 Anion Gap 4 L BUN 14 Creatinine 0.88 Estim Creat Clear Calc 53.10 Est GFR (MDRD) Af Amer 83 Est GFR (MDRD) Non-Af 69 BUN/Creatinine Ratio 15.8 Glucose 59 L Calcium 9.0 Troponin I < 0.015 Assessment/Plan 1. Atypical chest pain, rule out ACS-initial troponin negative. EKG without ST-T changes. Trend enzymes. Stress test in a.m. 2. CAD status post PCI to RCA November 2016-per Dr. Orellana's office visit 03/02/2018, patient had recent echocardiogram with EF 55%, no significant wall motion abnormalities. No recent stress test was documented. Recently changed from Brilinta to Plavix due to patient reporting easy bruising on Brilinta. Continue Plavix, statin, carvedilol. 3. Hypertension-continue carvedilol, lisinopril. 4. Hyperlipidemia-continue statin. 5. Type 2 diabetes mellitus-hold metformin, Trulicity regimen. Accu-Cheks AC at bedtime with sliding scale insulin. 6. Tobacco dependence-patient states she has been wearing a nicotine replacement patch for the past week, trying to quit. He was fully a pack per day smoker. Encouraged smoking cessation. Nicotine replacement patch. 7. GERD-continue PPI. 8. COPD-no acute exacerbation. PRN albuterol. DVT prophylaxis-Lovenox sc This patient was seen by MARIA ESTHER Stringer under the supervision of Dr. Mcgill. <Ubaldo Mcgill E - Last Filed: 04/06/18 17:08> History of Present Illness The patient is a 62 year old F [] Past Medical History Allergies etodolac [From Lodine] Allergy (Verified 04/06/18 15:58) Swelling - Physical Exam Vital Signs Temp Pulse Resp BP Pulse Ox 97.7 F L 72 17 197/92 H 97 04/06/18 15:50 04/06/18 16:37 04/06/18 15:50 04/06/18 16:37 04/06/18 16:02 Oxygen Delivery Method Room Air Weight: 177 lb 14.609 oz Body Mass Index (BMI) 32.5 Finger Stick Blood Glucose 158 Laboratory Tests Past 24 Hrs 04/06/18 04/06/18 13:35 13:35 WBC 9.9 RBC 4.58 Hgb 12.8 Hct 41.0 MCV 89.5 MCH 27.9 MCHC 31.2 L RDW 14.1 RDW Differential 45.8 H Plt Count 234 MPV 9.4 Immature Gran % (Auto) 0.200 Neut % (Auto) 50.9 Lymph % (Auto) 38.3 [place] % (Auto) 7.4 Eos % (Auto) 2.9 Baso % (Auto) 0.3 Absolute Neuts (auto) 5.1 Absolute Lymphs (auto) 3.81 Total Counted Not Reportable Sodium 144 Potassium 4.3 Chloride 110 H Carbon Dioxide 30.0 Anion Gap 4 L BUN 14 Creatinine 0.88 Estim Creat Clear Calc 53.10 Est GFR (MDRD) Af Amer 83 Est GFR (MDRD) Non-Af 69 BUN/Creatinine Ratio 15.8 Glucose 59 L Calcium 9.0 Troponin I < 0.015 POC Glucose 04/06/18 16:30 POC Glucose 74 Assessment/Plan Hospitalist note: I am seeing this patient in conjunction with Gilda Peterson. I independently seen and examined the patient. History and physical, laboratory data and imaging studies reviewed and I agree with above treatment and workup plan. Patient presented to the ED because of chest pain, left-sided chest pain, intermittent, described as shocklike intermittent pain, occurs approximately every 5 minutes and lasts for a few seconds, without associated symptoms and without aggravating or relieving factors. Her blood pressure was elevated, other vital signs were stable. Her routine blood work was unremarkable. EKG revealed normal sinus rhythm without evidence of acute ischemic changes or cardiac arrhythmias. Troponin is negative. Chest x-ray showed no acute findings. - Physical Exam General: Alert, Oriented x3, Cooperative, No apparent distress. HEENT: Atraumatic, PERRLA, EOMI. Neck: Supple, No JVD, Negative Carotid Bruits, Trachea Midline, Thyroid Normal. Lungs: Clear to auscultation, Normal air movement, No rhonchi, No wheeze, No rales. Cardiovascular: Regular rate, Regular Rhythm, Normal S1, Normal S2, PMI Normal. Abdomen: Bowel Sounds Present, Soft, Non Tender, Non-Distended, No Hepato- splenomegaly. Extremities: No clubbing, No cyanosis, No edema Skin: No rashes, No breakdown Neurological: Neuro grossly intact Assessment and plan: #1 atypical chest pain: EKG and troponin are unremarkable. Chest x-ray showed no acute findings. Risk factors are age, history of CAD with stents, hypertension hyperlipidemia and diabetes. Plan: Admit to PCU for observation, cardiac monitoring, serial cardiac enzymes, repeat EKG tomorrow morning, stress test tomorrow morning. #2 hypertensive urgency: Blood pressure is elevated, maximum was 204/94. Plan to start IV calcium as needed, continue medications. #3 other chronic medical problems: Stable, continue current medications as above. This note was generated with [employer] dictation software. It may contain incorrect words, spelling, and punctuation that were not noted in checking the note before signing. Code Visit OBSV E&M: 94928 Initial observation care L3
--- NOTE | 2018-04-06 15:37 | EKG12_ITS ---
Test Reason : CP Blood Pressure : / mmHG Vent. Rate : 070 BPM Atrial Rate : 070 BPM P-R Int : 178 ms QRS Dur : 072 ms QT Int : 400 ms P-R-T Axes : 070 -15 079 degrees QTc Int : 432 ms Poor data quality, interpretation may be adversely affected Normal sinus rhythm Possible Left atrial enlargement Inferior infarct , age undetermined Abnormal ECG Confirmed by ARUN CEBALLOS, KENYATTA ([id number]), newspaper photo editor GOGO WRIGHT ([id number]) on 04/09/2018 2:42:10 PM Referred By: Ubaldo Mcgill Confirmed By:KENYATTA DIAS MD
[2018-04-06] MEDS: Acetaminophen 325 MG Tablet 650 MG PO (16:36)
[2018-04-06] MEDS: hydrALAZINE 20 MG/ML Vial 10 MG IV (16:37)
[2018-04-06 16:45] LABS: Bedside Glucose 74 mg/dL (70-110)
[2018-04-06] MEDS: 0.9% NaCl Peripheral Flush Adult/Peds IV (16:49)
[2018-04-06] MEDS: Pantoprazole Sodium 40 MG Tablet PO (21:21)
[2018-04-06] MEDS: buPROPion 100 MG Tablet 200 MG PO (21:21)
[2018-04-06] MEDS: Lisinopril 10 MG Tablet PO (21:21)
[2018-04-06] MEDS: Atorvastatin Calcium 10 MG Tablet PO (21:21)
[2018-04-06 23:36] LABS: Bedside Glucose 141 mg/dL (70-110)
[2018-04-07] VITALS (11 sets, daily range): BP systolic 144–173; BP diastolic 80–90; PULSE 75–88; RESP 16–18; TEMP 36.4–37; O2SAT 91–96
[2018-04-07] MEDS: Acetaminophen 325 MG Tablet 650 MG PO ×3 (01:10→14:36)
[2018-04-07 05:27] LABS: Absolute Lymphocyte Count 2.79 X10^3/ul (0.83-4.51); Absolute Neutrophil Count 4.9 X10^3/uL (2.0-7.7); Basophil# 0.03 X10^3/uL; Basophil% 0.3 % (0-1); Eosinophil# 0.27 X10^3/uL; Eosinophils% 3.1 % (0-5); Hematocrit 40.8 % (37-47); Lymphocyte # 2.79 X10^3/ul (4.0); Lymphocyte % 32.3 % (19-41); Mean Corp Hgb Conc 31.9 g/gl (32-36); Mean Corpuscular Hgb 28.2 pg (27.0-32.0); Mean Corpuscular Volume 88.5 fL (81-99); Mean Platelet Vol. 9.8 fl (6.2-12.0); Monocyte# 0.69 X10^3/uL; Neutrophil # 4.85 X10^3/uL (2.7-7.7); Neutrophil % 56.1 % (47-70); Platelet Count 262 K/mm3 (150-450); RBC Distribution Width CV 14.1 % (11.6-14.6); RBC Distribution Width SD 45.4 fl (35.1-43.9); Red Blood Count 4.61 M/mm3 (4.2-5.4); White Blood Count 8.7 K/mm3 (4.4-11.0)
[2018-04-07 05:37] LABS: International Normalized Ratio 0.9; Prothrombin Time (Protime)PT. 12.6 SECONDS (11.7-14.9)
[2018-04-07 05:38] LABS: Partial Thromboplast Time 30.5 Seconds (24.1-36.2)
[2018-04-07 05:41] LABS: POSITIVE COUNT NO; POSITIVE DIFFERENTIAL NO; POSITIVE MORPHOLOGY NO
[2018-04-07 05:46] LABS: Anion Gap 7 (5-15); BUN 15 mg/dL (7-18); BUN/Creat Ratio 15.4 RATIO (10-20); Calcium,Total 9.1 mg/dL (8.5-10.1); Chloride 108 mmol/L (98-107); Creatinine, Serum 0.97 mg/dL (0.55-1.02); EST Glomerular Filtration Rate 62 mL/min (>60); Est Glom Filt Rate - Afr Amer 75 mL/min (>60); Estimated Creatinine Clearance 48.17 ml/min; Glucose 111 mg/dL (74-106); Sodium Level 143 mmol/L (136-145)
--- NOTE | 2018-04-07 05:55 | EKG12_ITS ---
Test Reason : AM EKG Blood Pressure : / mmHG Vent. Rate : 072 BPM Atrial Rate : 072 BPM P-R Int : 174 ms QRS Dur : 078 ms QT Int : 400 ms P-R-T Axes : 068 -19 075 degrees QTc Int : 438 ms Normal sinus rhythm Nonspecific ST and T wave abnormality Confirmed by ARUN CEBALLOS, EKNYATTA ([id number]), make up editor GOGO WRIGHT ([id number]) on 04/09/2018 2:41:23 PM Referred By: Ubaldo Mcgill Confirmed By:KENYATTA DIAS MD
[2018-04-07] MEDS: Clopidogrel Bisulfate 75 MG Tablet PO (06:30)
[2018-04-07 07:11] LABS: Bedside Glucose 117 mg/dL (70-110)
[2018-04-07] MEDS: Pantoprazole Sodium 40 MG Tablet PO (07:30)
--- NOTE | 2018-04-07 08:12 | PCM.PN.HOSP ---
Subjective: Doing well chest pain has resolved. She denies any lightheadedness or dizziness. This is different than the pain she was having before her stent over a year ago. She has had bronchitis for the last couple weeks and has had excessive coughing the last couple of days and that is when her pain started initially in her back and has progressively wrapped around to the anterior chest wall. Vitals/I&O's: Vital Signs Temp Pulse Resp BP Pulse Ox 97.8 F 78 18 156/90 H 94 04/07/18 06:25 04/07/18 07:33 04/07/18 06:25 04/07/18 06:25 04/07/18 06:25 Oxygen Delivery Method Room Air Weight: 177 lb 14.609 oz Body Mass Index (BMI) 32.5 Finger Stick Blood Glucose 158 Intake and Output for Last 24 Hours 04/05/18 04/06/18 04/07/18 23:59 23:59 23:59 Intake Total 720 / 720 Balance 720 / 720 General: Alert, Oriented x3, Cooperative, No apparent distress HEENT: Atraumatic, EOMI, Normocephalic Oral: Moist Mucosa Neck: Supple, No JVD, Trachea Midline Lungs: Clear to auscultation, Normal air movement, No rhonchi, No wheeze, No rales Cardiovascular: Regular rate, Regular Rhythm, Normal S1, Normal S2, No murmurs, No rub noted, No Gallop, - - Palpation over her left breast reproduces her chest pain that brought her into the ER Abdomen: Soft, Non Tender, Non-Distended, No Hepato-splenomegaly, Obese Extremities: No edema, Capillary Refill Less than 3 Seconds Skin: No rashes, No breakdown Neurological: Neuro grossly intact, Sensory exam intact to light touch and pain Psych/Mental Status: Normal Affect, Appropriate Laboratory Results 04/06/18 13:35: WBC 9.9, RBC 4.58, Hgb 12.8, Hct 41.0, MCV 89.5, MCH 27.9, MCHC 31.2 L, RDW 14.1, RDW Differential 45.8 H, Plt Count 234, MPV 9.4, Immature Gran % (Auto) 0.200, Neut % (Auto) 50.9, Lymph % (Auto) 38.3, [place] % (Auto) 7.4, Eos % (Auto) 2.9, Baso % (Auto) 0.3, Absolute Neuts (auto) 5.1, Absolute Lymphs (auto) 3.81, Total Counted Not Reportable 04/06/18 13:35: Sodium 144, Potassium 4.3, Chloride 110 H, Carbon Dioxide 30.0, Anion Gap 4 L, BUN 14, Creatinine 0.88, Estim Creat Clear Calc 53.10, Est GFR (MDRD) Af Amer 83, Est GFR (MDRD) Non-Af 69, BUN/Creatinine Ratio 15.8, Glucose 59 L, Calcium 9.0, Troponin I < 0.015 04/06/18 16:30: POC Glucose 74 04/06/18 17:00: Troponin I < 0.015 04/06/18 19:20: Troponin I < 0.015 04/06/18 21:20: POC Glucose 141 H 04/07/18 05:00: WBC 8.7, RBC 4.61, Hgb 13.0, Hct 40.8, MCV 88.5, MCH 28.2, MCHC 31.9 L, RDW 14.1, RDW Differential 45.4 H, Plt Count 262, MPV 9.8, Immature Gran % (Auto) 0.200, Neut % (Auto) 56.1, Lymph % (Auto) 32.3, [place] % (Auto) 8.0, Eos % (Auto) 3.1, Baso % (Auto) 0.3, Absolute Neuts (auto) 4.9, Absolute Lymphs (auto) 2.79, Total Counted Not Reportable 04/07/18 05:00: PT 12.6, INR 0.9, APTT 30.5 04/07/18 05:00: Sodium 143, Potassium 4.0, Chloride 108 H, Carbon Dioxide 28.0, Anion Gap 7, BUN 15, Creatinine 0.97, Estim Creat Clear Calc 48.17, Est GFR (MDRD) Af Amer 75, Est GFR (MDRD) Non-Af 62, BUN/Creatinine Ratio 15.4, Glucose 111 H, Calcium 9.1 04/07/18 06:31: POC Glucose 117 H Current Medications Acetaminophen (Tylenol) 650 mg PO Q6H PRN PRN PRN Reason: Fever, headache, pain Last Admin: 04/07/18 07:30 Dose: 650 mg Albuterol Sulfate (Ventolin Aerosols) 2.5 mg INHALATION Q4H PRN PRN PRN Reason: Shortness of breath, wheezing Atorvastatin Calcium (Lipitor) 10 mg PO QHS [facility] Last Admin: 04/06/18 21:21 Dose: 10 mg Bupropion HCl (Wellbutrin Tablets) 100 mg PO BREAKFAST [facility] Bupropion HCl (Wellbutrin Tablets) 200 mg PO QHS [facility] Last Admin: 04/06/18 21:21 Dose: 200 mg Clopidogrel Bisulfate (Plavix) 75 mg PO DAILY [facility] Last Admin: 04/07/18 06:30 Dose: 75 mg Docusate Sodium (Colace) 100 mg PO BID PRN PRN PRN Reason: Constipation Enoxaparin Sodium (Lovenox) 40 mg SC DAILY [facility] Last Admin: 04/06/18 21:56 Dose: Not Given Hydralazine HCl (Apresoline Iv) 10 mg IV Q6H PRN PRN PRN Reason: for SBP>160 Insulin Human Lispro (Humalog Kwikpen (Bkc)) 0 unit SC [facility]; Protocol Last Admin: 04/07/18 07:31 Dose: Not Given Lisinopril (Zestril) 10 mg PO QHS [facility] Last Admin: 04/06/18 21:21 Dose: 10 mg Magnesium Hydroxide (Milk Of Magnesia) 30 ml PO DAILY PRN PRN Reason: Constipation Nitroglycerin (Nitrostat) 0.4 mg SUBLINGUAL Q5M PRN PRN Reason: CHEST PAIN Last Admin: 04/06/18 21:22 Dose: 0.4 mg Ondansetron HCl (Zofran) 4 mg IV Q8H PRN PRN PRN Reason: NAUSEA/VOMITING Pantoprazole Sodium (Protonix) 40 mg PO BID [facility] Last Admin: 04/07/18 07:30 Dose: 40 mg Sodium Chloride () 5 - 15 ml IV UD PRN PRN Reason: SALINE FLUSH Last Admin: 04/06/18 16:49 Dose: 10 ml Medical Necessity - Tobacco Use Smoking Status: Current every day smoker Tobacco Use: Cigarettes Assessment/Plan 1. Chest pain rule out/CAD status post PCI to RCA in November 2016/hypertension/hyperlipidemia -Chest pain is reproducible on palpation of her chest wall making me think that this is more of a costochondritis than a cardiac issue -Given her cardiac history, we will proceed with a stress test today -Continue with her Plavix, statin, lisinopril and Coreg -She had a recent echocardiogram with an EF of 55% with no significant wall motion abnormalities will not repeat echo here 2. DM 2 -Hold metformin and Trulicity -Accu-Cheks with sliding scale insulin 3. GERD -Stable -Continue with PPI 4. COPD -No acute exacerbation at this time -Continue with her home inhalers 5. Tobacco dependence -Counseled on cessation -She is attempting to quit and has been wearing a nicotine patch for the past week DVT: Lovenox Code Visit OBSV E&M: 76027 Subsequent observation care L2
--- NOTE | 2018-04-07 08:17 | PN_ITS ---
Subjective: Doing well chest pain has resolved. She denies any lightheadedness or dizziness. This is different than the pain she was having before her stent over a year ago. She has had bronchitis for the last couple weeks and has had excessive coughing the last couple of days and that is when her pain started initially in her back and has progressively wrapped around to the anterior chest wall. Vitals/I&O's: Vital Signs Temp Pulse Resp BP Pulse Ox 97.8 F 78 18 156/90 H 94 04/07/18 06:25 04/07/18 07:33 04/07/18 06:25 04/07/18 06:25 04/07/18 06:25 Oxygen Delivery Method Room Air Weight: 177 lb 14.609 oz Body Mass Index (BMI) 32.5 Finger Stick Blood Glucose 158 Intake and Output for Last 24 Hours 04/05/18 04/06/18 04/07/18 23:59 23:59 23:59 Intake Total 720 / 720 Balance 720 / 720 General: Alert, Oriented x3, Cooperative, No apparent distress HEENT: Atraumatic, EOMI, Normocephalic Oral: Moist Mucosa Neck: Supple, No JVD, Trachea Midline Lungs: Clear to auscultation, Normal air movement, No rhonchi, No wheeze, No rales Cardiovascular: Regular rate, Regular Rhythm, Normal S1, Normal S2, No murmurs, No rub noted, No Gallop, - - Palpation over her left breast reproduces her chest pain that brought her into the ER Abdomen: Soft, Non Tender, Non-Distended, No Hepato-splenomegaly, Obese Extremities: No edema, Capillary Refill Less than 3 Seconds Skin: No rashes, No breakdown Neurological: Neuro grossly intact, Sensory exam intact to light touch and pain Psych/Mental Status: Normal Affect, Appropriate Laboratory Results 04/06/18 13:35: WBC 9.9, RBC 4.58, Hgb 12.8, Hct 41.0, MCV 89.5, MCH 27.9, MCHC 31.2 L, RDW 14.1, RDW Differential 45.8 H, Plt Count 234, MPV 9.4, Immature Gran % (Auto) 0.200, Neut % (Auto) 50.9, Lymph % (Auto) 38.3, [place] % (Auto) 7.4, Eos % (Auto) 2.9, Baso % (Auto) 0.3, Absolute Neuts (auto) 5.1, Absolute Lymphs (auto) 3.81, Total Counted Not Reportable 04/06/18 13:35: Sodium 144, Potassium 4.3, Chloride 110 H, Carbon Dioxide 30.0, Anion Gap 4 L, BUN 14, Creatinine 0.88, Estim Creat Clear Calc 53.10, Est GFR (MDRD) Af Amer 83, Est GFR (MDRD) Non-Af 69, BUN/Creatinine Ratio 15.8, Glucose 59 L, Calcium 9.0, Troponin I < 0.015 04/06/18 16:30: POC Glucose 74 04/06/18 17:00: Troponin I < 0.015 04/06/18 19:20: Troponin I < 0.015 04/06/18 21:20: POC Glucose 141 H 04/07/18 05:00: WBC 8.7, RBC 4.61, Hgb 13.0, Hct 40.8, MCV 88.5, MCH 28.2, MCHC 31.9 L, RDW 14.1, RDW Differential 45.4 H, Plt Count 262, MPV 9.8, Immature Gran % (Auto) 0.200, Neut % (Auto) 56.1, Lymph % (Auto) 32.3, [place] % (Auto) 8.0, Eos % (Auto) 3.1, Baso % (Auto) 0.3, Absolute Neuts (auto) 4.9, Absolute Lymphs (auto) 2.79, Total Counted Not Reportable 04/07/18 05:00: PT 12.6, INR 0.9, APTT 30.5 04/07/18 05:00: Sodium 143, Potassium 4.0, Chloride 108 H, Carbon Dioxide 28.0, Anion Gap 7, BUN 15, Creatinine 0.97, Estim Creat Clear Calc 48.17, Est GFR (MDRD) Af Amer 75, Est GFR (MDRD) Non-Af 62, BUN/Creatinine Ratio 15.4, Glucose 111 H, Calcium 9.1 04/07/18 06:31: POC Glucose 117 H Current Medications Acetaminophen (Tylenol) 650 mg PO Q6H PRN PRN PRN Reason: Fever, headache, pain Last Admin: 04/07/18 07:30 Dose: 650 mg Albuterol Sulfate (Ventolin Aerosols) 2.5 mg INHALATION Q4H PRN PRN PRN Reason: Shortness of breath, wheezing Atorvastatin Calcium (Lipitor) 10 mg PO QHS [facility] Last Admin: 04/06/18 21:21 Dose: 10 mg Bupropion HCl (Wellbutrin Tablets) 100 mg PO BREAKFAST [facility] Bupropion HCl (Wellbutrin Tablets) 200 mg PO QHS [facility] Last Admin: 04/06/18 21:21 Dose: 200 mg Clopidogrel Bisulfate (Plavix) 75 mg PO DAILY [facility] Last Admin: 04/07/18 06:30 Dose: 75 mg Docusate Sodium (Colace) 100 mg PO BID PRN PRN PRN Reason: Constipation Enoxaparin Sodium (Lovenox) 40 mg SC DAILY [facility] Last Admin: 04/06/18 21:56 Dose: Not Given Hydralazine HCl (Apresoline Iv) 10 mg IV Q6H PRN PRN PRN Reason: for SBP>160 Insulin Human Lispro (Humalog Kwikpen (Bkc)) 0 unit [facility]; Protocol Last Admin: 04/07/18 07:31 Dose: Not Given Lisinopril (Zestril) 10 mg PO QHS [facility] Last Admin: 04/06/18 21:21 Dose: 10 mg Magnesium Hydroxide (Milk Of Magnesia) 30 ml PO DAILY PRN PRN Reason: Constipation Nitroglycerin (Nitrostat) 0.4 mg SUBLINGUAL Q5M PRN PRN Reason: CHEST PAIN Last Admin: 04/06/18 21:22 Dose: 0.4 mg Ondansetron HCl (Zofran) 4 mg IV Q8H PRN PRN PRN Reason: NAUSEA/VOMITING Pantoprazole Sodium (Protonix) 40 mg PO BID [facility] Last Admin: 04/07/18 07:30 Dose: 40 mg Sodium Chloride () 5 - 15 ml IV UD PRN PRN Reason: SALINE FLUSH Last Admin: 04/06/18 16:49 Dose: 10 ml Medical Necessity - Tobacco Use Smoking Status: Current every day smoker Tobacco Use: Cigarettes Assessment/Plan 1. Chest pain rule out/CAD status post PCI to RCA in November 2016/hypertension/hyperlipidemia -Chest pain is reproducible on palpation of her chest wall making me think that this is more of a costochondritis than a cardiac issue -Given her cardiac history, we will proceed with a stress test today -Continue with her Plavix, statin, lisinopril and Coreg -She had a recent echocardiogram with an EF of 55% with no significant wall motion abnormalities will not repeat echo here 2. DM 2 -Hold metformin and Trulicity -Accu-Cheks with sliding scale insulin 3. GERD -Stable -Continue with PPI 4. COPD -No acute exacerbation at this time -Continue with her home inhalers 5. Tobacco dependence -Counseled on cessation -She is attempting to quit and has been wearing a nicotine patch for the past week DVT: Lovenox Code Visit OBSV E&M: 12419 Subsequent observation care L2
[2018-04-07] MEDS: Insulin Lispro 100 UNIT/ML INSULN.PEN SC (11:31)
[2018-04-07] MEDS: buPROPion 100 MG Tablet PO (11:31)
[2018-04-07] MEDS: hydrALAZINE 20 MG/ML Vial 10 MG IV (11:50)
[2018-04-07] MEDS: 0.9% NaCl Peripheral Flush Adult/Peds IV (11:51)
--- NOTE | 2018-04-07 12:12 | STRESSREP ---
Stress Test Report Pharmacologic myocardial perfusion stress test. 62-year-old lady with a history of chest pain. Medications: Lipitor Wellbutrin Plavix Lovenox Zestril. Stress protocol: Resting EKG demonstrates normal sinus rhythm with a rate of 78 bpm normal intervals are noted resting blood pressure was 220/120 mmHg. 0.4 mg of regadenoson was infused per usual protocol followed by rapid intravenous saline flush injection continuous EKG monitoring was performed the maximum heart rate attained was 106 bpm which was 66% of maximum predicted heart rate the maximum workload was 1 metabolic equivalent. At rest there were no ST or T wave changes noted suggest abnormal flow reserve at peak infusion no ST or T wave changes were noted suggest abnormal flow reserve. The final blood pressure 150/78 mmHg. Myocardial perfusion protocol. 11.8 mCi of technetium 99m sestamibi was injected at rest. 0.4 mg of regadenoson was infused per usual protocol peak infusion 33.9 mCi of technetium 99m sestamibi was injected stress images were obtained stress and rest images were reconstructed and compared in the short axis vertical long horizontal long axis. Gated images were also obtained per Perfusion SPECT analysis: Review of the stress images demonstrate normal uptake of tracer noted in all areas of myocardium. The resting images similarly demonstrate normal uptake of tracer noted in all areas of the myocardium. No areas of reversibility are noted suggest ischemia. Gated SPECT analysis: The gated ejection fraction is noted to be 78%. Conclusion: Normal pharmacologic myocardial perfusion stress test. Preserved ejection fraction.
--- NOTE | 2018-04-07 12:27 | DCINST_ITS ---
- Discharge Diagnoses Current Active Problems: Current Active and Chronic Problems CAD (coronary artery disease) (Chronic) HLD (hyperlipidemia) (Chronic) HTN (hypertension) (Chronic) Type 2 diabetes mellitus (Chronic) GERD (gastroesophageal reflux disease) (Chronic) COPD (chronic obstructive pulmonary disease) (Chronic) You will use the following diet at home:: Calorie/Carbohydrate Controlled (specify 1200, 1400, etc), Cardiac Your food should be the consistency of: Regular Your liquids should be the consistency of: Regular/Thin Discharge Activity: Return to Normal Activity Call your doctor if you observe: Shortness of breath, Dizziness, Fainting spells, Chest pain, Increased palpitations (irregular heartbeat) Allergies/Adverse Reactions: Allergies etodolac [From Lodine] Allergy (Verified 04/06/18 15:58) Swelling Medications to take at Discharge Albuterol Inhaler [Ventolin Hfa] 1 - 2 puff INHALATION Q4H PRN PRN 08/26/13 Lisinopril [Zestril] 10 mg PO QHS 08/26/13 Metformin HCl [Glucophage] 1,000 mg PO BID 08/26/13 Budesonide/Formoterol 160/4.5 [Symbicort 160/4.5 Mcg Inhaler (SP)] 2 puff INHALATION BID 12/08/15 Docusate Sodium [Colace] 100 mg PO BID PRN PRN 12/08/15 Esomeprazole Mag Trihydrate [Nexium] 40 mg PO BID 12/08/15 Atorvastatin Calcium [Lipitor] 40 mg PO QHS 04/06/18 Carvedilol 1 tab PO BID 04/06/18 Clopidogrel Bisulfate [Clopidogrel] 75 mg PO DAILY 04/06/18 Dulaglutide [Trulicity] 0.75 ng PO TU 04/06/18 Ergocalciferol [Vitamin D] 50,000 unit PO TH 04/06/18 buPROPion tablets [Wellbutrin tablets] 100 mg PO BREAKFAST 04/06/18 buPROPion tablets [Wellbutrin tablets] 200 mg PO QHS 04/06/18 Primary Care Physician: Zander Schuster DO [Primary Care Provider] - Please follow up with your Primary Care Physician in: 3-5 DAYS Test Results: Test results from this visit will be discussed in further detail at your follow- up appointment, if applicable.
--- NOTE | 2018-04-07 12:34 | DS.PCM_ITS ---
Discharge Date and Diagnosis Date of Admission: 04/06/18 Date of Discharge: 04/07/18 - Secondary Discharge Diagnosis Chronic Problems CAD (coronary artery disease) (Chronic) HLD (hyperlipidemia) (Chronic) HTN (hypertension) (Chronic) Type 2 diabetes mellitus (Chronic) GERD (gastroesophageal reflux disease) (Chronic) COPD (chronic obstructive pulmonary disease) (Chronic) Hospital Course and Treatment Imaging Results: 04/07/18 05:55 Nuclear Stress Test - Chemical [NM] AM (NON MEDS) Consults: None Operations: None Procedures: Stress test - Perfusion SPECT analysis: Review of the stress images demonstrate normal uptake of tracer noted in all areas of myocardium. The resting images similarly demonstrate normal uptake of tracer noted in all areas of the myocardium. No areas of reversibility are noted suggest ischemia. Gated SPECT analysis: The gated ejection fraction is noted to be 78%. Conclusion: Normal pharmacologic myocardial perfusion stress test. Preserved ejection fraction. Summary of Care Provided: Per HPI: The patient is a 62 year old F who presents emergency room due to chest pain. Patient states 4 days ago she developed pain on the back of her left shoulder which was initially sharp in nature and then developed into a soreness. She states today the pain wrapped around the left side of her ribs to her left chest area. She reports an intermittent shocklike pain in the left chest area which occurs approximately every 5 minutes and last only a few seconds at a time. Not associated with exertion. She denies associated shortness of breath, dizziness, lightheadedness, diaphoresis. She reports she had bronchitis a week ago which has since resolved. Patient has a history of CAD status post stent X1 November 2016 at [facility], hypertension, hyperlipidemia, type 2 diabetes mellitus, tobacco dependence, GERD, COPD. She currently follows with Dr. Orellana, [facility] cardiology. Hospital Course: 1. Chest pain rule out/CAD status post PCI to RCA in November 2016/HTN/HLD- 62-year-old female who presented for chest pain that had started about 4 days ago. She states that it was in her left chest and initially started in her shoulder blade and moved around to the front. She states that for the last couple weeks she has been having a bronchitis and coughing, and her coughing picked up over the last couple of days. Troponins were negative x3 on admission, her EKG was nonischemic, and on exam palpation of her left anterior chest wall reproduced her chest pain. Nuclear stress test today was performed and was negative for any signs of ischemia. She will be discharged home on her home medications of Plavix, Lipitor, lisinopril and Coreg. Of note her blood pressure was a little elevated today into the 170s though I believe that is due to the fact that her Coreg was held prior to the stress test being performed. She will need to follow-up with her primary care doctor in 3-5 days after discharge would need to make adjustments accordingly. 2. Her other medical diagnoses were evaluated and her home medications were continued where appropriate - Physical Exam Vital Signs Temp Pulse Resp BP Pulse Ox 98.6 F 87 16 173/80 H 94 04/07/18 11:37 04/07/18 11:50 04/07/18 11:37 04/07/18 11:50 04/07/18 11:37 Oxygen Delivery Method Room Air Weight: 177 lb 14.609 oz Body Mass Index (BMI) 32.5 Finger Stick Blood Glucose 158 Intake and Output for Last 24 Hours 04/05/18 04/06/18 04/07/18 23:59 23:59 23:59 Intake Total 720 / 720 240 / 240 Balance 720 / 720 240 / 240 Laboratory Tests Past 24 Hrs 04/06/18 04/06/18 04/06/18 13:35 13:35 17:00 WBC 9.9 RBC 4.58 Hgb 12.8 Hct 41.0 MCV 89.5 MCH 27.9 MCHC 31.2 L RDW 14.1 RDW Differential 45.8 H Plt Count 234 MPV 9.4 Immature Gran % (Auto) 0.200 Neut % (Auto) 50.9 Lymph % (Auto) 38.3 [place] % (Auto) 7.4 Eos % (Auto) 2.9 Baso % (Auto) 0.3 Absolute Neuts (auto) 5.1 Absolute Lymphs (auto) 3.81 Total Counted Not Reportable PT INR APTT Sodium 144 Potassium 4.3 Chloride 110 H Carbon Dioxide 30.0 Anion Gap 4 L BUN 14 Creatinine 0.88 Estim Creat Clear Calc 53.10 Est GFR (MDRD) Af Amer 83 Est GFR (MDRD) Non-Af 69 BUN/Creatinine Ratio 15.8 Glucose 59 L Calcium 9.0 Troponin I < 0.015 < 0.015 04/06/18 04/07/18 04/07/18 19:20 05:00 05:00 WBC 8.7 RBC 4.61 Hgb 13.0 Hct 40.8 MCV 88.5 MCH 28.2 MCHC 31.9 L RDW 14.1 RDW Differential 45.4 H Plt Count 262 MPV 9.8 Immature Gran % (Auto) 0.200 Neut % (Auto) 56.1 Lymph % (Auto) 32.3 [place] % (Auto) 8.0 Eos % (Auto) 3.1 Baso % (Auto) 0.3 Absolute Neuts (auto) 4.9 Absolute Lymphs (auto) 2.79 Total Counted Not Reportable PT 12.6 INR 0.9 APTT 30.5 Sodium Potassium Chloride Carbon Dioxide Anion Gap BUN Creatinine Estim Creat Clear Calc Est GFR (MDRD) Af Amer Est GFR (MDRD) Non-Af BUN/Creatinine Ratio Glucose Calcium Troponin I < 0.015 04/07/18 05:00 WBC RBC Hgb Hct MCV MCH MCHC RDW RDW Differential Plt Count MPV Immature Gran % (Auto) Neut % (Auto) Lymph % (Auto) [place] % (Auto) Eos % (Auto) Baso % (Auto) Absolute Neuts (auto) Absolute Lymphs (auto) Total Counted PT INR APTT Sodium 143 Potassium 4.0 Chloride 108 H Carbon Dioxide 28.0 Anion Gap 7 BUN 15 Creatinine 0.97 Estim Creat Clear Calc 48.17 Est GFR (MDRD) Af Amer 75 Est GFR (MDRD) Non-Af 62 BUN/Creatinine Ratio 15.4 Glucose 111 H Calcium 9.1 Troponin I POC Glucose 04/07/18 04/06/18 04/06/18 06:31 21:20 16:30 POC Glucose 117 H 141 H 74 Discharge Activity: Return to Normal Activity Call your doctor if you observe: Shortness of breath, Dizziness, Fainting spells, Chest pain, Increased palpitations (irregular heartbeat) Home Medications: Medications to take at Discharge Albuterol Inhaler [Ventolin Hfa] 1 - 2 puff INHALATION Q4H PRN PRN 08/26/13 Lisinopril [Zestril] 10 mg PO QHS 08/26/13 Metformin HCl [Glucophage] 1,000 mg PO BID 08/26/13 Budesonide/Formoterol 160/4.5 [Symbicort 160/4.5 Mcg Inhaler (SP)] 2 puff INHALATION BID 12/08/15 Docusate Sodium [Colace] 100 mg PO BID PRN PRN 12/08/15 Esomeprazole Mag Trihydrate [Nexium] 40 mg PO BID 12/08/15 Atorvastatin Calcium [Lipitor] 40 mg PO QHS 04/06/18 Carvedilol 1 tab PO BID 04/06/18 Clopidogrel Bisulfate [Clopidogrel] 75 mg PO DAILY 04/06/18 Dulaglutide [Trulicity] 0.75 ng PO TU 04/06/18 Ergocalciferol [Vitamin D] 50,000 unit PO TH 04/06/18 buPROPion tablets [Wellbutrin tablets] 100 mg PO BREAKFAST 04/06/18 buPROPion tablets [Wellbutrin tablets] 200 mg PO QHS 04/06/18 Primary Care Physician: Zander Schuster DO [Primary Care Provider] - Please follow up with your Primary Care Physician in: 3-5 DAYS Disposition: Home Minutes spent on discharge:: 35 Patient Condition:: Good Medical Necessity - Tobacco Use Smoking Status: Current every day smoker Tobacco Use: Cigarettes Meaningful Use Info Meaningful Use Diagnoses (Choose all that apply): None applicable Code Visit OBSV E&M: 89615 Observation care discharge
[2018-04-07 12:55] LABS: Bedside Glucose 168 mg/dL (70-110)
[2018-04-07 12:55] LABS: Bedside Glucose 159 mg/dL (70-110)
[2018-04-07] MEDS: Carvedilol 3.125 MG TABLET PO (14:04)
--- OUTSIDE RECORDS SUMMARY | 2018-06-08 19:29 | XMS RPT_ITS ---
[...] Unavailable YRN SEGOVIA Referring Unavailable YINA CALVILLO ([facility]) Attending Unavailable ZANDER OSBORN Referring Unavailable FRANCOISE [...] 04/08/2018 Unknown I25.10 - Yrn Segovia Active [facility]ros[facility] disease [facility] coronary artery Repository without angina pectoris / I25.10(ICD-10) 04/08/2018 Unknown I10 - Essential Yrn Segovia Active [facility] (primary) Community hypertension / Hospital I10(ICD-10) Repository 03/17/2018 Active Atherosclerotic heart NA Active [place] disease of [facility] Main coronary artery [place] without angina Repository pectoris / I25.10(ICD-10) 01/19/2018 Active Palpitations / NA Active [place] R00.2(ICD-10) Clinic Main [place] Repository 01/19/2018 Active Nonrheumatic aortic NA Active [place] (valve) stenosis / [facility] Main I35.0(ICD-10) [place] Repository 01/13/2018 Active Type 2 diabetes NA Active [place] mellitus with [facility] Main hyperglycemia / [place] E11.65(ICD-10) Repository 06/08/2013 Active Tobacco use / NA Active [place] Z72.0(ICD-10) Clinic Main [place] Repository 09/15/2017 Active Other specified soft NA Active [place] tissue disorders / [facility] M79.89(ICD-10) [place] Repository 09/15/2017 Active Other skin changes / NA Active [place] R23.8(ICD-10) Clinic Main [place] Repository 06/08/2013 Active Pure NA Active [place] hypercholesterolemia, Clinic Main unspecified / [place] E78.00(ICD-10) Repository 07/13/2017 Active Cough / R05(ICD-10) NA Active [facility] Main [place] Repository 07/29/2016 Active Vitamin D deficiency, NA Active [place] unspecified / [facility] Main E55.9(ICD-10) [place] Repository 09/05/2015 Active Essential (primary) NA Active [place] hypertension / [facility] Main I10(ICD-10) [place] Repository 04/14/2017 Active Other terminal clerk NA Active [facility] (current) drug [facility] therapy / [place] Z79.899(ICD-10) Repository 04/14/2017 Active Type 2 diabetes NA Active [place] mellitus with [facility] Main hyperosmolarity [place] without nonketotic Repository hyperglycemic-hyperos molar coma ([facility]) / E11.00(ICD-10) PROCEDURES PROCEDURES No Procedure Records FoundRESULTS RESULTS CNOV Observed: 04/09/2018 Status: COMPLETED Source: [place] 11:00 AM [facility] REPOSITORY Office Visit (FAMPWS) JOSETTE NELSON ([id number]) 1955 F TXT Date Time Provider Department 04/09/18 11:00 AM YINA CALVILLO ([facility]) FAMPWS During your visit today, we recorded the following information about you: Pulse Respiration Blood pressure Weight 72/minute 16/minute 138/82 81.6 kg Yina Calvillo APRN.CNP 04/09/2018 10:33 AM Signed HPI/CC: Josette Julianne Rayr is a 62 year old female who presents to the office today for [facility] hospital follow-up for atypical CP 04/06-1/23. 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 Social History Main Topics Smoking status: Current [...] MG TABLET - f/u PRN Yina Calvillo APRN.RED CROSS EXECUTIVE DIRECTOR Referring Provider: ZANDER OSBORN [[id number]] Allergies As of Date: 04/09/2018 Noted Allergy [...] placement [Z95.*INVALID FOR* Coronary artery disease involving hoonah machado*INVALID FOR* Dysuria [R30.0] INVALID FOR* Obesity, [...] 04/09/18 PROGRESS Observed: 04/09/2018 Status: COMPLETED Source: [place] 10:11 AM [facility] REPOSITORY HNO ID: [id number] Author: Yina Whitaker (Liliam) Karli Service: (none) Author Type: Nurse Practitioner Type: Progress Notes Filed: 04/09/2018 10:33 AM Note Text: HPI/CC: Josette Nelson is a 62 year old female who presents to the office today for [facility] hospital follow-up for atypical CP 04/06-04/07. 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 blood sugar diagnostic ([employer] NO CODING) test strip Test blood sugars [...] MG TABLET - f/u PRN Yina Calvillo APRN.RED CROSS EXECUTIVE DIRECTOR OBSOLETFaviola Observed: 04/08/2018 Status: COMPLETED Source: [place] 12:00 AM [facility] JOSETTE NELSON ([id number]) 1955 F TXT Date Time Provider Department 04/08/18 [facility] During your visit today, we recorded [...] wrong pharmacy. Patient uses the [facility] in [place] and this has been updated in her [...] Request [94] Visit Diagnosis:Coronary artery disease involving hoonah coronary artery of [place] heart without angina pectoris [I25.10] Order(s):NEXIUM 40 [...] placement [Z95.*INVALID FOR* Coronary artery disease involving hoonah machado*INVALID FOR* Dysuria [R30.0] INVALID FOR* Obesity, [...] DISCHARGE SUMMARY Observed: 04/07/2018 Status: F Source: [place] 12:34 PM [facility] Medical Records Department [address] [place] [address] [place] [address] Discharge Summary 04/07/18 1228 MR#: [id number] Acct: [id number] Name: OMARJOSETTE ALEXANDER Julianne Rep #: [id number] : 1955 62 From: Sahil Ford MD PCP: Zander Rosenbaum DO Status: ADM HIRAM Y Location: [place] [address] Discharge Date and Diagnosis Date of Admission: [...] status post stent X1 November 2016 at [facility], hypertension, hyperlipidemia, type 2 diabetes mellitus, tobacco dependence, GERD, COPD. She currently follows with Dr. Segovia, [facility] cardiology. Hospital Course: 1. Chest pain rule out/CAD status post PCI to RCA in November 2016/HTN/UFT-89-pemr-old female who presented for chest pain that [...] (Auto) Neut % (Auto) Lymph % (Auto) Coryell % (Auto) Eos % (Auto) POC Glucose [...] None applicable Code Visit OBSDamaris MOORE M: [id number] Observation care discharge 04/07/18 1234 <Electronically signed by Sahil Ford MD> Date Sahil Ford MD Cosigner Signature (if applicable): Date CC: Zander Rosenbaum DO; Sahil Ford MD Signed DISCHARGE INSTRUCTION Observed: 04/07/2018 Status: F Source: [place] 12:27 PM [facility] Medical Records Department [address] [place] [address] Instructions for Home/Discharge Instructions 04/07/18 1223 MR#: [id number] Acct: [id number] Name: JOSETTE NELSON Rep #: [id number] : 1955 62 From: Sahil Ford MD [...] STRESS REPORT Observed: 04/07/2018 Status: F Source: [place] 12:16 PM [facility] [place] [address] MR#: [id number] Acct: [id number] Name: JOSETTE NELSON Rep #: [id number] : 1955 62 From: James Martin MD [...] MD Date Dictated: 04/07/181211 Date Transcribed: 04/07/181211 Scanning Manager: CO Signed BEDSIDE GLUCOSE Collected: 04/07/2018 Status: F Source: [place] 11:29 AM [facility] TYPE CODE TESTS RESULT OUT OF REFERENCE UNITS RANGE LAB L501.080 70-110 mg/dL High BEDSIDE GLU 159 Result Comment: MANAGEMENT OF PATIENT CARE PER NURSING PROTOCOL Performed By: #### L501.080 #### [facility] Point of Care [address] [place] [address] PFA Collected: 04/07/2018 Status: F Source: [facility] 11:28 AM [facility] REPOSITORY TYPE CODE TESTS RESULT [...] High 127 Performed By: #### PFA #### [place] [address] MISCELLANEOUS LAB Collected: 04/07/2018 Status: F Source: [facility] 11:28 AM [facility] Order Comment: Test(s) Ordered: PLATELET FUNCTION TEST SEND TO [place] TYPE CODE TESTS RESULT OUT OF RANGE REFERENCE UNITS LAB L801.1541 Normal [facility] LAB TEST Result Comment: TEST RESULT LIMITS [...] medication must be excluded. TESTING PERFORMED AT [facility]. ORIGINAL REPORT ON FILE IN LAB CONTAINS ADDITIONAL TEST SITE INFORMATION. Performed By: #### L801.1541 #### [facility] [address] [place], [address] BEDSIDE GLUCOSE Collected: 04/07/2018 Status: F Source: [place] 11:27 AM [facility] TYPE CODE TESTS RESULT OUT OF REFERENCE UNITS RANGE LAB L501.080 70-110 mg/dL High BEDSIDE GLU 168 Result Comment: MANAGEMENT OF PATIENT CARE PER NURSING PROTOCOL Performed By: #### L501.080 #### [facility] Point of Care [address] [place] [address] BEDSIDE GLUCOSE Collected: 04/07/2018 Status: F Source: [place] 6:31 AM [facility] TYPE CODE TESTS RESULT OUT OF REFERENCE UNITS RANGE LAB L501.080 70-110 mg/dL High BEDSIDE GLU 117 Result Comment: MANAGEMENT OF PATIENT CARE PER NURSING PROTOCOL Performed By: #### L501.080 #### [facility] Point of Care [address] [place] [address] PROTHROMBIN TIME W/INR Collected: 04/07/2018 Status: F Source: [place] 5:00 AM [facility] TYPE CODE TESTS RESULT OUT OF RANGE REFERENCE UNITS LAB L300.4150 11.7-14.9 SECONDS Normal PROTIME 12.6 LAB L300.4200 Normal INR 0.9 Performed By: #### L300.3900, L300.4310 #### [facility] [address] [place], [address] PARTIAL THROMBOPLAST Collected: 04/07/2018 Status: F Source: [place] TIME 5:00 AM [facility] TYPE CODE TESTS RESULT OUT OF RANGE REFERENCE UNITS LAB L300.4310 24.1-36.2 Seconds Normal PTT 30.5 Performed By: #### L300.3900, L300.4310 #### [facility] [address] [place], [address] CBC W/DIFF, AUTOMATED Collected: 04/07/2018 Status: F Source: [place] 5:00 AM [facility] TYPE CODE TESTS RESULT OUT OF [...] Lymph 2.79 Performed By: #### L100.0100 #### [facility] [place], [address] BASIC METABOLIC Collected: 04/07/2018 Status: F Source: [place] PROFILE (BMP) 5:00 AM [facility] TYPE CODE TESTS RESULT OUT OF [...] GAP 7 Performed By: #### L500.2500 #### [facility] [address] [facility] [place], [place], [address] BEDSIDE GLUCOSE Collected: 04/06/2018 Status: F Source: [place] 9:20 PM [facility] TYPE CODE TESTS RESULT OUT OF REFERENCE UNITS RANGE LAB L501.080 70-110 mg/dL High BEDSIDE GLU 141 Result Comment: MANAGEMENT OF PATIENT CARE PER NURSING PROTOCOL Performed By: #### L501.080 #### [facility] Point of Care [address] [facility] [place] [address] TROPONIN-I Collected: 04/06/2018 Status: F Source: [place] 7:20 PM [facility] Order Comment: 'TROP' Serial specimen #1, #2 or #3: 3 TYPE CODE TESTS RESULT OUT OF RANGE REFERENCE UNITS LAB L501.4010 <0.045 ng/mL Normal < 0.015 TROPONIN-I Result Comment: TROPONIN-I EXPECTED VALUES <0.045 Negative 0.045 - 0.590 Consistent with Cardiac Damage > OR = 0.600 Critical Value Not every elevated troponin is indicative of SD. These values should be used with clinical judgement in examining the patient's clinical picture for diagnosis. To establish a diagnosis of SD versus myocardial injury, there must be a demonstrated rise and/or fall in the troponin values, in addition to ischemic symptoms, EKG changes, new regional wall motion abnormality, and/or angiographical evidence. PLEASE NOTE: REFERENCE RANGES EDITED 17 Performed By: #### L501.4010 #### [facility] [address] [place], [address] HISTORY AND PHYSICAL Observed: 04/06/2018 Status: F Source: [place] EXAM 5:08 PM [facility] Medical Records Department [address] [facility] [place] [address] History and Physical 04/06/18 1522 MR#: [id number] Acct: [id number] Name: JOSETTE NELSON Rep #: [id number] : 1955 62 From: Gilda MAYO PCP: Zander Rosenbaum DO Status: ADM HIRAM Y Location: [place] [address] <Gilda Peterson - Last Filed: 04/06/18 15:42> [...] status post stent X1 November 2016 at [facility], hypertension, hyperlipidemia, type 2 diabetes mellitus, tobacco dependence, GERD, COPD. She currently follows with Dr. Segovia, [facility] cardiology. Past Medical History Past Medical [...] as above. This note was generated with [employer] software. It may contain incorrect words, spelling, and punctuation that were not noted in checking the note before signing. Code Visit OBSV E AND M: [id number] Initial observation care L3 04/06/18 1542 <Electronically signed by Gilda Peterson NP-C> Date Gilda Peterson FLUE CLEANER-C 04/06/18 1708<Electronically signed by Ubaldo Mcgill MD> Cosigner Signature: Date (if applicable) Ubaldo Mcgill MD CC: FLUE CLEANER-C Gilda Peterson; Ubaldo Mcgill; Zander Rosenbaum DO Signed BEDSIDE GLUCOSE Collected: 04/06/2018 Status: F Source: [place] 4:30 PM [facility] TYPE CODE TESTS RESULT OUT OF RANGE REFERENCE UNITS LAB L501.080 70-110 mg/dL Normal BEDSIDE GLU 74 Result Comment: MANAGEMENT OF PATIENT CARE PER NURSING PROTOCOL Performed By: #### L501.080 #### [facility] Point [place] [address] EMERGENCY DEPARTMENT Observed: 04/06/2018 Status: F Source: [place] SUMMARY 4:14 [facility] REPOSITORY [facility] Medical Records Department [address] [place] [address] Emergency Department Summary 04/06/18 1503 MR#: [id number] Acct: [id number] Name: JOSETTE NELSON Rep #: [id number] : 1955 62 From: Colby Phillips MD [...] Chest pain This note was generated with [employer] dictation software. It may contain incorrect words, [...] your Primary Care Provider. Call [facility] ([phone]) or report to the closest Emergency Room. Call 911 if necessary. 04/06/18 1614 <Electronically signed by Colby Phillips MD> Date Colby Phillips MD Cosigner Signature (If Indicated): Date CC: Zander Rosenbaum, DO CBC W/DIFF, AUTOMATED Collected: 04/06/2018 Status: F Source: [place] 1:35 PM [facility] TYPE CODE TESTS RESULT OUT OF [...] Lymph 3.81 Performed By: #### L100.0100 #### [facility] [address] [place], [address] BASIC METABOLIC Collected: 04/06/2018 Status: F Source: [place] PROFILE (BMP) 1:35 PM [facility] TYPE CODE TESTS RESULT OUT OF [...] 4 Performed By: #### L500.2500, L501.4010 #### [facility] [address] [place], [address] TROPONIN-I Collected: 04/06/2018 Status: F Source: [place] 1:35 PM [facility] TYPE CODE TESTS RESULT OUT OF RANGE REFERENCE UNITS LAB L501.4010 <0.045 ng/mL Normal < 0.015 TROPONIN-I Result Comment: TROPONIN-I EXPECTED VALUES <0.045 Negative 0.045 - 0.590 Consistent with Cardiac Damage > OR = 0.600 Critical Value Not every elevated troponin is indicative of SD. These values should be used with clinical judgement in examining the patient's clinical picture for diagnosis. To establish a diagnosis of SD versus myocardial injury, there must be a demonstrated rise and/or fall in the troponin values, in addition to ischemic symptoms, EKG changes, new regional wall motion abnormality, and/or angiographical evidence. PLEASE NOTE: REFERENCE RANGES EDITED 17 Performed By: #### L500.2500, L501.4010 #### [facility] [address] [place], [address] CHEST 1 VIEW Observed: 04/06/2018 Status: F Source: [place] (PORTABLE) 1:27 PM [facility] Imaging Services [address] [place] [address] Chest 1 View (Portable) MR#: [id number] Acct: [id number] Name: JOSETTE NELSON Rep #: [id number] : 1955 F 62 From: J Luis Barbour MD PCP: Zander Rosenbaum DO Status: PRE ER Study: Chest 1 View (Portable) Date of Exam: 04/06/18 Exam# [id number] Ordering Dr: Colby Phillips MD STUDY: X-RAY CHEST REASON FOR EXAM: Female, 62 years old. Chest pain. TECHNIQUE: Single AP portable view of the chest. COMPARISON: Comparison is made with prior study dated December 08, 2015. FINDINGS: EKG electrodes are seen. The lungs are clear and expanded. There is no demonstrated pleural abnormality. Normal size heart. Normal mediastinum and doc. Normal visualized pulmonary arteries. Normal visualized aortic arch and descending thoracic aorta. There are diffuse degenerative changes of the visualized thoracic spine. Normal visualized ribs, clavicles, and shoulders. There is no demonstrated abnormality of the visualized soft tissue structures of the upper abdomen. RAD/Chest 1 View (Portable) IMPRESSION: No acute abnormality is seen. Electronically Signed: J Luis Barbour MD at 13:52 EST Tel [phone], Service support , CC: Colby Phillips MD; Zander Rosenbaum DO Scanning Manager: Signed CNPN Observed: 03/29/2018 Status: COMPLETED Source: [place] 12:00 AM [facility] REPOSITORY Telephone (CAWSTR) JOSETTE NELSON ([id number]) 1955 F TXT Date Time Provider Department [...] 03/30/2018 11:57 AM Signed Called lab at [facility] spoke with Kristal. Kristal verified our order in system and it matches what was requested. automated access systems technician ran the wrong test. They will contact pt if lab needs to be redrawn. Per Kristal pt will not have any charges for the incorrect lab that was drawn Mare Segovia MD 03/30/2018 12:11 PM Signed Noted and agree. MD Lulu Jaime MA 03/31/2018 4:16 PM Signed Kristal from [facility] lab called and stated the number [...] placement [Z95.*INVALID FOR* Coronary artery disease involving hoonah machado*INVALID FOR* Dysuria [R30.0] INVALID FOR* Obesity, [...] 2 VIEWS Observed: 03/21/2018 Status: F Source: [facility] 6:31 PM [facility] REPOSITORY [place] [address] [place] [address] Patient: JOSETTE NELSON Phone#: : 1955 Age: 62 Gender: F Pt. Type: ER Account: [id number] Location: 2 Ordering: GABRIEL LACY Exam Date: 03/21/2018/18:18 Family Phys: DR. ZANDER OSBORN D.O.Charge Code: 737174 Physician: [place] Order #: [id number] DLP Dose#: PROCEDURE: X-RAY CHEST 2 VIEWS COMPARISON: [facility], XR, CHEST 2 VIEWS, 11/17/2017, 3:42. [...] 8:48 LACTATE Collected: 03/21/2018 Status: F Source: [facility] 6:06 PM [facility] REPOSIT[facility] TYPE CODE TESTS RESULT OUT OF REFERENCE UNITS RANGE LAB LACTATE(KYLE 4.5 - 18.0 mg/dL MD) LACTATE 8.3 Performed By: #### [id number] #### [facility],[address] [place] [address] CBC Collected: 03/21/2018 Status: F Source: [facility] 5:51 PM [facility] REPOS[facility] TYPE CODE TESTS RESULT OUT OF [...] x10EE3/U L Neut # High 8.30 LAB Coryell #(LOINC) 0.20 - 1.00 x10EE3/U L Coryell # High 1.20 LAB EO #(LOINC) 0.00 - 0.50 x10EE3/U L EO # 0.30 LAB Baso #(LOINC) 0.00 - 0.10 x10EE3/U L Baso # 0.10 LAB MANUAL DIFF(LOINC) MANUAL DIFF N/A LAB MORPHOLOGY(LOINC ) MORPHOLOGY N/A Result Comment: {CD] Performed By: #### [id number] #### [facility],[address] [place], [place] [id number] Observed: 03/21/2018 Status: F Source: [facility] RAPID STREP 5:51 PM [facility] REPOSIT[facility] Rapid Strep NEG:GRP A STREP INTERNAL QC PASS EXTERNAL QC DONE? YES Performed By: #### [id number] #### [facility],[address] [place] [address] CMP WITH EGFR Collected: 03/21/2018 Status: F Source: [facility] 5:51 PM [facility] REPOSIT[facility] TYPE CODE TESTS RESULT OUT OF [...] OF AGE AND OLDER. Performed By: #### [id number] #### [facility],[address] [place], [place] [address] Observed: 03/21/2018 Status: F [facility] 5:51 PM [facility] ONLY REPOSITORY CULT STREP REFLEX ONLY _REFLEX STREP SCREEN CULTURE ONLY_ M I C R O B I O L O G Y R E P O R T FINAL Antimicrobial Susceptibility and Organism Identification Report Specimen Number : [id number] Requested : 03/21/18 Specimen Source : THROAT Collected : 03/21/18 17:51 [facility] : Emergency Room Received : 03/21/18 17:51 Requesting Physician : ESTEPHANIA MARTI Patient/Specimen Tests and Comments Specimen Comments FINAL REPORT: Negative for Group A Beta Strep Tech : Source : THROAT ID # : [id number] FINAL Report Date : / / : Collected : 03/21/18 17:51 03/23/18.1121.BKO. 03/23/18.1120.BKO.COMPLETE Performed By: #### [id number] #### [facility],[address] [place], [place] [address] Observed: 03/21/2018 Status: F Source: [facility] CULTURE BLOOD 5:51 PM [facility] REPOSITORY CULTURE BLOOD CULTURE BLOOD SET: 1 of 1 24HOUR REPORT NEGATIVE 48HOUR REPORT NEGATIVE 72HOUR REPORT NEGATIVE M I C R O B I O L O G Y R E P O R T FINAL Antimicrobial Susceptibility and Organism Identification Report Specimen Number : [id number] Requested : 03/21/18 Specimen Source : BLOOD Collected : 03/21/18 17:51 [facility] : Emergency Room Received : 03/21/18 17:51 Requesting Physician : ESTEPHANIA MARTI Patient/Specimen Tests and Comments Specimen Comments FINAL REPORT: No Growth at 5 Days Tech : Source : BLOOD ID # : [id number] FINAL Report Date : / / : Collected : 03/21/18 17:51 03/27/18.1013.KLS. 03/27/18.1013.KLS.COMPLETE Performed By: #### [id number] #### [facility],[address] [place] [address] EMERGENCY REPORT Observed: 03/21/2018 Status: F Source: [facility] 5:12 PM [facility] EMERGENCY ROOM REPORT NAME ACCOUNT SEX AGE ADMIT DISCHARGE PT MED. RECORD# NUMBER DATE DATE TYPE OMAR [id number] Laura 62 03/21/18 3 JOSETTE Julianne [id number] ROOM: ER DATE OF : 1955 DICTATING [...] Gabriel Lacy MD 03/21/18 18:44 JOB #: [id number] Transcribed By: am 03/21/18 19:10 Electronically signed by: IVAN Lacy M.D. 03/25/18 19:55 Page 2 of 2 JOSETTE NELSON Emergency Room Report MISCELLANEOUS LAB Collected: 03/17/2018 Status: F Source: [place] PROCEDURE 1:12 PM [facility] Order Comment: Comments: CLOPIDOGREL GENOTYPING [id number] WBLOOD/ACDA/RT Test(s) Ordered: CLOPIDOGREL GENOTYPING [id number] WBLOOD/ACDA/RT TYPE CODE TESTS RESULT OUT OF RANGE REFERENCE UNITS LAB L801.1541 Normal [facility] LAB TEST Result Comment: TEST RESULT LIMITS [...] by several cytochrome P450 proteins of which DKH2C82 plays a sagastume role. Among clopidogrel treated [...] Nortriptyline). Limitations: This assay detects poor metabolizer BKD9J95 alleles *2 and *3 (ydnb-cw-baebybwi alleles) as well as the ultrarapid metabolizer [...] that may impact drug efficacy and/or toxicity. IKH9P54 Information: 01 Methodology: DNA analysis of the Cytochrome P450 2C19 gene (OMIM 637670, 10q24.1-10q24.3) is performed using primer extension chemistry. [...] does not detect other variants in the PHC7N34 gene that may affect metabolic activity. Buccal cells for DXA8Y93: This test was developed and its performance characteristics determined by [employer]. It has not been cleared or approved by the Food and Drug Administration. References: 1. Juan Jose COHEN et al. Clinical Pharmacogenetics Implementation Consortium guidelines for JJM1A81 genotype and clopidogrel therapy: 2013 Update. Clin Pharmacol Ther. 2013:94(3):317-323. PubMed [id number] 2. Alex Diggs, et al. Cytochrome 2C19*17 allelic variant, platelet aggregation, bleeding events, and stent thrombosis in clopidogrel-treated patients with coronary stent placement. Circulation. 2010;121:512-518. PubMed [id number] 3. Cheng T, et al. Genetic determinants of response to clopidogrel and cardiovascular events. N Engl J Med. 2009;360:363-75. PubMed [id number] Director Review: Ria Madrid M.S., Ph.D., [facility] Channing Lopez, Ph.D. Thierry Sylvester M.D., [facility] Juancho Hunter, Ph.D., [facility] TESTING PERFORMED AT [facility]. ORIGINAL REPORT ON FILE IN LAB CONTAINS ADDITIONAL TEST SITE INFORMATION. Performed By: #### L801.1541 #### [facility] [address] [place], [address] OBSOLETE Observed: 03/15/2018 Status: COMPLETED Source: [place] 12:00 AM [facility] REPOSITORY Refill (FAMPWS) JOSETTE NELSON ([id number]) 1955 F TXT Date Time Provider Department [...] Request [94] Visit Diagnosis:Coronary artery disease involving hoonah coronary artery of hoonah heart without angina pectoris [I25.10] Order(s):metFORMIN (GLUCOPHAGE) [...] placement [Z95.*INVALID FOR* Coronary artery disease involving hoonah machado*INVALID FOR* Dysuria [R30.0] INVALID FOR* Obesity, [...] 03/17/18 PROGRESS Observed: 03/02/2018 Status: COMPLETED Source: [place] 2:21 PM [facility] REPOSITORY O ID: [id number] Author: Yrn Segovia Service: (none) Author Type: [...] met Beta bill for ASHD with prior SD or prior LVEF<40 (NQF 0070) - met [...] for cardiac follow-up. 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 EAT A WHOLE FOOD, PLANT BASED [...] tabletRfl: 3 ASPIRIN/CLOPIDOGREL RESISTANCE [SQASPCLP] Order #: [id number] FUTURE Prescriptions as of 03/02/2018 Sig: ALBUTEROL [...] placement [Z95.*INVALID FOR* Coronary artery disease involving hoonah machado*INVALID FOR* Dysuria [R30.0] INVALID FOR* Obesity, [...] following areas and commit to making terminal clerk changes. EAT A WHOLE FOOD, PLANT BASED [...] 03/02/18 PEGGY Observed: 01/21/2018 Status: COMPLETED Source: [place] 12:30 PM [facility] REPOSITORY Office Visit (CARDWS) JOSETTE NELSON ([id number]) 1955 F TXT Date Time Provider Department [...] Mare Kraus RN Referring Provider: ZANDER OSBORN [[id number]] Allergies As of Date: 01/21/2018 Noted Allergy Reaction CHOCOLATE 05/23/2013 11 - Vomiting Comments: Dark chocolate LODINE (ETODOLAC) 05/23/2013 7 - Swelling Date Reviewed: 01/19/2018 Reviewed by: Callie Joseph LPN - Fully Assessed Visit Diagnoses:Aortic stenosis, mild [I35.0] Palpitations [R00.2] Order(s):ECHO [909561] Order #: [id number]. #:[id number]: 1 INSERT IV ([place]) [[id number]] Order #: [id number]: 1 IV DISCONTINUE [[id number]] Order #: [id number]: 1 [] perflutren lipid microspheres (DEFINITY) 1.1 [...] placement [Z95.*INVALID FOR* Coronary artery disease involving hoonah machado*INVALID FOR* Dysuria [R30.0] INVALID FOR* Obesity, [...] tolerated procedure without distress. Mare Kraus RN Prescriptions ordered this encounter Disp Refills Start End PERFLUTREN LIPID MICROSPHERES 1.1 MG* 1.3 * 0 01/21/2018 01/21/2018 Class: In Office Route: INTRAVENOUS Sig: Inject 1.3 mL intravenously one time only for 1 dose. Follow-up and Disposition History Recorded Encounter Status:Closed by YRN SEGOVIA MD on 01/22/18 ECG COMPLETE W Observed: 01/19/2018 Status: F Source: [facility] 11:24 AM [facility] [place] REPOSITORY NAME : JOSETTE NELSON PID : [id number] : 1955 Gender : Female Race : ORD : [id number] Procedure Date : Jan 19 2018 11:24:19 [...] ms QTC Calculation(Bezet) : 440 ms P [place] : 68 degrees R [place] : -17 degrees T [place] : 101 degrees Test Reason : Location : 185 : [facility] Overread By : WALT SIMONS D.O. Edited By : WALT SIMONS D.O. 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 Palpitations - ICD9: 785.1, ICD10: R00.2 - see above - ECG COMPLETE W INTERPRETATION - ECHO - PERFLUTREN LIPID MICROSPHERES 1.1 MG/ML INTRAVENOUS SUSPENSION 6. Coronary artery disease involving hoonah coronary artery of hoonah heart without angina pectoris - ICD9: 414.01, ICD10: I25.10 - see above, continue same medicaitons, f/u with Legal Arbitrator in Feb 19. Vitamin D deficiency - [...] agreed with the plan. Zander Osborn DO [address] [place] [address] PROGRESS Observed: 01/19/2018 Status: COMPLETED Source: [place] 10:53 AM [facility] REPOSITORY O ID: [id number] Author: Callie Joseph LPN Service: (none) Author Type: (none) Type: Progress Notes Filed: 01/19/2018 12:21 PM Note Text: 62 year old female here for INACTIVATED INFLUENZA VACCINE. 1632-1212 Season Patient is identified by name and date of : Yes [] CONTRAINDICATIONS color enhanced section Age less than 6 months? No Allergy to eggs, chicken, chicken feathers, or chicken dander? No Allergy to thimerosal (a preservative) or formaldehyde, gelatin? No History of severe reaction to any vaccine component or a previous dose of influenza vaccination? 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 Yes See immunization activity in [facility] for details of immunizations adminstered today. Patient age: [age] year old For The 8248-5241 Flu Season 6-35 months old: Fluzone 0.25 [...] 01/19/2018 Status: COMPLETED Source: [place] 10:40 AM [facility] REPOSITORY [facility] ([id number]) 1955 F TXT Date Time Provider Department [...] dose of influenza vaccination? 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 Yes See immunization activity in [facility] for details of immunizations adminstered today. 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 Palpitations - ICD9: 785.1, ICD10: R00.2 - see above - ECG COMPLETE W INTERPRETATION - ECHO - PERFLUTREN LIPID MICROSPHERES 1.1 MG/ML INTRAVENOUS SUSPENSION 6. Coronary artery disease involving hoonah coronary artery of hoonah heart without angina pectoris - ICD9: 414.01, ICD10: I25.10 - see above, continue same medicaitons, f/u with Legal Arbitrator in Feb 7. Vitamin D deficiency - [...] agreed with the plan. Zander Osborn DO [address] [place] [address] Referring Provider: ZANDER OSBORN [[id number]] Allergies As of Date: 01/19/2018 Noted Allergy [...] [I35.0] Palpitations [R00.2] Coronary artery disease involving hoonah coronary artery of hoonah heart without angina pectoris [I25.10] Vitamin D deficiency [E55.9] Hypercholesteremia [E78.00] Tobacco abuse [Z72.0] Essential hypertension [I10] Order(s):INFLUENZA VACCINE QUADRIVALENT AGE 3 YRS PLUS + IM [37653CPN] Order #: [id number] budesonide-formoterol (SYMBICORT) 80-4.5 mcg/actuation inhalerInhale 2 Puffs as instructed twice daily.Disp: 1 InhalerRfl: 5 ECG COMPLETE W INTERPRETATION [ECG01] Order #: [id number] FUTURE ECHO [948768] Order #: [id number]: 1 FUTURE perflutren lipid microspheres (DEFINITY) 1.1 [...] placement [Z95.*INVALID FOR* Coronary artery disease involving hoonah machado*INVALID FOR* Dysuria [R30.0] INVALID FOR* Obesity, [...] METABOLIC PANEL Collected: 01/13/2018 Status: F Source: [place] 12:20 PM [facility] REPOSITORY TYPE CODE TESTS RESULT OUT OF REFERENCE UNITS RANGE LAB TP 6.3-8.0 g/dL Test reordered by Protein, [facility]. Total Result Comment: [id number] Account Credited LAB ALB 3.9-4.9 g/dL Test Albumin reordered by [facility]. Result Comment: [id number] Account Credited LAB CA 8.5-10.2 mg/dL Test Calcium, Total reordered by [facility]. Result Comment: [id number] Account Credited LAB TBIL 0.2-1.3 mg/dL Bilirubin, Test Total reordered by [facility]. Result Comment: [id number] Account Credited LAB ALKP 34-123 U/L Alkaline Test Phosphatase reordered by [facility]. Result Comment: [id number] Account Credited LAB AST 13-35 U/L Test AST reordered by [facility]. Result Comment: [id number] Account Credited LAB GLU 74-99 mg/dL Test Glucose reordered by [facility]. Result Comment: [id number] Account Credited LAB BUN 7-21 mg/dL Test BUN reordered by [facility]. Result Comment: [id number] Account Credited LAB CRET 0.58-0.96 mg/dL Creatinine Test reordered by [facility]. Result Comment: [id number] Account Credited LAB NA 136-144 mmol/L Test Sodium reordered by [facility]. Result Comment: [id number] Account Credited LAB K 3.7-5.1 mmol/L Test Potassium reordered by [facility]. Result Comment: [id number] Account Credited LAB CL 97-105 mmol/L Test Chloride reordered by [facility]. Result Comment: [id number] Account Credited LAB CO2 22-30 mmol/L Test CO2 reordered by [facility]. Result Comment: [id number] Account Credited LAB AGAP 9-18 mmol/L Test Anion Gap reordered by [facility]. Result Comment: [id number] Account Credited LAB ALT 7-38 U/L Test reordered ALT by [facility]. Result Comment: [id number] Account Credited LAB GFRAA eGFR- Amer. Test reordered by [facility]. Result Comment: [id number] Account Credited LAB GFRNAA . eGFR-All Test Other Races reordered by [facility]. Result Comment: [id number] Account Credited LAB GFRPED eGFR-Ped. Test Factor reordered by [facility]. Result Comment: [id number] Account Credited Performed By: #### CMP, CBC, HBA1C, VITD #### [facility] [address] [place], [place] [address] CBC Collected: 01/13/2018 Status: F Source: [place] 12:20 PM [facility] REPOSITORY TYPE CODE TESTS RESULT [...] By: #### CMP, CBC, HBA1C, VITD #### [facility] [employer] [address] [place] [address] HEMOGLOBIN A1C Collected: 01/13/2018 Status: F Source: [place] 12:20 PM [facility] REPOSITORY TYPE CODE TESTS RESULT OUT OF REFERENCE UNITS RANGE LAB HGBA1C 4.3-5.6 % High Hemoglobin A1c 6.5 LAB HBA0 mg/dL Est. Average Glucose 140 Result Comment: eAG: (Estimated average glucose) is a calculated value from HgbA1c and is international sales representative of the average blood glucose level in the last 2-3 month period. Performed By: #### CMP, CBC, HBA1C, VITD #### [facility] [employer] [facility] [place] [address] VITAMIN D 25 HYDROXY Collected: 01/13/2018 Status: F Source: [place] 12:20 PM [facility] REPOSITORY TYPE CODE TESTS RESULT OUT OF REFERENCE UNITS RANGE LAB VITD 31.0-80.0 ng/mL Vitamin D 25 47.5 Hydroxy Result Comment: Classification of 25 [place] Vitamin D status: Insufficiency/Moderate Deficiency: < or = 30 ng/mL Sufficiency/Optimal Levels: 31 to 80 ng/mL Toxicity: > 100 ng/mL Test performed by chemiluminescent immunoassay. Performed By: #### CMP, CBC, HBA1C, VITD #### [facility] [employer] [address] [place] [address] COMP METABOLIC PANEL Collected: 01/13/2018 Status: F Source: [place] 12:18 PM [facility] REPOSITORY TYPE CODE TESTS RESULT OUT OF REFERENCE UNITS RANGE LAB TP 6.3-8.0 g/dL Protein, Total 7.2 LAB ALB 3.9-4.9 g/dL Albumin 4.2 LAB CA 8.5-10.2 mg/dL Calcium, Total 9.2 LAB TBIL 0.2-1.3 mg/dL Bilirubin, Total 0.6 LAB ALKP 34-123 U/L Alkaline Phosphatase 76 LAB AST 13-35 U/L AST 20 LAB GLU 74-99 mg/dL Glucose 83 Result Comment: The [place] Diabetes Association (ADA) provides guidance for cutoff [...] Standards of Medical Care in Diabetes 2016, [place] Diabetes Association. Diabetes Care. 2016.39(Suppl 1). LAB [...] actual GFR. Performed By: #### CMP #### [facility] [address] [place], [place] [address] EMERGENCY REPORT Observed: 11/18/2017 Status: F Source: [facility] [place] 4:33 AM [facility] EMERGENCY ROOM REPORT NAME ACCOUNT SEX AGE ADMIT DISCHARGE PT MED. RECORD# NUMBER DATE DATE TYPE OMAR [id number] F 62 11/17/17 11/17/17 3 JOSETTE Whitaker [id number] ROOM: ER DATE OF : 1955 DICTATING [...] Francoise Paulson MD 11/17/17 06:24 JOB #: [id number] Transcribed By: rebecca 11/17/17 19:54 Electronically signed by: E-SIGN: Francoise Paulson M.D. 11/18/17 04:33 Page 2 of 2 JOSETTE NELSON Emergency Room Report TROPONIN Collected: 11/17/2017 Status: F Source: [facility] 4:30 AM [facility] TYPE CODE TESTS RESULT OUT OF REFERENCE [...] such as heterophile antibodies). Performed By: #### [id number] #### [facility],[address] [place] [address] CHEST 2 VIEWS Observed: 11/17/2017 Status: F [facility] 3:56 AM [place] [address] Patient: JOSETTE NELSON. Phone#: : 1955 Age: 62 Gender: F Pt. Type: ER Account: [id number] Location: 052 Ordering: FRANCOISE PAULSON Exam Date: 11/17/2017/3:42 Family Phys: DR. ZANDER OSBORN D.O.Charge Code: [id number] Physician: [place] Order #: [id number] DLP Dose#: PROCEDURE: X-RAY CHEST 2 VIEWS COMPARISON: [facility], XR, CHEST PA/LAT, 11/29/2016, 16:59. 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 blood sugar diagnostic ([employer] NO CODING) test strip Test blood sugars [...] agreed with the plan. 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 Zander Osborn DO [address] [place] [address] Referring Provider: SELF [200] Allergies As of [...] [E78.00] Tobacco abuse [Z72.0] Essential hypertension [I10] Order(s):[facility] SCREENING [[id number]] Order #: [id number] FUTURE lisinopril (ZESTRIL, PRINIVIL) 10 mg tabletTake 1 tablet by mouth once daily.Disp: 30 tabletRfl: 11 dulaglutide (TRULICITY) 0.75 mg / 0.5 ml subcutaneous pen injectorInject 0.75 mg subcutaneously once each week. Inject dose once per week. Discard Pen AfterDisp: 4 PenRfl: 3 PARKING FOR HANDICAPPED [[id number]] Order #: [id number]: 2 Prescriptions as of 10/28/2017 Sig: METFORMIN [...] placement [Z95.*INVALID FOR* Coronary artery disease involving hoonah machado*INVALID FOR* Dysuria [R30.0] INVALID FOR* Obesity, [...] ALBUMIN/CREAT RATIO Collected: 10/08/2017 Status: F Source: [place] 10:48 AM [facility] REPOSITORY TYPE CODE TESTS RESULT OUT [...] 1994, 25:107) Performed By: #### UACR #### [facility] [address] [place], [place] [address] COMP METABOLIC PANEL Collected: 10/08/2017 Status: F Source: [place] 10:45 AM [facility] REPOSITORY TYPE CODE TESTS RESULT OUT OF REFERENCE UNITS RANGE LAB TP 6.3-8.0 g/dL Protein, Total 7.0 LAB ALB 3.9-4.9 g/dL Albumin 3.9 LAB CA 8.5-10.2 mg/dL Calcium, Total 9.1 LAB TBIL 0.2-1.3 mg/dL Bilirubin, Total 0.4 LAB ALKP 32-117 U/L Alkaline Phosphatase 89 LAB AST 13-35 U/L AST 18 LAB GLU 74-99 mg/dL Glucose High 123 Result Comment: The [place] Diabetes Association (ADA) provides guidance for cutoff [...] Standards of Medical Care in Diabetes 2016, [place] Diabetes Association. Diabetes Care. 2016.39(Suppl 1). LAB [...] Performed By: #### CMP, LIPB, HBA1C #### [facility] [employer] [address] [place], [place] [address] LIPID PANEL, BASIC Collected: 10/08/2017 Status: F Source: [place] 10:45 AM [facility] REPOSITORY TYPE CODE TESTS RESULT [...] Desk Reference: National Heart, Lung, and Blood [place]. National Institutes of Health. 2001: NIH Publication No. 01-3305. 2. An International Atherosclerosis Society position paper: global recommendations for the management of dyslipidemia: executive summary, Atherosclerosis. 2014: 232(2):410-413. Performed By: #### CMP, LIPB, HBA1C #### [facility] [address] [place], [place] [address] HEMOGLOBIN A1C Collected: 10/08/2017 Status: F Source: [place] 10:45 AM [facility] TYPE CODE TESTS RESULT OUT OF REFERENCE UNITS RANGE LAB HGBA1C 4.3-5.6 % High Hemoglobin A1c 7.5 LAB HBA0 mg/dL Est. Average Glucose 169 Result Comment: eAG: (Estimated average glucose) is a calculated value from HgbA1c and is international sales representative of the average blood glucose level in the last 2-3 month period. Performed By: #### CMP, LIPB, HBA1C #### [facility] [address] [place] [id number] PROGRESS Observed: 10/02/2017 Status: COMPLETED Source: [place] 9:12 AM [facility] REPOSITORY HNO ID: [id number] Author: Jesica Guzman Cma Service: (none) Author Type: (none) Type: Progress Notes Filed: 10/02/2017 9:12 AM Note Text: Letter mailed to patient. PROGRESS Observed: 10/02/2017 Status: COMPLETED Source: [place] 9:09 AM [facility] REPOSITORY HNO ID: [id number] Author: Jesica Guzman Cma Service: (none) Author Type: (none) Type: Progress Notes Filed: 10/02/2017 9:12 AM Note Text: Upcoming appointment on 10/13. Labs not due yet. I will send DM retinal reminder with attached release form. Discuss HM/ due Mammogram at upcoming appointment. CNPTOUTREACH Observed: 10/02/2017 Status: COMPLETED Source: [place] 12:00 AM [facility] REPOSITORY Patient Outreach (INTMWS) JOSETTE NELSON ([id number]) 1955 F TXT Date Time Provider Department [...] Assessed Reason for Visit: PHMA/Care Gap Outreach [4815] Prescriptions as of 10/02/2017 Sig: DOCUSATE SODIUM [...] placement [Z95.*INVALID FOR* Coronary artery disease involving hoonah machado*INVALID FOR* Dysuria [R30.0] INVALID FOR* Obesity, Class I, BMI 30-34.9 [E66.9] INVALID FOR* Major depression, recurrent, chronic (HCC) [F33*INVALID FOR* Bilateral leg edema [R60.0] INVALID FOR* OAB (overactive bladder) [N32.81] INVALID FOR* Urinary frequency [R35.0] INVALID FOR* Letter Text [facility] Zander Osborn DO [address] [place], [place] [address] Dear Josette Nelson Your health care is [...] blindness Thank you, Zander Osborn DO Letter [place] [id number] Office: [phone] Zander Osborn DO REQUEST FOR EYE EXAM FINDINGS April 04, 2016 Dear eye home care giver, Thank you for coordinating eye care for [...] 10/02/17 LILIAMTOKATHIE Observed: 09/29/2017 Status: COMPLETED Source: [place] 12:00 AM [facility] REPOSITORY Patient Outreach (INTMWH) JOSETTE NELSON ([id number]) 1955 F TXT Date Time Provider Department 09/29/17 [facility] your [facility] today, we recorded the following information about you: Allergies As of Date: 09/29/2017 Noted Allergy Reaction CHOCOLATE 05/23/2013 11 - Vomiting Comments: Dark chocolate LODINE (ETODOLAC) 05/23/2013 7 - Swelling Date Reviewed: 07/13/2017 Reviewed by: Callie Joseph LPN - Fully Assessed Visit Diagnosis:Medication management [Z79.899] Order(s):ALBUMIN/CREAT RATIO RND UR [SQUACR] Order #: [id number] FUTURE Prescriptions as of 09/29/2017 Sig: DOCUSATE [...] placement [Z95.*INVALID FOR* Coronary artery disease involving hoonah machado*INVALID FOR* Dysuria [R30.0] INVALID FOR* Obesity, Class I, BMI 30-34.9 [E66.9] INVALID FOR* Major depression, recurrent, chronic (HCC) [F33*INVALID FOR* Bilateral leg edema [R60.0] INVALID FOR* OAB (overactive bladder) [N32.81] INVALID FOR* Urinary frequency [R35.0] INVALID FOR* Encounter Status:Closed by appsplit, PRODUSER on 12/25/17 PROTIME Collected: 09/15/2017 Status: F Source: [place] 2:13 PM [facility] REPOSITORY TYPE CODE TESTS RESULT OUT OF RANGE REFERENCE UNITS LAB PSEC 9.7-13.0 sec PT Sec 10.2 LAB INR 0.9-1.3 PT INR 1.0 Result Comment: Vitamin K Antagonist (VKA) Therapeutic Range: INR 2 to 3 (Target INR of 2.5) Note: For patients treated with VKA drugs, such as warfarin, the [place] College of Chest Physicians 2012 Guideline recommends [...] Chest 2012, 141:7S-47S Talia RA, et al. [facility] 2017, 70: 252-289 Performed By: #### PT #### [facility] [employer] [address] [place] [id number] VITAMIN D 25 HYDROXY Collected: 09/04/2017 Status: F Source: [place] 12:10 PM [facility] REPOSITORY TYPE CODE TESTS RESULT OUT OF REFERENCE UNITS RANGE LAB VITD 31.0-80.0 ng/mL Vitamin D 25 38.3 Hydroxy Result Comment: Classification of 25 [place] Vitamin D status: Insufficiency/Moderate Deficiency: < or = 30 ng/mL Sufficiency/Optimal Levels: 31 to 80 ng/mL Toxicity: > 100 ng/mL Test performed by chemiluminescent immunoassay. 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 Zander Osborn DO [address] [place] [address] HEMOGLOBIN A1C Collected: 07/13/2017 Status: F Source: [place] 1:17 PM [facility] TYPE CODE TESTS RESULT OUT OF REFERENCE UNITS RANGE LAB HGBA1C 4.3-5.6 % High Hemoglobin A1c 6.7 LAB HBA0 mg/dL Est. Average Glucose 146 Result Comment: eAG: (Estimated average glucose) is a calculated value from HgbA1c and is international sales representative of the average blood glucose level in the last 2-3 month period. Performed By: #### HBA1C, CMP, LIPB #### [facility] [address] [place], [place] [address] COMP METABOLIC PANEL Collected: 07/13/2017 Status: F Source: [place] 1:17 PM [facility] REPOSITORY TYPE CODE TESTS RESULT OUT OF REFERENCE UNITS RANGE LAB TP 6.3-8.0 g/dL Protein, Total 7.4 LAB ALB 3.9-4.9 g/dL Albumin 4.0 LAB CA 8.5-10.2 mg/dL Calcium, Total 9.3 LAB TBIL 0.2-1.3 mg/dL Bilirubin, Total 0.3 LAB ALKP 32-117 U/L Alkaline Phosphatase 87 LAB AST 13-35 U/L AST 22 LAB GLU 74-99 mg/dL Glucose 96 Result Comment: The [place] Diabetes Association (ADA) provides guidance for cutoff [...] Standards of Medical Care in Diabetes 2016, [place] Diabetes Association. Diabetes Care. 2016.39(Suppl 1). LAB [...] Performed By: #### HBA1C, CMP, LIPB #### [facility] [address] [place], [place] [address] LIPID PANEL, BASIC Collected: 07/13/2017 Status: F Source: [place] 1:17 PM [facility] REPOSITORY TYPE CODE TESTS RESULT [...] Desk Reference: National Heart, Lung, and Blood [place]. National Institutes of Health. 2001: NIH Publication No. 01-3305. 2. An International Atherosclerosis Society position paper: global recommendations for the management of dyslipidemia: executive summary, Atherosclerosis. 2014: 232(2):410-413. Performed By: #### HBA1C, CMP, LIPB #### [facility] [address] [place] [id number] XR CHEST 2V FRONTAL/LAT Observed: 07/13/2017 Status: F Source: [place] 1:05 PM [facility] REPOSITORY * * *Final Report* * * [...] IMPRESSION: Stable chest. No acute cardiopulmonary process. Scanning Manager: XAVIER Transcribe Date/Time: Jul 13 2017 1:39P Dictated by : JUDITH CHARLES MD This examination was interpreted and the report reviewed and electronically signed by: JUDITH CHARLES MD on Jul 13 2017 1:43PM EST [id number] [id number] Observed: 07/13/2017 Status: COMPLETED Source: [place] 12:57 PM [facility] REPOSITORY HNO ID: [id number] Author: John Sadler () Abiel Welch Service: (none) Author Type: Truck Jumper Type: Progress Notes Filed: 07/13/2017 1:04 PM [...] PM PEGGY Observed: 07/13/2017 Status: COMPLETED Source: [place] 12:00 PM [facility] REPOSITORY [facility] JOSETTE NELSON ([id number]) 1955 F TXT Date Time Provider Department 07/13/17 12:00 PM [facility] During your visit today, we recorded 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 - [...] with the plan. Zander Osborn DO [address] [place] [address] Referring Provider: ZANDER OSBORN [[id number]] Allergies As of Date: 07/13/2017 Noted Allergy [...] complication, without long-term current use of insulin ([facility]) [E11.9] Order(s):XR CHEST 2V FRONTAL/LAT [[id number]] Order #: [id number] FUTURE methylPREDNISolone (MEDROL DOSE-PACK) 4 mg Dose-PackAs [...] placement [Z95.*INVALID FOR* Coronary artery disease involving hoonah machado*INVALID FOR* Dysuria [R30.0] INVALID FOR* Obesity, [...] PANEL, BASIC Collected: 04/14/2017 Status: F Source: [place] 1:35 PM [facility] REPOSITORY TYPE CODE TESTS RESULT [...] Desk Reference: National Heart, Lung, and Blood [place]. National Institutes of Health. 2001: NIH Publication No. 01-3305. 2. An International Atherosclerosis Society position paper: global recommendations for the management of dyslipidemia: executive summary, Atherosclerosis. 2014: 232(2):410-413. Performed By: #### LIPB #### [facility] [address], [place] [address] CBC Collected: 04/14/2017 Status: F Source: [place] 1:34 [facility] REPOSITORY TYPE CODE TESTS RESULT OUT [...] #### CBC, HBA1C, CMP, B12, VITD #### [facility] [employer] [facility], [place] [address] HEMOGLOBIN A1C Collected: 04/14/2017 Status: F Source: [place] 1:34 [facility] REPOSITORY TYPE CODE TESTS RESULT OUT OF REFERENCE UNITS RANGE LAB HGBA1C 4.3-5.6 % High Hemoglobin A1c 6.7 LAB HBA0 mg/dL Est. Average Glucose 146 Result Comment: eAG: (Estimated average glucose) is a calculated value from HgbA1c and is international sales representative of the average blood glucose level in the last 2-3 month period. Performed By: #### CBC, HBA1C, CMP, B12, VITD #### [facility] [employer] [address], [place] [address] COMP METABOLIC PANEL Collected: 04/14/2017 Status: F Source: [place] 1:34 [facility] RE[facility] TYPE [...] 74-99 mg/dL Glucose 84 Result Comment: The [place] Diabetes Association (ADA) provides guidance for cutoff [...] Standards of Medical Care in Diabetes 2016, [place] Diabetes Association. Diabetes Care. 2016.39(Suppl 1). LAB [...] #### CBC, HBA1C, CMP, B12, VITD #### [facility] [employer] [address] [place], [place] [address] VITAMIN B12 Collected: 04/14/2017 Status: F Source: [place] 1:34 PM [facility] REPOSITORY TYPE CODE TESTS RESULT OUT OF REFERENCE UNITS RANGE LAB B12 232-1245 pg/mL Vitamin B12 386 Performed By: #### CBC, HBA1C, CMP, B12, VITD #### [facility] [employer] [address] [place], [place] [address] VITAMIN D 25 HYDROXY Collected: 04/14/2017 Status: F Source: [place] 1:34 PM [facility] REPOSITORY TYPE CODE TESTS RESULT OUT OF REFERENCE UNITS RANGE LAB VITD 31.0-80.0 ng/mL Low Vitamin D 25 23.9 Hydroxy Result Comment: Classification of 25 [place] Vitamin D status: Insufficiency/Moderate Deficiency: < or = 30 ng/mL Sufficiency/Optimal Levels: 31 to 80 ng/mL Toxicity: > 100 ng/mL Test performed by chemiluminescent immunoassay. Performed By: #### CBC, HBA1C, CMP, B12, VITD #### [facility] [employer] [address] [place] [id number] PROGRESS Observed: 04/14/2017 Status: COMPLETED Source: [place] 12:57 PM [facility] REPOSITORY HNO ID: [id number] Author: Zander Osborn Service: (none) Author Type: [...] to financial constraints, living with dtr in [place]. Fasting glucose readings most in 110-140 range, [...] therapy includes atorvastatin (Lipitor). 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 Coronary artery disease involving hoonah coronary artery of hoonah heart without angina pectoris - ICD9: 414.01, ICD10: I25.10 - f/u with Legal Arbitrator, continue Brillinta 8. Major depression, recurrent, chronic [...] Z95.5 - stable, continue Brillinta, f/u with Legal Arbitrator 11. Hypercholesteremia - ICD9: 272.0, ICD10: E78.00 [...] with the plan. Zander Osborn DO [address] [place] [address] CNOV Observed: 04/14/2017 Status: COMPLETED Source: [place] 12:40 PM [facility] REPOSITORY Office Visit ([facility]) JOSETTE NELSON ([id number]) 1955 F TXT Date Time Provider Department [...] to financial constraints, living with dtr in [place]. Fasting glucose readings most in 110- 140 [...] therapy includes atorvastatin (Lipitor). 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 Coronary artery disease involving hoonah coronary artery of hoonah heart without angina pectoris - ICD9: 414.01, ICD10: I25.10 - f/u with Legal Arbitrator, continue Brillinta 8. Major depression, recurrent, chronic [...] Z95.5 - stable, continue Brillinta, f/u with Legal Arbitrator 11. Hypercholesteremia - ICD9: 272.0, ICD10: E78.00 [...] with the plan. Zander Osborn DO [address] [place] [address] Referring Provider: ZANDER OSBORN [[id number]] Allergies As of Date: 04/14/2017 Noted Allergy Reaction CHOCOLATE 05/23/2013 11 - Vomiting Comments: Dark chocolate LODINE (ETODOLAC) 05/23/2013 7 - Swelling Date Reviewed: 04/14/2017 Reviewed by: Callie Joseph LPN - Fully Assessed Reason for Visit: Follow Up [171] Cmt: 3 months Primary Visit Diagnosis:Uncontrolled type 2 diabetes mellitus with hyperosmolarity without coma, without long-term current use of insulin (HCC) [E11.00] Other Visit Diagnoses:Vitamin D deficiency [E55.9] Essential hypertension [I10] OAB (overactive bladder) [N32.81] Urinary frequency [R35.0] Bilateral leg edema [R60.0] Coronary artery disease involving hoonah coronary artery of hoonah heart without angina pectoris [I25.10] Major depression, recurrent, chronic (HCC) [F33.9] Tobacco use disorder [F17.200] H/O right coronary artery stent placement [Z95.5] Hypercholesteremia [E78.00] Obesity, Class I, BMI 30-34.9 [E66.9] Order(s):albuterol HFA (VENTOLIN HFA) 90 mcg/actuation inhalerInhale 2 Puffs as instructed every 4 hours as needed for Wheezing/Shortness of Breath.Disp: 1 InhalerRfl: 3 HGB A1C [CYTTV8Q] Order #: [id number] FUTURE VITAMIN D 25 HYDROXY [SQVITD] Order #: [id number] FUTURE VITAMIN B12 BLOOD [SQB12] Order #: [id number] FUTURE CBC [SQCBC] Order #: [id number] FUTURE COMP METABOLIC PANEL [SQCMP] Order #: [id number] FUTURE oxybutynin (DITROPAN) 5 mg tabletTake 1 tablet by mouth twice daily.Disp: 60 tabletRfl: 5 CONSULT TO FEMALE UROLOGY/URO GYNECOLOGY [1950948] Order #: [id number]: 1 Prescriptions as of 04/14/2017 Sig: ALBUTEROL [...] placement [Z95.*INVALID FOR* Coronary artery disease involving hoonah machado*INVALID FOR* Dysuria [R30.0] INVALID FOR* Prescriptions [...] / CODE REACTION SEVERITY SOURCE 04/06/2018 Drug etodolac/W400457 [facility] 568989(SNOM Repository ED CT) 05/23/2013 Food/861846 CHOCOLATE Vomiting [facility] 000(SNOMED [address] [place] [address]) Repository 05/23/2013 DRUG ETODOLAC SWELLING [facility] INGREDI/419 [address] [place] 213730(SNOM Repository ED CT) Food CHOCOLATE RASH Moderate Robin Pomerene Allergy/414 ([facility] 388442(SNOM Modifier) Repository ED CT) (Qualifier Value) Drug LODINE/36717287( Moderate Robin Pomerene Allergy/416 RXNORM) ([facility] 113424(SNOM Modifier) Repository ED CT) (Qualifier Value) ENCOUNTERS ENCOUNTERS ADMIT/DISCHARGE ACCOUNT ADMITTING ENCOUNTER LOCATION SOURCE NUMBER CLASS 04/09/2018/04/09/19 [id number] Ambulatory [address] Repository 04/06/2018/04/07/19 [id number] Ashkuldeep, Ambulatory [facility] ing:PCURoom: Repository LIX442Gka: 1 04/06/2018 [id number] Ashmarianne, Ambulatory BMSBuilding:Krystal Conner [facility] Repository 04/06/2018 [id number] Ashmarianne, Ambulatory BMSBuilding:Krystal Conner MS.[facility] Repository 04/06/2018 [id number] [facility] ing:LAB.FUTUR Repository E 03/21/2018/03/21/[id number] GABRIEL LACY Emergency BuildinR Robin Marin oom: ERBed: [facility] Repository 03/17/2018 [id number] [facility] ing:LAB Repository 03/17/2018/03/17/19 [id number] Ambulatory [address] Repository 03/02/2018/03/03/20 [id number] Ambulatory [address] Repository 01/21/2018/01/22/20 [id number] Ambulatory [address] Repository 01/19/2018/01/20/20 [id number] Ambulatory [address] Repository 01/19/2018/01/21/20 [id number] Ambulatory [address] Repository 01/13/2018/01/14/20 [id number] Ambulatory [address] Repository 11/17/2017/11/18/19 [id number] ABIGAIL Emergency BuildinR Robin OWUSU MD oom: ERBed: [facility] Repository 10/28/2017/10/30/19 [id number] Ambulatory [address] Repository 10/08/2017/10/09/19 [id number] Ambulatory [address] Repository 09/15/2017/09/16/19 [id number] Ambulatory [address] Repository 09/04/2017/09/05/19 [id number] Ambulatory [address] Repository 07/13/2017/07/14/19 [id number] Ambulatory [address] Repository 07/13/2017/07/14/19 [id number] Ambulatory [address] Repository 07/13/2017/07/17/19 [id number] Ambulatory [address] Repository 04/14/2017/04/14/19 [id number] Ambulatory [address] Repository 04/14/2017/04/14/19 [id number] Ambulatory [address] Repository PAYERS PAYERS ENCOUNTER GUARANTOR PAYER SUBSCRIBER SOURCE 04/06/2018 JOSETTE L Primary JOSETTE Ferguson [id number] Insurance:MEDICARE WAGGONERDOB: Community [place] PART A BPolicy Number: [id number], [id number] Repository [place] [address]Iee: Date:2018-04-06 () 04/06/2018 Secondary JOSETTE L Crawford Insurance:MEDICAIDPoli WAGGONERDOB: Community cy Number: [id number] Hospital [id number] Repository Date:2018-04-06 04/06/2018 Tertiary NOT GIVENUNK Crawford Insurance:SELF PAY [facility] Number: Effective Repository Date:2018-04-06 04/06/2018 JOSETTE L Primary JOSETTE Ferguson [id number] Insurance:MEDICARE WAGGONERDOB: Community [place] PART A BPolicy Number: [id number] [facility], [id number] Repository [place] [address]Ccj: Date:2018-04-06 () 04/06/2018 Secondary NOT GIVENUNK Crawford Insurance:SELF PAY [facility] Number: Effective Repository Date:2018-04-06 04/06/2018 JOSETTE L Primary JOSETTE L Phyllis [id number] Insurance:MEDICARE WAGGONERDOB: Community [place] PART A BPolicy Number: [id number] [id number] Repository [place] [address]Rtk: Date:2018-04-06 () 04/06/2018 Secondary NOT GIVENUNK Phyllis Insurance:SELF PAY Community [facility] Number: Effective Repository Date:2018-04-06 04/06/2018 JOSETTE L Primary JOSETTE L Phyllis [id number] Insurance:MEDICARE WAGGONERDOB: Community [place] PART A BPolicy Number: [id number] Medical Center, [id number] Repository [place] [address]Nln: Date:2018-04-01 () 04/06/2018 Secondary NOT GIVENUNK Crawford Insurance:SELF PAY [facility] Number: Effective Repository Date:2018-04-01 03/21/2018 JOSETTE L Primary JOSETTE L Robin Sol[place] WAGGONERDOB: Insurance:MEDICARE WAGGONERDOB: [facility] [id number] Hospital FORLOW Number: KAMRAN Repository [facility], [id number] Date:Plan Name:[facility] [id number]: () 03/17/2018 JOSETTE L Primary JOSETTE L Phyllis [id number] Insurance:MEDICARE WAGGONERDOB: Community [place] PART A BPolicy Number: [id number] Medical Center, [id number] Repository [place] [address]Efj: Date:2018-03-17 () 03/17/2018 Secondary NOT GIVENUNK Phyllis Insurance:SELF PAY [facility] Number: Effective Repository Date:2018-03-17 11/17/2017 JOSETTE L Primary JOSETTE HARRISGGONERDOB: Insurance:MEDICARE WAGGONERDOB: [facility] [id number] [facility] FORLOW Number: FORLOW Repository [facility], [id number], [place] Date:Plan Name:[facility] [id number]: ()
== END 2018-04-07 12:26 | disposition home or self-care (01) ==
LOC: ED 14:03 → PCU 15:21
PROVIDERS: Admitting Provider Hospitalist; Emergency Provider Emergency Medicine; Family Provider Student in an Organized Health Care Education/Training Program; PCP Student in an Organized Health Care Education/Training Program; Referring Provider Hospitalist; Visit Provider Family Medicine
DX: R07.89 Other chest pain (principal); E11.9 Type 2 diabetes mellitus without complications; E78.5 Hyperlipidemia, unspecified; J44.9 Chronic obstructive pulmonary disease, unspecified; K21.9 Gastro-esophageal reflux disease without esophagitis; I10 Essential (primary) hypertension; I25.10 Atherosclerotic heart disease of native coronary artery without angina pectoris; Z95.5 Presence of coronary angioplasty implant and graft; I16.0 Hypertensive urgency; F17.210 Nicotine dependence, cigarettes, uncomplicated; Z79.899 Other long term (current) drug therapy; Z79.84 Long term (current) use of oral hypoglycemic drugs; Z79.51 Long term (current) use of inhaled steroids
CPT/HCPCS: 36415; 71045; 78452; 80048; 82962; 84484; 85025; 85610; 85730; 93005; 93017; 96374; 96376; 97802; 99218; 99285; A9500; A4216; G0378; J2785

== ENCOUNTER → 2019-11-11 15:30 | Outpatient (CLI) | payer MEDICARE, SELFPAY ==
[2018-04-06 15:50] VITALS: BMI 32.5
--- NOTE | 2019-11-11 15:41 | MRI_ITS ---
STUDY: MRI BRAIN WITH AND WITHOUT CONTRAST REASON FOR EXAM: Female, 64 years old. positional headache TECHNIQUE: Standardized multiplanar fat and water weighted pulse sequences were obtained. IV Yes YES was administered for the contrast portion of the examination. COMPARISON: None. FINDINGS: Normal size of the ventricles and extra-axial spaces for the patient''s age. Normal white matter tracts of the supratentorial brain. Normal bilateral basal ganglia. Normal thalami. There is no extra-axial fluid accumulation. Normal flow voids within the major intracranial circulation suggesting patency by spin echo criteria. Normal venous enhancement. There is no enhancing intra-axial or extra-axial abnormality. Normal sella turcica, pituitary gland, infundibular stalk, optic chiasm and hypothalamus. Normal tectal plate and pineal gland. Normal midbrain, levon and medulla. Normal cerebellum. Normal basal cisterns. Normal bilateral temporal bones. Normal bilateral internal auditory canals. No demonstrated orbital abnormality, within the constraints of a routine brain study. Normal visualized paranasal sinuses. Normal calvarium and skull base. Normal visualized soft tissue structures. Normal visualized upper cervical spine. MRI/Brain W/WO Contrast IMPRESSION: Normal unenhanced and enhanced MRI of the brain. Electronically Signed: Ara Mendoza, at 16:56 EDT Tel , Service support ,
== END ==
PROVIDERS: PCP Student in an Organized Health Care Education/Training Program; Referring Provider Student in an Organized Health Care Education/Training Program; Visit Provider Student in an Organized Health Care Education/Training Program
DX: R51 Headache (principal); R20.2 Paresthesia of skin; M79.10 Myalgia, unspecified site; R29.898 Other symptoms and signs involving the musculoskeletal system
CPT/HCPCS: 70553; A9575